=== PATIENT | male | born 1960 | race Caucasian/White ===

== ENCOUNTER → 2024-05-16 | Outpatient (CLI) | payer OTHER, SELFPAY ==
[2024-05-16 15:17] LABS: Absolute Lymphocyte Count 2.97 X10^3/uL (0.83-4.51); Absolute Neutrophil Count 4.6 X10^3/uL (2.0-7.7); Basophil# 0.05 X10^3/uL; Basophil% 0.6 % (0-1); Eosinophil# 0.55 X10^3/uL; Eosinophils% 6.3 % (0-5); Hematocrit 44.8 % (40-54); Lymphocyte # 2.97 X10^3/ul (0.83-4.51); Lymphocyte % 34.2 % (19-41); Mean Corp Hgb Conc 33.5 g/dL (32-36); Mean Corpuscular Hgb 31.1 pg (27.0-32.0); Mean Corpuscular Volume 92.9 fL (80-94); Mean Platelet Vol. 13.5 fl (6.2-12.0); Monocyte# 0.52 X10^3/uL; NRBC Flagged by Analyzer 0 % (0-5); Neutrophil # 4.57 X10^3/uL (2.7-7.7); Neutrophil % 52.6 % (47-70); Platelet Count 180 K/mm3 (150-450); RBC Distribution Width CV 13.4 % (11.6-14.6); RBC Distribution Width SD 45.8 fl (35.1-43.9); Red Blood Count 4.82 M/mm3 (4.6-6.2); White Blood Count 8.7 K/mm3 (4.4-11.0)
[2024-05-16 15:36] LABS: ALB/GLOB Ratio 0.8 RATIO (0.9-2.4); AST(SGOT) 23 U/L (15-37); Alanine Aminotransfer ALT/SGPT 47 U/L (16-61); Albumin, Serum 3.2 g/dL (3.2-5.0); Alkaline Phosphatase 67 U/L (45-117); Anion Gap 6 (5-15); BUN 13 mg/dL (7-18); BUN/Creat Ratio 12.6 RATIO (10-20); Calcium,Total 9.2 mg/dL (8.5-10.1); Chloride 105 mmol/L (98-107); Cholesterol 236 mg/dL (200); Creatinine, Serum 1.03 mg/dL (0.70-1.30); EST Glomerular Filtration Rate 77 mL/min (>60); Est Glom Filt Rate - Afr Amer 93 mL/min (>60); Globulin 3.9 g/dL (2.2-4.2); Glucose 109 mg/dL (74-106); High Density Lipoprotein 42 mg/dL; Potassium 4.3 mmol/L (3.5-5.1); Protein, Total 7.1 g/dL (6.4-8.2); Sodium Level 138 mmol/L (136-145); Triglycerides 166 mg/dL; Very Low Density Lipoprotein 33 mg/dL (5-40)
== END | disposition home or self-care (01) ==
LOC: BFHLAB 11:47
PROVIDERS: PCP Nurse Practitioner Family; Visit Provider Nurse Practitioner Family
DX: E78.5 Hyperlipidemia, unspecified (principal); I10 Essential (primary) hypertension; Z12.5 Encounter for screening for malignant neoplasm of prostate
CPT/HCPCS: 36415; 80053; 80061; 84153; 85025; G0103

== ENCOUNTER → 2024-06-05 | Outpatient (CLI) | payer OTHER, SELFPAY ==
--- NOTE | 2024-06-05 14:53 | RAD_ITS ---
EXAM: XR Pelvis, 1 or 2 Views CLINICAL INDICATION: PAIN TECHNIQUE: Frontal view of the pelvis. COMPARISON: No relevant prior studies available. FINDINGS: BONES/JOINTS: Mild degenerative change of the hip joints, bilaterally. No acute fracture. No dislocation. SOFT TISSUES: Unremarkable. GASTROINTESTINAL TRACT: Fecal retention in the colon consistent with constipation. RAD/Pelvis 1 or 2 Views IMPRESSION: 1. Degenerative changes as above. 2. Fecal retention in the colon consistent with constipation. Reading Location: [facility]
[2024-06-05 17:44] LABS: Absolute Lymphocyte Count 3.13 X10^3/uL (0.83-4.51); Absolute Neutrophil Count 4.5 X10^3/uL (2.0-7.7); Basophil# 0.08 X10^3/uL; Basophil% 0.9 % (0-1); Eosinophil# 0.93 X10^3/uL; Hematocrit 44.9 % (40-54); Hemoglobin 15.2 g/dL (13.0-16.5); Lymphocyte # 3.13 X10^3/ul (0.83-4.51); Lymphocyte % 33.7 % (19-41); Mean Corp Hgb Conc 33.9 g/dL (32-36); Mean Corpuscular Hgb 31.6 pg (27.0-32.0); Mean Corpuscular Volume 93.3 fL (80-94); Mean Platelet Vol. 13.9 fl (6.2-12.0); Monocyte# 0.59 X10^3/uL; Monocyte% 6.4 % (0-10); NRBC Flagged by Analyzer 0 % (0-5); Neutrophil # 4.51 X10^3/uL (2.7-7.7); Neutrophil % 48.5 % (47-70); Platelet Count 151 K/mm3 (150-450); RBC Distribution Width CV 13.6 % (11.6-14.6); RBC Distribution Width SD 46.3 fl (35.1-43.9); Red Blood Count 4.81 M/mm3 (4.6-6.2); White Blood Count 9.3 K/mm3 (4.4-11.0)
[2024-06-05 17:59] LABS: Erythrocyte Sedimentation Rate 7 mm/hr (0-20)
[2024-06-05 20:28] LABS: Hepatitis B Surface Antibody Nonreactive; Hepatitis B Surface Antigen Nonreactive (Nonreactive); Hepatitis C Antibody REAC (Nonreactive)
[2024-06-05 20:44] LABS: ALB/GLOB Ratio 1.4 RATIO (0.9-2.4); AST(SGOT) 20 U/L (<=37); Alanine Aminotransfer ALT/SGPT 21 U/L (<=46); Albumin, Serum 3.9 g/dL (3.4-4.8); Alkaline Phosphatase 88 U/L (40-129); Anion Gap 11 (5-15); BUN 13 mg/dL (4-19); BUN/Creat Ratio 13.3 RATIO (10-20); CRP 5.81 mg/L (0.0-3.0); Calcium,Total 9.2 mg/dL (7.6-11.0); Carbon Dioxide 30.4 mmol/L (21.0-32.0); Chloride 99 mmol/L (98-108); Creatinine, Serum 0.97 mg/dL (0.70-1.20); EST Glomerular Filtration Rate 87 (>60); Globulin 2.8 g/dL (2.2-4.2); Glucose 95 mg/dL (70-99); Potassium 3.9 mmol/L (3.3-5.1); Protein, Total 6.8 g/dL (5.9-8.4); Rheumatoid Factor 17.5 IU/mL (<15); Sodium Level 141 mmol/L (133-145); Total Bilirubin 0.19 mg/dL (0.00-1.30)
[2024-06-07 21:12] LABS: CCP IgG Antibodies 5 units (0-19); QNTFERON TB Mitogen Value > 10.00 IU/mL (.); QNTFERON TB Nil Value 0.09 IU/mL (.); QNTFERON TB1+ Ag Value 0.06 IU/mL (.); QNTFERON TB2+ Ag Value 0.08 IU/mL (.); QNTIFERON TB Positive Criteria Negative (Negative)
[2024-06-09 13:07] LABS: ANTINUCLEAR ANTIBODIES DIRECT Negative (Negative)
== END | disposition home or self-care (01) ==
LOC: MTLAB 14:51
PROVIDERS: PCP Nurse Practitioner Family; Referring Provider Internal Medicine Rheumatology; Visit Provider Internal Medicine Rheumatology
DX: L40.59 Other psoriatic arthropathy (principal); L40.8 Other psoriasis; M47.897 Other spondylosis, lumbosacral region; M25.559 Pain in unspecified hip
CPT/HCPCS: 36415; 72170; 80053; 85025; 85652; 86038; 86140; 86200; 86431; 86480; 86706; 86803; 87340

== ENCOUNTER → 2024-09-12 | Outpatient (CLI) | payer MEDICARE, SELFPAY ==
--- NOTE | 2024-09-12 15:43 | MRI_ITS ---
PROCEDURE: SPINE LUMBAR (ROUTINE) 09/12/2024 REASON FOR EXAM: RADICULOPATHY TECHNIQUE: SPINE LUMBAR (ROUTINE) COMPARISON: Radiographs on 06/05/2024. FINDINGS: S shaped degenerative scoliosis. Mild diffuse spondylosis. Mild multilevel degenerative disc disease. Uncomplicated benign chronic hemangioma of L4 vertebral body measuring 1.4 cm. Moderate chronic changes of Baastrup's disease. There is normal signal intensity from the visualized bone marrow without evidence of replacement or acute fracture. The conus is unremarkable. Exaggerated lumbar lordosis. Evaluation of the individual levels revealed the following: L5-S1: Mild diffuse disc bulge. Bilateral facet joint arthropathy. The spinal canal is not narrowed. Moderate bilateral neural foramina narrowing. L4-5: Grade 1 anterolisthesis measuring 5.3 mm. Moderate diffuse disc bulge. Bilateral facet joint arthropathy and ligamentum flavum hypertrophy. The spinal canal is mildly narrowed. Moderate bilateral neural foramina narrowing. L3-4: Mild diffuse disc bulge. Bilateral facet joint arthropathy and ligamentum flavum hypertrophy. The spinal canal is not narrowed. Moderate bilateral neural foramina narrowing. L2-3: Grade 1 retrolisthesis measuring 3.5 mm. Mild diffuse disc bulge. Bilateral facet joint arthropathy and ligamentum flavum hypertrophy. The spinal canal is not narrowed. Mild bilateral neural foramina narrowing. L1-2: Grade 1 anterolisthesis measuring 2.7 mm. Mild diffuse disc bulge. Bilateral facet joint arthropathy and ligamentum flavum hypertrophy. The spinal canal is not narrowed. Mild bilateral neural foramina narrowing. Normal visualized paraspinous soft tissue structures. MRI/Spine Lumbar (Routine) IMPRESSION: Degenerative disc disease. Reading Location: [place] [id number]
--- OUTSIDE RECORDS SUMMARY | 2024-09-12 19:30 | XMS RPT_ITS | CCD ---
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 Chayo aGo MD Attending Provider Murray COLLADO, Dr. Domingo Referring Provider Gurpreet COLLADO, Dr. Garzon Attending Provider [facility] Primary Care Unavailable Chayo Gao Referring Unavailable Chayo Gao Attending Unavailable GageElda Attending Unavailable [place], [place] Primary Care Unavailable [place], [place] Primary Care Unavailable Anamaria Holt Referring Unavailable Anamaria Holt Attending Unavailable [place], [place] Primary Care Unavailable Duran Vázquez Attending Unavailable Medications Current Medications Medication Drug Class(es) Dates Sig (Normalized) Sig (Original) 24 hr ALPRAZolam 0.5 mg extended release oral tablet (2 sources) Benzodiazepine take 1 tablet by mouth twice daily ALPRAZolam XR (Xanax XR) 0.5 mg 24 hr tablet Take 1 tablet (0.5 mg) by mouth 2 times a day. Do not crush, chew, or split. Active doxazosin 2 mg oral tablet (2 sources) alpha-Adrenergic John take 1 tablet by mouth once daily doxazosin (Cardura) 2 mg tablet Take 1 tablet (2 mg) by mouth once daily. Active hydroCHLOROthiazide 12.5 mg / lisinopril 10 mg oral tablet (2 sources) Thiazide Diuretic, Angiotensin Converting Enzyme Inhibitor take 1 tablet by mouth once daily lisinopriL-hydro chlorothiazide 10-12.5 mg tablet Indications: Benign essential HTN Take 1 tablet by mouth once daily. Active morphine sulfate 15 mg oral tablet (2 sources) Opioid Agonist take 1 tablet by mouth every eight hours as needed morphine (MSIR) 15 mg tablet Take 1 tablet (15 mg) by mouth every 8 hours if needed for severe pain (7 - 10). Active PARoxetine hydrochloride 20 mg oral tablet (2 sources) Serotonin Reuptake Inhibitor take 1 tablet by mouth once daily PARoxetine (Paxil) 20 mg tablet Take 1 tablet (20 mg) by mouth once daily. Active QUEtiapine 200 mg oral tablet (2 sources) Atypical Antipsychotic take 1 tablet by mouth once daily at bedtime QUEtiapine (SEROquel) 200 mg tablet Take 1 tablet (200 mg) by mouth once daily at bedtime. Active tamsulosin hydrochloride 0.4 mg oral capsule (2 sources) alpha-Adrenergic John take 1 capsule by mouth once daily tamsulosin (Flomax) 0.4 mg 24 hr capsule Take 1 capsule (0.4 mg) by mouth once daily. Active tiZANidine 4 mg oral capsule (2 sources) Central alpha-2 Adrenergic Agonist take 1 capsule by mouth every six hours tiZANidine (Zanaflex) 4 mg capsule Take 1 capsule (4 mg) by mouth. Every 6 hours for 30 days. Active Completed/Discontinued Medications Medication Drug Class(es) Dates Sig (Normalized) Sig (Original) 60 actuat testosterone 20.25 mg/actuat topical gel (1 source) Androgen End: 04-17-2024 testosterone 20.25 mg/1.25 gram (1.62 %) gel in metered-dose pump Place on the skin. One pump on each arm daily 04/17/2024 Discontinued (Med List Cleanup) Problems Active Problems Problem Classification Problem Date Documented Date Episodic/Chronic Anxiety disorders (6 sources) Posttraumatic stress disorder; Translations: [Post-traumatic stress disorder, unspecified] Onset: 04-17-2024 04-17-2024 Chronic Disorders of lipid metabolism (1 source) Hyperlipidemia, unspecified; Translations: [Hyperlipidemia, unspecified] Onset: 05-29-2024 Chronic Essential hypertension (5 sources) Benign essential hypertension; Translations: [Essential (primary) hypertension] Onset: 04-17-2024 04-17-2024 Chronic Hyperplasia of prostate (5 sources) Benign prostatic hyperplasia; Translations: [Benign prostatic hyperplasia without lower urinary tract symptoms] Onset: 04-17-2024 04-17-2024 Chronic Miscellaneous mental health disorders (5 sources) Acute insomnia; Translations: [Adjustment insomnia] Onset: 04-17-2024 04-17-2024 Episodic Neoplasms of unspecified nature or uncertain behavior (2 sources) Polycythemia vera (clinical); Translations: [Polycythemia vera] Onset: 06-13-2024 06-13-2024 Chronic Nutritional deficiencies (2 sources) Vitamin D deficiency, unspecified; Translations: [Vitamin D deficiency, unspecified] Onset: 04-17-2024 Chronic Nutritional deficiencies (3 sources) Dietary calcium deficiency; Translations: [Dietary calcium deficiency] Onset: 04-17-2024 04-17-2024 Episodic Osteoarthritis (6 sources) Osteoarthritis of multiple joints ; Translations: [Polyosteoarthritis, unspecified] Onset: 04-17-2024 04-17-2024 Chronic Other inflammatory condition of skin (2 sources) Psoriatic arthritis; Translations: [Arthropathic psoriasis, unspecified] Onset: 06-13-2024 06-13-2024 Chronic Other inflammatory condition of skin (1 source) Other psoriatic arthropathy; Translations: [Other psoriatic arthropathy] Onset: 06-16-2024 Chronic Other nervous system disorders (4 sources) Other chronic pain; Translations: [Other chronic pain] Onset: 04-17-2024 Chronic Other nutritional; endocrine; and metabolic disorders (3 sources) Obesity caused by energy imbalance; Translations: [Morbid (severe) obesity due to excess calories] Onset: 06-13-2024 04-22-2024 Chronic Other screening for suspected conditions (not mental disorders or infectious disease) (9 sources) Patient encounter status; Translations: [Encounter for screening for other suspected endocrine disorder] Onset: 04-17-2024 04-17-2024 Episodic Spondylosis; intervertebral disc disorders; other back problems (17 sources) Chronic low back pain; Translations: [Neck pain] Onset: 04-17-2024 04-29-2024 Episodic Unclassified (2 sources) Low back pain, unspecified; Translations: [Low back pain, unspecified] Onset: 04-17-2024 Past or Other Problems Problem Classification Problem Date Documented Da te Episodic/Chronic Unclassified (2 sources) Onset: 04-17-2024 04-17-2024 Unclassified (2 sources) Low back pain, unspecified; Translations: [Low back pain, unspecified] Onset: 04-17-2024 Results Test Name Value Interpretation Reference Range Facility Inital Evaluation (1) - PTon 08-13-2024 Inital Evaluation (1) - PT [facility] [address] [place] [address] / REHABILITATION SERVICES INITIAL EVALUATION MR#: [id number] Acct: [id number] Name: BRYSON NEWBERRY Rep #: [id number] : 1960 64 From: Prudencio Cleveland PT, Cert. T, OCS Referring Dr.: Dr. Anamaria Holt MD Status: REG RCR Insurance: [employer] PPO SELF PAY INSURANCE Patient's Visit Information Visit Information Visit Information: BRYSON NEWBERRY is a 64 year old M referred to Physical Therapy by Dr. Anamaria Holt MD with a diagnosis of NECK PAIN AND BACK PAIN. Date of Evaluation: 08/13/24 Physical Therapist: Prudencio Cleveland PT, Cert T, OCS Visit Plan Frequency: 2x /Week Duration: 4 Weeks Plan: PT INTERVENTIONS AQUATIC THERAPY FOR CERVICAL ROM ,POSTURAL EX'S ,DLS ,LUMBAR ROM , BLE STRENGTHENING AND ACTIVITY MODIFICATION Subjective Subjective: This 64 y/o male presents to physical therapy with neck and back pain. Patient has neck and back pain many years 2014. Patient symptoms worsen over time. Patient seen pain management via family .Prescribed meloxicam and muscle relaxers Patient Basli recommended PT and had x-rays showed cervical C5-6 greater than C4-5spondylosis/discogen ic change with disc space narrowing and anterior osteophyte formation. C6-7 disc space is not well evaluated due to shoulder overlap. Bekm-cmsvzur-tdjy-right hypertrophic appearing facet degenerative changes. lumbar showed mild grade 1 appearing anterolisthesis L4 onL5 measures approximately 3-4 mm with associated mild disc space narrowing. Lower lumbar facet degenerative changes . Patient neck pain located symmetrical L > R described as ache and stabbing pain. Patient has radicular symptoms in arms. Patient reports RTC tears. Aggravating factors turning ,flexion and lifting .Alleviating factors rest.C/o occasional dizziness ,BIGGS and tinnitus. Patient has paresthesia/tingling. Patient symptoms affects sleeping. Patient lumbar symmetrical described as ache with radicular symptoms right leg. Aggravating factors sitting,standing ,walking ,bending and lifting.Carrying something heavy grocery bags. Alleviating factors rest. Coughing/sneezing- .Bowel/bladder-. Patient pain affects sleeping takes sleeping aides. Patient has had therapy in [place]. Patient ahs had pain injections in [place] with pain management.Patient condition affects QOL and function. Patient goals to decrease pain SOCAIL: VOCATION: retired Pain Bilateral Neck: Pain Intensity (Out of 10): 5 Pain Intensity Range: 10 Bilateral Back: Pain Intensity (Out of 10): 5 Pain Intensity Range: 10 Objective Objective: POSTURE: mild forward posture GAIT: reciprocal pattern slow zach and antalgic NEURO: c/o paresthesia/tingling ,in arms and legs AROM: BUE WFL limited shoulder flexion with pain MMT: BUE grossly 4/5 ,shoulders 4-/5 CERVICAL ROM: flexion min loss ,extension mod loss ,rotation mod loss ,lateral mod loss FLEXABILITY: mod hamstrings LUMBAR ROM: flexion min/mod loss ,extension mod loss,side glides min/mod loss MMT: quads/hams 4/5 ,hip flexion 4-/5 ,ankle 4/5 Special Tests C/S Radiculapathy - Left Upper limb tension test: Negative C/S Radiculapathy - Right Upper limb tension test: Negative C/S Radiculapathy - Left Spurlings: Positive C/S Radiculapathy - Right Spurlings: Positive C/S Radiculapathy - Left Cervical distraction: Negative C/S Radiculapathy - Right Cervical distraction: Negative C/S Radiculapathy - Left Relief test: Negative Sharp Dahlia: Negative Vertebral Artery Test: Negative Alar Ligament Test: Negative L/S Slump test left side: Negative L/S Slump test right side: Negative L/S Left Straight Leg Raise: Negative L/S Right Straight Leg Raise: Negative Balance/Special Test Scores Oswestry Neck Score: 30 Goals Goal 1:: Patient to Aquatic Therapy. Goal Time Frame: 4-6 Weeks Goal 2:: Patient to demonstrate 50% improvement with neck and back pain to improve function . Goal Time Frame: 4-6 Weeks Goal 3:: Patient improve cervical ROM for function of recovery for drivig Goal Time Frame: 4-6 Weeks Goal 4:: Patient to improve lumbar ROM for function to put on shoes. Goal Time Frame: 4-6 Weeks Goal 5:: Patient to improve neck oswestry score by 5 points to improve function AND QOL Goal Time Frame: 4-6 Weeks Goal 6:: Patient to demonstrate 50% improvement with less pain and improved function Goal Time Frame: 4-6 Weeks Rehabilitation Potential Physical Therapy Diagnosis: This patient multiple complexity issue with pain in neck and lumbar which has been chronic in nature with pain with positioning ,motion testing worse with bending ,lifting walking and standing impairs ADLS and housework thus benefit from skilled PT Rehabilitation Potential: Fair Anticipated Interventions Patient/Client Instruction: Edu (more content not included)... Normal [facility] ANTINUCLEAR ANTIBODIES DIREC Ton 06-09-2024 ALO,DIRECT Negative Normal Negative [facility] Comment on above: Result Comment: Perf ormed at: [facility] [address] [id number] [place] Farmer: Josiah Cox PhD, Phone: [phone] Performed By: #### L 4600.0100, L3400.8000, L505.7010, L3890.6202, L100.0100, L501.6710, L500.4050, L101.9900, L3890.6301, L3100.5475, L3890.6102 #### [facility] [address] [place], [address] CCP IgG Antibodieson 025 CCP IgG Ab. 5 units Normal 0-19 [facility] Comment on above: Result Comment: Plea se Note: Specimen is lipemic. Negative <20 Weak positive 20 - 39 Moderate positive 40 - 59 Strong positive >59 Performed at: [facility] [id number] [place]: Josiah Cox PhD, Phone: [phone] Performed By: #### L 4600.0100, L3400.8000, L505.7010, L3890.6202, L100.0100, L501.6710, L500.4050, L101.9900, L3890.6301, L3100.5475, L3890.6102 #### [facility] [address] [place], [place], [id number] Quantiferon TB-Gold+on 06-07 QFT MITOGEN SHADE > 10.00 Normal . [facility] Comment on above: Performed By: #### L 4600.0100, L3400.8000, L505.7010, L3890.6202, L100.0100, L501.6710, L500.4050, L101.9900, L3890.6301, L3100.5475, L3890.6102 #### [facility] [address] [place], [address] QFT NIL VALUE 0.09 IU/mL Normal . [facility] Comment on above: Performed By: #### L 4600.0100, L3400.8000, L505.7010, L3890.6202, L100.0100, L501.6710, L500.4050, L101.9900, L3890.6301, L3100.5475, L3890.6102 #### [facility] [address] [place], [address] QFT TB GOLD+ Comment Normal . [facility] Comment on above: Result Comment: Gentry tiFERON-TB Gold Plus is a qualitative indirect test for M tuberculosis infection (including disease) and is intended for use in conjunction with risk assessment, radiography, and other medical and diagnostic evaluations. The QuantiFERON-TB Gold Plus result is determined by subtracting the Nil value from either TB antigen (Ag) value. The Mitogen tube serves as a control for the test. Performed By: #### L 4600.0100, L3400.8000, L505.7010, L3890.6202, L100.0100, L501.6710, L500.4050, L101.9900, L3890.6301, L3100.5475, L3890.6102 #### [facility] [address] [place], [address] QFT TB POS CRIT Negative Normal Negative [facility] Comment on above: Result Comment: No r esponse to M tuberculosis antigens detected. Infection with M tuberculosis is unlikely, but high risk individuals should be considered for additional testing (ATS/IDSA/CDC Clinical Practice Guidelines, 2017). The reference range is an Antigen minus Nil result of <0.35 IU/mL. The specimen received for QuantiFERON testing was incubated by the ordering institution. Specific procedures outlined in our Directory of Services and in the package insert for the QuantiFERON Gold (In Tube) test must be followed to enable for proper stimulation of cells for the production of interferon gamma. Chemiluminescence immunoassay methodology Performed By: #### L 4600.0100, L3400.8000, L505.7010, L3890.6202, L100.0100, L501.6710, L500.4050, L101.9900, L3890.6301, L3100.5475, L3890.6102 #### [facility] [address] [place], [address] QFT TB1+ AG SHADE 0.06 IU/mL Normal . [facility] Comment on above: Performed By: #### L 4600.0100, L3400.8000, L505.7010, L3890.6202, L100.0100, L501.6710, L500.4050, L101.9900, L3890.6301, L3100.5475, L3890.6102 #### [facility] [address] [place], [address] QFT TB2+ AG SHADE 0.08 IU/mL Normal . [facility] Comment on above: Performed By: #### L 4600.0100, L3400.8000, L505.7010, L3890.6202, L100.0100, L501.6710, L500.4050, L101.9900, L3890.6301, L3100.5475, L3890.6102 #### [facility] [address] [place], [place], [address] ALO serumOrdered By: Chayo lewis on 06-05-2024 Anti-Nuclear Antibody Screen Negative Negative [facility] Comment on above: Performed at: [facility] [place] [id number] Director: Josiah Cox PhD, Phone: [phone] Absolute neutrophil countOrd ered By: Chayo Gao on 06-05-2024 Neutrophils (Bld) [#/Vol] 4.5 10*3/uL 2.0-7.7 [facility] Anion gap in Serum or Plasma Ordered By: Chayo Gao on 06-05-2024 Anion gap [Moles/Vol] 11 mmol/L 5-15 [facility] BUN/creatinine ratioOrdered By: Chayo Gao on 06-05-2024 Urea nitrogen/Creatinine [Mass ratio] 13.3 mg/mg 10-20 [facility] Basophil percentageOrdered B y: Chayo Gao on 06-05-2024 Basophils/100 WBC (Bld) 0.9 % 0-1 [facility] Bilirubin, totalOrdered By: Chayo Gao on 06-05-2024 Bilirubin [Mass/Vol] 0.19 mg/dL 0.00-1.30 [facility] CBC W/Diff, Automatedon 05-24 Absolute Lymph 3.13 X10 3/uL Normal 0.83-4.51 [facility] Comment on above: Performed By: #### L 4600.0100, L3400.8000, L505.7010, L3890.6202, L100.0100, L501.6710, L500.4050, L101.9900, L3890.6301, L3100.5475, L3890.6102 #### [facility] [address] [place], [address] Absolute Neut 4.5 X10 3/uL Normal 2.0-7.7 [facility] Comment on above: Performed By: #### L 4600.0100, L3400.8000, L505.7010, L3890.6202, L100.0100, L501.6710, L500.4050, L101.9900, L3890.6301, L3100.5475, L3890.6102 #### [facility] [address] [place], [address] Basophils/100 WBC (Bld) 0.9 % Normal 0-1 [facility] Comment on above: Performed By: #### L 4600.0100, L3400.8000, L505.7010, L3890.6202, L100.0100, L501.6710, L500.4050, L101.9900, L3890.6301, L3100.5475, L3890.6102 #### [facility] [address] [place], [address] Eosinophils/100 WBC (Bld) 10.0 % High 0-5 [facility] Comment on above: Performed By: #### L 4600.0100, L3400.8000, L505.7010, L3890.6202, L100.0100, L501.6710, L500.4050, L101.9900, L3890.6301, L3100.5475, L3890.6102 #### [facility] [address] [place], [address] Erythrocyte distribution width (RBC) [Ratio] 13.6 % Normal 11.6-14.6 [facility] Comment on above: Performed By: #### L 4600.0100, L3400.8000, L505.7010, L3890.6202, L100.0100, L501.6710, L500.4050, L101.9900, L3890.6301, L3100.5475, L3890.6102 #### [facility] [address] [place], [address] (283 Hematocrit (Bld) [Volume fraction] 44.9 % Normal 40-54 [facility] Comment on above: Performed By: #### L 4600.0100, L3400.8000, L505.7010, L3890.6202, L100.0100, L501.6710, L500.4050, L101.9900, L3890.6301, L3100.5475, L3890.6102 #### [facility] [address] [place], [address] Hemoglobin (Bld) [Mass/Vol] 15.2 g/dL Normal 13.0-16.5 [facility] Comment on above: Performed By: #### L 4600.0100, L3400.8000, L505.7010, L3890.6202, L100.0100, L501.6710, L500.4050, L101.9900, L3890.6301, L3100.5475, L3890.6102 #### [facility] [address] [place], [address] (245 IG% 0.500 Normal 0.0-0.9 [facility] Comment on above: Result Comment: IG% - Immature Granulocytes (promyelocytes, myelocytes and metamyelocytes) > 1% indicates that a LEFT SHIFT is Present. Performed By: #### L 4600.0100, L3400.8000, L505.7010, L3890.6202, L100.0100, L501.6710, L500.4050, L101.9900, L3890.6301, L3100.5475, L3890.6102 #### [facility] [address] [place], [address] Lymphocytes/100 WBC (Bld) 33.7 % Normal 19-41 [facility] Comment on above: Performed By: #### L 4600.0100, L3400.8000, L505.7010, L3890.6202, L100.0100, L501.6710, L500.4050, L101.9900, L3890.6301, L3100.5475, L3890.6102 #### [facility] [address] [place], [address] MCH (RBC) [Entitic mass] 31.6 pg Normal 27.0-32.0 [facility] Comment on above: Performed By: #### L 4600.0100, L3400.8000, L505.7010, L3890.6202, L100.0100, L501.6710, L500.4050, L101.9900, L3890.6301, L3100.5475, L3890.6102 #### [facility] [address] [place], [address] MCHC (RBC) [Mass/Vol] 33.9 g/dL Normal 32-36 [facility] Comment on above: Performed By: #### L 4600.0100, L3400.8000, L505.7010, L3890.6202, L100.0100, L501.6710, L500.4050, L101.9900, L3890.6301, L3100.5475, L3890.6102 #### [facility] [address] [place], [address] MCV (RBC) [Entitic vol] 93.3 fL Normal 80-94 [facility] Comment on above: Performed By: #### L 4600.0100, L3400.8000, L505.7010, L3890.6202, L100.0100, L501.6710, L500.4050, L101.9900, L3890.6301, L3100.5475, L3890.6102 #### [facility] [address] [place], [address] Monocytes/100 WBC (Bld) 6.4 % Normal 0-10 [facility] Comment on above: Performed By: #### L 4600.0100, L3400.8000, L505.7010, L3890.6202, L100.0100, L501.6710, L500.4050, L101.9900, L3890.6301, L3100.5475, L3890.6102 #### [facility] [address] [place], [address] Neutrophils/100 WBC (Bld) 48.5 % Normal 47-70 [facility] Comment on above: Performed By: #### L 4600.0100, L3400.8000, L505.7010, L3890.6202, L100.0100, L501.6710, L500.4050, L101.9900, L3890.6301, L3100.5475, L3890.6102 #### [facility] [address] [place], [address] Nucleated RBC (Bld) [#/Vol] 0 10*3/uL Normal 0-5 [facility] Comment on above: Performed By: #### L 4600.0100, L3400.8000, L505.7010, L3890.6202, L100.0100, L501.6710, L500.4050, L101.9900, L3890.6301, L3100.5475, L3890.6102 #### [facility] [address] [place], [address] Platelet mean volume (Bld) [Entitic vol] 13.9 fL High 6.2-12.0 [facility] Comment on above: Performed By: #### L 4600.0100, L3400.8000, L505.7010, L3890.6202, L100.0100, L501.6710, L500.4050, L101.9900, L3890.6301, L3100.5475, L3890.6102 #### [facility] [address] [place], [address] Platelets (Bld) [#/Vol] 151 10*3/uL Normal 150-450 [facility] Comment on above: Performed By: #### L 4600.0100, L3400.8000, L505.7010, L3890.6202, L100.0100, L501.6710, L500.4050, L101.9900, L3890.6301, L3100.5475, L3890.6102 #### [facility] [address] [place], [address] RBC (Bld) [#/Vol] 4.81 10*6/uL Normal 4.6-6.2 [facility] Comment on above: Performed By: #### L 4600.0100, L3400.8000, L505.7010, L3890.6202, L100.0100, L501.6710, L500.4050, L101.9900, L3890.6301, L3100.5475, L3890.6102 #### [facility] [address] [place], [address] RDW SD 46.3 fl High 35.1-43.9 [facility] Comment on above: Performed By: #### L 4600.0100, L3400.8000, L505.7010, L3890.6202, L100.0100, L501.6710, L500.4050, L101.9900, L3890.6301, L3100.5475, L3890.6102 #### [facility] [address] [place], [address] WBC (Bld) [#/Vol] 9.3 10*3/uL Normal 4.4-11.[address] [facility] Comment on above: Performed By: #### L 4600.0100, L3400.8000, L505.7010, L3890.6202, L100.0100, L501.6710, L500.4050, L101.9900, L3890.6301, L3100.5475, L3890.6102 #### [facility] [address] [place], [address] CRPon 06-05-2024 C-REACTIVE PROT 5.81 mg/L High 0.0-3.0 [facility] Comment on above: Performed By: #### L 4600.0100, L3400.8000, L505.7010, L3890.6202, L100.0100, L501.6710, L500.4050, L101.9900, L3890.6301, L3100.5475, L3890.6102 #### [facility] [address] [place], [address] CRP [Mass/Vol]Ordered By: Joesph Gao on 06-05-2024 C-Reactive Protein Extended Range 5.81 mg/L High 0.0-3.0 [facility] Carbon dioxide, total [Moles /volume] in Central venous bloodOrdered By: Chayo Gao on 06-05-2024 CO2 [Moles/Vol] 30.4 mmol/L 21.0-32.0 [facility] Cerv Spine 2 or 3 Viewson Cerv Spine 2 or 3 Views [facility] [address] [place], [place] [address] Cerv Spine 2 or 3 Views MR#: [id number] Acct: [id number] Name: BRYSON NEWBERRY Rep #: [id number] : 1960 M 63 From: Steven Rojas MD PCP: MARIE Segundo Status: DEP AMB Study: Cerv Spine 2 or 3 Views Date of Exam: 06/05/24 Exam# [id number] Ordering Dr: Anamaria Holt MD PROCEDURE: CERV SPINE 2 OR 3 VIEWS REASON FOR EXAM: HX OF NECK PAIN TECHNIQUE: 2 views of the cervical spine. AP and lateral COMPARISON: None. FINDINGS: Cervical spine is visualized from the skull base to the top of C7 on the lateral view. Straightening may represent positioning or spasm. No fracture or malalignment identified. No prevertebral soft tissue swelling. C5-6 greater than C4-5 spondylosis/discogenic change with disc space narrowing and anterior osteophyte formation. C6-7 disc space is not well evaluated due to shoulder overlap. Hatx-lcokkjs-ihoz-right hypertrophic appearing facet degenerative changes. Suggestion of possible bilateral carotid calcification. The visualized apices appear unremarkable. RAD/Cerv Spine 2 or 3 Views IMPRESSION: Cervical spondylosis/discogenic change as visualized as described above.. Reading Location: [id number] CC: MARIE Almonte; Dr. Anamaria Holt MD Bioanalyst: Signed Normal [facility] Chloride assayOrdered By: Joesph Gao on 06-05-2024 Chloride [Moles/Vol] 99 mmol/L 98-108 [facility] Comprehensive Metabolic Prof ilon 06-05-2024 Albumin [Mass/Vol] 3.9 g/dL Normal 3.4-4.[address] [facility] Comment on above: Performed By: #### L 4600.0100, L3400.8000, L505.7010, L3890.6202, L100.0100, L501.6710, L500.4050, L101.9900, L3890.6301, L3100.5475, L3890.6102 #### [facility] [address] [place], [address] Albumin/Globulin [Mass ratio] 1.4 {ratio} Normal 0.9-2.4 [facility] Comment on above: Performed By: #### L 4600.0100, L3400.8000, L505.7010, L3890.6202, L100.0100, L501.6710, L500.4050, L101.9900, L3890.6301, L3100.5475, L3890.6102 #### [facility] [address] [place], [address] ALK PHOS 88 U/L Normal 40-129 [facility] Comment on above: Performed By: #### L 4600.0100, L3400.8000, L505.7010, L3890.6202, L100.0100, L501.6710, L500.4050, L101.9900, L3890.6301, L3100.5475, L3890.6102 #### [facility] [address] [place], [place], [id number] ALT [Catalytic activity/Vol] 21 U/L Normal <=46 [facility] Comment on above: Performed By: #### L 4600.0100, L3400.8000, L505.7010, L3890.6202, L100.0100, L501.6710, L500.4050, L101.9900, L3890.6301, L3100.5475, L3890.6102 #### [facility] [address] [place], [place], [id number] AST [Catalytic activity/Vol] 20 U/L Normal <=37 [facility] Comment on above: Performed By: #### L 4600.0100, L3400.8000, L505.7010, L3890.6202, L100.0100, L501.6710, L500.4050, L101.9900, L3890.6301, L3100.5475, L3890.6102 #### [facility] [address] [place], [place], [id number] Bilirubin [Mass/Vol] 0.19 mg/dL Normal 0.00-1.30 [facility] Comment on above: Performed By: #### L 4600.0100, L3400.8000, L505.7010, L3890.6202, L100.0100, L501.6710, L500.4050, L101.9900, L3890.6301, L3100.5475, L3890.6102 #### [facility] [address] [place], [address] BUN/CRE 13.3 RATIO Normal 10-20 [facility] Comment on above: Performed By: #### L 4600.0100, L3400.8000, L505.7010, L3890.6202, L100.0100, L501.6710, L500.4050, L101.9900, L3890.6301, L3100.5475, L3890.6102 #### [facility] [address] [place], [place], [id number] (692) Calcium [Mass/Vol] 9.2 mg/dL Normal 7.6-11.[address] [facility] Comment on above: Performed By: #### L 4600.0100, L3400.8000, L505.7010, L3890.6202, L100.0100, L501.6710, L500.4050, L101.9900, L3890.6301, L3100.5475, L3890.6102 #### [facility] [address] [place], [address] Chloride [Moles/Vol] 99 mmol/L Normal 98-108 [facility] Comment on above: Performed By: #### L 4600.0100, L3400.8000, L505.7010, L3890.6202, L100.0100, L501.6710, L500.4050, L101.9900, L3890.6301, L3100.5475, L3890.6102 #### [facility] [address] [place], [address] CO2 [Moles/Vol] 30.4 mmol/L Normal 21.0-32.0 [facility] Comment on above: Performed By: #### L 4600.0100, L3400.8000, L505.7010, L3890.6202, L100.0100, L501.6710, L500.4050, L101.9900, L3890.6301, L3100.5475, L3890.6102 #### [facility] [address] [place], [place], [id number] Creatinine [Mass/Vol] 0.97 mg/dL Normal 0.70-1.20 [facility] Comment on above: Performed By: #### L 4600.0100, L3400.8000, L505.7010, L3890.6202, L100.0100, L501.6710, L500.4050, L101.9900, L3890.6301, L3100.5475, L3890.6102 #### [facility] [address] [place], [place], [id number] GAP 11 Normal 5-15 [facility] Comment on above: Performed By: #### L 4600.0100, L3400.8000, L505.7010, L3890.6202, L100.0100, L501.6710, L500.4050, L101.9900, L3890.6301, L3100.5475, L3890.6102 #### [facility] [address] [place], [place], [id number] GFR/1.73 sq M.predicted among non-blacks MDRD (S/P/Bld) [Vol rate/Area] 87 mL/min/{1.73_m2} Normal >60 [facility] Comment on above: Result Comment: mL/m in/1.73m2 CKD-EPI Creatinine Equation (2020) Performed By: #### L 4600.0100, L3400.8000, L505.7010, L3890.6202, L100.0100, L501.6710, L500.4050, L101.9900, L3890.6301, L3100.5475, L3890.6102 #### [facility] [address] [place], [address] Globulin (S) [Mass/Vol] 2.8 g/dL Normal 2.2-4.2 [facility] Comment on above: Performed By: #### L 4600.0100, L3400.8000, L505.7010, L3890.6202, L100.0100, L501.6710, L500.4050, L101.9900, L3890.6301, L3100.5475, L3890.6102 #### [facility] [address] [place], [address] Glucose [Mass/Vol] 95 mg/dL Normal 70-[address] [facility] Comment on above: Performed By: #### L 4600.0100, L3400.8000, L505.7010, L3890.6202, L100.0100, L501.6710, L500.4050, L101.9900, L3890.6301, L3100.5475, L3890.6102 #### [facility] [address] [place], [address] Potassium [Moles/Vol] 3.9 mmol/L Normal 3.3-5.1 [facility] Comment on above: Performed By: #### L 4600.0100, L3400.8000, L505.7010, L3890.6202, L100.0100, L501.6710, L500.4050, L101.9900, L3890.6301, L3100.5475, L3890.6102 #### [facility] [address] [place], [address] Sodium [Moles/Vol] 141 mmol/L Normal 133-[address] [facility] Comment on above: Performed By: #### L 4600.0100, L3400.8000, L505.7010, L3890.6202, L100.0100, L501.6710, L500.4050, L101.9900, L3890.6301, L3100.5475, L3890.6102 #### [facility] [address] [place], [address] T PROT 6.8 g/dL Normal 5.9-8.4 [facility] Comment on above: Performed By: #### L 4600.0100, L3400.8000, L505.7010, L3890.6202, L100.0100, L501.6710, L500.4050, L101.9900, L3890.6301, L3100.5475, L3890.6102 #### [facility] [address] [place], [address] Urea nitrogen [Mass/Vol] 13 mg/dL Normal 4-19 [facility] Comment on above: Performed By: #### L 4600.0100, L3400.8000, L505.7010, L3890.6202, L100.0100, L501.6710, L500.4050, L101.9900, L3890.6301, L3100.5475, L3890.6102 #### [facility] [address] [place], [address] Cyclic citrullinated peptide IgG QnOrdered By: Chayo Gao on 06-05-2024 Cyclic Citrullinated Peptide IgG Ab 5 units 0-19 [facility] Comment on above: Please Note: Specime n is lipemic. Negative <20 Weak positive 20 - 39 Moderate positive 40 - 59 Strong positive >59Performed at: - [facility] [id number] Director: Josiah Cox PhD, Phone: [phone] Eosinophil percentageOrdered By: Chayo Gao on 06-05-2024 Eosinophils/100 WBC (Bld) 10.0 % High 0-5 [facility] Erythrocyte Sed Rateon 06-05 SED RATE 7 mm/hr Normal 0-20 [facility] Comment on above: Performed By: #### L 4600.0100, L3400.8000, L505.7010, L3890.6202, L100.0100, L501.6710, L500.4050, L101.9900, L3890.6301, L3100.5475, L3890.6102 #### [facility] [address] [place], [address] Erythrocyte distribution wid th ratioOrdered By: Chayo Gao on 06-05-2024 Erythrocyte distribution width (RBC) [Ratio] 13.6 % 11.6-14.6 [facility] Erythrocyte distribution wid th standard deviationOrdered By: [facility] on 06-05-2024 Erythrocyte distribution width (RBC) [Entitic vol] 46.3 fL High 35.1-43.9 [facility] Erythrocyte sedimentation ra teOrdered By: Chayo Gao on 06-05-2024 ESR (Bld) [Velocity] 7 mm/h 0-20 [facility] GFR/1.73 sq M.predicted jaleesa g non-blacks MDRD (S/P/Bld) [Vol rate/Area]Ordered By: Chayo Gao on 06-05-2024 Estimated GFR (MDRD) Non-Af Amer 87 >60 [facility] Comment on above: mL/min/1.73m2 CKD-EP I Creatinine Equation (2020) HBV surface Ab Ql (S)Ordered By: Chayo Gao on 06-05-2024 Hepatitis B Surface Antibody Non-Reactive [facility] Comment on above: <8.5 mIU/mL: Non-[place] ctive8.5<= x <11.5 mIU/mL: Indeterminate>=11.5 mIU/mL: Reactive Non Reactive: Inconsistent with immunity less than <10 mIU/mL Reactive: Consistent with immunity greater than or equal to 10 mIU/mL HBV surface Ag Ql (S)Ordered By: Chayo Gao on 06-05-2024 Hepatitis B Surface Antigen Non-Reactive Nonreactive [facility] Comment on above: Reactive: Presumptiv e evidence of HBV. Repeatedly reactive samples must be confirmed using a neutralization test ([employer] HBsAg Confirmatory Test)Non-Reactive: HBsAg not detected; does not exclude the possibility of exposure to HBV Hematocrit Auto (Bld) [Volum e fraction]Ordered By: Chayo Gao on 06-05-2024 Hematocrit (Bld) [Volume fraction] 44.9 % 40-54 [facility] Hemoglobin measurementOrdere d By: Chayo Gao on 06-05-2024 Hemoglobin (Bld) [Mass/Vol] 15.2 g/dL 13.0-16.5 [facility] Hepatitis C antibodyOrdered By: Chayo Gao on 06-05-2024 Hepatitis C Antibody REAC Nonreactive [facility] Comment on above: Reactive: Presumptiv e evidence of antibodies to HCV. Follow CDC recommendations for supplemental testing.Non-Reactive: Antibodies to HCV were not detected; does not exclude the possibility of exposure to HCVReactive Results are presumptive evidence of antibodies to HCV. Follow CDC recommendations for supplemental testing.Order confirmation testing: HCV Quant by PCR testing - HCVPCR #[id number] Non Reactive: < 0.8 Equivocal: >/= 0.8 to < 1.0 Reactive: >/= 1.0The [facility] requires that a reactive/equivocal HCV antibody result be sent out for confirmation. HCV Quant by PCR testing. Immature granulocytes/100 WB C Auto (Bld)Ordered By: Chayo Gao on 06-05-2024 Immature granulocytes/100 WBC (Bld) 0.500 % 0.0-0.9 [facility] Comment on above: IG% - Immature Granu locytes (promyelocytes, myelocytes and metamyelocytes) > 1% indicates that a LEFT SHIFT is Present. L3890.6102on 06-05-2024 HEP B Surf Ag Non-Reactive Normal Nonreactive [facility] Comment on above: Result Comment: Reac tive: Presumptive evidence of HBV. Repeatedly reactive samples must be confirmed using a neutralization test ([employer] HBsAg Confirmatory Test) Non-Reactive: HBsAg not detected; does not exclude the possibility of exposure to HBV Performed By: #### L 4600.0100, L3400.8000, L505.7010, L3890.6202, L100.0100, L501.6710, L500.4050, L101.9900, L3890.6301, L3100.5475, L3890.6102 #### [facility] [address] [facility] [place], [address] L3890.6202on 06-05-2024 HEP B Surf Ab Non-Reactive Normal [facility] Comment on above: Result Comment: <8.5 mIU/mL: Non-Reactive 8.5<= x <11.5 mIU/mL: Indeterminate >=11.5 mIU/mL: Reactive Non Reactive: Inconsistent with immunity less than <10 mIU/mL Reactive: Consistent with immunity greater than or equal to 10 mIU/mL Performed By: #### L 4600.0100, L3400.8000, L505.7010, L3890.6202, L100.0100, L501.6710, L500.4050, L101.9900, L3890.6301, L3100.5475, L3890.6102 #### [facility] [address] [place], [place], [id number] L3890.6301on 06-05-2024 Hepatitis C Ab REAC Normal Nonreactive [facility] Comment on above: Result Comment: Reac tive: Presumptive evidence of antibodies to HCV. Follow CDC recommendations for supplemental testing. Non-Reactive: Antibodies to HCV were not detected; does not exclude the possibility of exposure to HCV Reactive Results are presumptive evidence of antibodies to HCV. Follow CDC recommendations for supplemental testing. Order confirmation testing: HCV Quant by PCR testing - HCVPCR #[id number] Non Reactive: < 0.8 Equivocal: >/= 0.8 to < 1.0 Reactive: >/= 1.0 The CDC requires that a reactive/equivocal HCV antibody result be sent out for confirmation. HCV Quant by PCR testing. Performed By: #### L 4600.0100, L3400.8000, L505.7010, L3890.6202, L100.0100, L501.6710, L500.4050, L101.9900, L3890.6301, L3100.5475, L3890.6102 #### [facility] [address] [place], [place], [id number] Laboratory - Chemistry and C hemistry - challengeOrdered By: Chayo Gao on 06-05-2024 AST [Catalytic activity/Vol] 20 U/L <38 [facility] Lumbar Spine 2 or 3 Viewson 06-05-2024 Lumbar Spine 2 or 3 Views [facility] [address] [place] [address] Lumbar Spine 2 or 3 Views MR#: [id number] Acct: [id number] Name: BRYSON NEWBERRY Rep #: [id number] : 1960 M 63 From: Steven Rojas MD PCP: DAYDAY SegundoC Status: DEP AMB Study: Lumbar Spine 2 or 3 Views Date of Exam: Exam# [id number] Ordering Dr: Anamaria Holt MD PROCEDURE: LUMBAR SPINE 2 OR 3 VIEWS REASON FOR EXAM: HX OF BACK PAIN TECHNIQUE: 2 view(s) of the lumbar spine, AP and lateral COMPARISON: None. FINDINGS: 5 lce-afr-tzyhpvg lumbar vertebral type bodies identified. No fracture identified. Mild grade 1 appearing anterolisthesis L4 on L5 measures approximately 3-4 mm with associated mild disc space narrowing. Lower lumbar facet degenerative changes suggested. The disc spaces otherwise appear within limits. RAD/Lumbar Spine 2 or 3 Views IMPRESSION: L4-5 spondylosis/discogenic change with anterolisthesis as above.. Reading Location: [facility] CC: FORMING MACHINE [employer]PK[employer] MECHANIC-C Elda Almonte; Dr. Anamaria Holt MD Bioanalyst: Signed Normal [facility] Lymphocytes Auto (Unsp spec) [#/Vol]Ordered By: Chayo Gao on 06-05-2024 Lymphocytes (Bld) [#/Vol] 3.13 10*3/uL 0.83-4.51 [facility] Lymphocytes/100 WBC Auto (Un sp spec)Ordered By: Chayo Gao on 06-05-2024 Lymphocytes/100 WBC (Bld) 33.7 % 19-41 [facility] M. tuberculosis tuberculin s kaia IFN-g Ql (Bld)Ordered By: Chayo Gao on 06-05-2024 TB Test (QFT) Antigen 1 0.06 IU/mL . [facility] MCV (mean corpuscular volume ) determinationOrdered By: Chayo Gao on 06-05-2024 MCV (RBC) [Entitic vol] 93.3 fL 80-94 [facility] Mean corpuscular hemoglobin (MCH) determinationOrdered By: Chayo Gao on 06-05-2024 MCH (RBC) [Entitic mass] 31.6 pg 27.0-32.0 [facility] Mean corpuscular hemoglobin concentration (MCHC) determinationOrdered By: Chayo Gao on 06-05-2024 MCHC (RBC) [Mass/Vol] 33.9 g/dL 32-36 [facility] Mean platelet volume determi nationOrdered By: Chayo Gao on 06-05-2024 Platelet mean volume (Bld) [Entitic vol] 13.9 fL High 6.2-12.0 [facility] Monocyte percentageOrdered B y: Chayo Gao on 06-05-2024 Monocytes/100 WBC (Bld) 6.4 % 0-10 [facility] Neutrophil percentageOrdered By: Chayo Gao on 06-05-2024 Neutrophils/100 WBC (Bld) 48.5 % 47-70 [facility] Nucleated red blood cell per centageOrdered By: Chayo Gao on 06-05-2024 Nucleated RBC/100 WBC (Bld) [Ratio] 0 % 0-5 [facility] Pelvis 1 or 2 Viewson 2024 Pelvis 1 or 2 Views [facility] [address] [place] [address] Pelvis 1 or 2 Views MR#: [id number] Acct: [id number] Name: BRYSON NEWBERRY Rep #: [id number] : 1960 M 63 From: Sam Johnson MD PCP: MARIE Segundo Status: REG CLI Study: Pelvis 1 or 2 Views Date of Exam: 06/05/24 Exam# [id number] Ordering Dr: Chayo Gao MD EXAM: XR Pelvis, 1 or 2 Views CLINICAL INDICATION: PAIN TECHNIQUE: Frontal view of the pelvis. COMPARISON: No relevant prior studies available. FINDINGS: BONES/JOINTS: Mild degenerative change of the hip joints, bilaterally. No acute fracture. No dislocation. SOFT TISSUES: Unremarkable. GASTROINTESTINAL TRACT: Fecal retention in the colon consistent with constipation. RAD/Pelvis 1 or 2 Views IMPRESSION: 1. Degenerative changes as above. 2. Fecal retention in the colon consistent with constipation. Reading Location: [facility] CC: MARIE Almonte; Dr. Chayo Gao MD Bioanalyst: Signed Normal [facility] Platelet countOrdered By: Joesph Gao on 06-05-2024 Platelets (Bld) [#/Vol] 151 10*3/uL 150-450 [facility] Potassium (Unsp spec) [Mass/ Vol]Ordered By: Chayo Goa on 06-05-2024 Potassium [Moles/Vol] 3.9 mmol/L 3.3-5.1 [facility] Quantiferon-TB Gold Plus eulogio tOrdered By: Chayo Gao on 06-05-2024 TB Test (QFT) Comment . [facility] Comment on above: QuantiFERON-TB Gold Plus is a qualitative indirect test forM tuberculosis infection (including disease) and isintended for use in conjunction with risk assessment,radiography, and other medical and diagnostic evaluations.The QuantiFERON-TB Gold Plus result is determined bysubtracting the Nil value from either TB antigen (Ag)value. The Mitogen tube serves as a control for the test. TB Test (QFT) Antigen 2 0.08 IU/mL . [facility] TB Test (QFT) Mitogen > 10.00 IU/mL . [facility] TB Test (QFT) Nil 0.09 IU/mL . [facility] TB Test (QFT) Positive Criteria Negative Negative [facility] Comment on above: No response to M tub erculosis antigens detected.Infection with M tuberculosis is unlikely, but high riskindividuals should be considered for additional testing(ATS/IDSA/CDC Clinical Practice Guidelines, 2017). Thereference range is an Antigen minus Nil result of <0.35IU/mL.The specimen received for QuantiFERON testing was incubatedby the ordering institution. Specific procedures outlinedin our Directory of Services and in the package insert forthe QuantiFERON Gold (In Tube) test must be followed toenable for proper stimulation of cells for the productionof interferon gamma. Chemiluminescence immunoassaymethodology RBC Auto (Bld) [#/Vol]Ordere d By: Chayo Gao on 06-05-2024 RBC (Bld) [#/Vol] 4.81 10*6/uL 4.6-6.2 [facility] Rheumatoid Factoron 06-06-19 25 RHEUMATOID FAC 17.5 IU/mL High <15 [facility] Comment on above: Performed By: #### L 4600.0100, L3400.8000, L505.7010, L3890.6202, L100.0100, L501.6710, L500.4050, L101.9900, L3890.6301, L3100.5475, L3890.6102 #### [facility] [address] [place], [place], [id number] Rheumatoid factor Ql (S)Orde red By: Chayo Gao on 06-05-2024 Rheumatoid Factor 17.5 IU/mL High <15 [facility] Serum creatinine measurement (mass/volume)Ordered By: Chayo Goa on 06-05-2024 Creatinine [Mass/Vol] 0.97 mg/dL 0.70-1.20 [facility] Serum globulin measurementOr dered By: Chayo Gao on 06-05-2024 Globulin (S) [Mass/Vol] 2.8 g/dL 2.2-4.2 [facility] Serum glucose measurement (m ass/volume)Ordered By: Chayo Gao on 06-05-2024 Glucose [Mass/Vol] 95 mg/dL 70-[address] [facility] Serum or plasma alanine sarabia otransferase (ALT) measurementOrdered By: Chayo Gao on 06-05-2024 ALT [Catalytic activity/Vol] 21 U/L <47 [facility] Serum or plasma albumin bala urement (mass/volume)Ordered By: Chayo Gao on 06-05-2024 Albumin [Mass/Vol] 3.9 g/dL 3.4-4.[address] [facility] Serum or plasma albumin/glob ulin mass ratioOrdered By: Chayo Gao on 06-05-2024 Albumin/Globulin [Mass ratio] 1.4 {ratio} 0.9-2.4 [facility] Serum or plasma alkaline tara sphatase measurementOrdered By: Chayo Gao on 06-05-2024 ALP [Catalytic activity/Vol] 88 U/L 40-129 [facility] Serum or plasma calcium bala urement (mass/volume)Ordered By: Chayo Gao on 06-05-2024 Calcium [Mass/Vol] 9.2 mg/dL 7.6-11.[address] [facility] Serum or plasma urea nitroge n measurement (mass/volume)Ordered By: Chayo Gao on 06-05-2024 Urea nitrogen [Mass/Vol] 13 mg/dL 4-19 [facility] Sodium levelOrdered By: Lang Gao on 06-05-2024 Sodium [Moles/Vol] 141 mmol/L 133-[address] [facility] Total proteinOrdered By: Anabel Gao on 06-05-2024 Protein [Mass/Vol] 6.8 g/dL 5.9-8.[address] [facility] White blood cell (WBC) count Ordered By: Chayo Gao on 06-05-2024 WBC (Bld) [#/Vol] 9.3 10*3/uL 4.4-11.[address] [facility] Absolute neutrophil countOrd ered By: Elda Almonte on 05-16-2024 Neutrophils (Bld) [#/Vol] 4.6 10*3/uL 2.0-7.7 [facility] Albumin to globulin ratioOrd ered By: Elda Almonte on 05-16-2024 Albumin/Globulin [Mass ratio] 0.8 {ratio} Low 0.9-2.4 [facility] Basophil percentageOrdered B y: Elda Almonte on 05-16-2024 Basophils/100 WBC (Bld) 0.6 % 0-1 [facility] Bilirubin, totalOrdered By: Elda Almonet on 05-16-2024 Bilirubin [Mass/Vol] 0.40 mg/dL 0.20-1.00 [facility] Comment on above: For patients on eltr ombopag therapy, use of Dimension [place] TBIL is not recommended. Blood urea nitrogen (BUN)/cr eatinine ratioOrdered By: Elda Almonte on 05-16-2024 Urea nitrogen/Creatinine [Mass ratio] 12.6 mg/mg - [facility] CBC W/Diff, Automatedon 02- Absolute Lymph 2.97 X10 3/uL Normal 0.83-4.51 [facility] Comment on above: Performed By: #### L 4600.0100, L3400.8000, L505.7010, L3890.6202, L100.0100, L501.6710, L500.4050, L101.9900, L3890.6301, L3100.5475, L3890.6102 #### [facility] [address] [place], [address] Absolute Neut 4.6 X10 3/uL Normal 2.0-7.7 [facility] Comment on above: Performed By: #### L 4600.0100, L3400.8000, L505.7010, L3890.6202, L100.0100, L501.6710, L500.4050, L101.9900, L3890.6301, L3100.5475, L3890.6102 #### [facility] [address] [place], [address] Basophils/100 WBC (Bld) 0.6 % Normal 0-1 [facility] Comment on above: Performed By: #### L 4600.0100, L3400.8000, L505.7010, L3890.6202, L100.0100, L501.6710, L500.4050, L101.9900, L3890.6301, L3100.5475, L3890.6102 #### [facility] [address] [place], [address] Eosinophils/100 WBC (Bld) 6.3 % High 0-5 [facility] Comment on above: Performed By: #### L 4600.0100, L3400.8000, L505.7010, L3890.6202, L100.0100, L501.6710, L500.4050, L101.9900, L3890.6301, L3100.5475, L3890.6102 #### [facility] [address] [place], [address] Erythrocyte distribution width (RBC) [Ratio] 13.4 % Normal 11.6-14.6 [facility] Comment on above: Performed By: #### L 4600.0100, L3400.8000, L505.7010, L3890.6202, L100.0100, L501.6710, L500.4050, L101.9900, L3890.6301, L3100.5475, L3890.6102 #### [facility] [address] [place], [address] Hematocrit (Bld) [Volume fraction] 44.8 % Normal 40-54 [facility] Comment on above: Performed By: #### L 4600.0100, L3400.8000, L505.7010, L3890.6202, L100.0100, L501.6710, L500.4050, L101.9900, L3890.6301, L3100.5475, L3890.6102 #### [facility] [address] [place], [address] Hemoglobin (Bld) [Mass/Vol] 15.0 g/dL Normal 13.0-16.5 [facility] Comment on above: Performed By: #### L 4600.0100, L3400.8000, L505.7010, L3890.6202, L100.0100, L501.6710, L500.4050, L101.9900, L3890.6301, L3100.5475, L3890.6102 #### [facility] [address] [place], [address] ( IG% 0.300 Normal 0.0-0.9 [facility] Comment on above: Result Comment: IG% - Immature Granulocytes (promyelocytes, myelocytes and metamyelocytes) > 1% indicates that a LEFT SHIFT is Present. Performed By: #### L 4600.0100, L3400.8000, L505.7010, L3890.6202, L100.0100, L501.6710, L500.4050, L101.9900, L3890.6301, L3100.5475, L3890.6102 #### [facility] [address] [place], [address] Lymphocytes/100 WBC (Bld) 34.2 % Normal 19-41 [facility] Comment on above: Performed By: #### L 4600.0100, L3400.8000, L505.7010, L3890.6202, L100.0100, L501.6710, L500.4050, L101.9900, L3890.6301, L3100.5475, L3890.6102 #### [facility] [address] [place], [address] MCH (RBC) [Entitic mass] 31.1 pg Normal 27.0-32.0 [facility] Comment on above: Performed By: #### L 4600.0100, L3400.8000, L505.7010, L3890.6202, L100.0100, L501.6710, L500.4050, L101.9900, L3890.6301, L3100.5475, L3890.6102 #### [facility] [address] [place], [address] MCHC (RBC) [Mass/Vol] 33.5 g/dL Normal 32-36 [facility] Comment on above: Performed By: #### L 4600.0100, L3400.8000, L505.7010, L3890.6202, L100.0100, L501.6710, L500.4050, L101.9900, L3890.6301, L3100.5475, L3890.6102 #### [facility] [address] [facility] [place], [address] MCV (RBC) [Entitic vol] 92.9 fL Normal 80-94 [facility] Comment on above: Performed By: #### L 4600.0100, L3400.8000, L505.7010, L3890.6202, L100.0100, L501.6710, L500.4050, L101.9900, L3890.6301, L3100.5475, L3890.6102 #### [facility] [address] [facility] [place], [address] Monocytes/100 WBC (Bld) 6.0 % Normal 0-10 [facility] Comment on above: Performed By: #### L 4600.0100, L3400.8000, L505.7010, L3890.6202, L100.0100, L501.6710, L500.4050, L101.9900, L3890.6301, L3100.5475, L3890.6102 #### [facility] [address] [facility] [place], [address] Neutrophils/100 WBC (Bld) 52.6 % Normal 47-70 [facility] Comment on above: Performed By: #### L 4600.0100, L3400.8000, L505.7010, L3890.6202, L100.0100, L501.6710, L500.4050, L101.9900, L3890.6301, L3100.5475, L3890.6102 #### [facility] [address] [facility] [place], [address] Nucleated RBC (Bld) [#/Vol] 0 10*3/uL Normal 0-5 [facility] Comment on above: Performed By: #### L 4600.0100, L3400.8000, L505.7010, L3890.6202, L100.0100, L501.6710, L500.4050, L101.9900, L3890.6301, L3100.5475, L3890.6102 #### [facility] [address] [place], [place], [id number] (044) Platelet mean volume (Bld) [Entitic vol] 13.5 fL High 6.2-12.0 [facility] Comment on above: Performed By: #### L 4600.0100, L3400.8000, L505.7010, L3890.6202, L100.0100, L501.6710, L500.4050, L101.9900, L3890.6301, L3100.5475, L3890.6102 #### [facility] [address] [place], [address] (925) Platelets (Bld) [#/Vol] 180 10*3/uL Normal 150-450 [facility] Comment on above: Performed By: #### L 4600.0100, L3400.8000, L505.7010, L3890.6202, L100.0100, L501.6710, L500.4050, L101.9900, L3890.6301, L3100.5475, L3890.6102 #### [facility] [address] [place], [place], [id number] (098) RBC (Bld) [#/Vol] 4.82 10*6/uL Normal 4.6-6.2 [facility] Comment on above: Performed By: #### L 4600.0100, L3400.8000, L505.7010, L3890.6202, L100.0100, L501.6710, L500.4050, L101.9900, L3890.6301, L3100.5475, L3890.6102 #### [facility] [address] [place], [place], [id number] (771) RDW SD 45.8 fl High 35.1-43.9 [facility] Comment on above: Performed By: #### L 4600.0100, L3400.8000, L505.7010, L3890.6202, L100.0100, L501.6710, L500.4050, L101.9900, L3890.6301, L3100.5475, L3890.6102 #### [facility] [address] [place], [place], [id number] WBC (Bld) [#/Vol] 8.7 10*3/uL Normal 4.4-11.[address] [facility] Comment on above: Performed By: #### L 4600.0100, L3400.8000, L505.7010, L3890.6202, L100.0100, L501.6710, L500.4050, L101.9900, L3890.6301, L3100.5475, L3890.6102 #### [facility] [address] [place], [place], [id number] Carbon dioxide measurementOr dered By: Elda Almonte on 05-16-2024 CO2 [Moles/Vol] 27.0 mmol/L 21.0-32.0 [facility] Chloride measurementOrdered By: Elda Almonte on 05-16-2024 Chloride [Moles/Vol] 105 mmol/L 98-107 [facility] Comprehensive Metabolic Prof ilon 05-16-2024 Albumin [Mass/Vol] 3.2 g/dL Normal 3.2-5.[address] [facility] Comment on above: Performed By: #### L 4600.0100, L3400.8000, L505.7010, L3890.6202, L100.0100, L501.6710, L500.4050, L101.9900, L3890.6301, L3100.5475, L3890.6102 #### [facility] [address] [place], [place], [id number] Albumin/Globulin [Mass ratio] 0.8 {ratio} Low 0.9-2.4 [facility] Comment on above: Performed By: #### L 4600.0100, L3400.8000, L505.7010, L3890.6202, L100.0100, L501.6710, L500.4050, L101.9900, L3890.6301, L3100.5475, L3890.6102 #### [facility] [address] [place], [place], [id number] ALK P 67 U/L Normal 45-117 [facility] Comment on above: Performed By: #### L 4600.0100, L3400.8000, L505.7010, L3890.6202, L100.0100, L501.6710, L500.4050, L101.9900, L3890.6301, L3100.5475, L3890.6102 #### [facility] [address] [place], [place], [id number] ALT [Catalytic activity/Vol] 47 U/L Normal 16-61 [facility] Comment on above: Performed By: #### L 4600.0100, L3400.8000, L505.7010, L3890.6202, L100.0100, L501.6710, L500.4050, L101.9900, L3890.6301, L3100.5475, L3890.6102 #### [facility] [address] [place], [place], [id number] AST [Catalytic activity/Vol] 23 U/L Normal 15-37 [facility] Comment on above: Performed By: #### L 4600.0100, L3400.8000, L505.7010, L3890.6202, L100.0100, L501.6710, L500.4050, L101.9900, L3890.6301, L3100.5475, L3890.6102 #### [facility] [address] [place], [place], [id number] Bilirubin [Mass/Vol] 0.40 mg/dL Normal 0.20-1.00 [facility] Comment on above: Result Comment: For patients on eltrombopag therapy, use of Dimension [place] TBIL is not recommended. Performed By: #### L 4600.0100, L3400.8000, L505.7010, L3890.6202, L100.0100, L501.6710, L500.4050, L101.9900, L3890.6301, L3100.5475, L3890.6102 #### [facility] [address] [place], [address] BUN/CRE 12.6 RATIO Normal 10-20 [facility] Comment on above: Performed By: #### L 4600.0100, L3400.8000, L505.7010, L3890.6202, L100.0100, L501.6710, L500.4050, L101.9900, L3890.6301, L3100.5475, L3890.6102 #### [facility] [address] [place], [address] CA,Total 9.2 mg/dL Normal 8.5-10.1 [facility] Comment on above: Performed By: #### L 4600.0100, L3400.8000, L505.7010, L3890.6202, L100.0100, L501.6710, L500.4050, L101.9900, L3890.6301, L3100.5475, L3890.6102 #### [facility] [address] [place], [address] Chloride [Moles/Vol] 105 mmol/L Normal 98-107 [facility] Comment on above: Performed By: #### L 4600.0100, L3400.8000, L505.7010, L3890.6202, L100.0100, L501.6710, L500.4050, L101.9900, L3890.6301, L3100.5475, L3890.6102 #### [facility] [address] [place], [place], [id number] (438) CO2 [Moles/Vol] 27.0 mmol/L Normal 21.0-32.0 [facility] Comment on above: Performed By: #### L 4600.0100, L3400.8000, L505.7010, L3890.6202, L100.0100, L501.6710, L500.4050, L101.9900, L3890.6301, L3100.5475, L3890.6102 #### [facility] [address] [place], [place], [id number] (248) Creatinine [Mass/Vol] 1.03 mg/dL Normal 0.70-1.30 [facility] Comment on above: Result Comment: The validity of the calculated GFR GFRAA in patients over 70 years has not been determined. Clinical correlation is essential. Performed By: #### L 4600.0100, L3400.8000, L505.7010, L3890.6202, L100.0100, L501.6710, L500.4050, L101.9900, L3890.6301, L3100.5475, L3890.6102 #### [facility] [address] [place], [place], [id number] (383) EST GFR - AA 93 mL/min Normal >60 [facility] Comment on above: Result Comment: Afri can Bolivian GFR Calc Performed By: #### L 4600.0100, L3400.8000, L505.7010, L3890.6202, L100.0100, L501.6710, L500.4050, L101.9900, L3890.6301, L3100.5475, L3890.6102 #### [facility] [address] [place], [address] GAP 6 Normal 5-15 [facility] Comment on above: Performed By: #### L 4600.0100, L3400.8000, L505.7010, L3890.6202, L100.0100, L501.6710, L500.4050, L101.9900, L3890.6301, L3100.5475, L3890.6102 #### [facility] [address] [place], [place], [id number] (480) GFR/1.73 sq M.predicted among non-blacks MDRD (S/P/Bld) [Vol rate/Area] 77 mL/min/{1.73_m2} Normal >60 [facility] Comment on above: Result Comment: Non- GFR Calc Performed By: #### L 4600.0100, L3400.8000, L505.7010, L3890.6202, L100.0100, L501.6710, L500.4050, L101.9900, L3890.6301, L3100.5475, L3890.6102 #### [facility] [address] [place], [place], [id number] Globulin (S) [Mass/Vol] 3.9 g/dL Normal 2.2-4.2 [facility] Comment on above: Performed By: #### L 4600.0100, L3400.8000, L505.7010, L3890.6202, L100.0100, L501.6710, L500.4050, L101.9900, L3890.6301, L3100.5475, L3890.6102 #### [facility] [address] [place], [place], [id number] Glucose [Mass/Vol] 109 mg/dL High 74-[address] [facility] Comment on above: Result Comment: Fast ing Glucose result from 100 to 125 mg/dL suggests IMPAIRED HOMEOSTASIS per A.D.A. criteria. Performed By: #### L 4600.0100, L3400.8000, L505.7010, L3890.6202, L100.0100, L501.6710, L500.4050, L101.9900, L3890.6301, L3100.5475, L3890.6102 #### [facility] [address] [place], [address] Potassium [Moles/Vol] 4.3 mmol/L Normal 3.5-5.1 [facility] Comment on above: Performed By: #### L 4600.0100, L3400.8000, L505.7010, L3890.6202, L100.0100, L501.6710, L500.4050, L101.9900, L3890.6301, L3100.5475, L3890.6102 #### [facility] [address] [place], [address] Sodium [Moles/Vol] 138 mmol/L Normal 136-[address] [facility] Comment on above: Performed By: #### L 4600.0100, L3400.8000, L505.7010, L3890.6202, L100.0100, L501.6710, L500.4050, L101.9900, L3890.6301, L3100.5475, L3890.6102 #### [facility] [address] [place], [place], [id number] (844) T PROT 7.1 g/dL Normal 6.4-8.2 [facility] Comment on above: Performed By: #### L 4600.0100, L3400.8000, L505.7010, L3890.6202, L100.0100, L501.6710, L500.4050, L101.9900, L3890.6301, L3100.5475, L3890.6102 #### [facility] [address] [place], [address] Urea nitrogen [Mass/Vol] 13 mg/dL Normal 7-18 [facility] Comment on above: Performed By: #### L 4600.0100, L3400.8000, L505.7010, L3890.6202, L100.0100, L501.6710, L500.4050, L101.9900, L3890.6301, L3100.5475, L3890.6102 #### [facility] [place], [address] Eosinophil percentageOrdered By: Elda Almonte on 05-16-2024 Eosinophils/100 WBC (Bld) 6.3 % High 0-5 [facility] Erythrocyte distribution wid th ratioOrdered By: [facility] Erythrocyte distribution width (RBC) [Ratio] 13.4 % 11.6-14.6 [facility] Erythrocyte distribution wid th standard deviationOrdered By: [facility] on 05-16-2024 Erythrocyte distribution width (RBC) [Entitic vol] 45.8 fL High 35.1-43.9 [facility] Estimated glomerular filtrat ion rate (GFR) AmericanOrdered By: Eldachiquita Almonte on 05-16-2024 Estimated GFR (MDRD) Amer 93 mL/min >60 [facility] Comment on above: GFR Calc Glomerular filtration rate ( GFR) estimationOrdered By: Eldachiquita Almonte on 05-16-2024 Estimated GFR (MDRD) Non-Af Amer 77 mL/min >60 [facility] Comment on above: Non- GFR Calc Glucose measurementOrdered B y: Elda Almonte on 05-16-2024 Glucose [Mass/Vol] 109 mg/dL High 74-[address] [facility] Comment on above: Fasting Glucose resu lt from 100 to 125 mg/dL suggests IMPAIRED HOMEOSTASIS per A.D.A. criteria. Hematocrit Auto (Bld) [Volum e fraction]Ordered By: Elda Almonte on 05-16-2024 Hematocrit (Bld) [Volume fraction] 44.8 % 40-54 [facility] Hemoglobin measurementOrdere d By: Elda Almonte on 05-16-2024 Hemoglobin (Bld) [Mass/Vol] 15.0 g/dL 13.0-16.5 [facility] High density lipoprotein (HD L) measurementOrdered By: Elda Almonte on 05-16-2024 Cholesterol in HDL [Mass/Vol] 42 mg/dL >40 [facility] Comment on above: The drugs N-Acetylcy steine and Metamizole may falsely depress this assay. Reference Range HDL <40 mg/dL Low HDL Cholesterol HDL >or= 60 mg/dL High HDL Cholesterol Immature granulocytes/100 WB C Auto (Bld)Ordered By: Elda Almonte on 05-16-2024 Immature granulocytes/100 WBC (Bld) 0.300 % 0.0-0.9 [facility] Comment on above: IG% - Immature Granu locytes (promyelocytes, myelocytes and metamyelocytes) > 1% indicates that a LEFT SHIFT is Present. Laboratory - Chemistry and C hemistry - challengeOrdered By: Elda Almonte on 05-16-2024 AST [Catalytic activity/Vol] 23 U/L 15-37 [facility] Lipid Profileon 05-16-2024 Cholesterol [Mass/Vol] 236 mg/dL High 200 [facility] Comment on above: Result Comment: <200 mg/dL Desirable 200-240 mg/dL Borderline >240 mg/dL High Risk Performed By: #### L 4600.0100, L3400.8000, L505.7010, L3890.6202, L100.0100, L501.6710, L500.4050, L101.9900, L3890.6301, L3100.5475, L3890.6102 #### [facility] [address] [facility] [place], [address] Cholesterol in HDL [Mass/Vol] 42 mg/dL Normal [facility] Comment on above: Result Comment: The drugs N-Acetylcysteine and Metamizole may falsely depress this assay. Reference Range HDL <40 mg/dL Low HDL Cholesterol HDL >or= 60 mg/dL High HDL Cholesterol Performed By: #### L 4600.0100, L3400.8000, L505.7010, L3890.6202, L100.0100, L501.6710, L500.4050, L101.9900, L3890.6301, L3100.5475, L3890.6102 #### [facility] [address] [place], [address] Cholesterol in LDL [Mass/Vol] 161 mg/dL High 0-130 [facility] Comment on above: Performed By: #### L 4600.0100, L3400.8000, L505.7010, L3890.6202, L100.0100, L501.6710, L500.4050, L101.9900, L3890.6301, L3100.5475, L3890.6102 #### [facility] [address] [place], [place], [id number] (198) Cholesterol in VLDL [Mass/Vol] 33 mg/dL Normal 5-40 [facility] Comment on above: Performed By: #### L 4600.0100, L3400.8000, L505.7010, L3890.6202, L100.0100, L501.6710, L500.4050, L101.9900, L3890.6301, L3100.5475, L3890.6102 #### [facility] [address] [place], [place], [id number] (827) Triglyceride [Mass/Vol] 166 mg/dL Normal [facility] Comment on above: Result Comment: The drugs N-Acetylcysteine and Metamizole may falsely depress this assay. Serum Triglycerides Reference Interval Normal <150 mg/dL Borderline high 150 - 199 mg/dL High 200 - 499 mg/dL Very High > or = 500 mg/dL Performed By: #### L 4600.0100, L3400.8000, L505.7010, L3890.6202, L100.0100, L501.6710, L500.4050, L101.9900, L3890.6301, L3100.5475, L3890.6102 #### [facility] [address] [place], [address] Low density lipoprotein (LDL ) cholesterol measurementOrdered By: Elda Almonte on 05-16-2024 Cholesterol in LDL [Mass/Vol] 161 mg/dL High 0-130 [facility] Lymphocytes Auto (Unsp spec) [#/Vol]Ordered By: Elda Almonte on 05-16-2024 Lymphocytes (Bld) [#/Vol] 2.97 10*3/uL 0.83-4.51 [facility] Lymphocytes/100 WBC Auto (Un sp spec)Ordered By: Elda Almonte on 05-16-2024 Lymphocytes/100 WBC (Bld) 34.2 % 19-41 [facility] MCV (mean corpuscular volume ) determinationOrdered By: Elda Gage on 05-16-2024 MCV (RBC) [Entitic vol] 92.9 fL 80-94 [facility] Mean corpuscular hemoglobin (MCH) determinationOrdered By: [facility] 05-16-2024 MCH (RBC) [Entitic mass] 31.1 pg 27.0-32.0 [facility] Mean corpuscular hemoglobin concentration (MCHC) determinationOrdered By: Eldachiquita Almonte on 05-16-2024 MCHC (RBC) [Mass/Vol] 33.5 g/dL 32-36 [facility] Mean platelet volume determi nationOrdered By: [place] Gage on 05-16-2024 Platelet mean volume (Bld) [Entitic vol] 13.5 fL High 6.2-12.0 [facility] Monocyte percentageOrdered B y: Elda Almonte on 05-16-2024 Monocytes/100 WBC (Bld) 6.0 % 0-10 [facility] Neutrophil percentageOrdered By: [place] Gage on 05-16-2024 Neutrophils/100 WBC (Bld) 52.6 % 47-70 [facility] Nucleated red blood cell per centageOrdered By: [facility] on 05-16-2024 Nucleated RBC/100 WBC (Bld) [Ratio] 0 % 0-5 [facility] PSA,Total - Annual Screenon 05-16-2024 PSA,TOT SCREEN 4.40 ng/mL High 0.00-4.00 [facility] Comment on above: Result Comment: This test was performed using the TPSA assay method for the [employer] chemistry system. Values obtained with different assay methods cannot be used interchangably. When changing PSA assays in the course of monitoring a patient, additional sequential testing should be carried out to confirm baseline values. Performed By: #### L 4600.0100, L3400.8000, L505.7010, L3890.6202, L100.0100, L501.6710, L500.4050, L101.9900, L3890.6301, L3100.5475, L3890.6102 #### [facility] [address] [place], [address] Platelet countOrdered By: Ra blanca Almonte on 05-16-2024 Platelets (Bld) [#/Vol] 180 10*3/uL 150-450 [facility] Potassium measurementOrdered By: Elda Almonte on 05-16-2024 Potassium [Moles/Vol] 4.3 mmol/L 3.5-5.1 [facility] RBC Auto (Bld) [#/Vol]Ordere d By: Elda Almonte on 05-16-2024 RBC (Bld) [#/Vol] 4.82 10*6/uL 4.6-6.2 [facility] Screening prostate specific antigen (PSA) measurementOrdered By: Elda Almonte on 05-16-2024 Prostate Specific Antigen Screen 4.40 ng/mL High 0.00-4.00 [facility] Comment on above: This test was perfor med using the TPSA assay method [facility]. Values obtained with differentassay methods cannot be used interchangably.When changing PSA assays in the course of monitoring apatient, additional sequential testing should be carriedout to confirm baseline values. Serum anion gap measurementO rdered By: Elda Almonte on 05-16-2024 Anion gap [Moles/Vol] 6 mmol/L 5-15 [facility] Serum globulin measurementOr dered By: Elda Almonte on 05-16-2024 Globulin (S) [Mass/Vol] 3.9 g/dL 2.2-4.2 [facility] Serum or plasma alanine sarabia otransferase (ALT) measurementOrdered By: Elda Almonte on 05-16-2024 ALT [Catalytic activity/Vol] 47 U/L 16-61 [facility] Serum or plasma albumin bala urement (mass/volume)Ordered By: Elda Almonte on 05-16-2024 Albumin [Mass/Vol] 3.2 g/dL 3.2-5.[address] [facility] Serum or plasma alkaline tara sphatase measurementOrdered By: Elda Almonte on 05-16-2024 ALP [Catalytic activity/Vol] 67 U/L 45-117 [facility] Serum or plasma calcium bala urement (mass/volume)Ordered By: Elda Almonte on 05-16-2024 Calcium [Mass/Vol] 9.2 mg/dL 8.5-10.[address] [facility] Serum or plasma cholesterol measurement (mass/volume)Ordered By: Elda Almonte on 05-16-2024 Cholesterol [Mass/Vol] 236 mg/dL High <200 [facility] Comment on above: <200 mg/dL Desirable 200-240 mg/dL Borderline >240 mg/dL High Risk Serum or plasma creatinine m easurement (mass/volume)Ordered By: Elda Almonte on 05-16-2024 Creatinine [Mass/Vol] 1.03 mg/dL 0.70-1.30 [facility] Comment on above: The validity of the calculated GFR & GFRAA in patients over 70 years has not been determined. Clinical correlation is essential. Serum or plasma urea nitroge n measurement (mass/volume)Ordered By: Elda Almonte on 05-16-2024 Urea nitrogen [Mass/Vol] 13 mg/dL 7-18 [facility] Sodium levelOrdered By: Ashley Almonte on 05-16-2024 Sodium [Moles/Vol] 138 mmol/L 136-[address] [facility] Total proteinOrdered By: Thuy Almonte on 05-16-2024 Protein [Mass/Vol] 7.1 g/dL 6.4-8.[address] [facility] Triglycerides measurementOrd ered By: Elda Almonte on 05-16-2024 Triglyceride [Mass/Vol] 166 mg/dL <199 [facility] Comment on above: The drugs N-Acetylcy steine and Metamizole may falsely depress this assay.Serum Triglycerides Reference Interval Normal <150 mg/dL Borderline high 150 - 199 mg/dL High 200 - 499 mg/dL Very High > or = 500 mg/dL Very low density lipoprotein (VLDL) cholesterol measurementOrdered By: Elda Almonte on 05-16-2024 VLDL Cholesterol 33 mg/dL 5-40 [facility] White blood cell (WBC) count Ordered By: Elda Almonte on 05-16-2024 WBC (Bld) [#/Vol] 8.7 10*3/uL 4.4-11.[address] [facility] 25-hydroxyvitamin D3 [Mass/V ol]on 04-22-2024 25-hydroxyvitamin D [Mass/Vol] 34 ng/mL 30 - 100 ng/mL [facility] Comment on above: Vitamin D Status 25- [place] Vitamin D: Deficiency: <20 ng/mL Insufficiency: 20 - 29 ng/mL Optimal: > or = 30 ng/mL For 25-OH Vitamin D testing on patients on D2-supplementation and patients for whom quantitation of D2 and D3 fractions is required, the QuestAssureD(TM) 25-OH VIT D, (D2,D3), LC/MS/MS is recommended: order code 44218 (patients >2yrs). See Note 1 Note 1 For additional information, please refer to http://education.cookdinner/faq/FNM817 (This link is being provided for informational/ educational purposes only.) CBC (INCLUDES DIFF/PLT)on Basophils (Bld) [#/Vol] 0.016 10*3/uL Normal 0-200 [facility] Comment on above: Performed By: #### 9 2665, 7909, [address], 49855, 49605, 7600, 6399 #### [facility] [address], [address] [place] [id number] Heading Pinner: Salvador Parekh MD Basophils/100 WBC (Bld) 0.2 % Normal [facility] Comment on above: Performed By: #### 9 2665, 7909, 575[address], 59555, 17491, 7600, 6399 #### [facility] [address] [place] [address] Heading Pinner: Salvador Parekh MD Eosinophils (Bld) [#/Vol] 0.178 10*3/uL Normal 15-500 [facility] Comment on above: Performed By: #### 9 2665, 7909, 82115, 44541, 93969, 7600, 6399 #### [facility] [place] [address] Heading Pinner: Salvador Parekh MD Eosinophils/100 WBC (Bld) 2.2 % Normal [facility] Comment on above: Performed By: #### 9 2665, 7909, 86317, 85021, 51791, 7600, 6399 #### [facility] [place] [address] Heading Pinner: Salvador Parekh MD Erythrocyte distribution width (RBC) [Ratio] 13.8 % Normal 11.0-15.0 [facility] Comment on above: Performed By: #### 9 2665, 7909, 29046, 47300, 10546, 7600, 6399 #### [facility] [place] [address] Heading Pinner: Salvador Parekh MD Hematocrit (Bld) [Volume fraction] 49.4 % Normal 38.5-50.0 [facility] Comment on above: Performed By: #### 9 2665, 7909, 49438, 68047, 31447, 7600, 6399 #### [facility] [place] [address] Heading Pinner: Salvador Parekh MD Hemoglobin (Bld) [Mass/Vol] 16.4 g/dL Normal 13.2-17.1 [facility] Comment on above: Performed By: #### 9 2665, 7909, 72409, 20638, 77014, 7600, 6399 #### [facility] [place] [address] Heading Pinner: Salvador Parekh MD Lymphocytes (Bld) [#/Vol] 2.341 10*3/uL Normal 850-3900 [facility] Comment on above: Performed By: #### 9 2665, 7909, 25351, 41219, 33748, 7600, 6399 #### [facility] [place] [address] Heading Pinner: Salvador Parekh MD Lymphocytes/100 WBC (Bld) 28.9 % Normal [facility] Comment on above: Performed By: #### 9 2665, 7909, 76816, 19816, 24270, 7600, 6399 #### [facility] [place] [address] Heading Pinner: Salvador Parekh MD MCH (RBC) [Entitic mass] 30.5 pg Normal 27.0-33.0 [facility] Comment on above: Performed By: #### 9 2665, 7909, 15570, 83645, 46322, 7600, 6399 #### [facility] of [address], [address] [place] [address] Heading Pinner: Salvador Parekh MD MCHC (RBC) [Mass/Vol] 33.2 g/dL Normal 32.0-36.[address] [facility] Comment on above: Result Comment: For adults, a slight decrease in the calculated MCHC value (in the range of 30 to 32 g/dL) is most likely not clinically significant; however, it should be interpreted with caution in correlation with other red cell parameters and the patient's clinical condition. Performed By: #### 9 2665, 7909, 34974, 31299, 31188, 7600, 6399 #### [facility] [place] [address] Heading Pinner: Salvador Parekh MD MCV (RBC) [Entitic vol] 91.8 fL Normal 80.0-100.0 [facility] Comment on above: Performed By: #### 9 2665, 7909, 53870, 91974, 25407, 7600, 6399 #### [facility] [place] [address] Heading Pinner: Salvador Parekh MD Monocytes (Bld) [#/Vol] 0.47 10*3/uL Normal 200-950 [facility] Comment on above: Performed By: #### 9 2665, 7909, 08127, 45368, 61182, 7600, 6399 #### [facility] of [address], [address] [place] [address] Heading Pinner: Salvador Parekh MD Monocytes/100 WBC (Bld) 5.8 % Normal [facility] Comment on above: Performed By: #### 9 2665, 7909, 87747, 45552, 90947, 7600, 6399 #### [facility] of [place] [address] Heading Pinner: Salvador Parekh MD Neutrophils (Bld) [#/Vol] 5.095 10*3/uL Normal 1209-9162 [facility] Comment on above: Performed By: #### 9 2665, 7909, 15084, 28423, 80072, 7600, 6399 #### [facility] of [place] [address] Heading Pinner: Salvador Parekh MD Neutrophils/100 WBC (Bld) 62.9 % Normal [facility] Comment on above: Performed By: #### 9 2665, 7909, 80820, 44726, 74806, 7600, 6399 #### [facility] of [place] [address] Heading Pinner: Salvador Parekh MD Platelet mean volume (Bld) [Entitic vol] 13.7 fL High 7.5-12.5 [facility] Comment on above: Performed By: #### 9 2665, 7909, 89498, 21038, 42973, 7600, 6399 #### [facility] of [address], [address] [place] [address] Heading Pinner: Salvador Parekh MD Platelets (Bld) [#/Vol] 156 10*3/uL Normal 140-400 [facility] Comment on above: Performed By: #### 9 2665, 7909, 37091, 93505, 90737, 7600, 6399 #### [facility] of [place] [address] Heading Pinner: Salvador Parekh MD RBC (Bld) [#/Vol] 5.38 10*6/uL Normal 4.20-5.80 [facility] Comment on above: Performed By: #### 9 2665, 7909, 55850, 05068, 96823, 7600, 6399 #### [facility] [address] [facility], [address] [place] [address] Heading Pinner: Salvador Parekh MD WBC (Bld) [#/Vol] 8.1 10*3/uL Normal 3.8-10.8 [facility] Comment on above: Performed By: #### 9 2665, 7909, 80628, 79669, 53122, 7600, 6399 #### [facility] [address] [place] [address], [address] [place] [address] Heading Pinner: Salvador Parekh MD CBC W Auto Differential pane l (Bld)on 04-22-2024 Basophils (Bld) [#/Vol] 16 10*3/uL [facility] Basophils/100 WBC (Bld) 0.2 % [facility] Eosinophils (Bld) [#/Vol] 178 10*3/uL [facility] Eosinophils/100 WBC (Bld) 2.2 % [facility] Erythrocyte distribution width (RBC) [Ratio] 13.8 % 11.0 - 15.0 % [facility] Hematocrit (Bld) [Volume fraction] 49.4 % 38.5 - 50.0 % [facility] Hemoglobin (Bld) [Mass/Vol] 16.4 g/dL 13.2 - 17.1 g/dL [facility] Lymphocytes (Bld) [#/Vol] 2341 10*3/uL [facility] Lymphocytes/100 WBC (Bld) 28.9 % [facility] MCH (RBC) [Entitic mass] 30.5 pg 27.0 - 33.0 pg [facility] MCHC (RBC) [Mass/Vol] 33.2 g/dL 32.0 - 36.0 g/dL [facility] Comment on above: For adults, a slight decrease in the calculated MCHC value (in the range of 30 to 32 g/dL) is most likely not clinically significant; however, it should be interpreted with caution in correlation with other red cell parameters and the patient's clinical condition. MCV (RBC) [Entitic vol] 91.8 fL 80.0 - 100.0 fL [facility] Monocytes (Bld) [#/Vol] 470 10*3/uL [facility] Monocytes/100 WBC (Bld) 5.8 % [facility] Neutrophils (Bld) [#/Vol] 5095 10*3/uL [facility] Neutrophils/100 WBC (Bld) 62.9 % [facility] Platelet mean volume (Bld) [Entitic vol] 13.7 fL High 7.5 - 12.5 fL [facility] Platelets (Bld) [#/Vol] 156 10*3/uL [facility] RBC (Bld) [#/Vol] 5.38 10*6/uL [facility] WBC (Bld) [#/Vol] 8.1 10*3/uL [facility] COMPREHENSIVE METABOLIC PANE L W/ANION GAPon 04-22-2024 Albumin [Mass/Vol] 4.5 g/dL Normal 3.6-5.1 [facility] Comment on above: Performed By: #### 9 2665, 7909, 61663, 81283, 11630, 7600, 6399 #### [facility] [place] [address] Heading Pinner: Salvador Parekh MD ALP [Catalytic activity/Vol] 67 U/L Normal 35-144 [facility] Comment on above: Performed By: #### 9 2665, 7909, 67795, 81017, 13729, 7600, 6399 #### [facility] [address] [address] Heading Pinner: Salvador Parekh MD ALT [Catalytic activity/Vol] 18 U/L Normal 9-46 [facility] Comment on above: Performed By: #### 9 2665, 7909, 06282, 76092, 46010, 7600, 6399 #### [facility] [address], [address] [place] [address] Heading Pinner: Salvador Parekh MD AST [Catalytic activity/Vol] 15 U/L Normal 10-35 [facility] Comment on above: Performed By: #### 9 2665, 7909, 90832, 15848, 44411, 7600, 6399 #### [facility] [place] [address] Heading Pinner: Salvador Parekh MD Bilirubin [Mass/Vol] 0.5 mg/dL Normal 0.2-1.2 [facility] Comment on above: Performed By: #### 9 2665, 7909, 76518, 63343, 34510, 7600, 6399 #### [facility] [place] [address] Heading Pinner: Salvador Parekh MD Calcium [Mass/Vol] 9.7 mg/dL Normal 8.6-10.3 [facility] Comment on above: Performed By: #### 9 2665, 7909, 84500, 07203, 50014, 7600, 6399 #### [facility] of [place] [address] Heading Pinner: Salvador Parekh MD Chloride [Moles/Vol] 102 mmol/L Normal 98-110 [facility] Comment on above: Performed By: #### 9 2665, 7909, 53648, 37233, 17704, 7600, 6399 #### [facility] of [place] [address] Heading Pinner: Salvador Parekh MD CO2 [Moles/Vol] 27 mmol/L Normal 20-32 [facility] Comment on above: Performed By: #### 9 2665, 7909, 24140, 16962, 55025, 7600, 6399 #### [facility] of [place] [address] Heading Pinner: Salvador Parekh MD Creatinine [Mass/Vol] 1.09 mg/dL Normal 0.70-1.[address] [facility] [address] [facility] Comment on above: Performed By: #### 9 2665, 7909, 92156, 80340, 39485, 7600, 6399 #### [facility] [address], [address] [place] [address] Heading Pinner: Salvador Parekh MD ELECTROLYTE BALANCE 14 mmol/L (calc) Normal 7-17 [facility] Comment on above: Performed By: #### 9 2665, 7909, 04903, 20942, 55003, 7600, 6399 #### [facility] [address], [address] [place] [address] Heading Pinner: Salvador Parekh MD GFR/1.73 sq M.predicted among non-blacks MDRD (S/P/Bld) [Vol rate/Area] 75 mL/min/{1.73_m2} Normal > OR = 60 [facility] Comment on above: Performed By: #### 9 2665, 7909, 54742, 40972, 99338, 7600, 6399 #### [facility] [place] [address] Heading Pinner: Salvador Parekh MD Glucose [Mass/Vol] 127 mg/dL High 65-99 [facility] Comment on above: Result Comment: Fasting reference interval For someone without known diabetes, a glucose value >125 mg/dL indicates that they may have diabetes and this should be confirmed with a follow-up test. Performed By: #### 9 2665, 7909, 40506, 97230, 24508, 7600, 6399 #### [facility] [address], [address] [place] [address] Heading Pinner: Salvador Parekh MD Potassium [Moles/Vol] 4.5 mmol/L Normal 3.5-5.[address] [facility] [address] [facility] Comment on above: Performed By: #### 9 2665, 7909, 29079, 95836, 80790, 7600, 6399 #### [facility] [address], [address] [place] [address] Heading Pinner: Salvador Parekh MD Protein [Mass/Vol] 7.0 g/dL Normal 6.1-8.1 [facility] Comment on above: Performed By: #### 9 2665, 7909, 04305, 10241, 39534, 7600, 6399 #### [facility] of [address], [address] [place] [address] Heading Pinner: Salvador Parekh MD Sodium [Moles/Vol] 143 mmol/L Normal 135-146 [facility] Comment on above: Performed By: #### 9 2665, 7909, 45611, 32733, 70422, 7600, 6399 #### [facility] of [address], [address] [place] [address] Heading Pinner: Salvador Parekh MD Urea nitrogen [Mass/Vol] 12 mg/dL Normal 7-25 [facility] Comment on above: Performed By: #### 9 2665, 7909, 65217, 13411, 16340, 7600, 6399 #### [facility] of [address], [address] [place] [address] Heading Pinner: Salvador Parekh MD Comprehensive metabolic 2000 panelon 04-22-2024 Albumin [Mass/Vol] 4.5 g/dL 3.6 - 5.1 g/dL [facility] ALP [Catalytic activity/Vol] 67 U/L 35 - 144 U/L [facility] ALT [Catalytic activity/Vol] 18 U/L 9 - 46 U/L [facility] Anion gap [Moles/Vol] 14 mmol/L Uni [facility] AST [Catalytic activity/Vol] 15 U/L 10 - 35 U/L [facility] Bilirubin [Mass/Vol] 0.5 mg/dL 0.2 - 1 .2 mg/dL [facility] Calcium [Mass/Vol] 9.7 mg/dL 8.6 - 10. 3 mg/dL [facility] Chloride [Moles/Vol] 102 mmol/L 98 - 11 0 mmol/L [facility] CO2 [Moles/Vol] 27 mmol/L 20 - 32 mmol/L [facility] Creatinine [Mass/Vol] 1.09 mg/dL 0.70 - 1.35 mg/dL [facility] GFR/1.73 sq M.predicted among non-blacks MDRD (S/P/Bld) [Vol rate/Area] 75 mL/min/{1.73_m2} > OR = 60 mL/min/1.73m 2 [facility] Glucose [Mass/Vol] 127 mg/dL High 65 - 99 mg/dL [facility] Comment on above: Fasting reference interval For someone without known diabetes, a glucose value >125 mg/dL indicates that they may have diabetes and this should be confirmed with a follow-up test. Potassium [Moles/Vol] 4.5 mmol/L 3.5 - 5.3 mmol/L [facility] Protein [Mass/Vol] 7 g/dL 6.1 - 8.1 g/dL [facility] Sodium [Moles/Vol] 143 mmol/L 135 - 146 mmol/L [facility] Urea nitrogen [Mass/Vol] 12 mg/dL 7 - 25 mg/dL [facility] LIPID PANEL, STANDARDon 03-27 Cholesterol [Mass/Vol] 276 mg/dL High <200 [facility] Comment on above: Order Comment: FASTI NG:YES FASTING: YES Performed By: #### 9 2665, 7909, 94386, 46555, 81041, 7600, 6399 #### [facility] [address], [address] [place] [address] Heading Pinner: Salvador Parekh MD Cholesterol in HDL [Mass/Vol] 50 mg/dL Normal > OR = 40 [facility] Comment on above: Order Comment: FASTI NG:YES FASTING: YES Performed By: #### 9 2665, 7909, 70083, 41425, 39369, 7600, 6399 #### [facility] [address] [place] [address], [address] [place] [address] Heading Pinner: Salvador Parekh MD Cholesterol in LDL [Mass/Vol] 195 mg/dL High [facility] Comment on above: Order Comment: FASTI NG:YES FASTING: YES Result Comment: LDL- C levels > or = 190 mg/dL may indicate familial hypercholesterolemia (FH). Clinical assessment and measurement of blood lipid levels should be considered for all first degree relatives of patients with an FH diagnosis. LDL Cholesterol (LDL-C) levels > or = 300 mg/dL may indicate homozygous familial hypercholesterolemia (HoFH). Untreated, these extremely high LDL-C levels can result in premature CV events and mortality. Patients should be identified early and provided appropriate interventions to reduce the cumulative LDL-C burden from . For questions about testing for familial hypercholesterolemia, please call [employer] Client Services at [phone].GENE.INFO. La Nena Muse, et al. J National Lipid Association Recommendations for Patient-Centered Management of Dyslipidemia: Part 1 Journal of Clinical Lipidology 2015;9(2), 129-169. Danihs Chappell et al. (2014). Homozygous familial hypercholesterolaemia: new insights and guidance for clinicians to improve detection and clinical management. Heart Journal, 35(32), 8658-1463. Reference range: <100 Desirable range <100 mg/dL for primary prevention; <70 mg/dL for patients with CHD or diabetic patients with > or = 2 CHD risk factors. LDL-C is now calculated using the Bebeto-Yandel calculation, which is a validated novel method providing better accuracy than the Friedewald equation in the estimation of LDL-C. Bebeto MORAN et al. DIMAS. 2013;310(19): 1527-0673 (http://education.[employer].PixSpree/faq/NON429) Performed By: #### 9 2095, 7909, 50820, 90596, 49456, 7600, 6399 #### [email or web address] [address], [address] [place], [place] [id number] Heading Pinner: Salvador Parekh MD Cholesterol.total/Chol esterol in HDL [Mass ratio] 5.5 {ratio} High <5.0 [email or web address] Comment on above: Order Comment: FASTI NG:YES FASTING: YES Performed By: #### 9 2665, 7909, 40192, 33496, 42874, 7600, 6399 #### [facility] [address], [address] [place], [place] [id number] Heading Pinner: Salvador Parekh MD NON HDL CHOLESTEROL 226 mg/dL (calc) High <130 [facility] Comment on above: Order Comment: FASTI NG:YES FASTING: YES Result Comment: Non- HDL level > or = 220 is very high and may indicate genetic familial hypercholesterolemia (FH). Clinical assessment and measurement of blood lipid levels should be considered for all first-degree relatives of patients with an FH diagnosis. For patients with diabetes plus 1 major ASCVD risk factor, treating to a non-HDL-C goal of <100 mg/dL (LDL-C of <70 mg/dL) is considered a therapeutic option. Performed By: #### 9 2665, 7909, 11044, 95381, 45820, 7600, 6399 #### [facility] [address] [facility], [address] [place] [address] Heading Pinner: Salvador Parekh MD Triglyceride [Mass/Vol] 148 mg/dL Normal <150 [facility] Comment on above: Order Comment: FASTI NG:YES FASTING: YES Performed By: #### 9 2665, 7909, 14344, 46287, 95872, 7600, 6399 #### [facility] [address] [facility], [address] [place] [address] Heading Pinner: Salvador Parekh MD Lipid 1996 panelon 5 Cholesterol [Mass/Vol] 276 mg/dL High NINF - 200 mg/dL [facility] Cholesterol in HDL [Mass/Vol] 50 mg/dL > OR = 40 [facility] Cholesterol in LDL [Mass/Vol] 195 mg/dL High mg/dL (calc) [facility] Comment on above: LDL-C levels > or = 190 mg/dL may indicate familial hypercholesterolemia (FH). Clinical assessment and measurement of blood lipid levels should be considered for all first degree relatives of patients with an FH diagnosis. LDL Cholesterol (LDL-C) levels > or = 300 mg/dL may indicate homozygous familial hypercholesterolemia (HoFH). Untreated, these extremely high LDL-C levels can result in premature CV events and mortality. Patients should be identified early and provided appropriate interventions to reduce the cumulative LDL-C burden from . For questions about testing for familial hypercholesterolemia, please call [employer] Client Services at [email or web address].GENE.INFO. La Nena Muse, et al. J National Lipid Association Recommendations for Patient-Centered Management of Dyslipidemia: Part 1 Journal of Clinical Lipidology 2015;9(2), 129-169. Danish Chappell et al. (2014). Homozygous familial hypercholesterolaemia: new insights and guidance for clinicians to improve detection and clinical management. Heart Journal, 35(32), 6329-0004. Reference range: <100 Desirable range <100 mg/dL for primary prevention; <70 mg/dL for patients with CHD or diabetic patients with > or = 2 CHD risk factors. LDL-C is now calculated using the Bebeto-Yandel calculation, which is a validated novel method providing better accuracy than the Friedewald equation in the estimation of LDL-C. Bebeto SS et al. DIMAS. 2013;310(19): 8277-9713 (http://education.[employer]dinner/faq/KLS029) Cholesterol non HDL [Mass/Vol] 226 mg/dL High [facility] Comment on above: Non-HDL level > or = 220 is very high and may indicate genetic familial hypercholesterolemia (FH). Clinical assessment and measurement of blood lipid levels should be considered for all first-degree relatives of patients with an FH diagnosis. For patients with diabetes plus 1 major ASCVD risk factor, treating to a non-HDL-C goal of <100 mg/dL (LDL-C of <70 mg/dL) is considered a therapeutic option. Cholesterol.total/Chol esterol in HDL [Mass ratio] 5.5 {ratio} High [facility] Triglyceride [Mass/Vol] 148 mg/dL [facility] - 150 mg/dL [facility] NOTEon 04-22-2024 NOTE Normal [email or web address] Comment on above: Result Comment: This urine was analyzed for the presence of WBC, RBC, bacteria, casts, and other formed elements. Only those elements seen were reported. Performed By: #### 9 9985, 7909, 26376, 45662, 48922, 3960, 6399 #### [facility] [address] [facility], [address] [place] [address] Heading Pinner: Salvador Parekh MD No Panel Informationon 04-22 Interpretation and review of laboratory results Abnormal [facility] FASTING:YES FASTING: YES [facility] PSA, TOTALon 04-22-2024 PSA, TOTAL 0.91 ng/mL Normal < OR = 4.00 [facility] Comment on above: Result Comment: The total PSA value from this assay system is standardized against the WHO standard. The test result will be approximately 20% lower when compared to the equimolar-standardized total PSA (Otto Jose Elias). Comparison of serial PSA results should be interpreted with this fact in mind. This test was performed using the Siemens chemiluminescent method. Values obtained from different assay methods cannot be used interchangeably. PSA levels, regardless of value, should not be interpreted as absolute evidence of the presence or absence of disease. Performed By: #### 9 2665, 7909, 60562, 81796, 04278, 7600, 6399 #### [facility] [address], [address] [place] [address] Heading Pinner: Salvador Parekh MD Prostate Specific Antigenon 04-22-2024 Prostate specific Ag [Mass/Vol] 0.91 ng/mL < OR = 4.00 [facility] Comment on above: The total PSA value from this assay system is standardized against the WHO standard. The test result will be approximately 20% lower when compared to the equimolar-standardized total PSA ([place]to [place]). Comparison of serial PSA results should be interpreted with this fact in mind. This test was performed using the Siemens chemiluminescent method. Values obtained from different assay methods cannot be used interchangeably. PSA levels, regardless of value, should not be interpreted as absolute evidence of the presence or absence of disease. T3, FREEon 04-22-2024 Free T3 [Mass/Vol] 3.3 pg/mL Normal 2.3-4.2 [facility] Comment on above: Performed By: #### 9 2665, 7909, 38477, 99880, 51067, 7600, 6399 #### [facility] [address], [address] [place] [address] Heading Pinner: aSlvador Parekh MD TSH W/REFLEX TO FT4on 2024 TSH W/REFLEX TO FT4 1.27 mIU/L Normal 0.40-4.50 [facility] Comment on above: Performed By: #### 9 2665, 7909, 03618, 61659, 57612, 7600, 6399 #### [facility] [address], [address] [place] [address] Heading Pinner: Salvador Parekh MD TSH with reflex to Free T4 i f abnormalon 04-22-2024 TSH Qn 1.27 m[IU]/L [facility] Triiodothyronine, Freeon Free T3 [Mass/Vol] 3.3 pg/mL 2.3 - 4.2 pg/mL [facility] URINALYSIS REFLEXon 04-22-19 25 Appearance (U) CLEAR Normal CLEAR [facility] Comment on above: Performed By: #### 9 2665, 7909, 02457, 47324, 74813, 7600, 6399 #### [facility] of [address], [address] [place] [address] Heading Pinner: Salvador Parekh MD BACTERIA NONE SEEN Normal NONE SEEN [facility] Comment on above: Performed By: #### 9 2665, 7909, 21213, 58441, 47158, 7600, 6399 #### [facility] of [place] [address] Heading Pinner: Salvador Parekh MD Bilirubin Ql (U) Negative Normal NEGATIVE [facility] Comment on above: Performed By: #### 9 2665, 7909, 04703, 83001, 40241, 7600, 6399 #### [facility] of [place] [address] [place] [address] Heading Pinner: Salvador Parekh MD Color (U) YELLOW Normal YELLOW [facility] Comment on above: Performed By: #### 9 2665, 7909, 84919, 57158, 24104, 7600, 6399 #### [facility] of [place] [address] [place] [address] Heading Pinner: Salvador Parekh MD Glucose Ql (U) Negative Normal NEGATIVE [facility] Comment on above: Performed By: #### 9 2665, 7909, 06102, 30861, 65626, 7600, 6399 #### [facility] [place] [address] [place] [address] Heading Pinner: aSlvador Parekh MD HYALINE CAST NONE SEEN Normal NONE SEEN [facility] Comment on above: Performed By: #### 9 2665, 7909, 35673, 78152, 86685, 7600, 6399 #### [facility] of [place] [address] Heading Pinner: Salvador Parekh MD Ketones Ql (U) Negative Normal NEGATIVE [facility] Comment on above: Performed By: #### 9 2665, 7909, 22501, 78457, 05262, 7600, 6399 #### [facility] of [place] [address] Heading Pinner: Salvador Parekh MD Leukocyte esterase Test strip Ql (U) Negative Normal NEGATIVE [facility] Comment on above: Performed By: #### 9 2665, 7909, 75096, 32684, 59396, 7600, 6399 #### [facility] [place] [address] Heading Pinner: Salvador Parekh MD Nitrite Ql (U) Negative Normal NEGATIVE [facility] Comment on above: Performed By: #### 9 2665, 7909, 76672, 70719, 52237, 7600, 6399 #### [facility] [place] [address] Heading Pinner: Salvador Parekh MD OCCULT BLOOD Negative Normal NEGATIVE [facility] Comment on above: Performed By: #### 9 2665, 7909, 03084, 62804, 49983, 7600, 6399 #### [facility] [place] [address] Heading Pinner: Salvador Parekh MD pH (U) 7.0 [pH] Normal 5.0-8.0 [facility] Comment on above: Performed By: #### 9 2665, 7909, 81232, 14762, 25127, 7600, 6399 #### [facility] [place] [address] Heading Pinner: Salvador Parekh MD Protein Ql (U) TRACE Abnormal NEGATIVE [facility] Comment on above: Performed By: #### 9 2665, 7909, 11627, 64834, 85983, 7600, 6399 #### [facility] [place] [address] Heading Pinner: Salvador Parekh MD RBC 0-2 Normal < OR = 2 [facility] Comment on above: Performed By: #### 9 2665, 7909, 91779, 30134, 42533, 7600, 6399 #### [facility] [place] [address] Heading Pinner: Salvador Parekh MD Specific gravity (U) [Rel density] 1.018 Normal 1.001-1.035 [facility] Comment on above: Performed By: #### 9 2665, 7909, 33947, 92569, 83994, 7600, 6399 #### [facility] [place] [address] Heading Pinner: Salvador Parekh MD SQUAMOUS EPITHELIAL CELLS NONE SEEN Normal < OR = 5 [facility] Comment on above: Performed By: #### 9 2665, 7909, 05971, 61111, 46151, 7600, 6399 #### [facility] [place] [address] Heading Pinner: Salvador Parekh MD WBC NONE SEEN Normal < OR = 5 [facility] Comment on above: Performed By: #### 9 2665, 7909, 01805, 11868, 27330, 7600, 6399 #### [facility] [place] [address] Heading Pinner: Salvador Parekh MD Urinalysis complete panel (U )on 04-22-2024 Appearance (U) CLEAR CLEAR [facility] Bacteria LM.HPF (Urine sed) [#/Area] NONE SEEN NONE SEEN /HPF [facility] Bilirubin Ql (U) Negative NEGATIVE [facility] Color (U) YELLOW YELLOW [facility] Epithelial cells.squamous LM.HPF (Urine sed) [#/Area] NONE SEEN < OR = 5 /HPF [facility] Glucose Ql (U) Negative NEGATIVE [facility] Hemoglobin Ql (U) Negative NEGATIVE [facility] Hyaline casts (Urine sed) [#/Area] NONE SEEN NONE SEEN /LPF [facility] Ketones Ql (U) Negative NEGATIVE [facility] Leukocyte esterase Test strip Ql (U) Negative NEGATIVE [facility] Nitrite Ql (U) Negative NEGATIVE [facility] pH (U) 7 [pH] 5.0 - 8.0 [facility] Protein Ql (U) TRACE Abnormal NEGATIVE [facility] RBC LM.HPF (Urine sed) [#/Area] 0-2 < OR = 2 /HPF [facility] Service comment (Unsp spec) [Interp] [facility] Comment on above: This urine was fanny zed for the presence of WBC, RBC, bacteria, casts, and other formed elements. Only those elements seen were reported. Specific gravity (U) [Rel density] 1.018 1.001 - 1.035 [facility] WBC LM.HPF (Urine sed) [#/Area] NONE SEEN < OR = 5 /HPF [facility] VITAMIN D,25-OH,TOTAL,IAon 0 1-28-2024 VITAMIN D,25-OH,TOTAL,IA 34 ng/mL Normal 30-100 [facility] Comment on above: Result Comment: Savannah min D Status 25-OH Vitamin D: Deficiency: <20 ng/mL Insufficiency: 20 - 29 ng/mL Optimal: > or = 30 ng/mL For 25-OH Vitamin D testing on patients on D2-supplementation and patients for whom quantitation of D2 and D3 fractions is required, the [facility]() 25-OH VIT D, (D2,D3), LC/MS/MS is recommended: order code 77249 (patients >2yrs). See Note 1 Note 1 For additional information, please refer to [email or web address] (This link is being provided for informational/ educational purposes only.) Performed By: #### 9 [id number] #### [facility] [address], [address] [place] [id number] Heading Pinner: Salvador Parekh MD Vital Signs Date Time Vital Sign Value Performing Clinician Facility 04-29-2024 14:29-0500 Body height 172.7 cm Ifrah Bo MD Work Phone: [facility] 04-29-2024 14:29-0500 Body mass index (BMI) [Ratio] 39.53 kg/m2 Ifrah Bo MD Work Phone: [facility] 04-29-2024 14:29-0500 Body weight 117.94 kg Ifrah Bo MD Work Phone: [facility] 04-29-2024 14:29-0500 Diastolic blood pressure 91 mm[Hg] Ifrah Bo MD Work Phone: [facility] 04-29-2024 14:29-0500 Heart rate 74 /min Ifrah Bo MD Work Phone: [facility] 04-29-2024 14:29-0500 Respiratory rate 18 /min Ifrah Bo MD Work Phone: [facility] 04-29-2024 14:29-0500 Systolic blood pressure 137 mm[Hg] Ifrah Bo MD Work Phone: [facility] 04-17-2024 15:05-0500 Body height 174 cm Amanda Murry MD Work Phone: [facility] 04-17-2024 15:05-0500 Body mass index (BMI) [Ratio] 39.2 kg/m2 Amanda Murry MD Work Phone: [facility] 04-17-2024 15:05-0500 Body temperature 95.2 [degF] Amanda Murry MD Work Phone: [facility] 04-17-2024 15:05-0500 Body weight 118.66 kg Amanda Murry MD Work Phone: [facility] 04-17-2024 15:05-0500 Diastolic blood pressure 78 mm[Hg] Amanda Murry MD Work Phone: [facility] 04-17-2024 15:05-0500 Heart rate 76 /min Amanda Murry MD Work Phone: [facility] 04-17-2024 15:05-0500 SaO2% (BldA) [Mass fraction] 95 % Amanda Murry MD Work Phone: [facility] Comment on above: RA 04-17-2024 15:05-0500 Systolic blood pressure 128 mm[Hg] Amanda Murry MD Work Phone: [facility] Encounters Encounter Date Encounter Type Care Provider Facility Start: 09-09-2024 ambulatory [facility] Facility:[facility] Start: 06-05-2024 End: 06-05-2024 ambulatory [place] [facility] [employer]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 Duran Vázquez MD -[facility] Start: 06-05-2024 End: 06-05-2024 ambulatory [facility] Facility:[facility] Start: 05-16-2024 End: 05-16-2024 ambulatory Eldachiquita Almonte FORMING MACHINE UPKEEP MECHANIC-C Work Phone: [facility] Work Phone: Start: 05-16-2024 End: 05-16-2024 Patient encounter procedure Elda Almonte FORMING MACHINE UPKEEP MECHANIC-C -[facility]el[facility] Start: 05-16-2024 End: 05-16-2024 ambulatory [facility] Facility:[facility] Start: 04-29-2024 End: 04-29-2024 Office outpatient new 45 minutes Ifrah Bo MD Work Phone: [facility] Comment on above: Chronic bilateral lo w back pain without sciatica; Neck pain Start: 04-29-2024 End: 04-29-2024 ambulatory AL-SARABIA [facility] Start: 04-29-2024 End: 04-29-2024 ambulatory MICAHCORNELL [facility] Start: 04-21-2024 End: 04-21-2024 ambulatory AMANDA [facility] Start: 04-17-2024 End: 04-17-2024 ambulatory [facility] Start: 04-17-2024 End: 04-17-2024 Office outpatient visit 25 minutes Amanda Murry MD Work Phone: [facility] Comment on above: PTSD (post-traumatic stress disorder) (Primary Dx); Benign essential HTN; Benign prostatic hyperplasia without lower urinary tract symptoms; Chronic bilateral low back pain without sciatica; Post-traumatic osteoarthritis of multiple joints; Adjustment insomnia; Screening for thyroid disorder; Inadequate intake of calcium and vitamin D; Arthropathic psoriasis, unspecified (Multi); Polycythemia vera; Morbid (severe) obesity due to excess calories (Multi) Procedures Date Procedure Procedure Detail Performing Clinician Start: 06-05-2024 X-ray of cervical spine Elda Almonte NP-C Work Phone: Start: 06-05-2024 X-ray of lumbar spin e, two or three views Elda Almonte NP-C Work Phone: Start: 06-05-2024 Plain radiography of pelvis Elda Almonte FOR[employer]ING MACHINE UPKEEP MECHANIC-C Work Phone: Start: 04-21-2024 Lipid 1996 panel - S wendy or Plasma Ifrah Bo MD Work Phone: Plan of Treatment Date Care Activity Detail Author Start: 04-21-2029 Lipid panel Lipid Panel [facility] Start: 04-29-2024 End: 04-29-2025 XR Cervical spine 4 or 5 Views XR cervical spine complete 4-5 views Imaging Routine Neck pain Expected: 04/29/2024, Expires: 04/29/2025 [facility] Work Phone: Comment on above: Expected: 04/29/2024 , Expires: 04/29/2025 Start: 04-29-2024 End: 04-29-2025 XR Lumbar spine 4 Views XR lumbar spine complete 4+ views Imaging Routine Chronic bilateral low back pain without sciatica Expected: 04/29/2024, Expires: 04/29/2025 [facility] Service Area Work Phone: Comment on above: Expected: 04/29/2024 , Expires: 04/29/2025 Start: 04-29-2024 End: 04-29-2025 XR Thoracic spine 3 Views XR thoracic spine 3 views Imaging Routine Chronic bilateral low back pain without sciatica Expected: 04/29/2024, Expires: 04/29/2025 [facility] Work Phone: Comment on above: Expected: 04/29/2024 , Expires: 04/29/2025 Start: 04-17-2024 End: 04-17-2025 XR Spine thoracolumbar junction 2 Views XR thoracolumbar spine 2 views Imaging Routine Morbid (severe) obesity due to excess calories (Multi) Expected: 04/17/2024, Expires: 04/17/2025 [facility] Service Area Work Phone: Comment on above: Expected: 04/17/2024 , Expires: 04/17/2025 Start: 11-25-2023 Influenza vaccination Influenza Vacc ine (#1) [facility] Start: 07-06-2023 Abdominal aortic aneurysm screening Abdominal Aortic Aneurysm (AAA) Screening [facility] Start: 2018 RSV High Risk: (Elde rly (60+) or Population) (1 - Risk 60-74 years 1-dose series) RSV High Risk: (Elderly (60+) or Population) (1 - Risk 60-74 years 1-dose series) [facility] Start: 1980 DTaP/Tdap/Td Vaccine s (1 - Tdap) DTaP/Tdap/Td Vaccines (1 - Tdap) [facility] Start: 1977 Pneumococcal vaccination Pneum ococcal Vaccine (1 of 2 - PCV) [facility] Start: 1977 Zoster Vaccines (1 of 2) Zoste r Vaccines (1 of 2) [facility] Start: 1976 Diabetes mellitus screening Diabetes Screening [facility] Start: 1976 Hepatitis C screening Hepatitis C Sc reening [facility] Start: 07-06-1963 COVID-19 Vaccine (#1) COVID-19 Vacci ne (#1) [facility] Start: 07-06-1959 MMR Vaccines (1 of 1 - Standard series) MMR Vaccines (1 of 1 - Standard series) [facility] Start: 1960 Annual wellness visit Welcome to Medicare Visit [facility] Start: 1960 Screening for malign ant neoplasm of colon [facility] Payers Date Payer Category Payer Self-pay 2024 Medicare (Managed Care) [employer] [id number] 2024 Medicare [id number] 1960 Unknown [id number] 1960 Unknown [id number] [id number] 1960 Unknown [id number] [id number] 1960 Unknown [id number] 1958 Unknown [id number] 1960 Unknown [id number] Unknown [id number] Unknown [id number] Unknown [id number] Unknown [id number] Social History Date Type Detail Facility Start: 04-17-2024 Tobacco smoking status NHIS Ex-smoker [facility] Work Phone: History of tobacco use [facility] of tobacco use [facility] Start: 04-17-2024 Tobacco use and exposure Smokeless tobacco non-user [facility] Work Phone: Start: 04-17-2024 End: 04-29-2024 Alcoholic beverage intake Ex-drinker (finding) [facility] Work Phone: Start: 04-17-2024 End: 04-29-2024 History of Social function [facility] Work Phone: Start: 04-17-2024 End: 04-29-2024 Tobacco use panel [facility] Work Phone: Start: 04-17-2024 Alcohol Comment occasional [facility] Work Phone: Start: 1960 Sex assigned at Not on file [facility] Work Phone: Start: 03-31-2024 Gender identity Identifies as male gender (finding) [facility] Start: 03-31-2024 Sexual orientation Heterosexual (finding) [facility] Work Phone: Start: 04-19-2024 End: 04-29-2024 Exposure to SARS-CoV-2 (event) Not sure [facility] Tobacco smoking stat RUSTIS Unknown if ever smoked [facility] Work Phone: Start: 05-29-2024 End: 06-16-2024 Sex Male (finding) [facility] Start: 1960 Sex Assigned At Male [facility] Radiology Diagnostic study note 06-05-2024 Note Date & Type Note Facility 06-05-2024 Radiology Diagnostic study note [facility] [address] [place] [address] Pelvis 1 or 2 Views MR#: [id number] Acct: [id number] Name: BRYSON NEWBERRY Rep #: [id number] : 1960 M 63 From: Marsha Johnson MD PCP: MARIE Segundo Status: REG CLI Study:Pelvis 1 or 2 Views Date of Exam: 06/05/24 Exam# [id number] Ordering Dr: Chayo Gao MD EXAM: XR Pelvis, 1 or 2 Views CLINICAL INDICATION: PAIN TECHNIQUE: Frontal view of the pelvis. COMPARISON: No relevant prior studies available. FINDINGS: BONES/JOINTS: Mild degenerative change of the hip joints, bilaterally. No acute fracture. No dislocation. SOFT TISSUES: Unremarkable. GASTROINTESTINAL TRACT: Fecal retention in the colon consistent with constipation. RAD/Pelvis 1 or 2 Views IMPRESSION: 1. Degenerative changes as above. 2. Fecal retention in the colon consistent with constipation. [facility] CC: FORMING MACHINE UPKEEP MECHANICKate Almonte; Dr. Chayo Gao MD ~ Bioanalyst: Signed [facility] History of Present illness Narrative 04-29-2024 Shawn Odell MD - 04/29/2024 2:15 PM EST Note Date & Type Note Facility 04-29-2024 History of Present illness Narrative Subjective Patient ID: Bryson Newberry is a 63 y.o. male with a past medical history of PTSD, hypertension, left rotator cuff tear, bilateral knee replacements, chronic back pain who presents as a new patient referred by his primary care physician. HPI: Bryson Newberry is a 63 y.o. male with a past medical history of PTSD, hypertension, left rotator cuff tear, bilateral knee replacements, chronic back pain who presents as a new patient referred by his primary care physician. This is a patient who was referred to us by his primary care physician for back and leg pain. He recently moved from [place] to [place] a month ago due to family reasons. He reports that he was seeing a pain physician there and has had extensive workup including imaging physical therapy, failed injections and has even seen a surgeon. He reports that he did not have any pain relief with the injections or therapy. He reports that he was on oral morphine to help with the pain as he has significant pain in multiple areas throughout his body however the worst area is his lower back and right leg. He reports that he has lower back pain that is on both sides of his back and has radiating pain that goes in the posterior lateral distribution down his right lower extremity from the right lower back over the buttock and the posterior lateral distribution down the thigh and stops to just the knee. He reports that he also has numbness and tingling throughout his right leg and also has a bone spur on the bottom of his right foot. He reports that he has dealt with this pain for many years. He reports that he does not have any weakness in his legs. He does not have pain in his left leg ever. He reports that the pain can be as bad as a 9 out of 10 and sometimes he just sits on his couch and cries due to the pain. He is a and he reports that he has tried gabapentin and topiramate however he had significant PTSD and these medications caused night terrors thus he was not able to tolerate them. He reports that he is currently on fluoxetine, Xanax and quetiapine for his PTSD and insomnia. He also reports he has neck and thoracic back pain for which she has also been seeing a pain physician for in [place]. Unfortunately we do not have access to any of his records from [place] and do not have much records for him in our EMR either. Physical Therapy: unclear when last PT was for back pain Other Conservative Measures he has tried: Heating Pad, Ice, and Injections Classes of medications tried in the past: Acetaminophen, NSAIDs, Gabapentenoids, Tricyclic Antidepressants, Muscle Relaxants, and Opioids Review of Systems 13-point ROS done and negative except for HPI. Current Outpatient Medications Medication Instructions ALPRAZolam XR (XANAX XR) 0.5 mg, 2 times daily doxazosin (CARDURA) 2 mg, Daily lisinopriL-hydrochlorothiazide 10-12.5 mg tablet 1 tablet, Daily morphine (MSIR) 15 mg, Every 8 hours PRN PARoxetine (PAXIL) 20 mg, Daily QUEtiapine (SEROQUEL) 200 mg, Nightly tamsulosin (FLOMAX) 0.4 mg, Daily tiZANidine (ZANAFLEX) 4 mg No past medical history on file. Past Surgical History: Procedure Laterality Date APPENDECTOMY at 16 years old HERNIA REPAIR 2012 ROTATOR CUFF REPAIR Left 2020 Family History Problem Relation Name Age of Onset Stroke Mother Heart attack Father No Known Allergies Objective Vitals: 04/29/24 1429 BP: (!) 137/91 Pulse: 74 Resp: 18 Physical Exam General: NAD, well groomed, well nourished Eyes: Non-icteric sclera, EOMI Ears, Nose, Mouth, and Throat: External ears and nose appear to be without deformity or rash. No lesions or masses noted. Hearing is grossly intact. Neck: Trachea midline Respiratory: Nonlabored breathing Cardiovascular: no peripheral edema Skin: No rashes or open lesions/ulcers identified on skin. Back: Palpation: Mild tenderness palpation over the lower lumbar bilateral paraspinal muscles Straight leg raise: Positive on the right SIVAN Maneuver does not reproduce pain bilaterally Hip: No pain over greater trochanters. and Pain not reproduced with hip internal/external rotation. Neurologic: Cranial nerves grossly intact. Strength 5/5 in BLE and symmetric plantar/dorsiflexion Sensation: Normal to light touch intact throughout in BLE. Coon: absent Gait: normal Uses Assist Device: no Psychiatric: Alert, orientation to person, place, and time. Cooperative. Imaging personally reviewed and independently interpreted: None available Assessment/Plan Bryson Newberry is a 63 y.o. male with a past medical history of PTSD, hypertension, left rotator cuff tear, bilateral knee replacements, chronic back pain who presents as a new patient referred by his primary care physician. Patient recently moved to [place] from [place] in the last month. We have no records from any of his treating physicians in [place] including a pain management physician or a spine surgeon. Patient reports that he has tried multiple conservative measures to address multiple classes of medications, therapy and injections that have not helped his pain. He reports that he is on morphine however were not able to see any of this our PDMP. He does have the phone number and address for his pain management physician's office in [place] and we will obtain records from them after obtaining consent from the patient. Follow-up after he is able to obtain these records. Plan: -We will have the patient signed a consent waiver form to obtain his records from his pain management physician in [place] -We will in the meantime give the patient a referral for physical therapy for his lower back and leg pain -Will also give the patient a prescription for lumbar spine x-ray in addition to thoracic and cervical spine x-rays as well -instructed on red flag symptoms, such as new or worsening weakness, loss of bowel/bladder control, saddle anesthesia, if he were to experience these she should present to the closest ER for further evaluation Follow up: After obtaining records from [place] The patient was invited to contact us back anytime with any questions or concerns and follow-up with us in the office as needed. Diagnoses and all orders for this visit: Chronic bilateral low back pain without sciatica - Referral to Pain Medicine This note was generated with the aid of dictation software, there may be typos despite my attempts at proofreading. The patient was discussed and seen with Dr. Bo. Shawn Odell MD PGY-5 Interventional Pain Fellow Cosigned by Ifrah Bo MD at 04/29/2024 3:36 PM EST documented in this encounter [facility] Work Phone: History of Present illness Narrative 04-17-2024 Amanda Murry MD - 04/17/2024 2:30 PM EST Note Date & Type Note Facility 04-17-2024 History of Present illness Narrative rebeca Cornelius 63 y.o. male was seen today for: Chief Complaint Patient presents with Establish Care Patient is in office today for a new patient visit. Med Management Patient advises that he is out of his morphine. He advises that he was on oxycoton but was recently changed to morphine Referral Patient is in need of a new pain management doctor due to recently moving from [place] Bryson Newberry Patient is here to establish primary care physician. He recently has moved from [place] to this place. He has chronic pain syndrome. He used to be on morphine. It has been changed to oxycodone however our practice does not prescribe any controlled medications for longer period of time. He was told that we will be able to send him to pain management. Patient also has history of PTSD and posttraumatic osteoarthritis. He will be sent to the psychiatrist. Patient also need annual blood work. He has multiple other medical comorbidities, hide BPH, hypertension, hyperlipidemia and major depressive disorder. These are all currently stable at this time. He does not need any medications refilled at this moment. MEDICAL DECISION MAKING: - Current co morbidities have been considered. - All pertinent labs and images were addressed as per medical necessity. - Also reviewed relevant notes from the specialty consultants. - Time spent before, during and after office visit, which includes coordination of care counseling was 35 minutes - Next follow up : 3 months TODAY'S VISIT DX: 1. PTSD (post-traumatic stress disorder) Referral to Psychiatry 2. Benign essential HTN lisinopriL-hydrochlorothiazide 10-12.5 mg tablet CBC and Auto Differential 3. Benign prostatic hyperplasia without lower urinary tract symptoms Prostate Specific Antigen 4. Chronic bilateral low back pain without sciatica Referral to Pain Medicine 5. Post-traumatic osteoarthritis of multiple joints Referral to Psychology 6. Adjustment insomnia Urinalysis with Reflex Microscopic Comprehensive Metabolic Panel 7. Screening for thyroid disorder TSH with reflex to Free T4 if abnormal Triiodothyronine, Free 8. Inadequate intake of calcium and vitamin D Vitamin D 25-Hydroxy,Total (for eval of Vitamin D levels) 9. Arthropathic psoriasis, unspecified (Multi) Lipid Panel 10. Polycythemia vera CBC and Auto Differential 11. Morbid (severe) obesity due to excess calories (Multi) XR thoracolumbar spine 2 views Visit Vitals BP 128/78 (BP Location: Left arm, Patient Position: Sitting, BP Cuff Size: Adult) Comment (BP Location): lower Pulse 76 Temp 35.1 C (95.2 F) (Temporal) Ht 1.74 m (5' 8.5) Wt 119 kg (261 lb 9.6 oz) SpO2 95% Comment: RA BMI 39.20 kg/m Smoking Status Former BSA 2.4 m Wt Readings from Last 10 Encounters: 04/29/24 118 kg (260 lb) 04/17/24 119 kg (261 lb 9.6 oz) MEDICATIONS: Current Outpatient Medications Medication Instructions ALPRAZolam XR (XANAX XR) 0.5 mg, 2 times daily doxazosin (CARDURA) 2 mg, Daily lisinopriL-hydrochlorothiazide 10-12.5 mg tablet 1 tablet, Daily morphine (MSIR) 15 mg, Every 8 hours PRN PARoxetine (PAXIL) 20 mg, Daily QUEtiapine (SEROQUEL) 200 mg, Nightly tamsulosin (FLOMAX) 0.4 mg, Daily tiZANidine (ZANAFLEX) 4 mg Review of Systems Constitutional: Negative for activity change and fever. HENT: Negative for hearing loss, nosebleeds and tinnitus. Eyes: Negative for redness. Respiratory: Negative for chest tightness and stridor. Cardiovascular: Negative for chest pain, palpitations and leg swelling. Gastrointestinal: Negative for blood in stool. Endocrine: Negative for cold intolerance. Genitourinary: Negative for hematuria. Musculoskeletal: Negative for joint swelling. Skin: Negative for rash. Neurological: Negative for speech difficulty and light-headedness. Psychiatric/Behavioral: Negative for behavioral problems. Physical Exam Constitutional: General: She is not in acute distress. Appearance: Normal appearance. HENT: Head: Normocephalic. Right Ear: Tympanic membrane normal. Left Ear: Tympanic membrane normal. Mouth/Throat: Mouth: Mucous membranes are moist. Cardiovascular: Rate and Rhythm: Normal rate and regular rhythm. Heart sounds: No murmur heard. Pulmonary: Effort: No respiratory distress. Abdominal: Palpations: Abdomen is soft. Musculoskeletal: Cervical back: Neck supple. Right lower leg: No edema. Left lower leg: No edema. Skin: Findings: No rash. Neurological: General: No focal deficit present. Mental Status: She is alert and oriented to person, place, and time. Psychiatric: Mood and Affect: Mood normal. RECENT LABS: Lab Results Component Value Date WBC 8.1 04/21/2024 HGB 16.4 04/21/2024 HCT 49.4 04/21/2024 PLT 156 04/21/2024 CHOL 276 (H) 04/21/2024 TRIG 148 04/21/2024 HDL 50 04/21/2024 ALT 18 04/21/2024 AST 15 04/21/2024 NA 143 04/21/2024 K 4.5 04/21/2024 CL 102 04/21/2024 CREATININE 1.09 04/21/2024 BUN 12 04/21/2024 CO2 27 04/21/2024 TSH 1.27 04/21/2024 PSA 0.91 04/21/2024 Lab Results Component Value Date GLUCOSE 127 (H) 04/21/2024 CALCIUM 9.7 04/21/2024 NA 143 04/21/2024 K 4.5 04/21/2024 CO2 27 04/21/2024 CL 102 04/21/2024 BUN 12 04/21/2024 CREATININE 1.09 04/21/2024 Lab Results Component Value Date LDLCALC 195 (H) 04/21/2024 Lab Results Component Value Date LDLCALC 195 (H) 04/21/2024 CREATININE 1.09 04/21/2024 Lab Results Component Value Date PSA 0.91 04/21/2024 P.S: This note was completed using [employer] voice recognition technology and may include unintended errors with respect to translation of words, typographical errors or grammar errors which may not have been identified while finalizing the chart. documented in this encounter [facility] Work Phone: Evaluation note Note Date & Type Note Facility Evaluation note Diagnosis Chronic bilateral low back pain without sciatica Neck pain Cervicalgia documented in this encounter [facility] Work Phone: Evaluation note Note Date & Type Note Facility Evaluation note Diagnosis PTSD (post-traumatic stress disorder)- Primary Posttraumatic stress disorder Benign essential HTN Benign prostatic hyperplasia without lower urinary tract symptoms Chronic bilateral low back pain without sciatica Post-traumatic osteoarthritis of multiple joints Adjustment insomnia Insomnia, unspecified Screening for thyroid disorder Inadequate intake of calcium and vitamin D Arthropathic psoriasis, unspecified (Multi) Polycythemia vera Morbid (severe) obesity due to excess calories (Multi) Benign essential HTN Adjustment insomnia Insomnia, unspecified Screening for lipid disorders Screening for thyroid disorder Inadequate intake of calcium and vitamin D Screening for blood or protein in urine Screening for unspecified condition Screening for prostate cancer Special screening for malignant neoplasm of prostate documented in this encounter [facility] Work Phone: Evaluation note Note Date & Type Note Facility Evaluation note No assessment information availa ble [facility] Work Phone: Reason for referral (narrative) Note Date & Type Note Facility Reason for referral (narrative) No reason for referral information available [facility] Work Phone: Summary Purpose Family History No Family History Records FoundNo Family History Records FoundNo Family History Records FoundNo Family History Records Found Advance Directives No Advanced Directives Records FoundNo Advanced Directives Records FoundNo Advanced Directives Records FoundNo Advanced Directives Records Found Chief Complaint and Reason for Visit Chief Complaint Admit Date XRAY June 05, 2024 3:2 3pm Additional Source Comments (unrecognized sect ion and content) No Status Records FoundNo Status Records FoundNo Status Records FoundNo Status Records Found INFORMATION SOURCE (unrecogn ized section and content) DATE CREATED AUTHOR 04/23/2024 [facility] DATE CREATED AUTHOR AUTHOR'S ORGANIZ ATION 05/05/2024 [facility] DATE CREATED AUTHOR AUTHOR'S ORGANIZ ATION 06/15/2024 [facility] DATE CREATED AUTHOR AUTHOR'S ORGANIZ ATION 09/12/2024 [facility] Reason for Visit (unrecogniz ed section and content) Reason Comments Back Pain Pt here today c/o ba ck, neck. [facility], and recently was given morphine., and Tizanadine No recent images, no recent PT. Has had injection in the past isn't interested in them Specialty Diagnoses / Procedures Referred By Contsariah t Referred To Contact Pain Medicine Diagnoses Chronic bilateral low back pain without sciatica Amanda Murry MD [address] [place] [id number] Phone: tel: fax: Referral ID Status Reason Start Date Expiration Date Visits Requested Visits Authorized [id number] Authorized Specialty Services Required 04/17/2024 04/17/2025 1 1 Reason Comments Establish Care Patient is in office today for a new patient visit. Med Management Patient advises that he is out of his morphine. He advises that he was on oxycoton but was recently changed to morphine Referral Patient is in need o f a new pain management doctor due to recently moving from [facility] Teams (unrecognized sec tion and content) [employer] Relationship Specialty Start Date End Date Amanda Murry MD [address] [place] [address] PCP - General Hospitalist 04/17/24 [employer] Operator Relationship Specialty Start Date End Date Amanda Murry MD [address] [place] [address] PCP - General Hospitalist 04/17/24 Team Status: Active Member Role Status Dates MARIE Segundo Primary Care Provider Active Team Status: Inactive Member Role Status Dates MARIE Segundo Primary Care Provider Active Start: May 16, 2024 End: May 16, 2024 MARIE Segundo Attending Provider Active St art: May 16, 2024 End: May 16, 2024 Team Status: Inactive Member Role Status Dates MARIE Segundo Primary Care Provider Active Start: June 05, 2024 End: June 05, 2024 Dr. Chayo Gao MD Attending Provider Active Start: June 05, 2024 End: June 05, 2024 Dr. Chayo Gao MD Referring Provider Active Start: June 05, 2024 End: June 05, 2024 Team Status: Inactive Member Role Status Dates MARIE Segundo Primary Care Provider Active Start: June 05, 2024 End: June 05, 2024 Dr. Duran Vázquez MD Attending Provider Active S tart: June 05, 2024 End: June 05, 2024 Goals (unrecognized section and content) Goals may be documented in a n alternate sectionGoals may be documented in an alternate section FOR RECORDS PERTAINING TO PATIENTS WHO ARE OR HAVE BEEN ENROLLED IN A CHEMICAL DEPENDENCY/SUBSTANCEABUSE PROGRAM, SOME INFORMATION MAY BE OMITTED. This clinical summary was aggregated from multiple sources. Caution should be exercised in using it in the provision of clinical care. This summary normalizes information from multiple sources, and as a consequence, information in this document may materially change the coding, format and clinical context of patient data. In addition, data may be omitted in some cases. CLINICAL DECISIONS SHOULD BE BASED ON THE PRIMARY CLINICAL RECORDS. [facility]. provides no warranty or guarantee of the accuracy or completeness of information in this document.
== END | disposition home or self-care (01) ==
LOC: MRI 15:41
PROVIDERS: PCP Nurse Practitioner Family; Referring Provider Anesthesiology Pain Medicine; Visit Provider Anesthesiology Pain Medicine
DX: M54.16 Radiculopathy, lumbar region (principal)
CPT/HCPCS: 72148

== ENCOUNTER 2024-09-30 11:30 | Outpatient (RCR) | payer MEDICARE, SELFPAY ==
--- NOTE | 2024-08-13 15:56 | HP.PTEVAL_ITS ---
Patient's Visit Information Visit Information Visit Information: CHAN NEWBERRY is a 64 year old M referred to Physical Therapy by Dr. Anamaria Holt MD with a diagnosis of NECK PAIN AND BACK PAIN. Date of Evaluation: 08/13/24 Physical Therapist: Prudencio Cleveland PT, Cert MDT, OCS Visit Plan Frequency: 2x /Week Duration: 4 Weeks Plan: PT INTERVENTIONS AQUATIC THERAPY FOR CERVICAL ROM ,POSTURAL EX'S ,DLS ,LUMBAR ROM , BLE STRENGTHENING AND ACTIVITY MODIFICATION Subjective Subjective: This 64 y/o male presents to physical therapy with neck and back pain. Patient has neck and back pain many years 2014. Patient symptoms worsen over time. Patient seen pain management via family .Prescribed meloxicam and muscle relaxers Patient Keyshali recommended PT and had x-rays showed cervical C5- 6 greater than C4-5spondylosis/discogenic change with disc space narrowing and anterior osteophyte formation. C6-7 disc space is not well evaluated due to shoulder overlap. Ijjz-[id number]-right hypertrophic appearing facet degenerative changes. lumbar showed mild grade 1 appearing anterolisthesis L4 onL5 measures approximately 3-4 mm with associated mild disc space narrowing. Lower lumbar facet degenerative changes . Patient neck pain located symmetrical L > R described as ache and stabbing pain. Patient has radicular symptoms in arms. Patient reports RTC tears. Aggravating factors turning ,flexion and lifting .Alleviating factors rest.C/o occasional dizziness ,BIGGS and tinnitus. Patient has paresthesia/tingling. Patient symptoms affects sleeping. Patient lumbar symmetrical described as ache with radicular symptoms right leg. Aggravating factors sitting,standing ,walking ,bending and lifting.Carrying something heavy grocery bags. Alleviating factors rest. Coughing/sneezing- .Bowel/bladder-. Patient pain affects sleeping takes sleeping aides. Patient has had therapy in [place]. Patient ahs had pain injections in [place] with pain management.Patient condition affects QOL and function. Patient goals to decrease pain SOCAIL: VOCATION: retired Pain Bilateral Neck: Pain Intensity (Out of 10): 5 Pain Intensity Range: 10 Bilateral Back: Pain Intensity (Out of 10): 5 Pain Intensity Range: 10 Objective Objective: POSTURE: mild forward posture GAIT: reciprocal pattern slow zach and antalgic NEURO: c/o paresthesia/tingling ,in arms and legs AROM: BUE WFL limited shoulder flexion with pain MMT: BUE grossly 4/5 ,shoulders 4-/5 CERVICAL ROM: flexion min loss ,extension mod loss ,rotation mod loss ,lateral mod loss FLEXABILITY: mod hamstrings LUMBAR ROM: flexion min/mod loss ,extension mod loss,side glides min/mod loss MMT: quads/hams 4/5 ,hip flexion 4-/5 ,ankle 4/5 Special Tests C/S Radiculapathy - Left Upper limb tension test: Negative C/S Radiculapathy - Right Upper limb tension test: Negative C/S Radiculapathy - Left Spurlings: Positive C/S Radiculapathy - Right Spurlings: Positive C/S Radiculapathy - Left Cervical distraction: Negative C/S Radiculapathy - Right Cervical distraction: Negative C/S Radiculapathy - Left Relief test: Negative Sharp Dahlia: Negative Vertebral Artery Test: Negative Alar Ligament Test: Negative L/S Slump test left side: Negative L/S Slump test right side: Negative L/S Left Straight Leg Raise: Negative L/S Right Straight Leg Raise: Negative Balance/Special Test Scores Oswestry Neck Score: 30 Goals Goal 1:: Patient to Aquatic Therapy. Goal Time Frame: 4-6 Weeks Goal 2:: Patient to demonstrate 50% improvement with neck and back pain to improve function . Goal Time Frame: 4-6 Weeks Goal 3:: Patient improve cervical ROM for function of recovery for drivig Goal Time Frame: 4-6 Weeks Goal 4:: Patient to improve lumbar ROM for function to put on shoes. Goal Time Frame: 4-6 Weeks Goal 5:: Patient to improve neck oswestry score by 5 points to improve function AND QOL Goal Time Frame: 4-6 Weeks Goal 6:: Patient to demonstrate 50% improvement with less pain and improved function Goal Time Frame: 4-6 Weeks Rehabilitation Potential Physical Therapy Diagnosis: This patient multiple complexity issue with pain in neck and lumbar which has been chronic in nature with pain with positioning ,motion testing worse with bending ,lifting walking and standing impairs ADLS and housework thus benefit from skilled PT Rehabilitation Potential: Fair Anticipated Interventions Patient/Client Instruction: Educate patient on: Condition and Plan of Care For the Purpose of:: To decrease pain, To increase ROM, To improve muscle performance and motor function, To improve ability to perform ADL's, To improve performance and independence with ADL's, To improve ability of physical actions for home/community/work/leisure, To improve gait and locomotor functions, To improve health of tissue, To decrease soft tissue restriction, To increase flexibility/ROM, To reduce risk of recurrence and To improve tolerance to ADL's Therapeutic Exercise to Include: Strength training, Body mechanics, Postural training, Flexibilty training, In an aquatic setting, Active ROM, Dynamic Lumbar Stabilization and Scapular Strength/Stabilization Comment: BLE /BUE For the Purpose of:: To decrease pain, To increase ROM, To improve muscle performance and motor function, To improve ability to perform ADL's, To increase tolerance to activity/condition/position, To improve ability of physical actions for home/community/work/leisure, To improve gait and locomotor functions, To improve health of tissue, To decrease soft tissue restriction, To increase flexibility/ROM, To improve safety and To improve tolerance to ADL's Text: Thank you for the opportunity to evaluate your patient. For Medicare and Medicare HMO plans, please review the plan of care and approve it. It will need to be FAXED BACK to us at [phone] for Medicare purposes. For Medicare only, by signing this I certify the plan of care. Please let me know if there are questions or concerns regarding this plan of care. Physician Signature: Date:
--- NOTE | 2024-09-30 12:52 | HP.PTDCSUM ---
Discharge Summary D/C summary: It has been my pleasure to treat CHAN NEWBERRY referred by Dr. Anamaria Holt MD, with the diagnosis of NECK PAIN AND BACK PAIN for a total of 9 visit(s). Discharge Date: 09/30/24 Please see the following information for a summary of their discharge status. Subjective Subjective: Unable to stand ~ 10mins like to wash dishes Walk in store with cart Feels loose after PT in water then does not feel good with chronic fatigue from pain Nothing has helped Plan to discuss with pain management about pain pump Pain Bilateral Neck: Pain Intensity (Out of 10): 4 Bilateral Back: Pain Intensity (Out of 10): 4 Overall Improvement % Improvement: 20 Objective Objective/Function: POSTURE: mild forward posture GAIT: reciprocal pattern slow zach and antalgic NEURO: c/o paresthesia/tingling ,in arms and legs AROM: BUE WFL limited shoulder flexion with pain MMT: BUE grossly 4/5 ,shoulders 4-/5 CERVICAL ROM: flexion min loss ,extension mod loss ,rotation mod loss ,lateral mod loss FLEXABILITY: mod hamstrings LUMBAR ROM: flexion min/mod loss ,extension mod loss,side glides min/mod loss MMT: quads/hams 4/5 ,hip flexion 4-/5 ,ankle 4/5 Goals Goal 1:: Patient to Aquatic Therapy. Goal Progress: Progressing Goal 2:: Patient to demonstrate 50% improvement with neck and back pain to improve function . Goal Progress: Progressing Goal 3:: Patient improve cervical ROM for function of recovery for drivig Goal Progress: Progressing Goal 4:: Patient to improve lumbar ROM for function to put on shoes. Goal Progress: Progressing Goal 5:: Patient to improve neck oswestry score by 5 points to improve function AND QOL Goal 6:: Patient to demonstrate 50% improvement with less pain and improved function Goal Progress: Progressing Plan Plan: D/C TO RTD D/C Information Discharge Comments: RTD d/c sentence: If there are questions or concerns regarding this patient's physical therapy, please feel free to call me at [phone]. Thank you for the referral of this patient. Sincerely, Prudencio [place], PT, Cert MDT, OCS Balance/Gait/Functional tests Balance/Special Test Scores Oswestry Neck Score: 30 Improvement % Improvement: 20
== END 2024-09-30 19:00 | disposition home or self-care (01) ==
LOC: PT 11:30
PROVIDERS: PCP Nurse Practitioner Family; Referring Provider Anesthesiology Pain Medicine; Visit Provider Anesthesiology Pain Medicine
DX: M54.2 Cervicalgia (principal); M54.9 Dorsalgia, unspecified
CPT/HCPCS: 97113; 97162; 97530

== ENCOUNTER → 2024-10-09 | Outpatient (CLI) | payer MEDICARE, SELFPAY ==
[2024-10-09 19:45] LABS: Barbiturate Urine NEGATIVE (< 200 ng/mL); Benzodiazepine Urine PRESUMPTIVE POSITIVE (< 200 ng/mL); PCP Urine NEGATIVE (< 25 ng/mL); THC Urine PRESUMPTIVE POSITIVE (< 50 ng/mL)
== END | disposition home or self-care (01) ==
LOC: LAB 15:32
PROVIDERS: PCP Nurse Practitioner Family; Referring Provider Anesthesiology Pain Medicine; Visit Provider Anesthesiology Pain Medicine
DX: F11.20 Opioid dependence, uncomplicated (principal)
CPT/HCPCS: 80307

== ENCOUNTER → 2024-10-13 | Outpatient (CLI) | payer MEDICARE, SELFPAY ==
[2024-10-15 23:07] LABS: QNTFERON TB Mitogen Value > 10.00 IU/mL (.); QNTFERON TB Nil Value 0.19 IU/mL (.); QNTFERON TB1+ Ag Value 0.10 IU/mL (.); QNTFERON TB2+ Ag Value 0.07 IU/mL (.); QNTIFERON TB Positive Criteria Negative (Negative)
== END | disposition home or self-care (01) ==
LOC: MTLAB 14:22
PROVIDERS: PCP Nurse Practitioner Family
DX: L40.0 Psoriasis vulgaris (principal)
CPT/HCPCS: 36415; 86480

== ENCOUNTER → 2024-10-18 | Outpatient (CLI) | payer MEDICARE, SELFPAY ==
--- OUTSIDE RECORDS SUMMARY | 2024-10-18 08:24 | XMS RPT_ITS | CCD ---
Author Organization [facility] CliniSyms Care Team Providers Care Electro Mechanic Name Role Phone Lovely COLLADO, Shalom Primary Care Provider SHALOM MURRY Primary Care Unavailable EPHRAMI BO Referring Unavailable SHALOM MURRY Primary Care Unavailable Lovely COLLADO, Shalom Primary Care Provider Gage DESTINATION SPECIALIST-C, [place] Primary Care Provider Gage DESTINATION SPECIALIST-C, [place] Attending Provider Gage DESTINATION SPECIALIST-C, [place] Primary Care Provider Gage DESTINATION SPECIALIST-C, [place] Attending Provider Dr. Chayo Gao MD Attending Provider Dr. Chayo Gao MD Referring Provider Gurpreet COLLADO, Dr. Garzon Attending Provider Gage DESTINATION SPECIALIST-C, [place] Primary Care Provider Dr. Anamaria Holt MD Attending Provider Dr. Anamaria Holt MD Referring Provider Dr. Anamaria Holt MD Attending Provider Dr. Anamaria Holt MD Referring Provider Gage DESTINATION SPECIALIST-C, [place] Primary Care Provider Dr. Les Esquivel MD Attending Provider Dr. Les Esquivel MD Referring Provider Anamaria Holt Referring Unavailable Gage, [place] Primary Care Unavailable Anamaria Holt Attending Unavailable Gage, [place] Primary Care Unavailable Basali, Ayman Referring Unavailable Basali, Ayman Attending Unavailable [facility] Unavailable Duran Vázquez Attending Unavailable Chayo Gao Referring Unavailable Chayo Gao Attending Unavailable [facility] Un[facility] Attending Unavailable [facility] Primary Care Unavailable [facility] Primary Care Unavailable Adryan Esquivelard Referring Unavailable AlvinAdryan seayard Attending Unavailable [facility] Primary Care Unavailable Basali, Ayman Referring Unavailable Basali, Ayman Attending Unavailable [facility] Primary Care Unavailable Basali, Ayman Attending Unavailable Basali, Ayman Referring Unavailable Medications Current Medications Medication Drug Class(es) [...] Other inflammatory condition of skin (1 source) Psoriasis vulgaris; Translations: [Psoriasis vulgaris] Onset: 10-13-2024 Chronic Other inflammatory condition of skin (1 [...] Spondylosis; intervertebral disc disorders; other back problems (19 sources) Chronic low back pain; Translations: [Neck pain] Onset: 04-17-2024 04-29-2024 Episodic Substance-related disorders (1 source) Opioid dependence, uncomplicated; Translations: [Opioid dependence, uncomplicated] Onset: 10-14-2024 Chronic Unclassified (2 sources) Low back pain, unspecified; Translations: [Low back pain, unspecified] Onset: 04-17-2024 Past or Other Problems Problem Classification Problem Date Documented Da te Episodic/Chronic Unclassified (2 sources) Onset: 04-17-2024 04-17-2024 Unclassified (2 sources) Low back pain, unspecified; Translations: [Low back pain, unspecified] Onset: 04-17-2024 Results Test Name Value Interpretation Reference Range Facility L3410.9992on 10-15-2024 [facility] Misc. COMMENT Normal . [facility] Comment on above: Order Comment: [id number] URINE TOX Result Comment: Test Ordered: [id number] Amphetamines Screen, Urine Negative ng/mL UI Reference Range: Zhcogs=332 Amphetamine test includes Amphetamine and Methamphetamine. Barbiturates Negative ng/mL UI Reference Range: Sprtny=618 Benzodiazepines Note: ng/mL UI See Final Results Reference Range: Xplyrc=301 Benzodiazepines Positive [A ] ng/mL UI Reference Range: Grbhlo=237 Confirmation performed by Mass Spectrometry Nordiazepam Negative UI Reference Range: Flvdwj=019 Oxazepam Negative UI Reference Range: Llpiij=766 Flurazepam Negative UI Reference Range: Iuwndj=748 Lorazepam Positive [A ] UI Reference Range: . Lorazepam Conf, MS, UR 498 ng/mL UI Reference Range: Novjdb=031 Alprazolam Negative UI Reference Range: Ukoawa=311 Clonazepam Negative UI Reference Range: Sgpgoh=806 Temazepam Negative UI Reference Range: Luclwr=358 Triazolam Negative UI Reference Range: Zqqvpe=801 Midazolam Negative UI Reference Range: Cbsvtn=325 Cocaine (Metab.), Urine Negative ng/mL UI Reference Range: Vqfths=641 Opiates Negative ng/mL UI Reference Range: Hvspkw=873 Opiate test includes Codeine, Morphine, Hydromorphone, Hydrocodone. 6-Acetylmorphine, Urine Negative ng/mL UI Reference Range: Cutoff=10 Oxycodone/Oxymorphone, Urine Negative ng/mL UI Reference Range: Rlwooy=510 Test includes Oxycodone and Oxymorphone PCP, Urine Negative ng/mL UI Reference Range: Cutoff=25 Methadone Screen, Urine Negative ng/mL UI Reference Range: Kvsfku=458 Propoxyphene, Urine Negative ng/mL UI Reference Range: Wgriif=028 Fentanyl, Urine Negative ng/mL UI Reference Range: Cutoff=2.0 Test includes Fentanyl and Norfentanyl This test was developed and its performance characteristics determined by [facility]. It has not been cleared or approved by the Food and Drug Administration. Tramadol Negative ng/mL UI Reference Range: Cisgeo=152 Buprenorphine, Urine Negative ng/mL UI Reference Range: Cutoff=10 Creatinine, Urine 125.0 mg/dL UI Reference Range: 20.0-300.0 pH, Urine 6.6 UI Reference Range: 4.5-8.9 Performed at: [facility] [address] [place], [place] [id number] Service Dispatcher: Bharati Castro PhD, Phone: [phone] Performed at: [address] [id number] Service Dispatcher: Josiah Cox PhD, Phone: [phone] Performed By: #### L 3410.9992, L505.5000 #### [facility] Laboratory [address] [place], [address] Quantiferon TB-Gold+on 10-15 QFT MITOGEN SHADE > 10.00 Normal . [facility] Comment on above: Order Comment: FAX R ESULTS TO [phone] Performed By: #### L 3400.8000 #### [facility] Laboratory [address] [place], [address] QFT NIL VALUE 0.19 IU/mL Normal . [facility] Comment on above: Order Comment: FAX R ESULTS TO [phone] Performed By: #### L 3400.8000 #### [facility] Laboratory [address] [place], [address] QFT TB GOLD+ Comment Normal . [facility] Comment on above: Order Comment: FAX R ESULTS TO [phone] Result Comment: Gentry tiFERON-TB Gold Plus is [...] for the test. Performed By: #### L 3400.8000 #### [facility] Laboratory [address] [place], [address] QFT TB POS CRIT Negative Normal Negative [facility] Comment on above: Order Comment: FAX R ESULTS TO [phone] Result Comment: No r esponse to M [...] of interferon gamma. Chemiluminescence immunoassay methodology Performed at: [facility] [address] [id number] Service Dispatcher: Josiah Cox PhD, Phone: [phone] Performed By: #### L 3400.8000 #### [facility] Laboratory [address] [place], [address] QFT TB1+ AG SHADE 0.10 IU/mL Normal . [facility] Comment on above: Order Comment: FAX R ESULTS TO [phone] Performed By: #### L 3400.8000 #### [facility] Laboratory [address] [place], [address] QFT TB2+ AG SHADE 0.07 IU/mL Normal . [facility] Comment on above: Order Comment: FAX R ESULTS TO [phone] Performed By: #### L 3400.8000 #### [facility] Laboratory [address] [place], [address] Qualitative QuantiFERON-TB g old in tube testOrdered By: Les Esquivel on 10-13-2024 M. tuberculosis tuberculin stim IFN-g Ql (Bld) 0.10 IU/mL . [facility] Amphetamine detection with 1 000 ng/mL as cutoffOrdered By: Anamaria Holt on 10-09-2024 Amphetamines Screen method >1000 ng/mL Ql (U) Negative < 200 ng/mL [facility] No Panel InformationOrdered By: Anamaria Holt on 10-09-2024 Urine Buprenorphine Qualitative Negative < 200 ng/mL [facility] Urine Oxycodone Screen Negative < 100 ng/mL [facility] Quantitative urine opiates m easurementOrdered By: Anamaria Holt on 10-09-2024 Opiates Ql (U) Negative < 300 ng/mL [facility] Screening urine fentanyl aristeo surementOrdered By: Anamaria Holt on 10-09-2024 fentaNYL Screen Ql (U) Negative [facility] Urine Drug Screen (VISTA)on 10-09-2024 AMPHETAMINES Negative Normal <1000 ng/mL [facility] Comment on above: Order Comment: UNK Performed By: #### L 3410.9992, L505.5000 #### [facility] Laboratory [address] [facility] [address] BARBITIURATES Negative Normal < 200 ng/mL [facility] Comment on above: Order Comment: UNK Performed By: #### L 3410.9992, L505.5000 #### [facility] Laboratory [address] [facility] [address] BENZODIAZIPINE Positive Normal < 200 ng/mL [facility] Comment on above: Order Comment: UNK Result Comment: If c onfirmation testing is needed, a separate order will be required to send out testing to the reference laboratory. Performed By: #### L 3410.9992, L505.5000 #### [facility] Laboratory [address] [place], [address] BUP Ur Drug Scr Negative Normal < 200 ng/mL [facility] Comment on above: Order Comment: UNK Performed By: #### L 3410.9992, L505.5000 #### [facility] Laboratory [address] [place], [address] COCAINE Negative Normal < 300 ng/mL [facility] Comment on above: Order Comment: UNK Performed By: #### L 3410.9992, L505.5000 #### [facility] Laboratory [address] [place], [address] Fentanyl Negative Normal [facility] Comment on above: Order Comment: UNK Performed By: #### L 3410.9992, L505.5000 #### [facility] Laboratory [address] [facility] [address] METHADONE Negative Normal < 300 ng/mL [facility] Comment on above: Order Comment: UNK Performed By: #### L 3410.9992, L505.5000 #### [facility] Laboratory [address] [place], [address] OPIATES Negative Normal < 300 ng/mL [facility] Comment on above: Order Comment: UNK Performed By: #### L 3410.9992, L505.5000 #### [facility] Laboratory [address] [facility] [address] OXYCODONE Negative Normal < 100 ng/mL [facility] Comment on above: Order Comment: UNK Performed By: #### L 3410.9992, L505.5000 #### [facility] Laboratory [address] [facility] [address] PCP Negative Normal < 25 ng/mL [facility] Comment on above: Order Comment: UNK Performed By: #### L 3410.9992, L505.5000 #### [facility] Laboratory [address] [facility] [address] THC Positive Normal < 50 ng/mL [facility] Comment on above: Order Comment: UNK Result Comment: If c onfirmation testing is needed, a separate order will be required to send out testing to the reference laboratory. Performed By: #### L 3410.9992, L505.5000 #### [facility] Laboratory [address] [place], [address] Urine benzodiazepine levelOr dered By: Anamaria Holt on 10-09-2024 Benzodiazepines Ql (U) Positive < 200 ng/mL [facility] Comment on above: If confirmation test ing is needed, a separate order will be required to send out testing to the reference laboratory. Urine cocaine levelOrdered B y: Anamaria Holt on 10-09-2024 Cocaine Ql (U) Negative < 300 ng/mL [facility] Urine wannc-6-lyfgkxbjpnhdok abinol (THC) measurementOrdered By: Anamaria Holt on 10-09-2024 Cannabinoids Screen Ql (U) Positive < 50 ng/mL [facility] Comment on above: If confirmation test ing is needed, a separate order will be required to send out testing to the reference laboratory. Urine phencyclidine (PCP) de tectionOrdered By: Anamaria Holt on 10-09-2024 Phencyclidine Ql (U) Negative < 25 ng/mL [facility] PT D/C Summary (1)on 025 PT D/C Summary (1) [facility] Physical Therapy [facility] [address] [place] [address] / REHABILITATION SERVICES DISCHARGE SUMMARY MR#: [id number] Acct: [id number] Name: CHAN NEWBERRY Rep #: [id number] : 1960 64 From: Prudencio Cleveland PT, Cert. T, OCS Referring Dr.: Dr. Anamaria Holt MD Status: REG RCR Insurance: [employer] MEDICARE PPO SELF PAY INSURANCE Discharge Summary D/C summary: It has been my pleasure to treat CHAN NEWBERRY referred by Dr. Anamaria Holt MD, with the diagnosis of NECK PAIN AND BACK PAIN for a total of 9 visit(s). Discharge Date: 09/30/24 Please see the following information for a summary of their discharge status. Subjective Subjective: Unable to stand 10mins like to wash dishes Walk in store with cart Feels loose after PT in water then does not feel good with chronic fatigue from pain Nothing has helped Plan to discuss with pain management about pain pump Pain Bilateral Neck: Pain Intensity (Out of 10): 4 Bilateral Back: Pain Intensity (Out of 10): 4 Overall Improvement % Improvement: 20 Objective Objective/Function: POSTURE: mild forward posture GAIT: reciprocal pattern [...] quads/hams 4/5 ,hip flexion 4-/5 ,ankle 4/5 Goals Goal 1:: Patient to Aquatic Therapy. Goal Progress: Progressing Goal 2:: Patient to demonstrate 50% improvement with neck and back pain to improve function . Goal Progress: Progressing Goal 3:: Patient improve cervical ROM for function of recovery for drivig Goal Progress: Progressing Goal 4:: Patient to improve lumbar ROM for function to put on shoes. Goal Progress: Progressing Goal 5:: Patient to improve neck oswestry score by 5 points to improve function AND QOL Goal 6:: Patient to demonstrate 50% improvement with less pain and improved function Goal Progress: Progressing Plan Plan: D/C TO RTD D/C Information Discharge Comments: RTD d/c sentence: If there are questions or concerns regarding this patient's physical therapy, please feel free to call me at [phone]. Thank you for the referral of this patient. Sincerely, Prudencio Cleveland, PT, Cert MDT, OCS Balance/Gait/Functional tests Balance/Special Test Scores Oswestry Neck Score: 30 Improvement % Improvement: 09/30/24 1252 CC: DESTINATION SPECIALIST-C Elda Almonte; Dr. Anamaria Holt MD JLA Signed Normal [facility] Magnetic resonance imaging r eportOrdered By: Clemente Argueta on 09-13-2024 Study report [facility] Imaging Services [address] [place] [address] Spine Lumbar (Routine) MR#: [id number] Acct: [id number] Name: CHAN NEWBERRY Rep #: [id number] : 1960 M 64 From: Annalisa Argueta MD PCP: MARIE Segundo Status: REG CLI Study:Spine Lumbar (Routine) Date of Exam: 09/12/24 Exam# [id number] Ordering Dr: Marianela Holt MD PROCEDURE: SPINE LUMBAR (ROUTINE) 09/12/2024 REASON FOR EXAM: RADICULOPATHY TECHNIQUE: SPINE LUMBAR (ROUTINE) COMPARISON: Radiographs on 06/05/2024. FINDINGS: S shaped degenerative scoliosis. Mild diffuse spondylosis. Mild multilevel degenerative disc disease. Uncomplicated benign chronic hemangioma of L4 vertebral body measuring 1.4 cm. Moderate chronic changes of Baastrup's disease. There is normal signal intensity from the visualized bone marrow without evidence of replacement or acute fracture. The conus is unremarkable. Exaggerated lumbar lordosis. Evaluation of the individual levels revealed the following: L5-S1: Mild diffuse disc bulge. Bilateral facet joint arthropathy. The spinal canal is not narrowed. Moderate bilateral neural foramina narrowing. L4-5: Grade 1 anterolisthesis measuring 5.3 mm. Moderate diffuse disc bulge. Bilateral facet joint arthropathy and ligamentum flavum hypertrophy. The spinal canal is mildly narrowed. Moderate bilateral neural foramina narrowing. L3-4: Mild diffuse disc bulge. Bilateral facet joint arthropathy and ligamentumflavum hypertrophy. The spinal canal is not narrowed. Moderate bilateral neural foramina narrowing. L2-3: Grade 1 retrolisthesis measuring 3.5 mm. Mild diffuse disc bulge. Bilateral facet joint arthropathy and ligamentum flavum hypertrophy. The spinal canal is not narrowed. Mild bilateral neural foramina narrowing. L1-2: Grade 1 anterolisthesis measuring 2.7 mm. Mild diffuse disc bulge. Bilateral facet joint arthropathy and ligamentum flavum hypertrophy. The spinal canal is not narrowed. Mild bilateral neural foramina narrowing. Normal visualized paraspinous soft tissue structures. MRI/Spine Lumbar (Routine) IMPRESSION: Degenerative disc disease. Reading Location: [place] [address] CC: DESTINATION SPECIALIST-C Elda Almonte; Dr. Anamaria Holt MD ~ Assistant District Attorney: Signed [facility] Spine Lumbar (Routine)on Spine Lumbar (Routine) [facility] Imaging Services [address] [place] [address] Spine Lumbar (Routine) MR#: [id number] Acct: [id number] Name: CHAN NEWBERRY Rep #: [id number] : 1960 M 64 From: Clemente quintero MD PCP: Elda Almonte NP-C Status: REG CLI Study: Spine Lumbar (Routine) Date of Exam: 09/12/24 Exam# [id number] Ordering Dr: Anamaria Holt MD PROCEDURE: SPINE LUMBAR (ROUTINE) 09/12/2024 REASON FOR EXAM: RADICULOPATHY TECHNIQUE: SPINE LUMBAR (ROUTINE) COMPARISON: Radiographs on 06/05/2024. FINDINGS: S shaped degenerative scoliosis. Mild diffuse spondylosis. Mild multilevel degenerative disc disease. Uncomplicated benign chronic hemangioma of L4 vertebral body measuring 1.4 cm. Moderate chronic changes of Baastrup's disease. There is normal signal intensity from the visualized bone marrow without evidence of replacement or acute fracture. The conus is unremarkable. Exaggerated lumbar lordosis. Evaluation of the individual levels revealed the following: L5-S1: Mild diffuse disc bulge. Bilateral facet joint arthropathy. The spinal canal is not narrowed. Moderate bilateral neural foramina narrowing. L4-5: Grade 1 anterolisthesis measuring 5.3 mm. Moderate diffuse disc bulge. Bilateral facet joint arthropathy and ligamentum flavum hypertrophy. The spinal canal is mildly narrowed. Moderate bilateral neural foramina narrowing. L3-4: Mild diffuse disc bulge. Bilateral facet joint arthropathy and ligamentum flavum hypertrophy. The spinal canal is not narrowed. Moderate bilateral neural foramina narrowing. L2-3: Grade 1 retrolisthesis measuring 3.5 mm. Mild diffuse disc bulge. Bilateral facet joint arthropathy and ligamentum flavum hypertrophy. The spinal canal is not narrowed. Mild bilateral neural foramina narrowing. L1-2: Grade 1 anterolisthesis measuring 2.7 mm. Mild diffuse disc bulge. Bilateral facet joint arthropathy and ligamentum flavum hypertrophy. The spinal canal is not narrowed. Mild bilateral neural foramina narrowing. Normal visualized paraspinous soft tissue structures. MRI/Spine Lumbar (Routine) IMPRESSION: Degenerative disc disease. Reading Location: [place] [address] CC: DESTINATION SPECIALISTKate Almonte; Dr. Anamaria Holt MD Assistant District Attorney: Signed Normal [facility] Inital Evaluation (1) - PTon 08-13-2024 Inital Evaluation (1) - PT [facility] Physical Therapy [facility] [address] [place] [address] [address] [place] [address] / REHABILITATION SERVICES INITIAL EVALUATION MR#: [id number] Acct: [id number] Name: CHAN NEWBERRY Rep #: [id number] : 1960 64 From: Prudencio Cleveland PT, Cert. MD Muse, OCS Referring Dr.: Dr. Anamaria Holt MD Status: REG RCR Insurance: [employer] MED[employer] PPO SELF PAY INSURANCE Patient's Visit Information Visit Information Visit Information: CHAN NEWBERRY is a 64 year old M [...] had x-rays showed cervical C5-6 greater than C4-5spondylosis/discoge jerrod change with disc space narrowing and anterior osteophyte formation. C6-7 disc space is not well evaluated due to shoulder overlap. Ltuz-aescagh-gjin-right hypertrophic appearing facet degenerative changes. lumbar showed [...] sleeping aides. Patient has had therapy in [place]. Patient ahs had pain injections in [place] with pain management.Patient condition affects QOL and [...] Instruction: Edu (more content not included)... Normal [facility] ANTINUCLEAR ANTIBODIES DIREC Ton 06-09-2024 ALO,DIRECT Negative Normal Negative [facility] Comment on above: Result Comment: Perf ormed at: [address] [id number] Service Dispatcher: Josiah Cox PhD, Phone: [phone] Performed By: #### L 3890.6102, L4600.0100, L3400.8000, L505.7010, L3890.6202, L100.0100, L501.6710, L500.4050, L101.9900, L3890.6301, L3100.5475 ####[facility] [id number] [place], [address] CCP IgG Antibodieson 025 CCP IgG Ab. 5 units Normal 0-19 [facility] Comment on above: Result Comment: Plea se Note: Specimen is lipemic. Negative <20 Weak positive 20 - 39 Moderate positive 40 - 59 Strong positive >59 Performed at: [address] [id number] Service Dispatcher: Josiah Cox PhD, Phone: [phone] Performed By: #### L 3890.6102, L4600.0100, L3400.8000, L505.7010, L3890.6202, L100.0100, L501.6710, L500.4050, L101.9900, L3890.6301, L3100.5475 ####[facility] [address] [place], [address] Quantiferon TB-Gold+on 06-07 QFT MITOGEN SHADE > 10.00 Normal . [facility] Comment on above: Performed By: #### L 3890.6102, L4600.0100, L3400.8000, L505.7010, L3890.6202, L100.0100, L501.6710, L500.4050, L101.9900, L3890.6301, L3100.5475 ####[facility] [id number] [place], [address]) QFT NIL VALUE 0.09 IU/mL Normal . [facility] Comment on above: Performed By: #### L 3890.6102, L4600.0100, L3400.8000, L505.7010, L3890.6202, L100.0100, L501.6710, L500.4050, L101.9900, L3890.6301, L3100.5475 ####[facility] [id number] [place], [address]160) QFT TB GOLD+ Comment Normal . [facility] Comment on above: Result Comment: Gentry tiFERON-TB [...] for the test. Performed By: #### L 3890.6102, L4600.0100, L3400.8000, L505.7010, L3890.6202, L100.0100, L501.6710, L500.4050, L101.9900, L3890.6301, L3100.5475 ####[facility] [address] [place], [address] QFT TB POS CRIT Negative Normal Negative [facility] Comment on above: Result Comment: No r [...] Chemiluminescence immunoassay methodology Performed By: #### L 3890.6102, L4600.0100, L3400.8000, L505.7010, L3890.6202, L100.0100, L501.6710, L500.4050, L101.9900, L3890.6301, L3100.5475 ####[facility] [address] [place], [address] QFT TB1+ AG SHADE 0.06 IU/mL Normal . [facility] Comment on above: Performed By: #### L 3890.6102, L4600.0100, L3400.8000, L505.7010, L3890.6202, L100.0100, L501.6710, L500.4050, L101.9900, L3890.6301, L3100.5475 ####[facility] [address] [place], [address] QFT TB2+ AG SHADE 0.08 IU/mL Normal . [facility] Comment on above: Performed By: #### L 3890.6102, L4600.0100, L3400.8000, L505.7010, L3890.6202, L100.0100, L501.6710, L500.4050, L101.9900, L3890.6301, L3100.5475 ####[facility] [address] [place], [address] ALO serumOrdered By: Chayo lewis on 06-05-2024 Anti-Nuclear Antibody Screen Negative Negative [facility] Comment on above: Performed at: [address] [id number] Director: Josiah Cox PhD, Phone: [phone] Absolute lymphocyte countOrd ered By: Chayo Gao on 06-05-2024 Lymphocytes Auto (Unsp spec) [#/Vol] 3.13 10*3/uL 0.83-4.51 [facility] Absolute neutrophil countOrd ered By: Chayo Gao on 06-05-2024 Neutrophils (Bld) [#/Vol] 4.5 10*3/uL 2.0-7.7 [facility] Anion gap in Serum or Plasma Ordered By: Chayo Gao on 06-05-2024 Anion gap [Moles/Vol] 11 mmol/L 5- [facility] Automated lymphocyte count a s percentage of total leukocytesOrdered By: Chayo Gao on 06-05-2024 Lymphocytes/100 WBC Auto (Unsp spec) 33.7 % - [facility] BUN/creatinine ratioOrdered By: Chayostevie Gao on 06-05-2024 Urea nitrogen/Creatinine [Mass ratio] 13.3 mg/mg 10- [facility] Basophil percentageOrdered B y: Chayo Gao on 06-05-2024 Basophils/100 WBC (Bld) 0.9 % 0-1 [facility] Bilirubin, totalOrdered By: Chayo Gao on 06-05-2024 Bilirubin [Mass/Vol] 0.19 mg/dL 0.00-1.30 [facility] CBC W/Diff, Automatedon 05-24 Absolute Lymph 3.13 X10 3/uL Normal 0.83-4.51 [facility] Comment on above: Performed By: #### L 3890.6102, L4600.0100, L3400.8000, L505.7010, L3890.6202, L100.0100, L501.6710, L500.4050, L101.9900, L3890.6301, L3100.5475 ####[facility] [address] [place], [place], [id number] Absolute Neut 4.5 X10 3/uL Normal 2.0-7.7 [facility] Comment on above: Performed By: #### L 3890.6102, L4600.0100, L3400.8000, L505.7010, L3890.6202, L100.0100, L501.6710, L500.4050, L101.9900, L3890.6301, L3100.5475 ####[facility] [address] [place], [phone]) Basophils/100 WBC (Bld) 0.9 % Normal 0-1 [facility] Comment on above: Performed By: #### L 3890.6102, L4600.0100, L3400.8000, L505.7010, L3890.6202, L100.0100, L501.6710, L500.4050, L101.9900, L3890.6301, L3100.5475 ####[facility] [address] [place], [phone] Eosinophils/100 WBC (Bld) 10.0 % High 0-5 [facility] Comment on above: Performed By: #### L 3890.6102, L4600.0100, L3400.8000, L505.7010, L3890.6202, L100.0100, L501.6710, L500.4050, L101.9900, L3890.6301, L3100.5475 ####[facility] [address] [place], [address] Erythrocyte distribution width (RBC) [Ratio] 13.6 % Normal 11.6-14.6 [facility] Comment on above: Performed By: #### L 3890.6102, L4600.0100, L3400.8000, L505.7010, L3890.6202, L100.0100, L501.6710, L500.4050, L101.9900, L3890.6301, L3100.5475 ####[facility] [address] [place], [address](186) Hematocrit (Bld) [Volume fraction] 44.9 % Normal 40-54 [facility] Comment on above: Performed By: #### L 3890.6102, L4600.0100, L3400.8000, L505.7010, L3890.6202, L100.0100, L501.6710, L500.4050, L101.9900, L3890.6301, L3100.5475 ####[facility] [address] [facility] [place], [address] Hemoglobin (Bld) [Mass/Vol] 15.2 g/dL Normal 13.0-16.5 [facility] Comment on above: Performed By: #### L 3890.6102, L4600.0100, L3400.8000, L505.7010, L3890.6202, L100.0100, L501.6710, L500.4050, L101.9900, L3890.6301, L3100.5475 ####[facility] [address] [facility] [place], [phone] IG% 0.500 Normal 0.0-0.9 [facility] Comment on above: Result Comment: IG% - Immature Granulocytes (promyelocytes, myelocytes and metamyelocytes) > 1% indicates that a LEFT SHIFT is Present. Performed By: #### L 3890.6102, L4600.0100, L3400.8000, L505.7010, L3890.6202, L100.0100, L501.6710, L500.4050, L101.9900, L3890.6301, L3100.5475 ####[facility] [address] [place], [address] Lymphocytes/100 WBC (Bld) 33.7 % Normal 19-41 [facility] Comment on above: Performed By: #### L 3890.6102, L4600.0100, L3400.8000, L505.7010, L3890.6202, L100.0100, L501.6710, L500.4050, L101.9900, L3890.6301, L3100.5475 ####[facility] [address] [facility] [place], [address] MCH (RBC) [Entitic mass] 31.6 pg Normal 27.0-32.0 [facility] Comment on above: Performed By: #### L 3890.6102, L4600.0100, L3400.8000, L505.7010, L3890.6202, L100.0100, L501.6710, L500.4050, L101.9900, L3890.6301, L3100.5475 ####[facility] [address] [place], [address] MCHC (RBC) [Mass/Vol] 33.9 g/dL Normal 32-36 [facility] Comment on above: Performed By: #### L 3890.6102, L4600.0100, L3400.8000, L505.7010, L3890.6202, L100.0100, L501.6710, L500.4050, L101.9900, L3890.6301, L3100.5475 ####[facility] [address] [place], [address] MCV (RBC) [Entitic vol] 93.3 fL Normal 80-94 [facility] Comment on above: Performed By: #### L 3890.6102, L4600.0100, L3400.8000, L505.7010, L3890.6202, L100.0100, L501.6710, L500.4050, L101.9900, L3890.6301, L3100.5475 ####[facility] [address] [place], [address] Monocytes/100 WBC (Bld) 6.4 % Normal 0-10 [facility] Comment on above: Performed By: #### L 3890.6102, L4600.0100, L3400.8000, L505.7010, L3890.6202, L100.0100, L501.6710, L500.4050, L101.9900, L3890.6301, L3100.5475 ####[facility] [address] [place], [address] Neutrophils/100 WBC (Bld) 48.5 % Normal 47-70 [facility] Comment on above: Performed By: #### L 3890.6102, L4600.0100, L3400.8000, L505.7010, L3890.6202, L100.0100, L501.6710, L500.4050, L101.9900, L3890.6301, L3100.5475 ####[facility] [address] [place], [address] Nucleated RBC (Bld) [#/Vol] 0 10*3/uL Normal 0-5 [facility] Comment on above: Performed By: #### L 3890.6102, L4600.0100, L3400.8000, L505.7010, L3890.6202, L100.0100, L501.6710, L500.4050, L101.9900, L3890.6301, L3100.5475 ####[facility] [address] [place], [address] Platelet mean volume (Bld) [Entitic vol] 13.9 fL High 6.2-12.0 [facility] Comment on above: Performed By: #### L 3890.6102, L4600.0100, L3400.8000, L505.7010, L3890.6202, L100.0100, L501.6710, L500.4050, L101.9900, L3890.6301, L3100.5475 ####[facility] [address] [place], [address] Platelets (Bld) [#/Vol] 151 10*3/uL Normal 150-450 [facility] Comment on above: Performed By: #### L 3890.6102, L4600.0100, L3400.8000, L505.7010, L3890.6202, L100.0100, L501.6710, L500.4050, L101.9900, L3890.6301, L3100.5475 ####[facility] [address] [place], [place], [phone]) RBC (Bld) [#/Vol] 4.81 10*6/uL Normal 4.6-6.2 [facility] Comment on above: Performed By: #### L 3890.6102, L4600.0100, L3400.8000, L505.7010, L3890.6202, L100.0100, L501.6710, L500.4050, L101.9900, L3890.6301, L3100.5475 ####[facility] [address] [place], [place], [phone] RDW SD 46.3 fl High 35.1-43.9 [facility] Comment on above: Performed By: #### L 3890.6102, L4600.0100, L3400.8000, L505.7010, L3890.6202, L100.0100, L501.6710, L500.4050, L101.9900, L3890.6301, L3100.5475 ####[facility] [address] [place], [place], [phone] WBC (Bld) [#/Vol] 9.3 10*3/uL Normal 4.4-11.0 [facility] Comment on above: Performed By: #### L 3890.6102, L4600.0100, L3400.8000, L505.7010, L3890.6202, L100.0100, L501.6710, L500.4050, L101.9900, L3890.6301, L3100.5475 ####[facility] [address] [place], [place], [phone] CRPon 06-05-2024 C-REACTIVE PROT 5.81 mg/L High 0.0-3.0 [facility] Comment on above: Performed By: #### L 3890.6102, L4600.0100, L3400.8000, L505.7010, L3890.6202, L100.0100, L501.6710, L500.4050, L101.9900, L3890.6301, L3100.5475 ####[facility] [address] [place], [place], [address] CRP [Mass/Vol]Ordered By: Joesph Gao on 06-05-2024 C-Reactive Protein Extended Range 5.81 mg/L High 0.0-3.0 [facility] Carbon dioxide, total [Moles /volume] in Central venous bloodOrdered By: Chaoy Goa on 06-05-2024 CO2 [Moles/Vol] 30.4 mmol/L 21.0-32.0 [facility] Cerv Spine 2 or 3 Viewson Cerv Spine 2 or 3 Views [facility] [address], [place] [address] Cerv Spine 2 or 3 Views MR#: [id number] Acct: [id number] Name: CHAN NEWBERRY Rep #: [id number] : 1960 M 63 From: Steven Rojas MD PCP: MARIE Segundo Status: DEP AMB Study: Cerv Spine 2 or 3 Views Date of Exam: 06/05/24 Exam# [id number] Ordering Dr: Anamaria Holt MD PROCEDURE: CERV [...] not well evaluated due to shoulder overlap. Gjbn-ngbncil-tcvd-right hypertrophic appearing facet degenerative changes. Suggestion of possible bilateral carotid calcification. The visualized apices appear unremarkable. RAD/Cerv Spine 2 or 3 Views IMPRESSION: Cervical spondylosis/discogenic change as visualized as described above.. Reading Location: [id number] CC: MARIE Almonte; Dr. Anamaria Holt MD Assistant District Attorney: Signed Normal [facility] Chloride assayOrdered By: Joesph Gao on 06-05-2024 Chloride [Moles/Vol] 99 mmol/L 98-108 [facility] Comprehensive Metabolic Prof ilon 06-05-2024 Albumin [Mass/Vol] 3.9 g/dL Normal 3.4-4.8 [facility] Comment on above: Performed By: #### L 3890.6102, L4600.0100, L3400.8000, L505.7010, L3890.6202, L100.0100, L501.6710, L500.4050, L101.9900, L3890.6301, L3100.5475 ####[facility] [address] [facility] [address] [facility] [place], [address] Albumin/Globulin [Mass ratio] 1.4 {ratio} Normal 0.9-2.4 [facility] Comment on above: Performed By: #### L 3890.6102, L4600.0100, L3400.8000, L505.7010, L3890.6202, L100.0100, L501.6710, L500.4050, L101.9900, L3890.6301, L3100.5475 ####[facility] [address] [place], [address] ALK PHOS 88 U/L Normal 40-129 [facility] Comment on above: Performed By: #### L 3890.6102, L4600.0100, L3400.8000, L505.7010, L3890.6202, L100.0100, L501.6710, L500.4050, L101.9900, L3890.6301, L3100.5475 ####[facility] [address] [place], [address] ALT [Catalytic activity/Vol] 21 U/L Normal <=46 [facility] Comment on above: Performed By: #### L 3890.6102, L4600.0100, L3400.8000, L505.7010, L3890.6202, L100.0100, L501.6710, L500.4050, L101.9900, L3890.6301, L3100.5475 ####[facility] [address] [place], [place], [phone] AST [Catalytic activity/Vol] 20 U/L Normal <=37 [facility] Comment on above: Performed By: #### L 3890.6102, L4600.0100, L3400.8000, L505.7010, L3890.6202, L100.0100, L501.6710, L500.4050, L101.9900, L3890.6301, L3100.5475 ####[facility] [address] [place], [place], [phone] Bilirubin [Mass/Vol] 0.19 mg/dL Normal 0.00-1.30 [facility] Comment on above: Performed By: #### L 3890.6102, L4600.0100, L3400.8000, L505.7010, L3890.6202, L100.0100, L501.6710, L500.4050, L101.9900, L3890.6301, L3100.5475 ####[facility] [address] [place], [place], [phone] BUN/CRE 13.3 RATIO Normal 10-20 [facility] Comment on above: Performed By: #### L 3890.6102, L4600.0100, L3400.8000, L505.7010, L3890.6202, L100.0100, L501.6710, L500.4050, L101.9900, L3890.6301, L3100.5475 ####[facility] [address] [place], [address] Calcium [Mass/Vol] 9.2 mg/dL Normal 7.6-11.0 [facility] Comment on above: Performed By: #### L 3890.6102, L4600.0100, L3400.8000, L505.7010, L3890.6202, L100.0100, L501.6710, L500.4050, L101.9900, L3890.6301, L3100.5475 ####[facility] [address] [place], [address] Chloride [Moles/Vol] 99 mmol/L Normal 98-108 [facility] Comment on above: Performed By: #### L 3890.6102, L4600.0100, L3400.8000, L505.7010, L3890.6202, L100.0100, L501.6710, L500.4050, L101.9900, L3890.6301, L3100.5475 ####[facility] [address] [place], [address] CO2 [Moles/Vol] 30.4 mmol/L Normal 21.0-32.0 [facility] Comment on above: Performed By: #### L 3890.6102, L4600.0100, L3400.8000, L505.7010, L3890.6202, L100.0100, L501.6710, L500.4050, L101.9900, L3890.6301, L3100.5475 ####[facility] [address] [place], [address] Creatinine [Mass/Vol] 0.97 mg/dL Normal 0.70-1.20 [facility] Comment on above: Performed By: #### L 3890.6102, L4600.0100, L3400.8000, L505.7010, L3890.6202, L100.0100, L501.6710, L500.4050, L101.9900, L3890.6301, L3100.5475 ####[facility] [address] [place], [place], [phone] GAP 11 Normal 5-15 [facility] Comment on above: Performed By: #### L 3890.6102, L4600.0100, L3400.8000, L505.7010, L3890.6202, L100.0100, L501.6710, L500.4050, L101.9900, L3890.6301, L3100.5475 ####[facility] [address] [facility] [place], [address] GFR/1.73 sq M.predicted among non-blacks MDRD (S/P/Bld) [Vol rate/Area] 87 mL/min/{1.73_m2} Normal >60 [facility] Comment on above: Result Comment: mL/m in/1.73m2 CKD-EPI Creatinine Equation (2020) Performed By: #### L 3890.6102, L4600.0100, L3400.8000, L505.7010, L3890.6202, L100.0100, L501.6710, L500.4050, L101.9900, L3890.6301, L3100.5475 ####[facility] [address] [facility] [place], [place], [phone] Globulin (S) [Mass/Vol] 2.8 g/dL Normal 2.2-4.2 [facility] Comment on above: Performed By: #### L 3890.6102, L4600.0100, L3400.8000, L505.7010, L3890.6202, L100.0100, L501.6710, L500.4050, L101.9900, L3890.6301, L3100.5475 ####[facility] [address], [address] Glucose [Mass/Vol] 95 mg/dL Normal 70-99 [facility] Comment on above: Performed By: #### L 3890.6102, L4600.0100, L3400.8000, L505.7010, L3890.6202, L100.0100, L501.6710, L500.4050, L101.9900, L3890.6301, L3100.5475 ####[facility] [address] [place], [address] Potassium [Moles/Vol] 3.9 mmol/L Normal 3.3-5.1 [facility] Comment on above: Performed By: #### L 3890.6102, L4600.0100, L3400.8000, L505.7010, L3890.6202, L100.0100, L501.6710, L500.4050, L101.9900, L3890.6301, L3100.5475 ####[facility] [address] [place], [address] Sodium [Moles/Vol] 141 mmol/L Normal 133-145 [facility] Comment on above: Performed By: #### L 3890.6102, L4600.0100, L3400.8000, L505.7010, L3890.6202, L100.0100, L501.6710, L500.4050, L101.9900, L3890.6301, L3100.5475 ####[facility] [address] [place], [address] T PROT 6.8 g/dL Normal 5.9-8.4 [facility] Comment on above: Performed By: #### L 3890.6102, L4600.0100, L3400.8000, L505.7010, L3890.6202, L100.0100, L501.6710, L500.4050, L101.9900, L3890.6301, L3100.5475 ####[facility] [address] [place], [place], [phone] Urea nitrogen [Mass/Vol] 13 mg/dL Normal 4-19 [facility] Comment on above: Performed By: #### L 3890.6102, L4600.0100, L3400.8000, L505.7010, L3890.6202, L100.0100, L501.6710, L500.4050, L101.9900, L3890.6301, L3100.5475 ####[facility] [address] [place], [address] Cyclic citrullinated peptide IgG QnOrdered By: Chayo Gao on 06-05-2024 Cyclic Citrullinated Peptide IgG Ab 5 units 0-19 [facility] Comment on above: Please Note: Specime n is lipemic. Negative <20 Weak positive 20 - 39 Moderate positive 40 - 59 Strong positive >59Performed at: [facility] Director: Josiah Cox PhD, Phone: [phone] Eosinophil percentageOrdered By: Chayo Gao on 06-05-2024 Eosinophils/100 WBC (Bld) 10.0 % High 0-5 [facility] Erythrocyte Sed Rateon 06-05 SED RATE 7 mm/hr Normal 0-20 [facility] Comment on above: Performed By: #### L 3890.6102, L4600.0100, L3400.8000, L505.7010, L3890.6202, L100.0100, L501.6710, L500.4050, L101.9900, L3890.6301, L3100.5475 ####[facility] [address] [place], [place], [phone] Erythrocyte distribution wid th ratioOrdered By: Chayo Gao on 06-05-2024 Erythrocyte distribution width (RBC) [Ratio] 13.6 % 11.6-14.6 [facility] Erythrocyte distribution wid th standard deviationOrdered By: Chayo Gao on 06-05-2024 Erythrocyte distribution width (RBC) [Entitic vol] 46.3 fL High 35.1-43.9 [facility] Erythrocyte distribution width (RBC) [Ratio] 46.3 fl High 35.1-43.9 [facility] Erythrocyte sedimentation ra teOrdered By: Chayo Gao on 06-05-2024 ESR (Bld) [Velocity] 7 mm/h 0-20 [facility] GFR/1.73 sq M.predicted jaleesa g non-blacks MDRD (S/P/Bld) [Vol rate/Area]Ordered By: Chayo Gao on 06-05-2024 Estimated GFR (MDRD) Non-Af Amer 87 >60 [facility] Comment on above: mL/min/1.73m2 CKD-EP I Creatinine Equation (2020) Glomerular filtration rate ( GFR) estimation/1.73 sq m using serum, plasma, or whole bOrdered By: Chayo Gao on 06-05-2024 GFR/1.73 sq M.predicted among non-blacks MDRD (S/P/Bld) [Vol rate/Area] 87 mL/min/{1.73_m2} >60 [facility] Comment on above: mL/min/1.73m2 CKD-EP I Creatinine Equation (2020) HBV surface Ab Ql (S)Ordered By: Chayo Gao on 06-05-2024 Hepatitis B Surface Antibody Non-Reactive [facility] Comment on above: <8.5 mIU/mL: Non-Talita ctive8.5<= x <11.5 mIU/mL: Indeterminate>=11.5 mIU/mL: Reactive Non Reactive: Inconsistent with immunity less than <10 mIU/mL Reactive: Consistent with immunity greater than or equal to 10 mIU/mL HBV surface Ag Ql (S)Ordered By: Chayo Gao on 06-05-2024 Hepatitis B Surface Antigen Non-Reactive Nonreactive [facility] Comment on above: Reactive: Presumptiv e evidence of HBV. Repeatedly reactive samples must be confirmed using a neutralization test ([employer] HBsAg Confirmatory Test)Non-Reactive: HBsAg not detected; does not exclude the possibility of exposure to HBV Hematocrit Auto (Bld) [Volum e fraction]Ordered By: Chayo Gao on 06-05-2024 Hematocrit (Bld) [Volume fraction] 44.9 % 40-54 [facility] Hemoglobin measurementOrdere d By: Chayo Gao on 06-05-2024 Hemoglobin (Bld) [Mass/Vol] 15.2 g/dL 13.0-16.5 [facility] Hepatitis C antibodyOrdered By: Chayo Gao on 06-05-2024 Hepatitis C Antibody REAC Nonreactive [facility] Comment on above: Reactive: Presumptiv e evidence of antibodies to HCV. Follow CDC recommendations for supplemental testing.Non-Reactive: Antibodies to HCV were not detected; does not exclude the possibility of exposure to HCVReactive Results are presumptive evidence of antibodies to HCV. Follow CDC recommendations for supplemental testing.Order confirmation testing: HCV Quant by PCR testing - HCVPCR #[id number] Non Reactive: < 0.8 Equivocal: >/= 0.8 to < 1.0 Reactive: >/= 1.0The [facility][NOTE 3] requires that a reactive/equivocal HCV antibody result be sent out for confirmation. HCV Quant by PCR testing. Immature granulocytes/100 WB C Auto (Bld)Ordered By: Chayo Gao on 06-05-2024 Immature granulocytes/100 WBC (Bld) 0.500 % 0.0-0.9 [facility] Comment on above: IG% - Immature Granu locytes (promyelocytes, myelocytes and metamyelocytes) > 1% indicates that a LEFT SHIFT is Present. L3890.6102on 06-05-2024 HEP B Surf Ag Non-Reactive Normal Nonreactive [facility] [place] Comment on above: Result Comment: Reac tive: Presumptive evidence of HBV. Repeatedly reactive samples must be confirmed using a neutralization test ([employer] HBsAg Confirmatory Test) Non-Reactive: HBsAg not detected; does not exclude the possibility of exposure to HBV Performed By: #### L 3890.6102, L4600.0100, L3400.8000, L505.7010, L3890.6202, L100.0100, L501.6710, L500.4050, L101.9900, L3890.6301, L3100.5475 ####[facility] [address] [place], [place], [id number] L3890.6202on 06-05-2024 HEP B Surf Ab Non-Reactive Normal [facility] Comment on above: Result Comment: <8.5 mIU/mL: Non-Reactive 8.5<= x <11.5 mIU/mL: Indeterminate >=11.5 mIU/mL: Reactive Non Reactive: Inconsistent with immunity less than <10 mIU/mL Reactive: Consistent with immunity greater than or equal to 10 mIU/mL Performed By: #### L 3890.6102, L4600.0100, L3400.8000, L505.7010, L3890.6202, L100.0100, L501.6710, L500.4050, L101.9900, L3890.6301, L3100.5475 ####[facility] [address] [facility] [place], [place], [id number] L3890.6301on 06-05-2024 Hepatitis C Ab REAC Normal Nonreactive [facility] Comment on above: Result Comment: Reac tive: Presumptive evidence of antibodies to HCV. Follow CDC recommendations for supplemental testing. Non-Reactive: Antibodies to HCV were not detected; does not exclude the possibility of exposure to HCV Reactive Results are presumptive evidence of antibodies to HCV. Follow CDC recommendations for supplemental testing. Order confirmation testing: HCV Quant by PCR testing - HCVPCR #[id number] Non Reactive: < 0.8 Equivocal: >/= 0.8 to < 1.0 Reactive: >/= 1.0 The CDC requires that a reactive/equivocal HCV antibody result be sent out for confirmation. HCV Quant by PCR testing. Performed By: #### L 3890.6102, L4600.0100, L3400.8000, L505.7010, L3890.6202, L100.0100, L501.6710, L500.4050, L101.9900, L3890.6301, L3100.5475 ####[facility] [address] [facility] [place], [place], [id number] Laboratory - Chemistry and C hemistry - challengeOrdered By: Chayo Gao on 06-05-2024 AST [Catalytic activity/Vol] 20 U/L <38 [facility] Laboratory - Microbiology an d Antimicrobial susceptibilityOrdered By: Chayo Gao on 06-05-2024 HBV surface Ag Ql (S) Non-Reactive Nonreactive [facility] Comment on above: Reactive: Presumptiv e evidence of HBV. Repeatedly reactive samples must be confirmed using a neutralization test ([employer] HBsAg Confirmatory Test)Non-Reactive: HBsAg not detected; does not exclude the possibility of exposure to HBV Lumbar Spine 2 or 3 Viewson 06-05-2024 Lumbar Spine 2 or 3 Views [facility] Imaging Services [address] [place] [address] Lumbar Spine 2 or 3 Views MR#: [id number] Acct: [id number] Name: CHAN NEWBERRY Rep #: [id number] : 1960 M 63 From: Steven Rojas MD PCP: MARIE Segundo Status: DEP AMB Study: Lumbar Spine 2 or 3 Views Date of Exam: Exam# [id number] Ordering Dr: Anamaria Holt MD PROCEDURE: LUMBAR SPINE 2 OR 3 VIEWS REASON FOR EXAM: HX OF BACK PAIN TECHNIQUE: 2 view(s) of the lumbar spine, AP and lateral COMPARISON: None. FINDINGS: 5 [id number] lumbar vertebral type bodies identified. No fracture identified. Mild grade 1 appearing anterolisthesis L4 on L5 measures approximately 3-4 mm with associated mild disc space narrowing. Lower lumbar facet degenerative changes suggested. The disc spaces otherwise appear within limits. RAD/Lumbar Spine 2 or 3 Views IMPRESSION: L4-5 spondylosis/discogenic change with anterolisthesis as above.. Reading Location: [facility] CC: DESTINATION SPECIALIST-Chandler Almonte; Dr. Anamaria Holt MD Assistant District Attorney: Signed Normal [facility] Lymphocytes Auto (Unsp spec) [#/Vol]Ordered By: Chayo Gao on 06-05-2024 Lymphocytes (Bld) [#/Vol] 3.13 10*3/uL 0.83-4.51 [facility] Lymphocytes/100 WBC Auto (Un sp spec)Ordered By: Chayo Gao on 06-05-2024 Lymphocytes/100 WBC (Bld) 33.7 % 19-41 [facility] M. tuberculosis tuberculin s kaia IFN-g Ql (Bld)Ordered By: Chayo Gao on 06-05-2024 TB Test (QFT) Antigen 1 0.06 IU/mL . [facility] MCV (mean corpuscular volume ) determinationOrdered By: Chayo Gao on 06-05-2024 MCV (RBC) [Entitic vol] 93.3 fL 80-94 [facility] Mean corpuscular hemoglobin (MCH) determinationOrdered By: [facility] Murray on 06-05-2024 MCH (RBC) [Entitic mass] 31.6 pg 27.0-32.0 [facility] Mean corpuscular hemoglobin concentration (MCHC) determinationOrdered By: [facility] on 06-05-2024 MCHC (RBC) [Mass/Vol] 33.9 g/dL 32-36 [facility] Mean platelet volume determi nationOrdered By: Chayo Gao on 06-05-2024 Platelet mean volume (Bld) [Entitic vol] 13.9 fL High 6.2-12.0 [facility] Monocyte percentageOrdered B y: Chayo Gao on 06-05-2024 Monocytes/100 WBC (Bld) 6.4 % 0-10 [facility] Neutrophil percentageOrdered By: [facility] on 06-05-2024 Neutrophils/100 WBC (Bld) 48.5 % 47-70 [facility] Nucleated red blood cell per centageOrdered By: Chayostevie Gao on 06-05-2024 Nucleated RBC/100 WBC (Bld) [Ratio] 0 % 0-5 [facility] Pelvis 1 or 2 Viewson 2024 Pelvis 1 or 2 Views [facility] Imaging Services [address] [place] [address] Pelvis 1 or 2 Views MR#: [id number] Acct: [id number] Name: CHAN NEWBERRY Rep #: [id number] : 1960 M 63 From: Sam Johnson MD PCP: Elda Gage, DESTINATION SPECIALIST-C Status: REG CLI Study: Pelvis 1 or 2 Views Date of Exam: 06/05/24 Exam# [id number] Ordering Dr: Chayo Gao MD EXAM: XR [...] the colon consistent with constipation. Reading Location: [facility] CC: DESTINATION SPECIALIST-C Elda Almonte; Dr. Chayo Gao MD Assistant District Attorney: Signed Normal [facility] Platelet countOrdered By: Joesph Gao on 06-05-2024 Platelets (Bld) [#/Vol] 151 10*3/uL 150-450 [facility] Potassium (Unsp spec) [Mass/ Vol]Ordered By: Chayo Gao on 06-05-2024 Potassium [Moles/Vol] 3.9 mmol/L 3.3-5.1 [facility] Potassium measurement (mass/ volume)Ordered By: Chayo Gao on 06-05-2024 Potassium (Unsp spec) [Mass/Vol] 3.9 mmol/L 3.3-5.1 [facility] Qualitative QuantiFERON-TB g old in tube testOrdered By: Chayo Gao on 06-05-2024 M. tuberculosis tuberculin stim IFN-g Ql (Bld) 0.06 IU/mL . [facility] Quantiferon-TB Gold Plus eulogio tOrdered By: Chayo Gao on 06-05-2024 TB Test (QFT) Comment . [facility] Comment on above: QuantiFERON-TB Gold Plus is [...] Test (QFT) Antigen 2 0.08 IU/mL . [facility] TB Test (QFT) Mitogen > 10.00 IU/mL . [facility] TB Test (QFT) Nil 0.09 IU/mL . [facility] TB Test (QFT) Positive Criteria Negative Negative [facility] Comment on above: No response to M [...] 06-05-2024 RBC (Bld) [#/Vol] 4.81 10*6/uL 4.6-6.2 [facility] Rheumatoid Factoron 06-06-19 25 RHEUMATOID FAC 17.5 IU/mL High <15 [facility] Comment on above: Performed By: #### L 3890.6102, L4600.0100, L3400.8000, L505.7010, L3890.6202, L100.0100, L501.6710, L500.4050, L101.9900, L3890.6301, L3100.5475 ####[facility] [address] [place], [place], [id number] Rheumatoid factor Ql (S)Orde red By: Chayo Gao on 06-05-2024 Rheumatoid Factor 17.5 IU/mL High <15 [facility] Serum creatinine measurement (mass/volume)Ordered By: Chayo Gao on 06-05-2024 Creatinine [Mass/Vol] 0.97 mg/dL 0.70-1.20 [facility] Serum globulin measurementOr dered By: Chayo Gao on 06-05-2024 Globulin (S) [Mass/Vol] 2.8 g/dL 2.2-4.2 [facility] Serum glucose measurement (m ass/volume)Ordered By: Chayo Gao on 06-05-2024 Glucose [Mass/Vol] 95 mg/dL 70-99 [facility] Serum hepatitis B virus surf paolo antibody detectionOrdered By: Chayo Gao on 06-05-2024 HBV surface Ab Ql (S) Non-Reactive [facility] Comment on above: <8.5 mIU/mL: Non-Talita ctive8.5<= x <11.5 mIU/mL: Indeterminate>=11.5 mIU/mL: Reactive Non Reactive: Inconsistent with immunity less than <10 mIU/mL Reactive: Consistent with immunity greater than or equal to 10 mIU/mL Serum or plasma C reactive p rotein measurement (mass/volume)Ordered By: Chayo Gao on 06-05-2024 CRP [Mass/Vol] 5.81 mg/L High 0.0-3.0 [facility] Serum or plasma alanine amaro otransferase (ALT) measurementOrdered By: Chayo Gao on 06-05-2024 ALT [Catalytic activity/Vol] 21 U/L <47 [facility] Serum or plasma albumin bala urement (mass/volume)Ordered By: Chayo Gao on 06-05-2024 Albumin [Mass/Vol] 3.9 g/dL 3.4-4.8 [facility] Serum or plasma albumin/glob ulin mass ratioOrdered By: Chayo Gao on 06-05-2024 Albumin/Globulin [Mass ratio] 1.4 {ratio} 0.9-2.4 [facility] Serum or plasma alkaline tara sphatase measurementOrdered By: Chayo Gao on 06-05-2024 ALP [Catalytic activity/Vol] 88 U/L 40-129 [facility] Serum or plasma calcium bala urement (mass/volume)Ordered By: Chayo Gao on 06-05-2024 Calcium [Mass/Vol] 9.2 mg/dL 7.6-11.0 [facility] Serum or plasma cyclic citru llinated peptide IgG antibody assay (units/volume)Ordered By: Chayo Gao on 06-05-2024 Cyclic citrullinated peptide IgG Qn 5 units 0-19 [facility] Comment on above: Please Note: Specime n is lipemic. Negative <20 Weak positive 20 - 39 Moderate positive 40 - 59 Strong positive >59Performed at: [facility] [id number] Director: Josiah Cox PhD, Phone: [phone] Serum or plasma urea nitroge n measurement (mass/volume)Ordered By: Chayo Gao on 06-05-2024 Urea nitrogen [Mass/Vol] 13 mg/dL 4-19 [facility] Serum rheumatoid factor dete ctionOrdered By: hCayo Gao on 06-05-2024 Rheumatoid factor Ql (S) 17.5 IU/mL High <15 [facility] Sodium levelOrdered By: Lang Gao on 06-05-2024 Sodium [Moles/Vol] 141 mmol/L 133-145 [facility] Total proteinOrdered By: Anabel Gao on 06-05-2024 Protein [Mass/Vol] 6.8 g/dL 5.9-8.4 [facility] White blood cell (WBC) count Ordered By: Chayo Gao on 06-05-2024 WBC (Bld) [#/Vol] 9.3 10*3/uL 4.4-11.0 [facility] Absolute neutrophil countOrd ered By: Elda Almonte on 05-16-2024 Neutrophils (Bld) [#/Vol] 4.6 10*3/uL 2.0-7.7 [facility] Albumin to globulin ratioOrd ered By: Elda Almonte on 05-16-2024 Albumin/Globulin [Mass ratio] 0.8 {ratio} Low 0.9-2.4 [facility] Basophil percentageOrdered B y: Elda Almonte on 05-16-2024 Basophils/100 WBC (Bld) 0.6 % 0-1 [facility] Bilirubin, totalOrdered By: Elda Almonte on 05-16-2024 Bilirubin [Mass/Vol] 0.40 mg/dL 0.20-1.00 [facility] Comment on above: For patients on eltr ombopag therapy, use of Dimension [place] TBIL is not recommended. Blood urea nitrogen (BUN)/cr eatinine ratioOrdered By: Elda Almonte on 05-16-2024 Urea nitrogen/Creatinine [Mass ratio] 12.6 mg/mg - [facility] CBC W/Diff, Automatedon - Absolute Lymph 2.97 X10 3/uL Normal 0.83-4.51 [facility] Comment on above: Performed By: #### L 500.4050, L100.0100, L500.4100, L501.9910 #### [facility] Laboratory [address] [place], [address] Absolute Neut 4.6 X10 3/uL Normal 2.0-7.7 [facility] Comment on above: Performed By: #### L 500.4050, L100.0100, L500.4100, L501.9910 #### [facility] Laboratory [address] [place], [address] Basophils/100 WBC (Bld) 0.6 % Normal 0-1 [facility] Comment on above: Performed By: #### L 500.4050, L100.0100, L500.4100, L501.9910 #### [facility] Laboratory [address] [place], [address] Eosinophils/100 WBC (Bld) 6.3 % High 0-5 [facility] Comment on above: Performed By: #### L 500.4050, L100.0100, L500.4100, L501.9910 #### [facility] Laboratory [address] [place], [address] Erythrocyte distribution width (RBC) [Ratio] 13.4 % Normal 11.6-14.6 [facility] Comment on above: Performed By: #### L 500.4050, L100.0100, L500.4100, L501.9910 #### [facility] Laboratory [address] [place], [address] Hematocrit (Bld) [Volume fraction] 44.8 % Normal 40-54 [facility] Comment on above: Performed By: #### L 500.4050, L100.0100, L500.4100, L501.9910 #### [facility] Laboratory [address] [place], [address] Hemoglobin (Bld) [Mass/Vol] 15.0 g/dL Normal 13.0-16.5 [facility] Comment on above: Performed By: #### L 500.4050, L100.0100, L500.4100, L501.9910 #### [facility] Laboratory [address] [place], [address] IG% 0.300 Normal 0.0-0.9 [facility] Comment on above: Result Comment: IG% - Immature Granulocytes (promyelocytes, myelocytes and metamyelocytes) > 1% indicates that a LEFT SHIFT is Present. Performed By: #### L 500.4050, L100.0100, L500.4100, L501.9910 #### [facility] Laboratory [address] [place], [address] Lymphocytes/100 WBC (Bld) 34.2 % Normal 19-41 [facility] Comment on above: Performed By: #### L 500.4050, L100.0100, L500.4100, L501.9910 #### [facility] Laboratory [address] [place], [address] MCH (RBC) [Entitic mass] 31.1 pg Normal 27.0-32.0 [facility] Comment on above: Performed By: #### L 500.4050, L100.0100, L500.4100, L501.9910 #### [facility] Laboratory [address] [place], [address] MCHC (RBC) [Mass/Vol] 33.5 g/dL Normal 32-36 [facility] Comment on above: Performed By: #### L 500.4050, L100.0100, L500.4100, L501.9910 #### [facility] Laboratory [address] [place], [address] MCV (RBC) [Entitic vol] 92.9 fL Normal 80-94 [facility] Comment on above: Performed By: #### L 500.4050, L100.0100, L500.4100, L501.9910 #### [facility] Laboratory [address] [place], [address] Monocytes/100 WBC (Bld) 6.0 % Normal 0-10 [facility] Comment on above: Performed By: #### L 500.4050, L100.0100, L500.4100, L501.9910 #### [facility] Laboratory [address] [place], [address] Neutrophils/100 WBC (Bld) 52.6 % Normal 47-70 [facility] Comment on above: Performed By: #### L 500.4050, L100.0100, L500.4100, L501.9910 #### [facility] Laboratory [address] [place], [address] Nucleated RBC (Bld) [#/Vol] 0 10*3/uL Normal 0-5 [facility] Comment on above: Performed By: #### L 500.4050, L100.0100, L500.4100, L501.9910 #### [facility] Laboratory [address] [place], [address] Platelet mean volume (Bld) [Entitic vol] 13.5 fL High 6.2-12.0 [facility] Comment on above: Performed By: #### L 500.4050, L100.0100, L500.4100, L501.9910 #### [facility] Laboratory [address] [place], [address] Platelets (Bld) [#/Vol] 180 10*3/uL Normal 150-450 [facility] Comment on above: Performed By: #### L 500.4050, L100.0100, L500.4100, L501.9910 #### [facility] Laboratory [address] [place], [address] RBC (Bld) [#/Vol] 4.82 10*6/uL Normal 4.6-6.2 [facility] Comment on above: Performed By: #### L 500.4050, L100.0100, L500.4100, L501.9910 #### [facility] Laboratory [address] [place], [address] RDW SD 45.8 fl High 35.1-43.9 [facility] Comment on above: Performed By: #### L 500.4050, L100.0100, L500.4100, L501.9910 #### [facility] Laboratory [address] [place], [address] WBC (Bld) [#/Vol] 8.7 10*3/uL Normal 4.4-11.0 [facility] Comment on above: Performed By: #### L 500.4050, L100.0100, L500.4100, L501.9910 #### [facility] Laboratory [address] [place], [address] Carbon dioxide measurementOr dered By: Elda Almonte on 05-16-2024 CO2 [Moles/Vol] 27.0 mmol/L 21.0-32.0 [facility] Chloride measurementOrdered By: Elda Almonte on 05-16-2024 Chloride [Moles/Vol] 105 mmol/L 98-107 [facility] Comprehensive Metabolic Prof ilon 05-16-2024 Albumin [Mass/Vol] 3.2 g/dL Normal 3.2-5.0 [facility] Comment on above: Performed By: #### L 500.4050, L100.0100, L500.4100, L501.9910 ####[facility] [address] [place], [address] Albumin/Globulin [Mass ratio] 0.8 {ratio} Low 0.9-2.4 [facility] Comment on above: Performed By: #### L 500.4050, L100.0100, L500.4100, L501.9910 ####[facility] [address] [place], [address] ALK P 67 U/L Normal 45-117 [facility] Comment on above: Performed By: #### L 500.4050, L100.0100, L500.4100, L501.9910 ####[facility] [address] [place], [address] ALT [Catalytic activity/Vol] 47 U/L Normal 16-61 [facility] Comment on above: Performed By: #### L 500.4050, L100.0100, L500.4100, L501.9910 ####[facility] [address] [place], [address] AST [Catalytic activity/Vol] 23 U/L Normal 15-37 [facility] Comment on above: Performed By: #### L 500.4050, L100.0100, L500.4100, L501.9910 ####[facility] [address] [place], [address] Bilirubin [Mass/Vol] 0.40 mg/dL Normal 0.20-1.00 [facility] Comment on above: Result Comment: For patients on eltrombopag therapy, use of Dimension [place] TBIL is not recommended. Performed By: #### L 500.4050, L100.0100, L500.4100, L501.9910 ####[facility] [address] [place], [address] BUN/CRE 12.6 RATIO Normal 10-20 [facility] Comment on above: Performed By: #### L 500.4050, L100.0100, L500.4100, L501.9910 ####[facility] [address] [place], [address] CA,Total 9.2 mg/dL Normal 8.5-10.1 [facility] Comment on above: Performed By: #### L 500.4050, L100.0100, L500.4100, L501.9910 ####[facility] [address] [place], [address] Chloride [Moles/Vol] 105 mmol/L Normal 98-107 [facility] Comment on above: Performed By: #### L 500.4050, L100.0100, L500.4100, L501.9910 ####[facility] [address] [place], [address] CO2 [Moles/Vol] 27.0 mmol/L Normal 21.0-32.0 [facility] Comment on above: Performed By: #### L 500.4050, L100.0100, L500.4100, L501.9910 ####[facility] [address] [place], [address] Creatinine [Mass/Vol] 1.03 mg/dL Normal 0.70-1.30 [facility] Comment on above: Result Comment: The validity of the calculated GFR GFRAA in patients over 70 years has not been determined. Clinical correlation is essential. Performed By: #### L 500.4050, L100.0100, L500.4100, L501.9910 ####[facility] [address] [place], [address] EST GFR - AA 93 mL/min Normal >60 [facility] Comment on above: Result Comment: Afri can Afghan GFR Calc Performed By: #### L 500.4050, L100.0100, L500.4100, L501.9910 ####[facility] [address] [place], [address] GAP 6 Normal 5-15 [facility] Comment on above: Performed By: #### L 500.4050, L100.0100, L500.4100, L501.9910 ####[facility] [address] [place], [address] GFR/1.73 sq M.predicted among non-blacks MDRD (S/P/Bld) [Vol rate/Area] 77 mL/min/{1.73_m2} Normal >60 [facility] Comment on above: Result Comment: Non- GFR Calc Performed By: #### L 500.4050, L100.0100, L500.4100, L501.9910 ####[facility] [address] [place], [address] Globulin (S) [Mass/Vol] 3.9 g/dL Normal 2.2-4.2 [facility] Comment on above: Performed By: #### L 500.4050, L100.0100, L500.4100, L501.9910 ####[facility] [address] [place], [address] Glucose [Mass/Vol] 109 mg/dL High 74-106 [facility] Comment on above: Result Comment: Fast ing Glucose result from 100 to 125 mg/dL suggests IMPAIRED HOMEOSTASIS per A.D.A. criteria. Performed By: #### L 500.4050, L100.0100, L500.4100, L501.9910 ####[facility] [address] [place], [address] Potassium [Moles/Vol] 4.3 mmol/L Normal 3.5-5.1 [facility] Comment on above: Performed By: #### L 500.4050, L100.0100, L500.4100, L501.9910 ####[facility] [address] [place], [address] Sodium [Moles/Vol] 138 mmol/L Normal 136-145 [facility] Comment on above: Performed By: #### L 500.4050, L100.0100, L500.4100, L501.9910 ####[facility] [address] [place], [address] T PROT 7.1 g/dL Normal 6.4-8.2 [facility] Comment on above: Performed By: #### L 500.4050, L100.0100, L500.4100, L501.9910 ####[facility] [address] [place], [address] Urea nitrogen [Mass/Vol] 13 mg/dL Normal 7-18 [facility] Comment on above: Performed By: #### L 500.4050, L100.0100, L500.4100, L501.9910 ####[facility] [address] [place], [address] Eosinophil percentageOrdered By: Elda Almonte on 05-16-2024 Eosinophils/100 WBC (Bld) 6.3 % High 0-5 [facility] Erythrocyte distribution wid th ratioOrdered By: Elda Almonte on 05-16-2024 Erythrocyte distribution width (RBC) [Ratio] 13.4 % 11.6-14.6 [facility] Erythrocyte distribution wid th standard deviationOrdered By: Elda Almonte on 05-16-2024 Erythrocyte distribution width (RBC) [Entitic vol] 45.8 fL High 35.1-43.9 [facility] Estimated glomerular filtrat ion rate (GFR) AmericanOrdered By: Elda Almonte on 05-16-2024 Estimated GFR (MDRD) Amer 93 mL/min >60 [facility] Comment on above: GFR Calc Glomerular filtration rate ( GFR) estimationOrdered By: Elda Almonte on 05-16-2024 Estimated GFR (MDRD) Non-Af Amer 77 mL/min >60 [facility] Comment on above: Non- GFR Calc Glucose measurementOrdered B y: Elda Almonte on 05-16-2024 Glucose [Mass/Vol] 109 mg/dL High 74-106 [facility] Comment on above: Fasting Glucose resu lt from 100 to 125 mg/dL suggests IMPAIRED HOMEOSTASIS per A.D.A. criteria. Hematocrit Auto (Bld) [Volum e fraction]Ordered By: Elda Almonte on 05-16-2024 Hematocrit (Bld) [Volume fraction] 44.8 % 40-54 [facility] Hemoglobin measurementOrdere d By: Elda Almonte on 05-16-2024 Hemoglobin (Bld) [Mass/Vol] 15.0 g/dL 13.0-16.5 [facility] High density lipoprotein (HD L) measurementOrdered By: Elda Almonte on 05-16-2024 Cholesterol in HDL [Mass/Vol] 42 mg/dL >40 [facility] Comment on above: The drugs N-Acetylcy steine and Metamizole may falsely depress this assay. Reference Range HDL <40 mg/dL Low HDL Cholesterol HDL >or= 60 mg/dL High HDL Cholesterol Immature granulocytes/100 WB C Auto (Bld)Ordered By: Elda Almonte on 05-16-2024 Immature granulocytes/100 WBC (Bld) 0.300 % 0.0-0.9 [facility] Comment on above: IG% - Immature Granu locytes (promyelocytes, myelocytes and metamyelocytes) > 1% indicates that a LEFT SHIFT is Present. Laboratory - Chemistry and C hemistry - challengeOrdered By: Elda Almonte on 05-16-2024 AST [Catalytic activity/Vol] 23 U/L 15-37 [facility] Lipid Profileon 05-16-2024 Cholesterol [Mass/Vol] 236 mg/dL High 200 [facility] Comment on above: Result Comment: <200 mg/dL Desirable 200-240 mg/dL Borderline >240 mg/dL High Risk Performed By: #### L 500.4050, L100.0100, L500.4100, L501.9910 ####[facility] [address] [place], [address] Cholesterol in HDL [Mass/Vol] 42 mg/dL Normal [facility] Comment on above: Result Comment: The drugs N-Acetylcysteine and Metamizole may falsely depress this assay. Reference Range HDL <40 mg/dL Low HDL Cholesterol HDL >or= 60 mg/dL High HDL Cholesterol Performed By: #### L 500.4050, L100.0100, L500.4100, L501.9910 ####[facility] [address] [place], [address] Cholesterol in LDL [Mass/Vol] 161 mg/dL High 0-130 [facility] Comment on above: Performed By: #### L 500.4050, L100.0100, L500.4100, L501.9910 ####[facility] [address] [place], [address] Cholesterol in VLDL [Mass/Vol] 33 mg/dL Normal 5-40 [facility] Comment on above: Performed By: #### L 500.4050, L100.0100, L500.4100, L501.9910 ####[facility] [address] [place], [address] Triglyceride [Mass/Vol] 166 mg/dL Normal [facility] Comment on above: Result Comment: The drugs N-Acetylcysteine and Metamizole may falsely depress this assay. Serum Triglycerides Reference Interval Normal <150 mg/dL Borderline high 150 - 199 mg/dL High 200 - 499 mg/dL Very High > or = 500 mg/dL Performed By: #### L 500.4050, L100.0100, L500.4100, L501.9910 ####[facility] [address] [place], [address] Low density lipoprotein (LDL ) cholesterol measurementOrdered By: Elda Almonte on 05-16-2024 Cholesterol in LDL [Mass/Vol] 161 mg/dL High 0-130 [facility] Lymphocytes Auto (Unsp spec) [#/Vol]Ordered By: Elda Gage on 05-16-2024 Lymphocytes (Bld) [#/Vol] 2.97 10*3/uL 0.83-4.51 [facility] Lymphocytes/100 WBC Auto (Un sp spec)Ordered By: Elda Almonte on 05-16-2024 Lymphocytes/100 WBC (Bld) 34.2 % 19-41 [facility] MCV (mean corpuscular volume ) determinationOrdered By: Eldachiquita Almonte on 05-16-2024 MCV (RBC) [Entitic vol] 92.9 fL 80-94 [facility] Mean corpuscular hemoglobin (MCH) determinationOrdered By: Manteca Gage on 05-16-2024 MCH (RBC) [Entitic mass] 31.1 pg 27.0-32.0 [facility] Mean corpuscular hemoglobin concentration (MCHC) determinationOrdered By: Manteca Gage on 05-16-2024 MCHC (RBC) [Mass/Vol] 33.5 g/dL 32-36 [facility] Mean platelet volume determi nationOrdered By: Manteca Gage on 05-16-2024 Platelet mean volume (Bld) [Entitic vol] 13.5 fL High 6.2-12.0 [facility] Monocyte percentageOrdered B y: Elda Almonte on 05-16-2024 Monocytes/100 WBC (Bld) 6.0 % 0-10 [facility] Neutrophil percentageOrdered By: Manteca Gage on 05-16-2024 Neutrophils/100 WBC (Bld) 52.6 % 47-70 [facility] Nucleated red blood cell per centageOrdered By: Manteca Gage on 05-16-2024 Nucleated RBC/100 WBC (Bld) [Ratio] 0 % 0-5 [facility] PSA,Total - Annual Screenon 05-16-2024 PSA,TOT SCREEN 4.40 ng/mL High 0.00-4.00 [facility] Comment on above: Result Comment: This test was performed using the TPSA assay method for the [employer] chemistry system. Values obtained with different assay methods cannot be used interchangably. When changing PSA assays in the course of monitoring a patient, additional sequential testing should be carried out to confirm baseline values. Performed By: #### L 500.4050, L100.0100, L500.4100, L501.9910 ####[facility] [address] [place], [address] Platelet countOrdered By: Ra blanca Almonte on 05-16-2024 Platelets (Bld) [#/Vol] 180 10*3/uL 150-450 [facility] Potassium measurementOrdered By: Elda Almonte on 05-16-2024 Potassium [Moles/Vol] 4.3 mmol/L 3.5-5.1 [facility] RBC Auto (Bld) [#/Vol]Ordere d By: Elda Almonte on 05-16-2024 RBC (Bld) [#/Vol] 4.82 10*6/uL 4.6-6.2 [facility] Screening prostate specific antigen (PSA) measurementOrdered By: Elda Almonte on 05-16-2024 Prostate Specific Antigen Screen 4.40 ng/mL High 0.00-4.00 [facility] Comment on above: This test was perfor med using the TPSA assay method for the[facility] chemistry system. Values obtained with differentassay methods cannot be used interchangably.When changing PSA assays in the course of monitoring apatient, additional sequential testing should be carriedout to confirm baseline values. Serum anion gap measurementO rdered By: Elda Almonte on 05-16-2024 Anion gap [Moles/Vol] 6 mmol/L 5-15 [facility] Serum globulin measurementOr dered By: Elda Almonte on 05-16-2024 Globulin (S) [Mass/Vol] 3.9 g/dL 2.2-4.2 [facility] Serum or plasma alanine amaro otransferase (ALT) measurementOrdered By: Elda Almonte 05-16-2024 ALT [Catalytic activity/Vol] 47 U/L 16-61 [facility] Serum or plasma albumin bala urement (mass/volume)Ordered By: Elda Almonte on 05-16-2024 Albumin [Mass/Vol] 3.2 g/dL 3.2-5.0 [facility] Serum or plasma alkaline tara sphatase measurementOrdered By: Elda Almonte on 05-16-2024 ALP [Catalytic activity/Vol] 67 U/L 45-117 [facility] Serum or plasma calcium bala urement (mass/volume)Ordered By: Elda Almonte on 05-16-2024 Calcium [Mass/Vol] 9.2 mg/dL 8.5-10.1 [facility] Serum or plasma cholesterol measurement (mass/volume)Ordered By: Elda Almonte on 05-16-2024 Cholesterol [Mass/Vol] 236 mg/dL High <200 [facility] Comment on above: <200 mg/dL Desirable 200-240 mg/dL Borderline >240 mg/dL High Risk Serum or plasma creatinine m easurement (mass/volume)Ordered By: Elda Almonte on 05-16-2024 Creatinine [Mass/Vol] 1.03 mg/dL 0.70-1.30 [facility] Comment on above: The validity of the calculated GFR & GFRAA in patients over 70 years has not been determined. Clinical correlation is essential. Serum or plasma urea nitroge n measurement (mass/volume)Ordered By: Elda Almonte on 05-16-2024 Urea nitrogen [Mass/Vol] 13 mg/dL 7-18 [facility] Sodium levelOrdered By: Ashley Almonte on 05-16-2024 Sodium [Moles/Vol] 138 mmol/L 136-145 [facility] Total proteinOrdered By: Thuy Almonte on 05-16-2024 Protein [Mass/Vol] 7.1 g/dL 6.4-8.2 [facility] Triglycerides measurementOrd ered By: Elda Almonte on 05-16-2024 Triglyceride [Mass/Vol] 166 mg/dL <199 [facility] Comment on above: The drugs N-Acetylcy steine and Metamizole may falsely depress this assay.Serum Triglycerides Reference Interval Normal <150 mg/dL Borderline high 150 - 199 mg/dL High 200 - 499 mg/dL Very High > or = 500 mg/dL Very low density lipoprotein (VLDL) cholesterol measurementOrdered By: Elda Almonte on 05-16-2024 VLDL Cholesterol 33 mg/dL 5-40 [facility] White blood cell (WBC) count Ordered By: Elda Almonte on 05-16-2024 WBC (Bld) [#/Vol] 8.7 10*3/uL 4.4-11.0 [facility] 25-hydroxyvitamin D3 [Mass/V ol]on 04-22-2024 25-hydroxyvitamin D [Mass/Vol] 34 ng/mL 30 - 100 ng/mL [facility] Comment on above: Vitamin D Status 25- [place] Vitamin D: Deficiency: <20 ng/mL Insufficiency: 20 - 29 ng/mL Optimal: > or = 30 ng/mL For 25-OH Vitamin D testing on patients on D2-supplementation and patients for whom quantitation of D2 and D3 fractions is required, the QuestAssureD(TM) 25-OH VIT D, (D2,D3), LC/MS/MS is recommended: order code 68256 (patients >2yrs). See Note 1 Note 1 For additional information, please refer to http://education.Saplo/faq/ICZ089 (This link is being provided for informational/ educational purposes only.) CBC (INCLUDES DIFF/PLT)on Basophils (Bld) [#/Vol] 0.016 10*3/uL Normal 0-200 [facility] Comment on above: Performed By: #### 9 2665, 7909, 49482, 60689, 91336, 7600, 6399 #### [facility] [address], [address] [place] [id number] [employer]isting Machine Operator: Salvador Parekh MD Basophils/100 WBC (Bld) 0.2 % Normal [facility] Comment on above: Performed By: #### 9 2665, 7909, 92114, 96527, 34434, 7600, 6399 #### [facility] [address] , [address] [place] [phone] [employer] Machine Operator: Salvador Parekh MD Eosinophils (Bld) [#/Vol] 0.178 10*3/uL Normal 15-500 [facility] Comment on above: Performed By: #### 9 2665, 7909, 74778, 77220, 04733, 7600, 6399 #### [facility] [address], [address] [place] [address] [employer]isting Machine Operator: Salvador Parekh MD Eosinophils/100 WBC (Bld) 2.2 % Normal [facility] Comment on above: Performed By: #### 9 2665, 7909, 96139, 10326, 40312, 7600, 6399 #### [facility] [place] [address] [employer] Operator: Salvador Parekh MD Erythrocyte distribution width (RBC) [Ratio] 13.8 % Normal 11.0-15.0 [facility] Comment on above: Performed By: #### 9 2665, 7909, 05451, 75416, 79141, 7600, 6399 #### [facility] of [place] [address] [employer] Machine Operator: Salvador Parekh MD Hematocrit (Bld) [Volume fraction] 49.4 % Normal 38.5-50.0 [facility] Comment on above: Performed By: #### 9 2665, 7909, 81458, 45290, 47305, 7600, 6399 #### [facility] [place] [address] [employer] Operator: Salvador Parekh MD Hemoglobin (Bld) [Mass/Vol] 16.4 g/dL Normal 13.2-17.1 [facility] Comment on above: Performed By: #### 9 2665, 7909, 15699, 42070, 77239, 7600, 6399 #### [facility] [place] [address] [employer]isting Machine Operator: Salvador Parekh MD Lymphocytes (Bld) [#/Vol] 2.341 10*3/uL Normal 850-3900 [facility] Comment on above: Performed By: #### 9 2665, 7909, 69173, 90966, 05615, 7600, 6399 #### [facility] [place] [address] [employer] Operator: Salvador Parekh MD Lymphocytes/100 WBC (Bld) 28.9 % Normal [facility] Comment on above: Performed By: #### 9 2665, 7909, 12660, 25971, 83538, 7600, 6399 #### [facility] [place] [address] [employer] Operator: Salvador Parekh MD MCH (RBC) [Entitic mass] 30.5 pg Normal 27.0-33.0 [facility] Comment on above: Performed By: #### 9 2665, 7909, 18593, 20123, 87959, 7600, 6399 #### [facility] [address], [address] [place] [address] [employer]isting Machine Operator: Salvador Parekh MD MCHC (RBC) [Mass/Vol] 33.2 [...] condition. Performed By: #### 9 2665, 7909, 17557, 29697, 65726, 7600, 6399 #### [facility] [place] [address] [employer] Operator: Salvador Parekh MD MCV (RBC) [Entitic vol] 91.8 fL Normal 80.0-100.0 [facility] Comment on above: Performed By: #### 9 2665, 7909, 05989, 06423, 03334, 7600, 6399 #### [facility] [place] [address] [employer]isting Machine Operator: Salvador Parekh MD Monocytes (Bld) [#/Vol] 0.47 10*3/uL Normal 200-950 [facility] Comment on above: Performed By: #### 9 2665, 7909, 53211, 86025, 41384, 7600, 6399 #### [facility] [place] [address] [employer] Machine Operator: Salvador Parekh MD Monocytes/100 WBC (Bld) 5.8 % Normal [facility] Comment on above: Performed By: #### 9 2665, 7909, 92822, 92503, 99746, 7600, 6399 #### [facility] of [address], [address] [place] [address] [employer]isting Machine Operator: Salvador Parekh MD Neutrophils (Bld) [#/Vol] 5.095 10*3/uL Normal 0781-8283 [facility] Comment on above: Performed By: #### 9 2665, 7909, 48592, 57595, 55879, 7600, 6399 #### [facility] [place] [address] [employer]isting Machine Operator: Salvador Parekh MD Neutrophils/100 WBC (Bld) 62.9 % Normal [facility] Comment on above: Performed By: #### 9 2665, 7909, 13257, 18311, 21561, 7600, 6399 #### [facility] [place] [address] [employer]isting Machine Operator: Salvador Parekh MD Platelet mean volume (Bld) [Entitic vol] 13.7 fL High 7.5-12.5 [facility] Comment on above: Performed By: #### 9 2665, 7909, 62416, 61390, 57507, 7600, 6399 #### [facility] [place] [address] [employer]isting Machine Operator: Salvador Parekh MD Platelets (Bld) [#/Vol] 156 10*3/uL Normal 140-400 [facility] Comment on above: Performed By: #### 9 2665, 7909, 04714, 61928, 46266, 7600, 6399 #### [facility] [place] [address] [employer]isting Machine Operator: Salvador Parekh MD RBC (Bld) [#/Vol] 5.38 10*6/uL Normal 4.20-5.80 [facility] Comment on above: Performed By: #### 9 2665, 7909, 59809, 74515, 13526, 7600, 6399 #### [facility] [address], [address] [place] [address] [employer] Operator: Salvador Parekh MD WBC (Bld) [#/Vol] 8.1 10*3/uL Normal 3.8-10.8 [facility] Comment on above: Performed By: #### 9 2665, 7909, 08295, 20018, 04304, 7600, 6399 #### [facility] [address], [address] [place] [address] [employer]isting Machine Operator: Salvador Parekh MD CBC W Auto Differential pane l (Bld)on 04-22-2024 Basophils (Bld) [#/Vol] 16 10*3/uL U [facility] Basophils/100 WBC (Bld) 0.2 % [facility] Eosinophils (Bld) [#/Vol] 178 10*3/uL [facility] Eosinophils/100 WBC (Bld) 2.2 % [facility] Erythrocyte distribution width (RBC) [Ratio] 13.8 % 11.0 - 15.0 % [facility] Hematocrit (Bld) [Volume fraction] 49.4 % 38.5 - 50.0 % [facility] Hemoglobin (Bld) [Mass/Vol] 16.4 g/dL 13.2 - 17.1 g/dL [facility] Lymphocytes (Bld) [#/Vol] 2341 10*3/uL [facility] Lymphocytes/100 WBC (Bld) 28.9 % [facility] MCH (RBC) [Entitic mass] 30.5 pg 27.0 - 33.0 pg [facility] MCHC (RBC) [Mass/Vol] 33.2 g/dL 32.0 - 36.0 g/dL [facility] Comment on above: For adults, a slight decrease in the calculated MCHC value (in the range of 30 to 32 g/dL) is most likely not clinically significant; however, it should be interpreted with caution in correlation with other red cell parameters and the patient's clinical condition. MCV (RBC) [Entitic vol] 91.8 fL 80.0 - 100.0 fL [facility] Monocytes (Bld) [#/Vol] 470 10*3/uL [facility] Monocytes/100 WBC (Bld) 5.8 % U [facility] Neutrophils (Bld) [#/Vol] 5095 10*3/uL [facility] Neutrophils/100 WBC (Bld) 62.9 % [facility] Platelet mean volume (Bld) [Entitic vol] 13.7 fL High 7.5 - 12.5 fL [facility] Platelets (Bld) [#/Vol] 156 10*3/uL [facility] RBC (Bld) [#/Vol] 5.38 10*6/uL [facility] WBC (Bld) [#/Vol] 8.1 10*3/uL [facility] COMPREHENSIVE METABOLIC PANE L W/ANION GAPon 04-22-2024 Albumin [Mass/Vol] 4.5 g/dL Normal 3.6-5.1 [facility] Comment on above: Performed By: #### 9 2665, 7909, 76665, 41631, 75608, 7600, 6399 #### [facility] [place] [address] [employer] Operator: Salvador Parekh MD ALP [Catalytic activity/Vol] 67 U/L Normal 35-144 [facility] Comment on above: Performed By: #### 9 2665, 7909, 22654, 76988, 11768, 7600, 6399 #### [facility] [place] [address] [employer]isting Machine Operator: Salvador Parekh MD ALT [Catalytic activity/Vol] 18 U/L Normal 9-46 [facility] Comment on above: Performed By: #### 9 2665, 7909, 64814, 05179, 79611, 7600, 6399 #### [facility] [address] Hoisting Machine Operator: Salvador Parekh MD AST [Catalytic activity/Vol] 15 U/L Normal 10-35 [facility] Comment on above: Performed By: #### 9 2665, 7909, 80902, 49737, 66201, 7600, 6399 #### [facility] [place] [address] [employer]isting Machine Operator: Salvador Parekh MD Bilirubin [Mass/Vol] 0.5 mg/dL Normal 0.2-1.2 [facility] Comment on above: Performed By: #### 9 2665, 7909, 42830, 86049, 36398, 7600, 6399 #### [facility] of [address], [address] [place] [address] [employer]isting Machine Operator: Salvador Parekh MD Calcium [Mass/Vol] 9.7 mg/dL Normal 8.6-10.3 [facility] Comment on above: Performed By: #### 9 2665, 7909, 41088, 65482, 60116, 7600, 6399 #### [facility] [place] [address] Hoisting Machine Operator: Salvador Parekh MD Chloride [Moles/Vol] 102 mmol/L Normal 98-110 [facility] Comment on above: Performed By: #### 9 2665, 7909, 01168, 64157, 50372, 7600, 6399 #### [facility] [place] [address] Hoisting Machine Operator: Salvador Parekh MD CO2 [Moles/Vol] 27 mmol/L Normal 20-32 [facility] Comment on above: Performed By: #### 9 2665, 7909, 25542, 06279, 29014, 7600, 6399 #### [facility] [place] [address] Hoisting Machine Operator: Salvador Parekh MD Creatinine [Mass/Vol] 1.09 mg/dL Normal 0.70-1.[address] [facility] Comment on above: Performed By: #### 9 2665, 7909, 57340, 10534, 32195, 7600, 6399 #### [facility] of [address] [place] [address] [employer]isting Machine Operator: Salvador Parekh MD ELECTROLYTE BALANCE 14 mmol/L (calc) Normal 7-17 [facility] Comment on above: Performed By: #### 9 2665, 7909, 17666, 02798, 01235, 7600, 6399 #### [facility] [place] [address] [employer] Operator: Salvador Parekh MD GFR/1.73 sq M.predicted among non-blacks MDRD (S/P/Bld) [Vol rate/Area] 75 mL/min/{1.73_m2} Normal > OR = 60 [facility] Comment on above: Performed By: #### 9 2665, 7909, 68662, 30632, 75174, 7600, 6399 #### [facility] [place] [address] [employer] Machine Operator: Salvador Parekh MD Glucose [Mass/Vol] 127 mg/dL High 65-99 [facility] Comment on above: Result Comment: Fasting reference interval For someone without known diabetes, a glucose value >125 mg/dL indicates that they may have diabetes and this should be confirmed with a follow-up test. Performed By: #### 9 2665, 7909, 07862, 17978, 24706, 7600, 6399 #### [facility] [place] [address] Hoisting Machine Operator: Salvador Parekh MD Potassium [Moles/Vol] 4.5 mmol/L Normal 3.5-5.[address] [facility] Comment on above: Performed By: #### 9 2665, 7909, 74039, 19580, 67839, 7600, 6399 #### [facility] [place] [address] Hoisting Machine Operator: Salvador Parekh MD Protein [Mass/Vol] 7.0 g/dL Normal 6.1-8.1 [facility] Comment on above: Performed By: #### 9 2665, 7909, 86063, 25177, 80540, 7600, 6399 #### [facility] [address], [address] [place] [address] Hoisting Machine Operator: Salvador Parekh MD Sodium [Moles/Vol] 143 mmol/L Normal 135-146 [facility] Comment on above: Performed By: #### 9 2665, 7909, 88619, 26950, 26634, 7600, 6399 #### [facility] of [facility] [address] [place], [place] [address] Rd, [address] [place] [address] Hoisting Machine Operator: Salvador Parekh MD Urea nitrogen [Mass/Vol] 12 mg/dL Normal 7-25 [facility] Comment on above: Performed By: #### 9 2665, 7909, 00639, 28668, 83355, 7600, 6399 #### [facility] [address], [address] [place] [address] Hoisting Machine Operator: Salvador Parekh MD Comprehensive metabolic 2000 panelon 04-22-2024 Albumin [Mass/Vol] 4.5 g/dL 3.6 - 5.1 g/dL [facility] ALP [Catalytic activity/Vol] 67 U/L 35 - 144 U/L [facility] ALT [Catalytic activity/Vol] 18 U/L 9 - 46 U/L [facility] Anion gap [Moles/Vol] 14 mmol/L [facility] AST [Catalytic activity/Vol] 15 U/L 10 - 35 U/L [facility] Bilirubin [Mass/Vol] 0.5 mg/dL 0.2 - 1 .2 mg/dL [facility] Calcium [Mass/Vol] 9.7 mg/dL 8.6 - 10. 3 mg/dL [facility] Chloride [Moles/Vol] 102 mmol/L 98 - 11 0 mmol/L [facility] CO2 [Moles/Vol] 27 mmol/L 20 - 32 mmol/L [facility] Creatinine [Mass/Vol] 1.09 mg/dL 0.70 - 1.35 mg/dL [facility] GFR/1.73 sq M.predicted among non-blacks MDRD (S/P/Bld) [Vol rate/Area] 75 mL/min/{1.73_m2} > OR = 60 mL/min/1.73m 2 [facility] Glucose [Mass/Vol] 127 mg/dL High 65 - 99 mg/dL [facility] Comment on above: Fasting reference interval For someone without known diabetes, a glucose value >125 mg/dL indicates that they may have diabetes and this should be confirmed with a follow-up test. Potassium [Moles/Vol] 4.5 mmol/L 3.5 - 5.3 mmol/L [facility] Protein [Mass/Vol] 7 g/dL 6.1 - 8.1 g/dL [facility] Sodium [Moles/Vol] 143 mmol/L 135 - 146 mmol/L [facility] Urea nitrogen [Mass/Vol] 12 mg/dL 7 - 25 mg/dL [facility] LIPID PANEL, STANDARDon 03-27 Cholesterol [Mass/Vol] 276 mg/dL High <200 [facility] Comment on above: Order Comment: FASTI NG:YES FASTING: YES Performed By: #### 9 2665, 7909, 07319, 47043, 70996, 7600, 6399 #### [facility] [address], [address] [place], [place] [id number] Hoisting Machine Operator: Salvador Parekh MD Cholesterol in HDL [Mass/Vol] 50 mg/dL Normal > OR = 40 [facility] Comment on above: Order Comment: FASTI NG:YES FASTING: YES Performed By: #### 9 2665, 7909, 87233, 09008, 23177, 7600, 6399 #### [facility] [address], [address] [place] [address] Hoisting Machine Operator: Salvador Parekh MD Cholesterol in LDL [Mass/Vol] [...] about testing for familial hypercholesterolemia, please call [employer] at [phone]. La Nena Muse, et al. J National Lipid Association Recommendations for Patient-Centered Management of Dyslipidemia: Part 1 Journal of Clinical Lipidology 2015;9(2), 129-169. Julio Chappell. et al. (2014). Homozygous familial hypercholesterolaemia: new insights and guidance for clinicians to improve detection and clinical management. Heart Journal, 35(32), 8972-9627. Reference range: <100 Desirable range <100 mg/dL for primary prevention; <70 mg/dL for patients with CHD or diabetic patients with > or = 2 CHD risk factors. LDL-C is now calculated using the Bebeto-Humphries calculation, which is a validated novel method providing better accuracy than the Friedewald equation in the estimation of LDL-C. Bebeto MORAN et al. DIMAS. 2013;310(19): 6226-4205 (http://education.[employer] Knights/faq/XQK153) Performed By: #### 9 2665, 7909, 94156, 55625, 62681, 7600, 6399 #### [email or web address] [address], [address] [place] [address] Hoisting Machine Operator: Salvador Parekh MD Cholesterol.total/Michelle sterol in HDL [Mass ratio] 5.5 {ratio} High <5.0 [facility] Comment on above: Order Comment: FASTI NG:YES FASTING: YES Performed By: #### 9 2665, 7909, 19196, 87837, 50506, 7600, 6399 #### [email or web address] [address] [facility], [address] [place] [address] Hoisting Machine Operator: Salvador Parekh MD NON HDL CHOLESTEROL 226 mg/dL (calc) High <130 [email or web address] Comment on above: Order Comment: FASTI [...] option. Performed By: #### 9 2665, 7909, 40062, 33251, 56238, 7600, 6399 #### [email or web address] [address], [address] [place] [address] Hoisting Machine Operator: Salvador Parekh MD Triglyceride [Mass/Vol] 148 mg/dL Normal <150 [facility] Comment on above: Order Comment: FASTI NG:YES FASTING: YES Performed By: #### 9 2665, 7909, 93332, 22227, 46338, 7600, 6399 #### [email or web address] [address], [address] [place] [address] Hoisting Machine Operator: Salvador Parekh MD Lipid 1996 panelon 5 Cholesterol [Mass/Vol] 276 mg/dL High NINF - 200 mg/dL [facility] Cholesterol in HDL [Mass/Vol] 50 mg/dL > OR = 40 [facility] Cholesterol in LDL [Mass/Vol] 195 mg/dL High mg/dL (calc) [facility] Comment on above: LDL-C levels > [...] about testing for familial hypercholesterolemia, please call [employer] at [phone]. La Nena T, et al. J National Lipid Association Recommendations for Patient-Centered Management of Dyslipidemia: Part 1 Journal of Clinical Lipidology 2015;9(2), 129-169. Danish Chappell et al. (2014). Homozygous familial hypercholesterolaemia: new insights and guidance for clinicians to improve detection and clinical management. Heart Journal, 35(32), 9820-7012. Reference range: <100 Desirable range <100 mg/dL for primary prevention; <70 mg/dL for patients with CHD or diabetic patients with > or = 2 CHD risk factors. LDL-C is now calculated using the Orquidea calculation, which is a validated novel method providing better accuracy than the Friedewald equation in the estimation of LDL-C. Bebeto MORAN et al. DIMAS. 2013;310(19): 8011-7302 (http://education.[employer] Knights/faq/JKA407) Cholesterol non HDL [Mass/Vol] 226 mg/dL High [facility] Comment on above: Non-HDL level > [...] <70 mg/dL) is considered a therapeutic option. Cholesterol.total/Michelle sterol in HDL [Mass ratio] 5.5 {ratio} High [facility] Triglyceride [Mass/Vol] 148 mg/dL [facility] - 150 mg/dL [facility] NOTEon 04-22-2024 NOTE Normal [email or web address] Comment on above: Result Comment: This urine was analyzed for the presence of WBC, RBC, bacteria, casts, and other formed elements. Only those elements seen were reported. Performed By: #### 9 2665, 7909, 84626, 96500, 26575, 7600, 6399 #### [facility] [address], [address] [place] [address] Hoisting Machine Operator: Salvador Parekh MD No Panel Informationon 04-22 Interpretation and review of laboratory results Abnormal [facility] FASTING:YES FASTING: YES [facility] PSA, TOTALon 04-22-2024 PSA, TOTAL 0.91 ng/mL Normal < OR = 4.00 [email or web address] Comment on above: Result Comment: The [...] disease. Performed By: #### 9 2665, 7909, 58315, 09742, 66971, 7600, 6399 #### [facility] [address], [address] [place] [address] Hoisting Machine Operator: Salvador Parekh MD Prostate Specific Antigenon 04-22-2024 Prostate specific Ag [Mass/Vol] 0.91 ng/mL < OR = 4.00 [facility] Comment on above: The total PSA value from this assay system is standardized against the WHO standard. The test result will be approximately 20% lower when compared to the equimolar-standardized total PSA ([place]). Comparison of serial PSA results should be [...] above: Performed By: #### 9 2665, 7909, 72125, 15279, 52621, 7600, 6399 #### [facility] [address], [address] [place] [address] Hoisting Machine Operator: Salvador Parekh MD TSH W/REFLEX TO FT4on 2024 TSH W/REFLEX TO FT4 1.27 mIU/L Normal 0.40-4.50 [facility] Comment on above: Performed By: #### 9 2665, 7909, 08260, 46420, 76466, 7600, 6399 #### [facility] [address], [address] [place] [address] Hoisting Machine Operator: Salvador Parekh MD TSH with reflex to Free T4 i f abnormalon 04-22-2024 TSH Qn 1.27 m[IU]/L [facility] Triiodothyronine, Freeon Free T3 [Mass/Vol] 3.3 pg/mL 2.3 - 4.2 pg/mL [facility] URINALYSIS REFLEXon 04-22-19 25 Appearance (U) CLEAR Normal CLEAR [facility] Comment on above: Performed By: #### 9 2665, 7909, 25727, 14038, 45420, 7600, 6399 #### [facility] of [address], [address] [place] [address] Hoisting Machine Operator: Salvador Parekh MD BACTERIA NONE SEEN Normal NONE SEEN [facility] Comment on above: Performed By: #### 9 2665, 7909, 39863, 27420, 90493, 7600, 6399 #### [facility] of [place] [address] Hoisting Machine Operator: Salvador Parekh MD Bilirubin Ql (U) Negative Normal NEGATIVE [facility] Comment on above: Performed By: #### 9 2665, 7909, 43364, 39538, 18257, 7600, 6399 #### [facility] of [place] [address] [place] [address] Hoisting Machine Operator: Salvador Parekh MD Color (U) YELLOW Normal YELLOW [facility] Comment on above: Performed By: #### 9 2665, 7909, 99390, 61223, 61832, 7600, 6399 #### [facility] of [place] [address] Hoisting Machine Operator: Salvador Parekh MD Glucose Ql (U) Negative Normal NEGATIVE [facility] Comment on above: Performed By: #### 9 2665, 7909, 59952, 33875, 41836, 7600, 6399 #### [facility] [place] [address] Hoisting Machine Operator: Salvador Parekh MD HYALINE CAST NONE SEEN Normal NONE SEEN [facility] Comment on above: Performed By: #### 9 2665, 7909, 61135, 73338, 71768, 7600, 6399 #### [facility] of [address] [place] [address] Hoisting Machine Operator: Salvador Parekh MD Ketones Ql (U) Negative Normal NEGATIVE [facility] Comment on above: Performed By: #### 9 2665, 7909, 65625, 74052, 51980, 7600, 6399 #### [facility] of [address], [address] [place] [address] Hoisting Machine Operator: Salvador Parekh MD Leukocyte esterase Test strip Ql (U) Negative Normal NEGATIVE [facility] Comment on above: Performed By: #### 9 2665, 7909, 28919, 25500, 10340, 7600, 6399 #### [facility] of [place] [address] Hoisting Machine Operator: Salvador Parekh MD Nitrite Ql (U) Negative Normal NEGATIVE [facility] Comment on above: Performed By: #### 9 2665, 7909, 10930, 89754, 92583, 7600, 6399 #### [facility] [place] [address] Hoisting Machine Operator: Salvador Parekh MD OCCULT BLOOD Negative Normal NEGATIVE [facility] Comment on above: Performed By: #### 9 2665, 7909, 16067, 26809, 36693, 7600, 6399 #### [facility] [place] [address] Hoisting Machine Operator: Salvador Parekh MD pH (U) 7.0 [pH] Normal 5.0-8.0 [facility] Comment on above: Performed By: #### 9 2665, 7909, 97513, 38301, 87112, 7600, 6399 #### [facility] [place] [address] Hoisting Machine Operator: Salvador Parekh MD Protein Ql (U) TRACE Abnormal NEGATIVE [facility] Comment on above: Performed By: #### 9 2665, 7909, 99302, 93255, 81998, 7600, 6399 #### [facility] of [address], [address] [place] [address] Hoisting Machine Operator: Salvador Parekh MD RBC 0-2 Normal < OR = 2 [facility] Comment on above: Performed By: #### 9 2665, 7909, 55173, 73712, 25558, 7600, 6399 #### [facility] of [place] [address] Hoisting Machine Operator: Salvador Parekh MD Specific gravity (U) [Rel density] 1.018 Normal 1.001-1.035 [facility] Comment on above: Performed By: #### 9 2665, 7909, 01386, 64503, 69651, 7600, 6399 #### [facility] [place] [address] Hoisting Machine Operator: Salvador Parekh MD SQUAMOUS EPITHELIAL CELLS NONE SEEN Normal < OR = 5 [facility] Comment on above: Performed By: #### 9 2665, 7909, 50737, 42834, 18753, 7600, 6399 #### [facility] of [place] [address] Hoisting Machine Operator: Salvador Parekh MD WBC NONE SEEN Normal < OR = 5 [facility] Comment on above: Performed By: #### 9 2665, 7909, 03731, 77787, 75074, 7600, 6399 #### [facility] of [place] [address] Hoisting Machine Operator: Salvador Parekh MD Urinalysis complete panel (U )on 04-22-2024 Appearance (U) CLEAR CLEAR [facility] Bacteria LM.HPF (Urine sed) [#/Area] NONE SEEN NONE SEEN /HPF [facility] Bilirubin Ql (U) Negative NEGATIVE [facility] Color (U) YELLOW YELLOW [facility] Epithelial cells.squamous LM.HPF (Urine sed) [#/Area] NONE SEEN < OR = 5 /HPF [facility] Glucose Ql (U) Negative NEGATIVE [facility] Hemoglobin Ql (U) Negative NEGATIVE [facility] Hyaline casts (Urine sed) [#/Area] NONE SEEN NONE SEEN /LPF [facility] Ketones Ql (U) Negative NEGATIVE [facility] Leukocyte esterase Test strip Ql (U) Negative NEGATIVE [facility] Nitrite Ql (U) Negative NEGATIVE [facility] pH (U) 7 [pH] 5.0 - 8.0 [facility] Protein Ql (U) TRACE Abnormal NEGATIVE [facility] RBC LM.HPF (Urine sed) [#/Area] 0-2 < OR = 2 /HPF [facility] Service comment (Unsp spec) [Interp] [facility] Comment on above: This urine was fanny zed for the presence of WBC, RBC, bacteria, casts, and other formed elements. Only those elements seen were reported. Specific gravity (U) [Rel density] 1.018 1.001 - 1.035 [facility] WBC LM.HPF (Urine sed) [#/Area] NONE SEEN < OR = 5 /HPF [facility] VITAMIN D,25-OH,TOTAL,IAon 0 04-22-2024 VITAMIN D,25-OH,TOTAL,IA 34 ng/mL Normal 30-100 [facility] Comment on above: Result Comment: [place] min D Status 25-OH Vitamin D: Deficiency: <20 ng/mL Insufficiency: 20 - 29 ng/mL Optimal: > or = 30 ng/mL For 25-OH Vitamin D testing on patients on D2-supplementation and patients for whom quantitation of D2 and D3 fractions is required, the Quest[facility]ureD(TM) 25-OH VIT D, (D2,D3), LC/MS/MS is recommended: order code 56749 (patients >2yrs). See Note 1 Note 1 For additional information, please refer to http://education.[employer] Knights/faq/BAT998 (This link is being provided for informational/ educational purposes only.) Performed By: #### 9 9773, 4543, 43513, 13984, 08998, 8060, 9379 #### [facility] [address], [address] [place] [address] Hoisting Machine Operator: Salvador Parekh MD Vital Signs Date Time Vital Sign Value Performing Clinician Facility 04-29-2024 14:29-0500 Body height 172.7 cm Ephraim Bo MD Work Phone: [facility] 04-29-2024 14:29-0500 Body mass index (BMI) [Ratio] 39.53 kg/m2 Ephraim Bo MD Work Phone: [facility] 04-29-2024 14:29-0500 Body weight 117.94 kg Ephraim Bo MD Work Phone: [facility] 04-29-2024 14:29-0500 Diastolic blood pressure 91 mm[Hg] Ephraim Bo MD Work Phone: [facility] 04-29-2024 14:29-0500 Heart rate 74 /min Ephraim Bo MD Work Phone: [facility] 04-29-2024 14:29-0500 Respiratory rate 18 /min Ephraim Bo MD Work Phone: [facility] 04-29-2024 14:29-0500 Systolic blood pressure 137 mm[Hg] Ephraim Bo MD Work Phone: [facility] 04-17-2024 15:05-0500 Body height 174 cm Shalom Murry MD Work Phone: [facility] 04-17-2024 15:05-0500 Body mass index (BMI) [Ratio] 39.2 kg/m2 Shalom Murry MD Work Phone: [facility] 04-17-2024 15:05-0500 Body temperature 95.2 [degF] Shalom Murry MD Work Phone: [facility] 04-17-2024 15:05-0500 Body weight 118.66 kg Shalom Murry MD Work Phone: [facility] 04-17-2024 15:05-0500 Diastolic blood pressure 78 mm[Hg] Shalom Murry MD Work Phone: [facility] 04-17-2024 15:05-0500 Heart rate 76 /min Shalom Murry MD Work Phone: [facility] 04-17-2024 15:05-0500 SaO2% (BldA) [Mass fraction] 95 % Shalom Murry MD Work Phone: [facility] Comment on above: RA 04-17-2024 15:05-0500 Systolic blood pressure 128 mm[Hg] Shalom Murry MD Work Phone: [facility] Encounters Encounter Date Encounter Type Care Provider Facility Start: 10-18-2024 ambulatory [facility] Facility:[facility] Start: 10-13-2024 End: 10-13-[address] Les Esquivel MD -[facility] [place] Work Phone: Start: 10-13-2024 End: 10-13-2024 ambulatory Elda Gage Facility:[facility] Start: 10-09-2024 End: 10-09-2024 ambulatory Elda Gage DESTINATION SPECIALIST-C Work Phone: -Laboratory Start: 10-09-2024 End: 10-09-[address] Anamaria Holt MD -Laboratory Work Phone: Start: 10-09-2024 End: 10-09-2024 ambulatory Anamaria Holt Facility:[facility] Start: 09-30-2024 End: 09-30-2024 ambulatory Elda Gage DESTINATION SPECIALIST-C Work Phone: -Physical Therapy Start: 09-30-2024 End: 09-30-[address] Anamaria Holt MD -Physical Therapy Work Phone: Start: 09-12-2024 End: 09-12-2024 ambulatory Elda Gage DESTINATION SPECIALIST-C Work Phone: [facility] Work Phone: Start: 09-12-2024 End: 09-12-[address] Anamaria Holt MD -[facility] Work Phone: Start: 09-12-2024 End: 09-12-2024 ambulatory Elda Almonte Facility:[facility] Start: 09-09-[address] Anamaria Dalton i, MD -Physical Therapy Work Phone: Start: 06-05-2024 End: 06-05-2024 ambulatory Elda Almonte DESTINATION SPECIALIST-C Work Phone: [facility] Work Phone: Start: 06-05-2024 End: 06-05-[address] Duran Vázquez MD -[facility] Start: 06-05-2024 End: [facility] Start: 05-16-2024 End: 05-16-2024 ambulatory Elda Almonte DESTINATION SPECIALIST-C Work Phone: [facility] Work Phone: Start: 05-16-2024 End: 05-16-2024 Patient encounter procedure Elda Almonte DESTINATION SPECIALIST-C -[facility] Start: 05-16-2024 End: 05-16-2024 ambulatory Eldachiquita Almonte Facility:[facility] Start: 04-29-2024 End: 04-29-2024 Office outpatient new 45 minutes Ephraim Bo MD Work Phone: [facility] Comment on above: Chronic bilateral lo w back pain without sciatica; Neck pain Start: 04-29-2024 End: 04-29-2024 ambulatory [facility] Start: 04-29-2024 End: 04-29-2024 ambulatory [facility] Start: 04-21-2024 End: 04-21-2024 ambulatory [facility] Start: 04-17-2024 End: 04-17-2024 ambulatory [facility] Start: 04-17-2024 End: 04-17-2024 Office outpatient visit 25 minutes Shalom Murry MD Work Phone: [facility] Comment on above: PTSD (post-traumatic stress disorder) [...] Date Procedure Procedure Detail Performing Clinician Start: 10-13-2024 In-vitro immunologic test Elda Quintero P-C Work Phone: Comment on above: QuantiFERON-TB Gold Plus is a qualitativ e indirect test forM tuberculosis infection (including disease) and isintended for use in conjunction with risk assessment,radiography, and other medical and diagnostic evaluations.The QuantiFERON-TB Gold Plus result is determined bysubtracting the Nil value from either TB antigen (Ag)value. The Mitogen tube serves as a control for the test. No response to M tub erculosis antigens [...] cells for the productionof interferon gamma. Chemiluminescence immunoassaymethodologyPerformed at: [facility] [id number] Director: Joisah Cox PhD, Phone: [phone] Start: 10-09-2024 Methadone measurement, urine Elda melchor DESTINATION SPECIALIST-C Work Phone: Start: 10-09-2024 Procedure Elda Almonte DESTINATION SPECIALIST-C Work Phone: Comment on above: Test Ordered: [id number] N84-Qmkvqe+S D2Jjngymxakmbe Screen, Urine Negative ng/mL UI Reference Range: Izevtc=995Jmwbpsojbhx test includes Amphetamine and Methamphetamine.Barbiturates Negative ng/mL UI Reference Range: Jujvmk=644Uddhkyjeveriaeb Note: ng/mL UI See Final Results Reference Range: Abrypm=860Bqymapxgvxfaprb Positive [A ] ng/mL UI Reference Range: Atmpjj=215Crpxrzawfctr performed by Mass SpectrometryNordiazepam Negative UI Reference Range: Hijfdc=356Wixwfqoj Negative UI Reference Range: Wsbadb=341Xjwzoockug Negative UI Reference Range: Zduxbl=545Psipnwesh Positive [A ] UI Reference Range: .Lorazepam Conf, MS, UR 498 ng/mL UI Reference Range: Kqdssl=868Kwnswkvxzo Negative UI Reference Range: Bxvcna=666Uqodsigqol Negative UI Reference Range: Lufxfy=630Jlnuovase Negative UI Reference Range: Amykad=117Tucoxnmwg Negative UI Reference Range: Viwgol=278Xjgyypvax Negative UI Reference Range: Xajcbh=076Yzielbz (Metab.), Urine Negative ng/mL UI Reference Range: Likefn=425Refrxlb Negative ng/mL UI Reference Range: Rzocsg=996Nxfxfc test includes Codeine, Morphine, Hydromorphone, Hydrocodone.6-Acetylmorphine, Urine Negative ng/mL UI Reference Range: Cutoff=10Oxycodone/Oxymorphone, Urine Negative ng/mL UI Reference Range: Yiawxs=508Zfmr includes Oxycodone and OxymorphonePCP, Urine Negative ng/mL UI Reference Range: Cutoff=25Methadone Screen, Urine Negative ng/mL UI Reference Range: Ftyila=098Oencomotavyk, Urine Negative ng/mL UI Reference Range: Tbdotz=669Ryezjebf, Urine Negative ng/mL UI Reference Range: Cutoff=2.0Test includes Fentanyl and NorfentanylThis test was developed and its performance characteristicsdetermined by [facility]. It has not been cleared orapproved by the Food and Drug Administration.Tramadol Negative ng/mL UI Reference Range: Zolwds=579Pvqzlwrhxtlen, Urine Negative ng/mL UI Reference Range: Cutoff=10Creatinine, Urine 125.0 mg/dL UI Reference Range: 20.0-300.0pH, Urine 6.6 UI Reference Range: 4.5-8.9Performed at: [facility] [id number] [facility], [place], [place] [id number] Director: Bharati Castro PhD, Phone: [phone] at: [facility] [place], [place] [id number] Director: Josiah Cox PhD, Phone: [phone] Start: 09-12-2024 MRI of lumbar spine Elda Almonte DESTINATION SPECIALIST-C Work Phone: Start: 06-05-2024 X-ray of cervical spine Elda Almonte DESTINATION SPECIALIST- C Work Phone: Start: 06-05-2024 X-ray of lumbar spine, two or three views Elda Almonte DESTINATION SPECIALIST-C Work Phone: Start: 06-05-2024 ALO measurement Elda Almonte DESTINATION SPECIALIST-C Work Phone: Comment on above: Performed at: [facility] [facility] [id number] [place], [place] [id number] Director: Josiah Cox PhD, Phone: [phone] Start: 06-05-2024 Hepatitis C antibody measurement Elda Almonte DESTINATION SPECIALIST-C Work Phone: Comment on above: Reactive: Presumptive evidence of antibo dies to HCV. Follow CDC recommendations for supplemental testing.Non-Reactive: Antibodies to HCV were not detected; does not exclude the possibility of exposure to HCVReactive Results are presumptive evidence of antibodies to HCV. Follow CDC recommendations for supplemental testing.Order confirmation testing: HCV Quant by PCR testing - HCVPCR #[id number] Non Reactive: < 0.8 Equivocal: >/= 0.8 to < 1.0 Reactive: >/= 1.0The CDC requires that a reactive/equivocal HCV antibody result be sent out for confirmation. HCV Quant by PCR testing. Start: 06-05-2024 In-vitro immunologic test Elda Almonte N P-C Work Phone: Comment on above: QuantiFERON-TB Gold Plus is a qualitativ e indirect test forM tuberculosis infection (including disease) and isintended for use in conjunction with risk assessment,radiography, and other medical and diagnostic evaluations.The QuantiFERON-TB Gold Plus result is determined bysubtracting the Nil value from either TB antigen (Ag)value. The Mitogen tube serves as a control for the test. No response to M tub erculosis antigens [...] for the productionof interferon gamma. Chemiluminescence immunoassaymethodology Start: 06-05-2024 Plain radiography of pelvis Elda Almonte NP-C Work Phone: Start: 04-21-2024 Lipid 1996 panel - Serum or Plasma Al-Am in Betzy COLLADO Work Phone: Plan of Treatment Date Care Activity Detail Author Start: 04-21-2029 Lipid panel Lipid Panel [facility] Start: 10-13-2024 In-vitro immunologic test [facility] Start: 10-09-2024 Procedure [facility] Start: 04-29-2024 End: 04-29-2025 XR Cervical spine 4 or 5 Views XR cervical spine complete 4-5 views Imaging Routine Neck pain Expected: 04/29/2024, Expires: 04/29/2025 [facility] Work Phone: Comment on above: Expected: 04/29/2024 , Expires: 04/29/2025 Start: 04-29-2024 End: 04-29-2025 XR Lumbar spine 4 Views XR lumbar spine complete 4+ views Imaging Routine Chronic bilateral low back pain without sciatica Expected: 04/29/2024, Expires: 04/29/2025 [facility] Service Area Work Phone: Comment on above: Expected: 04/29/2024 , Expires: 04/29/2025 Start: 04-29-2024 End: 04-29-2025 XR Thoracic spine 3 Views XR thoracic spine 3 views Imaging Routine Chronic bilateral low back pain without sciatica Expected: 04/29/2024, Expires: 04/29/2025 [facility] Work Phone: Comment on above: Expected: 04/29/2024 , Expires: 04/29/2025 Start: 04-17-2024 End: 04-17-2025 XR Spine thoracolumbar junction 2 Views XR thoracolumbar spine 2 views Imaging Routine Morbid (severe) obesity due to excess calories (Multi) Expected: 04/17/2024, Expires: 04/17/2025 [facility] Service Area Work Phone: Comment on above: Expected: 04/17/2024 , Expires: 04/17/2025 Start: 11-25-2023 Influenza vaccination Influenza Vacc ine (#1) [facility] Start: 07-06-2023 Abdominal aortic aneurysm screening Abdominal Aortic Aneurysm (AAA) Screening [facility] Start: 2018 RSV High Risk: (Elde rly (60+) or Population) (1 - Risk 60-74 years 1-dose series) RSV High Risk: (Elderly (60+) or Population) (1 - Risk 60-74 years 1-dose series) [facility] Start: 1980 DTaP/Tdap/Td Vaccine s (1 - Tdap) DTaP/Tdap/Td Vaccines (1 - Tdap) [facility] Start: 1977 Pneumococcal vaccination Pneum ococcal Vaccine (1 of 2 - PCV) [facility] Start: 1977 Zoster Vaccines (1 of 2) Zoste r Vaccines (1 of 2) [facility] Start: 1976 Diabetes mellitus screening Diabetes Screening [facility] Start: 1976 Hepatitis C screening Hepatitis C Sc sashaning [facility] Start: 07-06-1963 COVID-19 Vaccine (#1) COVID-19 Vacci ne (#1) [facility] Start: 07-06-1959 MMR Vaccines (1 of 1 - Standard series) MMR Vaccines (1 of 1 - Standard series) [facility] Start: 1960 Annual wellness visit Welcome to Medicare Visit [facility] Start: 1960 Screening for malign ant neoplasm of colon [facility] Mycobacterium tuberculosis tuberculin stimulated gamma interferon [Presence] in Blood [facility] Payers Date Payer Category Payer Self-pay 2024 Medicare (Managed Care) [employer] Member Subscriber Plan / Payer (Effective 2024-Present) Name: Chan Newberry Relation to Subscriber: Self Name: Chan Newberry Payer ID: [id number] (NAIC) Type: Not on file Address: [place] [id number] 2024 Medicare [id number] 1960 Unknown [id number]. 2.1245 1958 Unknown [id number] [id number]. 2.124 1958 Unknown [id number] 2.840.1.456768.3.579. 2.1245 1958 Unknown [id number] 2.840.1.436111.3.579. 2.1245 1958 Unknown [id number] 2.840.1.271340.3.579. 2.1244 1958 Unknown [id number] 2.840.1.383776.3.579. 2.1244 Unknown [id number] [id number]. 2.462 Unknown [id number] 2.16840.1.778122.3.579. 2.462 Unknown [id number] [id number]. 2.462 Unknown [id number] 2.16840.1.324098.3.579. 2.462 Unknown [id number] 2.840.1.202781.3.579. 2.462 Unknown [id number] [id number]. 2.462 Unknown [id number] [id number]. 2.462 Unknown [id number] [id number]. 2.462 Social History Date Type Detail Facility Start: 04-17-2024 Tobacco smoking status NHIS Ex-smoker [facility] Work Phone: [facility] tobacco use [facility] Start: 04-17-2024 Tobacco use and exposure Smokeless tobacco non-user [facility] Work Phone: Start: 04-17-2024 End: 04-29-2024 Alcoholic beverage intake Ex-drinker (finding) [facility] Work Phone: Start: 04-17-2024 End: 04-29-2024 History of Social function [facility] Work Phone: Start: 04-17-2024 End: 04-29-2024 Tobacco use panel [facility] Work Phone: Start: 04-17-2024 Alcohol Comment occasional [facility] Work Phone: Start: 1960 Sex assigned at Not on file [facility] Work Phone: Start: 03-31-2024 Gender identity Identifies as male gender (finding) [facility] Start: 03-31-2024 Sexual orientation Heterosexual (finding) [facility] Work Phone: Start: 04-19-2024 End: 04-29-2024 Exposure to SARS-CoV-2 (event) Not sure [facility] Tobacco smoking stat us NHIS Unknown if [facility] Start: 05-29-2024 End: 06-16-2024 Sex Male (finding) [facility] Start: 1960 Sex Assigned At Male [facility] Discharge summary 09-30-2024 Note Date & Type Note Facility 09-30-2024 Discharge summary Note Date/Time September 30, 2024 7:00p m [facility] Physical Therapy [facility] [address] [place] [address] / REHABILITATION SERVICES DISCHARGE SUMMARY MR#: [id number] Acct: [id number] Name: CHAN NEWBERRY Rep #: [id number] : 1960 64 From: Cert. TOBIAS [place]T, OCS Referring Dr.: Dr. Anamaria Holt MD Status: REG RCR Insurance: [employer] MEDICARE PPO SELF PAY INSURANCE Discharge Summary D/C summary: It has been my pleasure to treat CHAN NEWBERRY referred by Dr. Anamaria Holt MD, with the diagnosis of NECK PAIN AND BACK PAIN for a total of 9 visit(s). Discharge Date: 09/30/24 Please see the following information for a summary of their discharge status. Subjective Subjective: Unable to stand ~ 10mins like to wash dishes Walk in store with cart Feels loose after PT in water then does not feel good with chronic fatigue from pain Nothing has helped Plan to discuss with pain management about pain pump Pain Bilateral Neck: Pain Intensity (Out of 10): 4 Bilateral Back: Pain Intensity (Out of 10): 4 Overall Improvement % Improvement: 20 Objective Objective/Function: POSTURE: mild forward posture GAIT: reciprocal pattern [...] quads/hams 4/5 ,hip flexion 4-/5 ,ankle 4/5 Goals Goal 1:: Patient to Aquatic Therapy. Goal Progress: Progressing Goal 2:: Patient to demonstrate 50% improvement with neck and back pain to improve function . Goal Progress: Progressing Goal 3:: Patient improve cervical ROM for function of recovery for drivig Goal Progress: Progressing Goal 4:: Patient to improve lumbar ROM for function to put on shoes. Goal Progress: Progressing Goal 5:: Patient to improve neck oswestry score by 5 points to improve function AND QOL Goal 6:: Patient to demonstrate 50% improvement with less pain and improved function Goal Progress: Progressing Plan Plan: D/C TO RTD D/C Information Discharge Comments: RTD d/c sentence: If there are questions or concerns regarding this patient's physical therapy, please feel free to call me at [phone]. Thank you for the referral of thispatient. Sincerely, Prudencio Cleveland PT, Cert MDT, OCS Balance/Gait/Functional tests Balance/Special Test Scores Oswestry Neck Score: 30 Improvement % Improvement: 20 <Electronically signed by Prudencio Cleveland PT, Cert. T, OCS> 09/30/24 1252 CC: DESTINATION SPECIALIST-C Elda Almonte; Dr. Anamaria Holt MD ~ JLA Signed [facility] Work Phone: Discharge summary 09-30-2024 Note Date & Type Note Facility 09-30-2024 Discharge summary [facility] Radiology Diagnostic study note 06-05-2024 Note Date & Type Note Facility 06-05-2024 Radiology Diagnostic study note [facility] Imaging Services [address] [place] [address] Pelvis 1 or 2 Views MR#: [id number] Acct: [id number] Name: CHAN NEWBERRY Rep #: [id number] : 1960 M 63 From: Marsha Johnson MD PCP: MARIE Segundo Status: REG CLI Study:Pelvis 1 or 2 Views Date of Exam: 06/05/24 Exam# [id number] Ordering Dr: Chayo Gao MD EXAM: XR [...] the colon consistent with constipation. Reading Location: [facility] CC: MARIE Almonte; Dr. Chayo Gao MD ~ Assistant District Attorney: Signed [facility] History of Present illness Narrative 04-29-2024 Shawn Odell MD - 04/29/2024 2:15 PM EST Note Date & Type Note Facility 04-29-2024 History of Present illness Narrative Subjective Patient ID: Chan Newberry is a 63 y.o. male with a past medical history of PTSD, hypertension, left rotator cuff tear, bilateral knee replacements, chronic back pain who presents as a new patient referred by his primary care physician. HPI: Chan Newberry is a 63 y.o. male with a past medical history of PTSD, hypertension, left rotator cuff tear, bilateral knee replacements, chronic back pain who presents as a new patient referred by his primary care physician. This is a patient who was referred to us by his primary care physician for back and leg pain. He recently moved from [place] to [place] a month ago due to family reasons. [...] been seeing a pain physician for in [place]. Unfortunately we do not have access to any of his records from [place] and do not have much records for [...] HERNIA REPAIR 2012 ROTATOR CUFF REPAIR Left 2019 Family History Problem Relation Name Age of [...] reviewed and independently interpreted: None available Assessment/Plan Chan Newberry is a 63 y.o. male with a past medical history of PTSD, hypertension, left rotator cuff tear, bilateral knee replacements, chronic back pain who presents as a new patient referred by his primary care physician. Patient recently moved to [place] from [place] in the last month. We have no records from any of his treating physicians in [place] including a pain management physician or a [...] for his pain management physician's office in [place] and we will obtain records from them after obtaining consent from the patient. Follow-up after he is able to obtain these records. Plan: -We will have the patient signed a consent waiver form to obtain his records from his pain management physician in [place] -We will in the meantime give the [...] evaluation Follow up: After obtaining records from [place] The patient was invited to contact us [...] MD PGY-5 Interventional Pain Fellow Cosigned by Ephraim Bo MD at 04/29/2024 3:36 PM EST documented in this encounter [facility] Work Phone: History of Present illness Narrative 04-17-2024 Shalom Mrury MD - 04/17/2024 2:30 PM EST Note Date & Type Note Facility 04-17-2024 History of Present illness Narrative Chan Newberry, rebeca 63 y.o. male was seen today for: Chief Complaint Patient presents with [facility] Care Patient is in office today for a new patient visit. Med Management Patient advises that he is out of his morphine. He advises that he was on oxycoton but was recently changed to morphine Referral Patient is in need of a new pain management doctor due to recently moving from [place] Chan Newberry Patient is here to establish primary care physician. He recently has moved from [place] to this place. He has chronic pain [...] 04/21/2024 P.S: This note was completed using [employer] voice recognition technology and may include unintended errors with respect to translation of words, typographical errors or grammar errors which may not have been identified while finalizing the chart. documented in this encounter [facility] Work Phone: Evaluation note Note Date & Type Note Facility Evaluation note Diagnosis Chronic bilateral low back pain without sciatica Neck pain Cervicalgia documented in this encounter [facility] Work Phone: Evaluation note Note Date [...] neoplasm of prostate documented in this encounter [facility] Work Phone: Evaluation note Note Date & Type Note Facility Evaluation note No assessment information availa ble [facility] Work Phone: Reason for referral (narrative) Note Date & Type Note Facility Reason for referral (narrative) No reason for referral information available [facility] Work Phone: Summary Purpose Family History No Family History Records FoundNo Family History Records FoundNo Family History Records FoundNo Family History Records Found Advance Directives No Advanced Directives Records FoundNo Advanced Directives Records FoundNo Advanced Directives Records FoundNo Advanced Directives Records Found Chief Complaint and Reason for Visit Chief Complaint Admit Date XRAY June 05, 2024 3:2 3pm Chief Complaint Admit Date XRAY June 05, 2024 3:2 3pm NECK AND BACK PAIN. RX HERE September 09 2:00pm Radiculopathy, lumbar region September 12, 2024 3:41pm Chief Complaint Admit Date XRAY June 05, 2024 3:2 3pm Radiculopathy, lumbar region September 12, 2024 3:41pm NECK AND BACK PAIN. RX HERE September 30 11:30am Chief Complaint Admit Date Radiculopathy, lumbar region September 12, 2024 3:41pm NECK AND BACK PAIN. RX HERE September 30 11:30am SKIN October 13, 2024 2:21 pm Additional Source Comments (unrecognized sect ion and content) No Status Records FoundNo Status Records FoundNo Status Records FoundNo Status Records Found INFORMATION SOURCE (unrecogn ized section and content) DATE CREATED AUTHOR 04/23/2024 [facility] DATE CREATED AUTHOR AUTHOR'S ORGANIZ ATION 05/05/2024 [facility] DATE CREATED AUTHOR AUTHOR'S ORGANIZ ATION 06/15/2024 [facility] DATE CREATED AUTHOR AUTHOR'S ORGANIZ ATION 10/17/2024 [facility] Reason for Visit (unrecogniz ed section and content) Reason Comments Back Pain Pt here today c/o ba ck, neck. [facility], and recently was given morphine., and Tizanadine No recent images, no recent PT. Has had injection in the past isn't interested in them Specialty Diagnoses / Procedures Referred By Contac t Referred To Contact Pain Medicine Diagnoses Chronic bilateral low back pain without sciatica Shalom Murry MD [address] [place] [address] Phone: tel: fax: Referral ID Status Reason Start Date Expiration Date Visits Requested Visits Authorized [id number] Authorized Specialty Services Required 04/17/2024 04/17/2025 1 1 Reason Comments Establish Care Patient is in office today for a new patient visit. Med Management Patient advises that he is out of his morphine. He advises that he was on oxycoton but was recently changed to morphine Referral Patient is in need o f a new pain management doctor due to recently moving from [place] Care Teams (unrecognized sec tion and content) Electro Mechanic Relationship Specialty Start Date End Date Shalom Murry MD [address], [place] [id number] PCP - General Hospitalist 04/17/24 Electro Mechanic Relationship Specialty Start Date End Date Shalom Murry MD [address] [place] [id number] PCP - General Hospitalist 04/17/24 Team Status: Active Member Role Status Dates Elda Almonte , DESTINATION SPECIALIST-C Primary Care Provider Active Team Status: Inactive Member Role Status Dates Elda Almonte , DESTINATION SPECIALIST-C Primary Care Provider Active Start: May 16, 2024 End: May 16, 2024 Elda Almonte DESTINATION SPECIALIST-C Attending Provider Active St art: May 16, 2024 End: May 16, 2024 Team Status: Inactive Member Role Status Dates Elda Almonte DESTINATION SPECIALIST-C Primary Care Provider Active Start: June 05, 2024 End: June 05, 2024 Dr. Chayo Gao MD Attending Provider Active Start: June 05, 2024 End: June 05, 2024 Dr. Chayo Gao MD Referring Provider Active Start: June 05, 2024 End: June 05, 2024 Team Status: Inactive Member Role Status Dates Elda Almonte DESTINATION SPECIALIST-C Primary Care Provider Active Start: June 05, 2024 End: June 05, 2024 Dr. Duran Vázquez MD Attending Provider Active S tart: June 05, 2024 End: June 05, 2024 Team Status: Active Member Role Status Dates Elda Almonte DESTINATION SPECIALIST-C Primary Care Provider Active Start: September 09, 2024 Dr. Anamaria Holt MD Attending Provider Active Start: September 09, 2024 Dr. Anamaria Holt MD Referring Provider Active Start: September 09, 2024 Team Status: Inactive Member Role Status Dates Elda Almonte DESTINATION SPECIALIST-C Primary Care Provider Active Start: September 12, 2024 End: September 12, 2024 Dr. Anamaria Holt MD Attending Provider Active Start: September 12, 2024 End: September 12, 2024 Dr. Anamaria Holt MD Referring Provider Active Start: September 12, 2024 End: September 12, 2024 Team Status: Active Member Role/Relationship Status Dates Elda Almonte , DESTINATION SPECIALIST-C Primary Care Provider Active Team Status: Inactive Member Role/Relationship Status Dates Elda Almonte , DESTINATION SPECIALIST-C Primary Care Provider Active Start: June 05, 2024 End: June 05, 2024 Dr. Chayo Gao MD Attending Provider Active Start: June 05, 2024 End: June 05, 2024 Dr. Chayo Gao MD Referring Provider Active Start: June 05, 2024 End: June 05, 2024 Team Status: Inactive Member Role/Relationship Status Dates Elda Gage , DESTINATION SPECIALIST-C Primary Care Provider Active Start: June 05, 2024 End: June 05, 2024 Dr. Duran Vázquez MD Attending Provider Active S tart: June 05, 2024 End: June 05, 2024 Team Status: Inactive Member Role/Relationship Status Dates Elda Gage , DESTINATION SPECIALIST-C Primary Care Provider Active Start: September 12, 2024 End: September 12, 2024 Dr. Anamaria Holt MD Attending Provider Active Start: September 12, 2024 End: September 12, 2024 Dr. Anamaria Holt MD Referring Provider Active Start: September 12, 2024 End: September 12, 2024 Team Status: Inactive Member Role/Relationship Status Dates Elda Gage , DESTINATION SPECIALIST-C Primary Care Provider Active Start: September 30, 2024 End: September 30, 2024 Dr. Anamaria Holt MD Attending Provider Active Start: September 30, 2024 End: September 30, 2024 Dr. Anamaria Holt MD Referring Provider Active Start: September 30, 2024 End: September 30, 2024 Team Status: Inactive Member Role/Relationship Status Dates Elda Gage , DESTINATION SPECIALIST-C Primary Care Provider Active Start: September 12, 2024 End: September 12, 2024 Dr. Anamaria Holt MD Attending Provider Active Start: September 12, 2024 End: September 12, 2024 Dr. Anamaria Holt MD Referring Provider Active Start: September 12, 2024 End: September 12, 2024 Team Status: Inactive Member Role/Relationship Status Dates Elda Gage , DESTINATION SPECIALIST-C Primary Care Provider Active Start: September 30, 2024 End: September 30, 2024 Dr. Anamaria Holt MD Attending Provider Active Start: September 30, 2024 End: September 30, 2024 Dr. Anamaria Holt MD Referring Provider Active Start: September 30, 2024 End: September 30, 2024 Team Status: Inactive Member Role/Relationship Status Dates Elda Ggae , DESTINATION SPECIALIST-C Primary Care Provider Active Start: October 09, 2024 End: October 09, 2024 Dr. Anamaria Holt MD Attending Provider Active Start: October 09, 2024 End: October 09, 2024 Dr. Anamaria Holt MD Referring Provider Active Start: October 09, 2024 End: October 09, 2024 Team Status: Active Member Role/Relationship Status Dates Elda Almonte NP-C Primary Care Provider Active Start: October 13, 2024 Dr. Les Esquivel MD Attending Provider Active Start: October 13, 2024 Dr. Les Esquivel MD Referring Provider Active Start: October 13, 2024 Team Status: Inactive Member Role/Relationship Status Dates Elda Almonte NP-C Primary Care Provider Active Start: October 13, 2024 End: October 13, 2024 Dr. Les Esquivel MD Attending Provider Active Start: October 13, 2024 End: October 13, 2024 Dr. Les Esquivel MD Referring Provider Active Start: October 13, 2024 End: October 13, 2024 Goals (unrecognized section and content) Goals may be documented in a n alternate sectionGoals may be documented in an alternate sectionGoals may be documented in an alternate sectionGoals may be documented in an alternate sectionGoals may be documented in an alternate sectionGoals may be documented in an [...] BE BASED ON THE PRIMARY CLINICAL RECORDS. [facility] [facility]. provides no warranty or guarantee of the accuracy or completeness of information in this document.
--- NOTE | 2024-10-18 08:35 | MRI_ITS ---
PROCEDURE: SPINE CERVICAL (ROUTINE) 10/18/2024 REASON FOR EXAM: RADICULOPATHY TECHNIQUE: SPINE CERVICAL (ROUTINE) Multiplanar and multisequence images were obtained without IV contrast administration. COMPARISON: None. FINDINGS: Vertebrae: Cervical vertebral body heights are preserved. Bone marrow signal is unremarkable. Congenital narrowing of the pedicles. Alignment: Normal. No spondylolisthesis. Spinal Cord: Cervical spinal cord is of normal size and signal intensities. Structures at the foramen magnum are unremarkable. C2-3: Small disc bulge. Facet joint arthropathy. Severe left and moderate right foramina stenosis. Moderate canal stenosis. C3-4: Disc bulge. Facet joint arthropathy. Severe left and moderate right foramina stenosis. Moderate canal stenosis. C4-5: Disc osteophyte complex. Uncovertebral hypertrophy. Facet joint arthropathy. Severe bilateral foramina stenosis. Moderate canal stenosis. C5-6: Disc osteophyte complex. Uncovertebral hypertrophy. Facet joint arthropathy. Severe bilateral foramina stenosis. Mild canal stenosis. C6-7: Disc osteophyte complex. No significant foraminal or canal stenosis. C7-T1: No significant foraminal or canal stenosis. MRI/Spine Cervical (Routine) IMPRESSION: Degenerative changes, predominantly for moderate canal stenosis, severe left an d moderate right foramina stenosis at C2-C3 and C3-C4. Moderate canal stenosis and severe bilateral foramina stenosis at C4-C5. Severe bilateral foramina stenosis at C5-C6. Reading Location: [id number]
== END | disposition home or self-care (01) ==
LOC: MRI 08:21
PROVIDERS: PCP Nurse Practitioner Family; Referring Provider Anesthesiology Pain Medicine; Visit Provider Anesthesiology Pain Medicine
DX: M54.12 Radiculopathy, cervical region (principal)
CPT/HCPCS: 72141

== ENCOUNTER 2025-01-19 15:11 | Outpatient (CLI) | payer MEDICARE, SELFPAY | END 2025-01-19 23:59 | disposition home or self-care (01) | PROVIDERS: PCP Nurse Practitioner Family; Referring Provider Nurse Practitioner Family; Visit Provider Nurse Practitioner Family | DX: L05.01 Pilonidal cyst with abscess (principal) | CPT/HCPCS: 87070; 87077; 87186; 87205 ==

== ENCOUNTER 2025-02-03 06:04 | Day surgery (SDC) | payer MEDICARE, SELFPAY ==
[2025-02-03] VITALS (9 sets, daily range): BP systolic 107–128; BP diastolic 69–101; PULSE 70–98; RESP 16–20; TEMP 36.1–36.3; O2SAT 93–98; BMI 39.8
--- OUTSIDE RECORDS SUMMARY | 2025-02-03 06:07 | XMS RPT_ITS | CCD ---
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 complex. No significant foraminal or canal stenosis. C7-T1: No significant foraminal or canal stenosis. MRI/Spine Cervical (Routine) IMPRESSION: Degenerative changes, predominantly for moderate canal stenosis, severe left and moderate right foramina stenosis at C2-C3 and C3-C4. Moderate canal stenosis and severe bilateral foramina stenosis at C4-C5. Severe bilateral foramina stenosis at C5-C6. Reading Location: [facility] CC: MARIE Almonte; Dr. Anamaria Holt MD Analysis Or Research Safety Inspector: Signed Normal [facility] L3410.9992on 10-15-2024 [facility] COM[facility] Normal . [facility] Comment on above: Order Comment: [id number] URINE TOX Result Comment: Test Ordered: [id number] Amphetamines Screen, Urine Negative ng/mL UI Reference Range: Uudbik=729 Amphetamine test includes Amphetamine and Methamphetamine. Barbiturates Negative ng/mL UI Reference Range: Pvtkge=704 Benzodiazepines Note: ng/mL UI See Final Results Reference Range: Drcmpz=529 Benzodiazepines Positive [A ] ng/mL UI Reference Range: Nirzkh=082 Confirmation performed by Mass Spectrometry Nordiazepam Negative UI Reference Range: Kbdygc=182 Oxazepam Negative UI Reference Range: Bajwlq=379 Flurazepam Negative UI Reference Range: Gojccz=095 Lorazepam Positive [A ] UI Reference Range: . Lorazepam Conf, MS, UR 498 ng/mL UI Reference Range: Xmvado=429 Alprazolam Negative UI Reference Range: Owjefd=513 Clonazepam Negative UI Reference Range: Jgjfeb=819 Temazepam Negative UI Reference Range: Qudnjc=839 Triazolam Negative UI Reference Range: Nemhry=228 Midazolam Negative UI Reference Range: Wmmapu=069 Cocaine (Metab.), Urine Negative ng/mL UI Reference Range: Hmufpp=271 Opiates Negative ng/mL UI Reference Range: Zboobq=569 Opiate test includes Codeine, Morphine, Hydromorphone, Hydrocodone. 6-Acetylmorphine, Urine Negative ng/mL UI Reference Range: Cutoff=10 Oxycodone/Oxymorphone, Urine Negative ng/mL UI Reference Range: Xaewsg=044 Test includes Oxycodone and Oxymorphone PCP, Urine Negative ng/mL UI Reference Range: Cutoff=25 Methadone Screen, Urine Negative ng/mL UI Reference Range: Arwhff=599 Propoxyphene, Urine Negative ng/mL UI Reference Range: Vthkue=945 Fentanyl, Urine Negative ng/mL UI Reference Range: Cutoff=2.0 Test includes Fentanyl and Norfentanyl This test was developed and its performance characteristics determined by [facility]. It has not been cleared or approved by the Food and Drug Administration. Tramadol Negative ng/mL UI Reference Range: Jduukj=215 Buprenorphine, Urine Negative ng/mL UI Reference Range: Cutoff=10 Creatinine, Urine 125.0 mg/dL UI Reference Range: 20.0-300.0 pH, Urine 6.6 UI Reference Range: 4.5-8.9 Performed at: [facility] [address] [place], [place] [id number] Mill Tender: Bharati Castro PhD, Phone: [phone] Performed at: [facility] [address] [id number] Mill Tender: Josiah Cox PhD, Phone: [phone] Performed By: #### L 3410.9992, L505.5000 #### [facility] [address] [place], [place], [address] Quantiferon TB-Gold+on 10-15 QFT MITOGEN SHADE > 10.00 Normal . [facility] Comment on above: Order Comment: FAX R ESULTS TO [phone] Performed By: #### L 3400.8000 #### [facility] [address] [place], [address] QFT NIL VALUE 0.19 IU/mL Normal . [facility] Comment on above: Order Comment: FAX R ESULTS TO [phone] Performed By: #### L 3400.8000 #### [facility] [address] [place], [address] QFT TB GOLD+ Comment Normal . [facility] Comment on above: Order Comment: FAX R ESULTS TO [phone] Result Comment: Gentry tiFERON-TB Gold Plus is [...] test. Performed By: #### L 3400.8000 #### [facility] [address] [place], [address] QFT TB POS CRIT Negative Normal Negative [facility] Comment on above: Order Comment: FAX R ESULTS TO [phone] Result Comment: No r esponse to M [...] interferon gamma. Chemiluminescence immunoassay methodology Performed at: [address] [id number] Mill Tender: Josiah Cox PhD, Phone: [phone] Performed By: #### L 3400.8000 #### [facility] [address] [place], [address] QFT TB1+ AG SHADE 0.10 IU/mL Normal . [facility] Comment on above: Order Comment: FAX R ESULTS TO [phone] Performed By: #### L 3400.8000 #### [facility] [address] [place], [address] QFT TB2+ AG SHADE 0.07 IU/mL Normal . [facility] Comment on above: Order Comment: FAX R ESULTS TO [phone] Performed By: #### L 3400.8000 #### [facility] [address] [place], [address] Qualitative QuantiFERON-TB g old in tube testOrdered By: Les Esquivel on 10-13-2024 M. tuberculosis tuberculin stim IFN-g Ql (Bld) 0.10 IU/mL . [facility] Amphetamine detection with 1 000 ng/mL as cutoffOrdered By: Anamaria Holt on 10-09-2024 Amphetamines Screen method >1000 ng/mL Ql (U) Negative < 200 ng/mL [facility] No Panel InformationOrdered By: Anamaria Holt on 10-09-2024 Urine Buprenorphine Qualitative Negative < 200 ng/mL [facility] Urine Oxycodone Screen Negative < 100 ng/mL [facility] Quantitative urine opiates m easurementOrdered By: Anamaria Holt on 10-09-2024 Opiates Ql (U) Negative < 300 ng/mL [facility] Screening urine fentanyl aristeo surementOrdered By: Anamaria Holt on 10-09-2024 fentaNYL Screen Ql (U) Negative [facility] Urine Drug Screen (VISTA)on 10-09-2024 AMPHETAMINES Negative Normal <1000 ng/mL [facility] Comment on above: Order Comment: UNK Performed By: #### L 3410.9992, L505.5000 #### [facility] [address] [place], [address] BARBITIURATES Negative Normal < 200 ng/mL [facility] Comment on above: Order Comment: UNK Performed By: #### L 3410.9992, L505.5000 #### [facility] [address] [place], [address] BENZODIAZIPINE Positive Normal < 200 ng/mL [facility] Comment on above: Order Comment: UNK Result Comment: If c onfirmation testing is needed, a separate order will be required to send out testing to the reference laboratory. Performed By: #### L 3410.9992, L505.5000 #### [facility] [address] [place], [address] BUP Ur Drug Scr Negative Normal < 200 ng/mL [facility] Comment on above: Order Comment: UNK Performed By: #### L 3410.9992, L505.5000 #### [facility] [address] [place], [place], [facility] COCAINE Negative Normal < 300 ng/mL [facility] Comment on above: Order Comment: UNK Performed By: #### L 3410.9992, L505.5000 #### [facility] [address] [place], [address] Fentanyl Negative Normal [facility] Comment on above: Order Comment: UNK Performed By: #### L 3410.9992, L505.5000 #### [facility] [address] [place], [address] METHADONE Negative Normal < 300 ng/mL [facility] Comment on above: Order Comment: UNK Performed By: #### L 3410.9992, L505.5000 #### [facility] [address] [place], [address] OPIATES Negative Normal < 300 ng/mL [facility] Comment on above: Order Comment: UNK Performed By: #### L 3410.9992, L505.5000 #### [facility] [address] [place], [address] OXYCODONE Negative Normal < 100 ng/mL [facility] Comment on above: Order Comment: UNK Performed By: #### L 3410.9992, L505.5000 #### [facility] [address] [place], [address] PCP Negative Normal < 25 ng/mL [facility] Comment on above: Order Comment: UNK Performed By: #### L 3410.9992, L505.5000 #### [facility] [address] [place], [address] THC Positive Normal < 50 ng/mL [facility] Comment on above: Order Comment: UNK Result Comment: If c onfirmation testing is needed, a separate order will be required to send out testing to the reference laboratory. Performed By: #### L 3410.9992, L505.5000 #### [facility] [address] [place], [address] Urine benzodiazepine levelOr dered By: Anamaria Holt on 10-09-2024 Benzodiazepines Ql (U) Positive < 200 ng/mL [facility] Comment on above: If confirmation test ing is needed, a separate order will be required to send out testing to the reference laboratory. Urine cocaine levelOrdered B y: Anamaria Holt on 10-09-2024 Cocaine Ql (U) Negative < 300 ng/mL [facility] Urine qhkzw-1-ftifacexkjghtt abinol (THC) measurementOrdered By: Anamaria Holt on 10-09-2024 Cannabinoids Screen Ql (U) Positive < 50 ng/mL [facility] Comment on above: If confirmation test ing is needed, a separate order will be required to send out testing to the reference laboratory. Urine phencyclidine (PCP) de tectionOrdered By: Anamaria Holt on 10-09-2024 Phencyclidine Ql (U) Negative < 25 ng/mL [facility] PT D/C Summary (1)on 025 PT D/C Summary (1) [facility] Physical Therapy [facility] [address] [place] [address] / REHABILITATION SERVICES DISCHARGE SUMMARY MR#: [id number] Acct: [id number] Name: CHAN NEWBERRY Rep #: [id number] : 1960 64 From: Prudencio Cleveland PT, Cert. T, OCS Referring Dr.: Dr. Anamaria Holt MD Status: REG RCR Insurance: [employer] PPO SELF PAY INSURANCE Discharge Summary D/C summary: It has been my pleasure to treat CHAN NEWBERRY referred by Dr. Anamaria oHlt MD, with the diagnosis of NECK PAIN [...] please feel free to call me at [phone]. Thank you for the referral of this patient. Sincerely, Prudencio Cleveland, PT, Cert MDT, OCS Balance/Gait/Functional tests Balance/Special Test Scores Oswestry Neck Score: 30 Improvement % Improvement: 09/30/24 1252 CC: ORTHOTIST-C Elda Almonte; Dr. Anamaria Holt MD JLA Signed Normal [facility] Magnetic resonance imaging r eportOrdered By: Clemente Argueta on 09-13-2024 Study report [facility] Imaging Services [address] [place] [address] Spine Lumbar (Routine) MR#: [id number] Acct: [id number] Name: CHAN NEWBERRY Rep #: [id number] : 1960 M 64 From: Annalisa Argueta MD PCP: MARIE Segundo Status: REG CLI Study:Spine Lumbar (Routine) Date of Exam: 09/12/24 Exam# [id number] Ordering Dr: Marianela Holt MD PROCEDURE: SPINE [...] (Routine) IMPRESSION: Degenerative disc disease. Reading Location: [place] [address] CC: ORTHOTIST-C Elda Almonte; Dr. Anamaria Holt MD ~ Analysis Or Research Safety Inspector: Signed [facility] Spine Lumbar (Routine)on Spine Lumbar (Routine) [facility] Imaging Services [address] [place] [id number] Spine Lumbar (Routine) MR#: [id number] Acct: [id number] Name: CHAN NEWBERRY Rep #: [id number] : 1960 64 From: Clemente quintero MD PCP: MARIE Segundo Status: REG CLI Study: Spine Lumbar (Routine) Date of Exam: 09/12/24 Exam# [id number] Ordering Dr: Anamaria Holt MD PROCEDURE: SPINE [...] (Routine) IMPRESSION: Degenerative disc disease. Reading Location: [place] [address] CC: MARIE Almonte; Dr. Anamaria Holt MD Analysis Or Research Safety Inspector: Signed Normal [facility] Inital Evaluation (1) - PTon 08-13-2024 Inital Evaluation (1) - PT [facility] [address] [place] [address] [address] [place] [address] / REHABILITATION SERVICES INITIAL EVALUATION MR#: [id number] Acct: [id number] Name: CHAN NEWBERRY Rep #: [id number] : 1960 64 From: Prudencio Cleveland PT, Cert. T, [facility] Referring Dr.: Dr. Anamaria Holt MD Status: REG RCR Insurance: [employer] MED[employer] PPO SELF PAY INSURANCE Patient's Visit Information Visit Information Visit Information: CHAN NEWBERRY is a 64 year old M referred to Physical Therapy by Dr. Anamaria Holt MD with a diagnosis of NECK PAIN AND BACK PAIN. Date of Evaluation: 08/13/24 Physical Therapist: Prudencio Cleveland, PT, Cert MDT, OCS Visit Plan Frequency: 2x /Week Duration: [...] family .Prescribed meloxicam and muscle relaxers Patient Gita recommended PT and had x-rays showed cervical C5-6 greater than C4-5spondylosis/discoge jerrod change with disc space narrowing and anterior osteophyte formation. C6-7 disc space is not well evaluated due to shoulder overlap. Pxqd-anymcjx-ebpd-right hypertrophic appearing facet degenerative changes. lumbar showed [...] sleeping aides. Patient has had therapy in [place]. Patient ahs had pain injections in [place] with pain management.Patient condition affects QOL and [...] Instruction: Edu (more content not included)... Normal [facility] ANTINUCLEAR ANTIBODIES DIREC Ton 06-09-2024 ALO,DIRECT Negative Normal Negative [facility] Comment on above: Result Comment: Perf ormed at: CB - [facility] [address] [id number] Mill Tender: Josiah Cox PhD, Phone: [phone] Performed By: #### L 3890.6102, L4600.0100, L3400.8000, L505.7010, L3890.6202, L100.0100, L501.6710, L500.4050, L101.9900, L3890.6301, L3100.5475 ####[facility] [address] [place], [address] CCP IgG Antibodieson 025 CCP IgG Ab. 5 units Normal 0-19 [facility] Comment on above: Result Comment: Plea se Note: Specimen is lipemic. Negative <20 Weak positive 20 - 39 Moderate positive 40 - 59 Strong positive >59 Performed at: [address] [id number] Mill Tender: Josiah Cox PhD, Phone: [phone] Performed By: #### L 3890.6102, L4600.0100, L3400.8000, L505.7010, L3890.6202, L100.0100, L501.6710, L500.4050, L101.9900, L3890.6301, L3100.5475 ####[facility] [address] [place], [address] Quantiferon TB-Gold+on 06-07 QFT MITOGEN SHADE > 10.00 Normal . [facility] Comment on above: Performed By: #### L 3890.6102, L4600.0100, L3400.8000, L505.7010, L3890.6202, L100.0100, L501.6710, L500.4050, L101.9900, L3890.6301, L3100.5475 ####[facility] [address] [place], [address] QFT NIL VALUE 0.09 IU/mL Normal . [facility] Comment on above: Performed By: #### L 3890.6102, L4600.0100, L3400.8000, L505.7010, L3890.6202, L100.0100, L501.6710, L500.4050, L101.9900, L3890.6301, L3100.5475 ####[facility] [address] [place], [place], [address] QFT TB GOLD+ Comment Normal . [facility] Comment on above: Result Comment: Gentry [...] L3890.6202, L100.0100, L501.6710, L500.4050, L101.9900, L3890.6301, L3100.5475 ####[facility] [address] [facility] [place], [address] QFT TB POS CRIT Negative Normal Negative [facility] Comment on above: Result Comment: No [...] L3890.6202, L100.0100, L501.6710, L500.4050, L101.9900, L3890.6301, L3100.5475 ####[facility] [address] [place], [address] QFT TB1+ AG SHADE 0.06 IU/mL Normal . [facility] Comment on above: Performed By: #### L 3890.6102, L4600.0100, L3400.8000, L505.7010, L3890.6202, L100.0100, L501.6710, L500.4050, L101.9900, L3890.6301, L3100.5475 ####[facility] [address] [place], [address] QFT TB2+ AG SHADE 0.08 IU/mL Normal . [facility] Comment on above: Performed By: #### L 3890.6102, L4600.0100, L3400.8000, L505.7010, L3890.6202, L100.0100, L501.6710, L500.4050, L101.9900, L3890.6301, L3100.5475 ####[facility] [address] [place], [address] ALO serumOrdered By: Chayo lewis on 06-05-2024 Anti-Nuclear Antibody Screen Negative Negative [facility] Comment on above: Performed at: [address] [id number] Director: Josiah Cox PhD, Phone: [phone] Absolute lymphocyte countOrd ered By: Chayo Gao on 06-05-2024 Lymphocytes Auto (Unsp spec) [#/Vol] 3.13 10*3/uL 0.83-4.51 [facility] Absolute neutrophil countOrd ered By: Chayo Gao on 06-05-2024 Neutrophils (Bld) [#/Vol] 4.5 10*3/uL 2.0-7.7 [facility] Anion gap in Serum or Plasma Ordered By: Chayo Gao on 06-05-2024 Anion gap [Moles/Vol] 11 mmol/L 5-15 [facility] Automated lymphocyte count a s percentage of total leukocytesOrdered By: Chayo Gao on 06-05-2024 Lymphocytes/100 WBC Auto (Unsp spec) 33.7 % - [facility] BUN/creatinine ratioOrdered By: Chayostevie Gao on 06-05-2024 Urea nitrogen/Creatinine [Mass ratio] 13.3 mg/mg 10- [facility] Basophil percentageOrdered B y: Chayo Gao on 06-05-2024 Basophils/100 WBC (Bld) 0.9 % 0-1 [facility] Bilirubin, totalOrdered By: [facility] on 06-05-2024 Bilirubin [Mass/Vol] 0.19 mg/dL 0.00-1.30 [facility] CBC W/Diff, Automatedon 05-24 Absolute Lymph 3.13 X10 3/uL Normal 0.83-4.51 [facility] Comment on above: Performed By: #### L 3890.6102, L4600.0100, L3400.8000, L505.7010, L3890.6202, L100.0100, L501.6710, L500.4050, L101.9900, L3890.6301, L3100.5475 ####[facility] [address] [facility] [place], [address] Absolute Neut 4.5 X10 3/uL Normal 2.0-7.7 [facility] Comment on above: Performed By: #### L 3890.6102, L4600.0100, L3400.8000, L505.7010, L3890.6202, L100.0100, L501.6710, L500.4050, L101.9900, L3890.6301, L3100.5475 ####[facility] [address] [place], [address] Basophils/100 WBC (Bld) 0.9 % Normal 0-1 [facility] Comment on above: Performed By: #### L 3890.6102, L4600.0100, L3400.8000, L505.7010, L3890.6202, L100.0100, L501.6710, L500.4050, L101.9900, L3890.6301, L3100.5475 ####[facility] [address] [place], [address] Eosinophils/100 WBC (Bld) 10.0 % High 0-5 [facility] Comment on above: Performed By: #### L 3890.6102, L4600.0100, L3400.8000, L505.7010, L3890.6202, L100.0100, L501.6710, L500.4050, L101.9900, L3890.6301, L3100.5475 ####[facility] [address] [place], [place], [phone]) Erythrocyte distribution width (RBC) [Ratio] 13.6 % Normal 11.6-14.6 [facility] Comment on above: Performed By: #### L 3890.6102, L4600.0100, L3400.8000, L505.7010, L3890.6202, L100.0100, L501.6710, L500.4050, L101.9900, L3890.6301, L3100.5475 ####[facility] [address] [place], [place], [phone]) Hematocrit (Bld) [Volume fraction] 44.9 % Normal 40-54 [facility] Comment on above: Performed By: #### L 3890.6102, L4600.0100, L3400.8000, L505.7010, L3890.6202, L100.0100, L501.6710, L500.4050, L101.9900, L3890.6301, L3100.5475 ####[facility] [address] [place], [address] Hemoglobin (Bld) [Mass/Vol] 15.2 g/dL Normal 13.0-16.5 [facility] Comment on above: Performed By: #### L 3890.6102, L4600.0100, L3400.8000, L505.7010, L3890.6202, L100.0100, L501.6710, L500.4050, L101.9900, L3890.6301, L3100.5475 ####[facility] [address] [place], [address] IG% 0.500 Normal 0.0-0.9 [facility] Comment on above: Result Comment: IG% - Immature Granulocytes (promyelocytes, myelocytes and metamyelocytes) > 1% indicates that a LEFT SHIFT is Present. Performed By: #### L 3890.6102, L4600.0100, L3400.8000, L505.7010, L3890.6202, L100.0100, L501.6710, L500.4050, L101.9900, L3890.6301, L3100.5475 ####[facility] [address] [place], [address] Lymphocytes/100 WBC (Bld) 33.7 % Normal 19-41 [facility] Comment on above: Performed By: #### L 3890.6102, L4600.0100, L3400.8000, L505.7010, L3890.6202, L100.0100, L501.6710, L500.4050, L101.9900, L3890.6301, L3100.5475 ####[facility] [address] [place], [address] MCH (RBC) [Entitic mass] 31.6 pg Normal 27.0-32.0 [facility] Comment on above: Performed By: #### L 3890.6102, L4600.0100, L3400.8000, L505.7010, L3890.6202, L100.0100, L501.6710, L500.4050, L101.9900, L3890.6301, L3100.5475 ####[facility] [address] [place], [address] MCHC (RBC) [Mass/Vol] 33.9 g/dL Normal 32-36 [facility] Comment on above: Performed By: #### L 3890.6102, L4600.0100, L3400.8000, L505.7010, L3890.6202, L100.0100, L501.6710, L500.4050, L101.9900, L3890.6301, L3100.5475 ####[facility] [address] [place], [address] MCV (RBC) [Entitic vol] 93.3 fL Normal 80-94 [facility] Comment on above: Performed By: #### L 3890.6102, L4600.0100, L3400.8000, L505.7010, L3890.6202, L100.0100, L501.6710, L500.4050, L101.9900, L3890.6301, L3100.5475 ####[facility] [address] [place], [address] Monocytes/100 WBC (Bld) 6.4 % Normal 0-10 [facility] Comment on above: Performed By: #### L 3890.6102, L4600.0100, L3400.8000, L505.7010, L3890.6202, L100.0100, L501.6710, L500.4050, L101.9900, L3890.6301, L3100.5475 ####[facility] [address] [place], [address] Neutrophils/100 WBC (Bld) 48.5 % Normal 47-70 [facility] Comment on above: Performed By: #### L 3890.6102, L4600.0100, L3400.8000, L505.7010, L3890.6202, L100.0100, L501.6710, L500.4050, L101.9900, L3890.6301, L3100.5475 ####[facility] [address] [place], [address] Nucleated RBC (Bld) [#/Vol] 0 10*3/uL Normal 0-5 [facility] Comment on above: Performed By: #### L 3890.6102, L4600.0100, L3400.8000, L505.7010, L3890.6202, L100.0100, L501.6710, L500.4050, L101.9900, L3890.6301, L3100.5475 ####[facility] [address] [place], [address] Platelet mean volume (Bld) [Entitic vol] 13.9 fL High 6.2-12.0 [facility] Comment on above: Performed By: #### L 3890.6102, L4600.0100, L3400.8000, L505.7010, L3890.6202, L100.0100, L501.6710, L500.4050, L101.9900, L3890.6301, L3100.5475 ####[facility] [address] [place], [address] Platelets (Bld) [#/Vol] 151 10*3/uL Normal 150-450 [facility] Comment on above: Performed By: #### L 3890.6102, L4600.0100, L3400.8000, L505.7010, L3890.6202, L100.0100, L501.6710, L500.4050, L101.9900, L3890.6301, L3100.5475 ####[facility] [address] [place], [address] RBC (Bld) [#/Vol] 4.81 10*6/uL Normal 4.6-6.2 [facility] Comment on above: Performed By: #### L 3890.6102, L4600.0100, L3400.8000, L505.7010, L3890.6202, L100.0100, L501.6710, L500.4050, L101.9900, L3890.6301, L3100.5475 ####[facility] [address] [place], [address] RDW SD 46.3 fl High 35.1-43.9 [facility] Comment on above: Performed By: #### L 3890.6102, L4600.0100, L3400.8000, L505.7010, L3890.6202, L100.0100, L501.6710, L500.4050, L101.9900, L3890.6301, L3100.5475 ####[facility] [address] [place], [address] WBC (Bld) [#/Vol] 9.3 10*3/uL Normal 4.4-11.0 [facility] Comment on above: Performed By: #### L 3890.6102, L4600.0100, L3400.8000, L505.7010, L3890.6202, L100.0100, L501.6710, L500.4050, L101.9900, L3890.6301, L3100.5475 ####[facility] [address] [place], [place], [address] CRPon 06-05-2024 C-REACTIVE PROT 5.81 mg/L High 0.0-3.0 [facility] Comment on above: Performed By: #### L 3890.6102, L4600.0100, L3400.8000, L505.7010, L3890.6202, L100.0100, L501.6710, L500.4050, L101.9900, L3890.6301, L3100.5475 ####[facility] [address] [place], [address] CRP [Mass/Vol]Ordered By: Javon Gao on 06-05-2024 C-Reactive Protein Extended Range 5.81 mg/L High 0.0-3.0 [facility] Carbon dioxide, total [Moles /volume] in Central venous bloodOrdered By: Chayo Gao on 06-05-2024 CO2 [Moles/Vol] 30.4 mmol/L 21.0-32.0 [facility] Cerv Spine 2 or 3 Viewson Cerv Spine 2 or 3 Views [facility] Imaging Services [address] [place] [address] Cerv Spine 2 or 3 Views MR#: [id number] Acct: [id number] Name: CHAN NEWBERRY Rep #: [id number] : 1960 M 63 From: Steven Rojas MD PCP: MARIE Segundo Status: DEP AMB Study: Cerv Spine 2 or 3 Views Date of Exam: 06/05/24 Exam# [id number] Ordering Dr: Anamaria Holt MD PROCEDURE: CERV [...] not well evaluated due to shoulder overlap. Gabi-hgseete-rzrn-right hypertrophic appearing facet degenerative changes. Suggestion of possible bilateral carotid calcification. The visualized apices appear unremarkable. RAD/Cerv Spine 2 or 3 Views IMPRESSION: Cervical spondylosis/discogenic change as visualized as described above.. Reading Location: [facility] CC: ORTHOTIST-C Elda Almonte; Dr. Anamaria Holt MD Analysis Or Research Safety Inspector: Signed Normal [facility] Chloride assayOrdered By: Javon Gao on 06-05-2024 Chloride [Moles/Vol] 99 mmol/L 98-108 [facility] Comprehensive Metabolic Prof ilon 06-05-2024 Albumin [Mass/Vol] 3.9 g/dL Normal 3.4-4.8 [facility] Comment on above: Performed By: #### L 3890.6102, L4600.0100, L3400.8000, L505.7010, L3890.6202, L100.0100, L501.6710, L500.4050, L101.9900, L3890.6301, L3100.5475 ####[facility] [address] [place], [place], [phone] Albumin/Globulin [Mass ratio] 1.4 {ratio} Normal 0.9-2.4 [facility] Comment on above: Performed By: #### L 3890.6102, L4600.0100, L3400.8000, L505.7010, L3890.6202, L100.0100, L501.6710, L500.4050, L101.9900, L3890.6301, L3100.5475 ####[facility] [address] [place], [place], [phone] ALK PHOS 88 U/L Normal 40-129 [facility] Comment on above: Performed By: #### L 3890.6102, L4600.0100, L3400.8000, L505.7010, L3890.6202, L100.0100, L501.6710, L500.4050, L101.9900, L3890.6301, L3100.5475 ####[facility] [address] [place], [address] ALT [Catalytic activity/Vol] 21 U/L Normal <=46 [facility] Comment on above: Performed By: #### L 3890.6102, L4600.0100, L3400.8000, L505.7010, L3890.6202, L100.0100, L501.6710, L500.4050, L101.9900, L3890.6301, L3100.5475 ####[facility] [address] [place], [place], [id number] AST [Catalytic activity/Vol] 20 U/L Normal <=37 [facility] Comment on above: Performed By: #### L 3890.6102, L4600.0100, L3400.8000, L505.7010, L3890.6202, L100.0100, L501.6710, L500.4050, L101.9900, L3890.6301, L3100.5475 ####[facility] [address] [place], [place], [id number] Bilirubin [Mass/Vol] 0.19 mg/dL Normal 0.00-1.30 [facility] Comment on above: Performed By: #### L 3890.6102, L4600.0100, L3400.8000, L505.7010, L3890.6202, L100.0100, L501.6710, L500.4050, L101.9900, L3890.6301, L3100.5475 ####[facility] [address] [place], [place], [address] BUN/CRE 13.3 RATIO Normal 10-20 [facility] Comment on above: Performed By: #### L 3890.6102, L4600.0100, L3400.8000, L505.7010, L3890.6202, L100.0100, L501.6710, L500.4050, L101.9900, L3890.6301, L3100.5475 ####[facility] [address] [place], [place], [id number] Calcium [Mass/Vol] 9.2 mg/dL Normal 7.6-11.0 [facility] Comment on above: Performed By: #### L 3890.6102, L4600.0100, L3400.8000, L505.7010, L3890.6202, L100.0100, L501.6710, L500.4050, L101.9900, L3890.6301, L3100.5475 ####[facility] [address] [place], [address] Chloride [Moles/Vol] 99 mmol/L Normal 98-108 [facility] Comment on above: Performed By: #### L 3890.6102, L4600.0100, L3400.8000, L505.7010, L3890.6202, L100.0100, L501.6710, L500.4050, L101.9900, L3890.6301, L3100.5475 ####[facility] [address] [place], [place], [phone](453) CO2 [Moles/Vol] 30.4 mmol/L Normal 21.0-32.0 [facility] Comment on above: Performed By: #### L 3890.6102, L4600.0100, L3400.8000, L505.7010, L3890.6202, L100.0100, L501.6710, L500.4050, L101.9900, L3890.6301, L3100.5475 ####[facility] [address] [place], [place], [phone](478) Creatinine [Mass/Vol] 0.97 mg/dL Normal 0.70-1.20 [facility] Comment on above: Performed By: #### L 3890.6102, L4600.0100, L3400.8000, L505.7010, L3890.6202, L100.0100, L501.6710, L500.4050, L101.9900, L3890.6301, L3100.5475 ####[facility] [address] [place], [address] GAP 11 Normal 5-15 [facility] Comment on above: Performed By: #### L 3890.6102, L4600.0100, L3400.8000, L505.7010, L3890.6202, L100.0100, L501.6710, L500.4050, L101.9900, L3890.6301, L3100.5475 ####[facility] [address] [place], [place], [phone] GFR/1.73 sq M.predicted among non-blacks MDRD (S/P/Bld) [Vol rate/Area] 87 mL/min/{1.73_m2} Normal >60 [facility] Comment on above: Result Comment: mL/m in/1.73m2 CKD-EPI Creatinine Equation (2020) Performed By: #### L 3890.6102, L4600.0100, L3400.8000, L505.7010, L3890.6202, L100.0100, L501.6710, L500.4050, L101.9900, L3890.6301, L3100.5475 ####[facility] [address] [place], [address] Globulin (S) [Mass/Vol] 2.8 g/dL Normal 2.2-4.2 [facility] Comment on above: Performed By: #### L 3890.6102, L4600.0100, L3400.8000, L505.7010, L3890.6202, L100.0100, L501.6710, L500.4050, L101.9900, L3890.6301, L3100.5475 ####[facility] [address] [place], [place], [phone] Glucose [Mass/Vol] 95 mg/dL Normal 70-99 [facility] Comment on above: Performed By: #### L 3890.6102, L4600.0100, L3400.8000, L505.7010, L3890.6202, L100.0100, L501.6710, L500.4050, L101.9900, L3890.6301, L3100.5475 ####[facility] [address] [place], [address] Potassium [Moles/Vol] 3.9 mmol/L Normal 3.3-5.1 [facility] Comment on above: Performed By: #### L 3890.6102, L4600.0100, L3400.8000, L505.7010, L3890.6202, L100.0100, L501.6710, L500.4050, L101.9900, L3890.6301, L3100.5475 ####[facility] [address] [place], [place], [phone] Sodium [Moles/Vol] 141 mmol/L Normal 133-145 [facility] Comment on above: Performed By: #### L 3890.6102, L4600.0100, L3400.8000, L505.7010, L3890.6202, L100.0100, L501.6710, L500.4050, L101.9900, L3890.6301, L3100.5475 ####[facility] [address] [place], [place], [phone] T PROT 6.8 g/dL Normal 5.9-8.4 [facility] Comment on above: Performed By: #### L 3890.6102, L4600.0100, L3400.8000, L505.7010, L3890.6202, L100.0100, L501.6710, L500.4050, L101.9900, L3890.6301, L3100.5475 ####[facility] [address] [place], [place], [phone] Urea nitrogen [Mass/Vol] 13 mg/dL Normal 4-19 [facility] Comment on above: Performed By: #### L 3890.6102, L4600.0100, L3400.8000, L505.7010, L3890.6202, L100.0100, L501.6710, L500.4050, L101.9900, L3890.6301, L3100.5475 ####[facility] [address] [place], [address] Cyclic citrullinated peptide IgG QnOrdered By: Chayo Gao on 06-05-2024 Cyclic Citrullinated Peptide IgG Ab 5 units 0-19 [facility] Comment on above: Please Note: Specime n is lipemic. Negative <20 Weak positive 20 - 39 Moderate positive 40 - 59 Strong positive >59Performed at: [facility] [id number] Director: Josiah Cox PhD, Phone: [phone] Eosinophil percentageOrdered By: Chayo Gao on 06-05-2024 Eosinophils/100 WBC (Bld) 10.0 % High 0-5 [facility] Erythrocyte Sed Rateon 06-05 SED RATE 7 mm/hr Normal 0-20 [facility] Comment on above: Performed By: #### L 3890.6102, L4600.0100, L3400.8000, L505.7010, L3890.6202, L100.0100, L501.6710, L500.4050, L101.9900, L3890.6301, L3100.5475 ####[facility] [address] [place], [place], [phone] Erythrocyte distribution wid th ratioOrdered By: Chayo Gao on 06-05-2024 Erythrocyte distribution width (RBC) [Ratio] 13.6 % 11.6-14.6 [facility] Erythrocyte distribution wid th standard deviationOrdered By: Chayo Gao on 06-05-2024 Erythrocyte distribution width (RBC) [Entitic vol] 46.3 fL High 35.1-43.9 [facility] Erythrocyte distribution width (RBC) [Ratio] 46.3 fl High 35.1-43.9 [facility] Erythrocyte sedimentation ra teOrdered By: Chayo Gao on 06-05-2024 ESR (Bld) [Velocity] 7 mm/h 0-20 [facility] GFR/1.73 sq M.predicted jaleesa g non-blacks MDRD (S/P/Bld) [Vol rate/Area]Ordered By: Chayo Gao on 06-05-2024 Estimated GFR (MDRD) Non-Af Amer 87 >60 [facility] Comment on above: mL/min/1.73m2 CKD-EP I Creatinine Equation (2020) Glomerular filtration rate ( GFR) estimation/1.73 sq m using serum, plasma, or whole bOrdered By: Chayo Gao on 06-05-2024 GFR/1.73 sq M.predicted among non-blacks MDRD (S/P/Bld) [Vol rate/Area] 87 mL/min/{1.73_m2} >60 [facility] Comment on above: mL/min/1.73m2 CKD-EP I Creatinine Equation (2020) HBV surface Ab Ql (S)Ordered By: Chayo Gao on 06-05-2024 Hepatitis B Surface Antibody Non-Reactive [facility] Comment on above: <8.5 mIU/mL: Non-Talita ctive8.5<= x <11.5 mIU/mL: Indeterminate>=11.5 mIU/mL: Reactive Non Reactive: Inconsistent with immunity less than <10 mIU/mL Reactive: Consistent with immunity greater than or equal to 10 mIU/mL HBV surface Ag Ql (S)Ordered By: Chayo Gao on 06-05-2024 Hepatitis B Surface Antigen Non-Reactive Nonreactive [facility] Comment on above: Reactive: Presumptiv e evidence of HBV. Repeatedly reactive samples must be confirmed using a neutralization test ([employer] HBsAg Confirmatory Test)Non-Reactive: HBsAg not detected; does not exclude the possibility of exposure to HBV Hematocrit Auto (Bld) [Volum e fraction]Ordered By: Chayo Gao on 06-05-2024 Hematocrit (Bld) [Volume fraction] 44.9 % 40-54 [facility] Hemoglobin measurementOrdere d By: Chayo Gao on 06-05-2024 Hemoglobin (Bld) [Mass/Vol] 15.2 g/dL 13.0-16.5 [facility] Hepatitis C antibodyOrdered By: Chayo Gao on 06-05-2024 Hepatitis C Antibody REAC Nonreactive [facility] Comment on above: Reactive: Presumptiv e evidence of antibodies to HCV. Follow CDC recommendations for supplemental testing.Non-Reactive: Antibodies to HCV were not detected; does not exclude the possibility of exposure to HCVReactive Results are presumptive evidence of antibodies to HCV. Follow CDC recommendations for supplemental testing.Order confirmation testing: HCV Quant by PCR testing - HCVPCR #[id number] Non Reactive: < 0.8 Equivocal: >/= 0.8 to < 1.0 Reactive: >/= 1.0The CDC requires that a reactive/equivocal HCV antibody result be sent out for confirmation. HCV Quant by PCR testing. Immature granulocytes/100 WB C Auto (Bld)Ordered By: Chayo Gao on 06-05-2024 Immature granulocytes/100 WBC (Bld) 0.500 % 0.0-0.9 [facility] Comment on above: IG% - Immature Granu locytes (promyelocytes, myelocytes and metamyelocytes) > 1% indicates that a LEFT SHIFT is Present. L3890.6102on 06-05-2024 HEP B Surf Ag Non-Reactive Normal Nonreactive [facility] Comment on above: Result Comment: Reac tive: Presumptive evidence of HBV. Repeatedly reactive samples must be confirmed using a neutralization test ([employer] HBsAg Confirmatory Test) Non-Reactive: HBsAg not detected; does not exclude the possibility of exposure to HBV Performed By: #### L 3890.6102, L4600.0100, L3400.8000, L505.7010, L3890.6202, L100.0100, L501.6710, L500.4050, L101.9900, L3890.6301, L3100.5475 ####[facility] [address] [place], [address] L3890.6202on 06-05-2024 HEP B Surf Ab Non-Reactive Normal [facility] Comment on above: Result Comment: <8.5 mIU/mL: Non-Reactive 8.5<= x <11.5 mIU/mL: Indeterminate >=11.5 mIU/mL: Reactive Non Reactive: Inconsistent with immunity less than <10 mIU/mL Reactive: Consistent with immunity greater than or equal to 10 mIU/mL Performed By: #### L 3890.6102, L4600.0100, L3400.8000, L505.7010, L3890.6202, L100.0100, L501.6710, L500.4050, L101.9900, L3890.6301, L3100.5475 ####[facility] [address] [place], [place], [address] L3890.6301on 06-05-2024 Hepatitis C Ab REAC Normal Nonreactive [facility] Comment on above: Result Comment: Reac tive: Presumptive evidence of antibodies to HCV. Follow CDC recommendations for supplemental testing. Non-Reactive: Antibodies to HCV were not detected; does not exclude the possibility of exposure to HCV Reactive Results are presumptive evidence of antibodies to HCV. Follow CDC recommendations for supplemental testing. Order confirmation testing: HCV Quant by PCR testing - HCVPCR #[id number] Non Reactive: < 0.8 Equivocal: >/= 0.8 to < 1.0 Reactive: >/= 1.0 The CDC requires that a reactive/equivocal HCV antibody result be sent out for confirmation. HCV Quant by PCR testing. Performed By: #### L 3890.6102, L4600.0100, L3400.8000, L505.7010, L3890.6202, L100.0100, L501.6710, L500.4050, L101.9900, L3890.6301, L3100.5475 ####[facility] [address] [place], [place], [phone] Laboratory - Chemistry and C hemistry - challengeOrdered By: Chayo Gao on 06-05-2024 AST [Catalytic activity/Vol] 20 U/L <38 [facility] Laboratory - Microbiology an d Antimicrobial susceptibilityOrdered By: Chayo Gao on 06-05-2024 HBV surface Ag Ql (S) Non-Reactive Nonreactive [facility] Comment on above: Reactive: Presumptiv e evidence of HBV. Repeatedly reactive samples must be confirmed using a neutralization test ([employer] HBsAg Confirmatory Test)Non-Reactive: HBsAg not detected; does not exclude the possibility of exposure to HBV Lumbar Spine 2 or 3 Viewson 06-05-2024 Lumbar Spine 2 or 3 Views [facility] Imaging Services [address] [place], [place] [address] Lumbar Spine 2 or 3 Views MR#: [id number] Acct: [id number] Name: CHAN NEWBERRY Rep #: [id number] : 1960 M 63 From: Steven Rojas MD PCP: MARIE Segundo Status: DEP AMB Study: Lumbar Spine 2 or 3 Views Date of Exam: Exam# [id number] Ordering Dr: Anamaria Holt MD PROCEDURE: LUMBAR SPINE 2 OR 3 VIEWS REASON FOR EXAM: HX OF BACK PAIN TECHNIQUE: 2 view(s) of the lumbar spine, AP and lateral COMPARISON: None. FINDINGS: 5 hbz-pol-zetdenw lumbar vertebral type bodies identified. No fracture identified. Mild grade 1 appearing anterolisthesis L4 on L5 measures approximately 3-4 mm with associated mild disc space narrowing. Lower lumbar facet degenerative changes suggested. The disc spaces otherwise appear within limits. RAD/Lumbar Spine 2 or 3 Views IMPRESSION: L4-5 spondylosis/discogenic change with anterolisthesis as above.. Reading Location: [facility] CC: ORTHOTIST-C Elda Almonte; Dr. Anamaria Holt MD Analysis Or Research Safety Inspector: Signed Normal [facility] Lymphocytes Auto (Unsp spec) [#/Vol]Ordered By: Chayo Gao on 06-05-2024 Lymphocytes (Bld) [#/Vol] 3.13 10*3/uL 0.83-4.51 [facility] Lymphocytes/100 WBC Auto (Un sp spec)Ordered By: Chayo Gao on 06-05-2024 Lymphocytes/100 WBC (Bld) 33.7 % 19-41 [facility] M. tuberculosis tuberculin s kaia IFN-g Ql (Bld)Ordered By: Chayo Gao on 06-05-2024 TB Test (QFT) Antigen 1 0.06 IU/mL . [facility] MCV (mean corpuscular volume ) determinationOrdered By: Chayo Gao on 06-05-2024 MCV (RBC) [Entitic vol] 93.3 fL 80-94 [facility] Mean corpuscular hemoglobin (MCH) determinationOrdered By: Chayo Gao on 06-05-2024 MCH (RBC) [Entitic mass] 31.6 pg 27.0-32.0 [facility] Mean corpuscular hemoglobin concentration (MCHC) determinationOrdered By: Chayo Gao on 06-05-2024 MCHC (RBC) [Mass/Vol] 33.9 g/dL 32-36 [facility] Mean platelet volume determi nationOrdered By: Chayo Gao on 06-05-2024 Platelet mean volume (Bld) [Entitic vol] 13.9 fL High 6.2-12.0 [facility] Monocyte percentageOrdered B y: Chayo Gao on 06-05-2024 Monocytes/100 WBC (Bld) 6.4 % 0-10 [facility] Neutrophil percentageOrdered By: Chayo Gao on 06-05-2024 Neutrophils/100 WBC (Bld) 48.5 % 47-70 [facility] Nucleated red blood cell per centageOrdered By: Chayo Gao on 06-05-2024 Nucleated RBC/100 WBC (Bld) [Ratio] 0 % 0-5 [facility] Pelvis 1 or 2 Viewson 2024 Pelvis 1 or 2 Views [facility] Imaging Services [address] [place] [address] Pelvis 1 or 2 Views MR#: [id number] Acct: [id number] Name: CHAN NEWBERRY Rep #: [id number] : 1960 M 63 From: Sam Johnson MD PCP: Elda Almonte, ORTHOTIST-C Status: REG CLI Study: Pelvis 1 or 2 Views Date of Exam: 06/05/24 Exam# [id number] Ordering Dr: Chayo Gao MD EXAM: XR [...] the colon consistent with constipation. Reading Location: [facility] CC: MARIE Almonte; Dr. Chayo Gao MD Analysis Or Research Safety Inspector: Signed Normal [facility] Platelet countOrdered By: Javon Gao on 06-05-2024 Platelets (Bld) [#/Vol] 151 10*3/uL 150-450 [facility] Potassium (Unsp spec) [Mass/ Vol]Ordered By: Chayo Gao on 06-05-2024 Potassium [Moles/Vol] 3.9 mmol/L 3.3-5.1 [facility] Potassium measurement (mass/ volume)Ordered By: Chayo Gao on 06-05-2024 Potassium (Unsp spec) [Mass/Vol] 3.9 mmol/L 3.3-5.1 [facility] Qualitative QuantiFERON-TB g old in tube testOrdered By: Chayo Gao on 06-05-2024 M. tuberculosis tuberculin stim IFN-g Ql (Bld) 0.06 IU/mL . [facility] Quantiferon-TB Gold Plus eulogio tOrdered By: Chayo Gao on 06-05-2024 TB Test (QFT) Comment . [facility] Comment on above: QuantiFERON-TB Gold Plus [...] (QFT) Antigen 2 0.08 IU/mL . [facility] TB Test (QFT) Mitogen > 10.00 IU/mL . [facility] TB Test (QFT) Nil 0.09 IU/mL . [facility] TB Test (QFT) Positive Criteria Negative Negative [facility] Comment on above: No response to [...] 06-05-2024 RBC (Bld) [#/Vol] 4.81 10*6/uL 4.6-6.2 [facility] Rheumatoid Factoron 06-06-19 25 RHEUMATOID FAC 17.5 IU/mL High <15 [facility] Comment on above: Performed By: #### L 3890.6102, L4600.0100, L3400.8000, L505.7010, L3890.6202, L100.0100, L501.6710, L500.4050, L101.9900, L3890.6301, L3100.5475 ####[facility] [address] [place], [place], [id number] Rheumatoid factor Ql (S)Orde red By: Chayo Gao on 06-05-2024 Rheumatoid Factor 17.5 IU/mL High <15 [facility] Serum creatinine measurement (mass/volume)Ordered By: Chayo Gao on 06-05-2024 Creatinine [Mass/Vol] 0.97 mg/dL 0.70-1.20 [facility] Serum globulin measurementOr dered By: Chayo Gao on 06-05-2024 Globulin (S) [Mass/Vol] 2.8 g/dL 2.2-4.2 [facility] Serum glucose measurement (m ass/volume)Ordered By: Chayo Gao on 06-05-2024 Glucose [Mass/Vol] 95 mg/dL 70-99 [facility] Serum hepatitis B virus surf paolo antibody detectionOrdered By: Chayo Gao on 06-05-2024 HBV surface Ab Ql (S) Non-Reactive [facility] Comment on above: <8.5 mIU/mL: Non-Talita ctive8.5<= x <11.5 mIU/mL: Indeterminate>=11.5 mIU/mL: Reactive Non Reactive: Inconsistent with immunity less than <10 mIU/mL Reactive: Consistent with immunity greater than or equal to 10 mIU/mL Serum or plasma C reactive p rotein measurement (mass/volume)Ordered By: Chayo Gao on 06-05-2024 CRP [Mass/Vol] 5.81 mg/L High 0.0-3.0 [facility] Serum or plasma alanine amaro otransferase (ALT) measurementOrdered By: Chayo Gao on 06-05-2024 ALT [Catalytic activity/Vol] 21 U/L <47 [facility] Serum or plasma albumin bala urement (mass/volume)Ordered By: Chayo Gao on 06-05-2024 Albumin [Mass/Vol] 3.9 g/dL 3.4-4.8 [facility] Serum or plasma albumin/glob ulin mass ratioOrdered By: [facility] on 06-05-2024 Albumin/Globulin [Mass ratio] 1.4 {ratio} 0.9-2.4 [facility] Serum or plasma alkaline tara sphatase measurementOrdered By: Chayo Gao on 06-05-2024 ALP [Catalytic activity/Vol] 88 U/L 40-129 [facility] Serum or plasma calcium bala urement (mass/volume)Ordered By: Chayo Gao on 06-05-2024 Calcium [Mass/Vol] 9.2 mg/dL 7.6-11.0 [facility] Serum or plasma cyclic citru llinated peptide IgG antibody assay (units/volume)Ordered By: Chayo Gao on 06-05-2024 Cyclic citrullinated peptide IgG Qn 5 units 0-19 [facility] Comment on above: Please Note: Specime n is lipemic. Negative <20 Weak positive 20 - 39 Moderate positive 40 - 59 Strong positive >59Performed at: [facility] [address] [id number] Director: Josiah Cox PhD, Phone: [phone] Serum or plasma urea nitroge n measurement (mass/volume)Ordered By: Chayo Gao on 06-05-2024 Urea nitrogen [Mass/Vol] 13 mg/dL 4-19 [facility] Serum rheumatoid factor dete ctionOrdered By: Chayo Gao on 06-05-2024 Rheumatoid factor Ql (S) 17.5 IU/mL High <15 [facility] Sodium levelOrdered By: Lang Gao on 06-05-2024 Sodium [Moles/Vol] 141 mmol/L 133-145 [facility] Total proteinOrdered By: Anabel Gao on 06-05-2024 Protein [Mass/Vol] 6.8 g/dL 5.9-8.4 [facility] White blood cell (WBC) count Ordered By: Chayo Gao on 06-05-2024 WBC (Bld) [#/Vol] 9.3 10*3/uL 4.4-11.0 [facility] Absolute neutrophil countOrd ered By: Elda Almonte on 05-16-2024 Neutrophils (Bld) [#/Vol] 4.6 10*3/uL 2.0-7.7 [facility] Albumin to globulin ratioOrd ered By: Elda Almonte on 05-16-2024 Albumin/Globulin [Mass ratio] 0.8 {ratio} Low 0.9-2.4 [facility] Basophil percentageOrdered B y: Elda Almonte on 05-16-2024 Basophils/100 WBC (Bld) 0.6 % 0-1 [facility] Bilirubin, totalOrdered By: Elda Almonte on 05-16-2024 Bilirubin [Mass/Vol] 0.40 mg/dL 0.20-1.00 [facility] Comment on above: For patients on eltr ombopag therapy, use of Dimension [place] TBIL is not recommended. Blood urea nitrogen (BUN)/cr eatinine ratioOrdered By: Elda Almonte on 05-16-2024 Urea nitrogen/Creatinine [Mass ratio] 12.6 mg/mg 10-20 [facility] CBC W/Diff, Automatedon 04-27 Absolute Lymph 2.97 X10 3/uL Normal 0.83-4.51 [facility] Comment on above: Performed By: #### L 500.4050, L100.0100, L500.4100, L501.9910 #### [facility] [address] [place], [address] Absolute Neut 4.6 X10 3/uL Normal 2.0-7.7 [facility] Comment on above: Performed By: #### L 500.4050, L100.0100, L500.4100, L501.9910 #### [facility] [address] [place], [address] Basophils/100 WBC (Bld) 0.6 % Normal 0-1 [facility] Comment on above: Performed By: #### L 500.4050, L100.0100, L500.4100, L501.9910 #### [facility] [address] [place], [address] Eosinophils/100 WBC (Bld) 6.3 % High 0-5 [facility] Comment on above: Performed By: #### L 500.4050, L100.0100, L500.4100, [id number] #### [facility] [address] [place], [address] Erythrocyte distribution width (RBC) [Ratio] 13.4 % Normal 11.6-14.6 [facility] Comment on above: Performed By: #### L 500.4050, L100.0100, L500.4100, [id number] #### [facility] [address] [place], [address] Hematocrit (Bld) [Volume fraction] 44.8 % Normal 40-54 [facility] [facility] Comment on above: Performed By: #### L 500.4050, L100.0100, L500.4100, L501.9910 #### [facility] [address] [place], [address] Hemoglobin (Bld) [Mass/Vol] 15.0 g/dL Normal 13.0-16.5 [facility] Comment on above: Performed By: #### L 500.4050, L100.0100, L500.4100, L501.9910 #### [facility] [address] [place], [address] IG% 0.300 Normal 0.0-0.9 [facility] Comment on above: Result Comment: IG% - Immature Granulocytes (promyelocytes, myelocytes and metamyelocytes) > 1% indicates that a LEFT SHIFT is Present. Performed By: #### L 500.4050, L100.0100, L500.4100, L501.9910 #### [facility] [address] [place], [address] Lymphocytes/100 WBC (Bld) 34.2 % Normal 19-41 [facility] Comment on above: Performed By: #### L 500.4050, L100.0100, L500.4100, L501.9910 #### [facility] [address] [place], [address] MCH (RBC) [Entitic mass] 31.1 pg Normal 27.0-32.0 [facility] Comment on above: Performed By: #### L 500.4050, L100.0100, L500.4100, L501.9910 #### [facility] [address] [place], [address] MCHC (RBC) [Mass/Vol] 33.5 g/dL Normal 32-36 [facility] Comment on above: Performed By: #### L 500.4050, L100.0100, L500.4100, L501.9910 #### [facility] [address] [place], [address] MCV (RBC) [Entitic vol] 92.9 fL Normal 80-94 [facility] Comment on above: Performed By: #### L 500.4050, L100.0100, L500.4100, L501.9910 #### [facility] [address] [place], [address] Monocytes/100 WBC (Bld) 6.0 % Normal 0-10 [facility] Comment on above: Performed By: #### L 500.4050, L100.0100, L500.4100, L501.9910 #### [facility] [address] [place], [address] Neutrophils/100 WBC (Bld) 52.6 % Normal 47-70 [facility] Comment on above: Performed By: #### L 500.4050, L100.0100, L500.4100, L501.9910 #### [facility] [address] [place], [address] Nucleated RBC (Bld) [#/Vol] 0 10*3/uL Normal 0-5 [facility] Comment on above: Performed By: #### L 500.4050, L100.0100, L500.4100, L501.9910 #### [facility] [address] [place], [address] Platelet mean volume (Bld) [Entitic vol] 13.5 fL High 6.2-12.0 [facility] Comment on above: Performed By: #### L 500.4050, L100.0100, L500.4100, L501.9910 #### [facility] [address] [place], [address] Platelets (Bld) [#/Vol] 180 10*3/uL Normal 150-450 [facility] Comment on above: Performed By: #### L 500.4050, L100.0100, L500.4100, L501.9910 #### [facility] [address] [place], [address] RBC (Bld) [#/Vol] 4.82 10*6/uL Normal 4.6-6.2 [facility] Comment on above: Performed By: #### L 500.4050, L100.0100, L500.4100, L501.9910 #### [facility] [address] [place], [address] RDW SD 45.8 fl High 35.1-43.9 [facility] Comment on above: Performed By: #### L 500.4050, L100.0100, L500.4100, L501.9910 #### [facility] [address] [place], [address] WBC (Bld) [#/Vol] 8.7 10*3/uL Normal 4.4-11.0 [facility] Comment on above: Performed By: #### L 500.4050, L100.0100, L500.4100, L501.9910 #### [facility] [address] [place], [address] Carbon dioxide measurementOr dered By: Elda Almonte on 05-16-2024 CO2 [Moles/Vol] 27.0 mmol/L 21.0-32.0 [facility] Chloride measurementOrdered By: Elda Almonte on 05-16-2024 Chloride [Moles/Vol] 105 mmol/L 98-107 [facility] Comprehensive Metabolic Prof ilon 05-16-2024 Albumin [Mass/Vol] 3.2 g/dL Normal 3.2-5.0 [facility] Comment on above: Performed By: #### L 500.4050, L100.0100, L500.4100, L501.9910 ####[facility] [address] [place], [address] Albumin/Globulin [Mass ratio] 0.8 {ratio} Low 0.9-2.4 [facility] Comment on above: Performed By: #### L 500.4050, L100.0100, L500.4100, L501.9910 ####[facility] [address] [place], [address] ALK P 67 U/L Normal 45-117 [facility] Comment on above: Performed By: #### L 500.4050, L100.0100, L500.4100, L501.9910 ####[facility] [address] [place], [address] ALT [Catalytic activity/Vol] 47 U/L Normal 16-61 [facility] Comment on above: Performed By: #### L 500.4050, L100.0100, L500.4100, L501.9910 ####[facility] [address] [place], [address] AST [Catalytic activity/Vol] 23 U/L Normal 15-37 [facility] Comment on above: Performed By: #### L 500.4050, L100.0100, L500.4100, L501.9910 ####[facility] [address] [place], [address] Bilirubin [Mass/Vol] 0.40 mg/dL Normal 0.20-1.00 [facility] Comment on above: Result Comment: For patients on eltrombopag therapy, use of Dimension [place] TBIL is not recommended. Performed By: #### L 500.4050, L100.0100, L500.4100, L501.9910 ####[facility] [address] [place], [address] BUN/CRE 12.6 RATIO Normal 10-20 [facility] Comment on above: Performed By: #### L 500.4050, L100.0100, L500.4100, L501.9910 ####[facility] [address] [place], [address] CA,Total 9.2 mg/dL Normal 8.5-10.1 [facility] Comment on above: Performed By: #### L 500.4050, L100.0100, L500.4100, L501.9910 ####[facility] [address] [place], [address] Chloride [Moles/Vol] 105 mmol/L Normal 98-107 [facility] Comment on above: Performed By: #### L 500.4050, L100.0100, L500.4100, L501.9910 ####[facility] [address] [place], [address] CO2 [Moles/Vol] 27.0 mmol/L Normal 21.0-32.0 [facility] Comment on above: Performed By: #### L 500.4050, L100.0100, L500.4100, L501.9910 ####[facility] [address] [place], [address] Creatinine [Mass/Vol] 1.03 mg/dL Normal 0.70-1.30 [facility] Comment on above: Result Comment: The validity of the calculated GFR GFRAA in patients over 70 years has not been determined. Clinical correlation is essential. Performed By: #### L 500.4050, L100.0100, L500.4100, L501.9910 ####[facility] [address] [place], [address] EST GFR - AA 93 mL/min Normal >60 [facility] Comment on above: Result Comment: Afri can Cuban GFR Calc Performed By: #### L 500.4050, L100.0100, L500.4100, L501.9910 ####[facility] [address] [place], [address] GAP 6 Normal 5-15 [facility] Comment on above: Performed By: #### L 500.4050, L100.0100, L500.4100, L501.9910 ####[facility] [address] [place], [address] GFR/1.73 sq M.predicted among non-blacks MDRD (S/P/Bld) [Vol rate/Area] 77 mL/min/{1.73_m2} Normal >60 [facility] Comment on above: Result Comment: Non- GFR Calc Performed By: #### L 500.4050, L100.0100, L500.4100, L501.9910 ####[facility] [address] [place], [address] Globulin (S) [Mass/Vol] 3.9 g/dL Normal 2.2-4.2 [facility] Comment on above: Performed By: #### L 500.4050, L100.0100, L500.4100, L501.9910 ####[facility] [address] [place], [address] Glucose [Mass/Vol] 109 mg/dL High 74-106 [facility] Comment on above: Result Comment: Fast ing Glucose result from 100 to 125 mg/dL suggests IMPAIRED HOMEOSTASIS per A.D.A. criteria. Performed By: #### L 500.4050, L100.0100, L500.4100, L501.9910 ####[facility] [address] [place], [address] Potassium [Moles/Vol] 4.3 mmol/L Normal 3.5-5.1 [facility] Comment on above: Performed By: #### L 500.4050, L100.0100, L500.4100, L501.9910 ####[facility] [address] [place], [address] Sodium [Moles/Vol] 138 mmol/L Normal 136-145 [facility] Comment on above: Performed By: #### L 500.4050, L100.0100, L500.4100, L501.9910 ####[facility] [address] [place], [address] T PROT 7.1 g/dL Normal 6.4-8.2 [facility] Comment on above: Performed By: #### L 500.4050, L100.0100, L500.4100, L501.9910 ####[facility] [address] [place], [address] Urea nitrogen [Mass/Vol] 13 mg/dL Normal 7-18 [facility] Comment on above: Performed By: #### L 500.4050, L100.0100, L500.4100, L501.9910 ####[facility] [address] [place], [address] Eosinophil percentageOrdered By: Elda Almonte on 05-16-2024 Eosinophils/100 WBC (Bld) 6.3 % High 0-5 [facility] Erythrocyte distribution wid th ratioOrdered By: [facility] on 05-16-2024 Erythrocyte distribution width (RBC) [Ratio] 13.4 % 11.6-14.6 [facility] Erythrocyte distribution wid th standard deviationOrdered By: [facility] on 05-16-2024 Erythrocyte distribution width (RBC) [Entitic vol] 45.8 fL High 35.1-43.9 [facility] Estimated glomerular filtrat ion rate (GFR) AmericanOrdered By: Elda Almonte on 05-16-2024 Estimated GFR (MDRD) Amer 93 mL/min >60 [facility] Comment on above: GFR Calc Glomerular filtration rate ( GFR) estimationOrdered By: Eldachiquita Almonte on 05-16-2024 Estimated GFR (MDRD) Non-Af Amer 77 mL/min >60 [facility] Comment on above: Non- GFR Calc Glucose measurementOrdered B y: Elda Almonte on 05-16-2024 Glucose [Mass/Vol] 109 mg/dL High 74-106 [facility] Comment on above: Fasting Glucose resu lt from 100 to 125 mg/dL suggests IMPAIRED HOMEOSTASIS per A.D.A. criteria. Hematocrit Auto (Bld) [Volum e fraction]Ordered By: Elda Almonte on 05-16-2024 Hematocrit (Bld) [Volume fraction] 44.8 % 40-54 [facility] Hemoglobin measurementOrdere d By: Elda Almonte on 05-16-2024 Hemoglobin (Bld) [Mass/Vol] 15.0 g/dL 13.0-16.5 [facility] High density lipoprotein (HD L) measurementOrdered By: Elda Almonte on 05-16-2024 Cholesterol in HDL [Mass/Vol] 42 mg/dL >40 [facility] Comment on above: The drugs N-Acetylcy steine and Metamizole may falsely depress this assay. Reference Range HDL <40 mg/dL Low HDL Cholesterol HDL >or= 60 mg/dL High HDL Cholesterol Immature granulocytes/100 WB C Auto (Bld)Ordered By: Elda Almonte on 05-16-2024 Immature granulocytes/100 WBC (Bld) 0.300 % 0.0-0.9 [facility] Comment on above: IG% - Immature Granu locytes (promyelocytes, myelocytes and metamyelocytes) > 1% indicates that a LEFT SHIFT is Present. Laboratory - Chemistry and C hemistry - challengeOrdered By: Elda Almonte on 05-16-2024 AST [Catalytic activity/Vol] 23 U/L 15-37 [facility] Lipid Profileon 05-16-2024 Cholesterol [Mass/Vol] 236 mg/dL High 200 [facility] Comment on above: Result Comment: <200 mg/dL Desirable 200-240 mg/dL Borderline >240 mg/dL High Risk Performed By: #### L 500.4050, L100.0100, L500.4100, L501.9910 ####[facility] [address] [place], [place], [id number] Cholesterol in HDL [Mass/Vol] 42 mg/dL Normal [facility] Comment on above: Result Comment: The drugs N-Acetylcysteine and Metamizole may falsely depress this assay. Reference Range HDL <40 mg/dL Low HDL Cholesterol HDL >or= 60 mg/dL High HDL Cholesterol Performed By: #### L 500.4050, L100.0100, L500.4100, L501.9910 ####[facility] [address] [place], [address] Cholesterol in LDL [Mass/Vol] 161 mg/dL High 0-130 [facility] Comment on above: Performed By: #### L 500.4050, L100.0100, L500.4100, L501.9910 ####[facility] [address] [place], [address] Cholesterol in VLDL [Mass/Vol] 33 mg/dL Normal 5-40 [facility] Comment on above: Performed By: #### L 500.4050, L100.0100, L500.4100, L501.9910 ####[facility] [address] [place], [address] Triglyceride [Mass/Vol] 166 mg/dL Normal [facility] Comment on above: Result Comment: The drugs N-Acetylcysteine and Metamizole may falsely depress this assay. Serum Triglycerides Reference Interval Normal <150 mg/dL Borderline high 150 - 199 mg/dL High 200 - 499 mg/dL Very High > or = 500 mg/dL Performed By: #### L 500.4050, L100.0100, L500.4100, L501.9910 ####[facility] [address] [place], [address] Low density lipoprotein (LDL ) cholesterol measurementOrdered By: Elda Almonte on 05-16-2024 Cholesterol in LDL [Mass/Vol] 161 mg/dL High 0-130 [facility] Lymphocytes Auto (Unsp spec) [#/Vol]Ordered By: Elda Almonte on 05-16-2024 Lymphocytes (Bld) [#/Vol] 2.97 10*3/uL 0.83-4.51 [facility] Lymphocytes/100 WBC Auto (Un sp spec)Ordered By: Elda Almonte on 05-16-2024 Lymphocytes/100 WBC (Bld) 34.2 % 19-41 [facility] MCV (mean corpuscular volume ) determinationOrdered By: Elda Almonte on 05-16-2024 MCV (RBC) [Entitic vol] 92.9 fL 80-94 [facility] Mean corpuscular hemoglobin (MCH) determinationOrdered By: Elda Almonte on 05-16-2024 MCH (RBC) [Entitic mass] 31.1 pg 27.0-32.0 [facility] Mean corpuscular hemoglobin concentration (MCHC) determinationOrdered By: Elda Almonte on 05-16-2024 MCHC (RBC) [Mass/Vol] 33.5 g/dL 32-36 [facility] Mean platelet volume determi nationOrdered By: Elda Almonte on 05-16-2024 Platelet mean volume (Bld) [Entitic vol] 13.5 fL High 6.2-12.0 [facility] Monocyte percentageOrdered B y: Elda Almonte on 05-16-2024 Monocytes/100 WBC (Bld) 6.0 % 0-10 [facility] Neutrophil percentageOrdered By: Elda Gage on 05-16-2024 Neutrophils/100 WBC (Bld) 52.6 % 47-70 [facility] Nucleated red blood cell per centageOrdered By: Elda Almonte on 05-16-2024 Nucleated RBC/100 WBC (Bld) [Ratio] 0 % 0-5 [facility] PSA,Total - Annual Screenon 05-16-2024 PSA,TOT SCREEN 4.40 ng/mL High 0.00-4.00 [facility] Comment on above: Result Comment: This test was performed using the TPSA assay method for the [employer] chemistry system. Values obtained with different assay methods cannot be used interchangably. When changing PSA assays in the course of monitoring a patient, additional sequential testing should be carried out to confirm baseline values. Performed By: #### L 500.4050, L100.0100, L500.4100, L501.9910 ####[facility] [address] [place], [address] Platelet countOrdered By: Ra blanca Almonte on 05-16-2024 Platelets (Bld) [#/Vol] 180 10*3/uL 150-450 [facility] Potassium measurementOrdered By: Elda Almonte on 05-16-2024 Potassium [Moles/Vol] 4.3 mmol/L 3.5-5.1 [facility] RBC Auto (Bld) [#/Vol]Ordere d By: Elda Almonte on 05-16-2024 RBC (Bld) [#/Vol] 4.82 10*6/uL 4.6-6.2 [facility] Screening prostate specific antigen (PSA) measurementOrdered By: Elda Almonte on 05-16-2024 Prostate Specific Antigen Screen 4.40 ng/mL High 0.00-4.00 [facility] Comment on above: This test was perfor med using the TPSA assay method for the[employer] chemistry system. Values obtained with differentassay methods cannot be used interchangably.When changing PSA assays in the course of monitoring apatient, additional sequential testing should be carriedout to confirm baseline values. Serum anion gap measurementO rdered By: Elda Almonte on 05-16-2024 Anion gap [Moles/Vol] 6 mmol/L 5-15 [facility] Serum globulin measurementOr dered By: Elda Almonte on 05-16-2024 Globulin (S) [Mass/Vol] 3.9 g/dL 2.2-4.2 [facility] Serum or plasma alanine amaro otransferase (ALT) measurementOrdered By: Elda Almonte on 05-16-2024 ALT [Catalytic activity/Vol] 47 U/L 16-61 [facility] Serum or plasma albumin bala urement (mass/volume)Ordered By: Elda Almonte on 05-16-2024 Albumin [Mass/Vol] 3.2 g/dL 3.2-5.0 [facility] Serum or plasma alkaline tara sphatase measurementOrdered By: Elda Almonte on 05-16-2024 ALP [Catalytic activity/Vol] 67 U/L 45-117 [facility] Serum or plasma calcium bala urement (mass/volume)Ordered By: Elda Almonte on 05-16-2024 Calcium [Mass/Vol] 9.2 mg/dL 8.5-10.1 [facility] Serum or plasma cholesterol measurement (mass/volume)Ordered By: Elda Almonte on 05-16-2024 Cholesterol [Mass/Vol] 236 mg/dL High <200 [facility] Comment on above: <200 mg/dL Desirable 200-240 mg/dL Borderline >240 mg/dL High Risk Serum or plasma creatinine m easurement (mass/volume)Ordered By: Elda Almonte on 05-16-2024 Creatinine [Mass/Vol] 1.03 mg/dL 0.70-1.30 [facility] Comment on above: The validity of the calculated GFR & GFRAA in patients over 70 years has not been determined. Clinical correlation is essential. Serum or plasma urea nitroge n measurement (mass/volume)Ordered By: Elda Almonte on 05-16-2024 Urea nitrogen [Mass/Vol] 13 mg/dL 7-18 [facility] Sodium levelOrdered By: Ashley Almonte on 05-16-2024 Sodium [Moles/Vol] 138 mmol/L 136-145 [facility] Total proteinOrdered By: Thuy Almonte on 05-16-2024 Protein [Mass/Vol] 7.1 g/dL 6.4-8.2 [facility] Triglycerides measurementOrd ered By: Elda Almonte on 05-16-2024 Triglyceride [Mass/Vol] 166 mg/dL <199 [facility] Comment on above: The drugs N-Acetylcy steine and Metamizole may falsely depress this assay.Serum Triglycerides Reference Interval Normal <150 mg/dL Borderline high 150 - 199 mg/dL High 200 - 499 mg/dL Very High > or = 500 mg/dL Very low density lipoprotein (VLDL) cholesterol measurementOrdered By: Elda Almonte on 05-16-2024 VLDL Cholesterol 33 mg/dL 5-40 [facility] White blood cell (WBC) count Ordered By: Elda Almonte on 05-16-2024 WBC (Bld) [#/Vol] 8.7 10*3/uL 4.4-11.0 [facility] 25-hydroxyvitamin D3 [Mass/V ol]on 04-22-2024 25-hydroxyvitamin D [Mass/Vol] 34 ng/mL 30 - 100 ng/mL [facility] Comment on above: Vitamin D Status 25 -OH Vitamin D: Deficiency: <20 ng/mL Insufficiency: 20 - 29 ng/mL Optimal: > or = 30 ng/mL For 25-OH Vitamin D testing on patients on D2-supplementation and patients for whom quantitation of D2 and D3 fractions is required, the [facility](TM) 25-OH VIT D, (D2,D3), LC/MS/MS is recommended: order code 98018 (patients >2yrs). See Note 1 Note 1 For additional information, please refer to http://education.[employer]/faq/IQL469 (This link is being provided for informational/ educational purposes only.) CBC (INCLUDES DIFF/PLT)on Basophils (Bld) [#/Vol] 0.016 10*3/uL Normal 0-200 [facility] Comment on above: Performed By: #### 9 2665, 7909, 41106, 86004, 72937, 7600, 6399 #### [facility] [place] [address] Barge Worker: Salvador Parekh MD Basophils/100 WBC (Bld) 0.2 % Normal [facility] Comment on above: Performed By: #### 9 2665, 7909, 02593, 72051, 14547, 7600, 6399 #### [facility] [place] [address] Barge Worker: Salvador Parekh MD Eosinophils (Bld) [#/Vol] 0.178 10*3/uL Normal 15-500 [facility] Comment on above: Performed By: #### 9 2665, 7909, 67963, 44413, 73215, 7600, 6399 #### [facility] [place] [address] Barge Worker: Salvador Parekh MD Eosinophils/100 WBC (Bld) 2.2 % Normal [facility] Comment on above: Performed By: #### 9 2665, 7909, 34664, 23395, 75451, 7600, 6399 #### [facility] [place] [address] Barge Worker: Salvador Parekh MD Erythrocyte distribution width (RBC) [Ratio] 13.8 % Normal 11.0-15.0 [facility] Comment on above: Performed By: #### 9 2665, 7909, 38928, 64000, 00492, 7600, 6399 #### [facility] [place] [address] Barge Worker: Salvador Parekh MD Hematocrit (Bld) [Volume fraction] 49.4 % Normal 38.5-50.0 [facility] Comment on above: Performed By: #### 9 2665, 7909, 75033, 68735, 01991, 7600, 6399 #### [facility] [place] [address] Barge Worker: Salvador Parekh MD Hemoglobin (Bld) [Mass/Vol] 16.4 g/dL Normal 13.2-17.1 [facility] Comment on above: Performed By: #### 9 2665, 7909, 95906, 21559, 90005, 7600, 6399 #### [facility] [place] [address] Barge Worker: Salvador Parekh MD Lymphocytes (Bld) [#/Vol] 2.341 10*3/uL Normal 850-3900 [facility] Comment on above: Performed By: #### 9 2665, 7909, 63050, 13321, 49872, 7600, 6399 #### [facility] [place] [address] Barge Worker: Salvador Parekh MD Lymphocytes/100 WBC (Bld) 28.9 % Normal [facility] Comment on above: Performed By: #### 9 2665, 7909, 85162, 70616, 36309, 7600, 6399 #### [facility] [place] [address] Barge Worker: Salvador Parekh MD MCH (RBC) [Entitic mass] 30.5 pg Normal 27.0-33.0 [facility] Comment on above: Performed By: #### 9 2665, 7909, 07772, 19133, 91223, 7600, 6399 #### [facility] [place] [address] Barge Worker: Salvador Parekh MD MCHC (RBC) [Mass/Vol] 33.2 [...] condition. Performed By: #### 9 2665, 7909, 56258, 06624, 24883, 7600, 6399 #### [facility] [place] [address] Barge Worker: Salvador Parekh MD MCV (RBC) [Entitic vol] 91.8 fL Normal 80.0-100.0 [facility] Comment on above: Performed By: #### 9 2665, 7909, 92944, 42569, 89438, 7600, 6399 #### [facility] [place] [address] Barge Worker: Salvador Parekh MD Monocytes (Bld) [#/Vol] 0.47 10*3/uL Normal 200-950 [facility] Comment on above: Performed By: #### 9 2665, 7909, 80017, 88232, 17310, 7600, 6399 #### [facility] [place] [address] Barge Worker: Salvador Parekh MD Monocytes/100 WBC (Bld) 5.8 % Normal [facility] Comment on above: Performed By: #### 9 2665, 7909, 57579, 88944, 76314, 7600, 6399 #### [facility] [place] [address] Barge Worker: Salvador Parekh MD Neutrophils (Bld) [#/Vol] 5.095 10*3/uL Normal 9557-2529 [facility] Comment on above: Performed By: #### 9 2665, 7909, 35834, 66500, 07752, 7600, 6399 #### [facility] [place] [address] Barge Worker: Salvador Parekh MD Neutrophils/100 WBC (Bld) 62.9 % Normal [facility] Comment on above: Performed By: #### 9 2665, 7909, 92151, 36419, 07521, 7600, 6399 #### [facility] [place] [address] Barge Worker: Salvador Parekh MD Platelet mean volume (Bld) [Entitic vol] 13.7 fL High 7.5-12.5 [facility] Comment on above: Performed By: #### 9 2665, 7909, 70545, 17793, 74018, 7600, 6399 #### [facility] [place] [address] Barge Worker: Salvador Parekh MD Platelets (Bld) [#/Vol] 156 10*3/uL Normal 140-400 [facility] Comment on above: Performed By: #### 9 2665, 7909, 08844, 08686, 55040, 7600, 6399 #### [facility] [place] [address] Barge Worker: Salvador Parekh MD RBC (Bld) [#/Vol] 5.38 10*6/uL Normal 4.20-5.80 [facility] Comment on above: Performed By: #### 9 2665, 7909, 51837, 30646, 21091, 7600, 6399 #### [facility] [place] [address] Barge Worker: Salvador Parekh MD WBC (Bld) [#/Vol] 8.1 10*3/uL Normal 3.8-10.8 [facility] Comment on above: Performed By: #### 9 2665, 7909, 38068, 59268, 93732, 5608, 3726 #### [facility] [address] [facility] [address] [place] [address] Barge Worker: Salvador Parekh MD CBC W Auto Differential pane l (Bld)on 04-22-2024 Basophils (Bld) [#/Vol] 16 10*3/uL [facility] Basophils/100 WBC (Bld) 0.2 % [facility] Eosinophils (Bld) [#/Vol] 178 10*3/uL [facility] Eosinophils/100 WBC (Bld) 2.2 % [facility] Erythrocyte distribution width (RBC) [Ratio] 13.8 % 11.0 - 15.0 % [facility] Hematocrit (Bld) [Volume fraction] 49.4 % 38.5 - 50.0 % [facility] [facility] Hemoglobin (Bld) [Mass/Vol] 16.4 g/dL 13.2 - 17.1 g/dL [facility] Lymphocytes (Bld) [#/Vol] 2341 10*3/uL [facility] Lymphocytes/100 WBC (Bld) 28.9 % [facility] MCH (RBC) [Entitic mass] 30.5 pg 27.0 - 33.0 pg [facility] MCHC (RBC) [Mass/Vol] 33.2 g/dL 32.0 - 36.0 g/dL [facility] Comment on above: For adults, a slight decrease in the calculated MCHC value (in the range of 30 to 32 g/dL) is most likely not clinically significant; however, it should be interpreted with caution in correlation with other red cell parameters and the patient's clinical condition. MCV (RBC) [Entitic vol] 91.8 fL 80.0 - 100.0 fL [facility] Monocytes (Bld) [#/Vol] 470 10*3/uL [facility] Monocytes/100 WBC (Bld) 5.8 % [facility] Neutrophils (Bld) [#/Vol] 5095 10*3/uL [facility] Neutrophils/100 WBC (Bld) 62.9 % [facility] Platelet mean volume (Bld) [Entitic vol] 13.7 fL High 7.5 - 12.5 fL [facility] Platelets (Bld) [#/Vol] 156 10*3/uL [facility] RBC (Bld) [#/Vol] 5.38 10*6/uL [facility] WBC (Bld) [#/Vol] 8.1 10*3/uL [facility] COMPREHENSIVE METABOLIC PANE L W/ANION GAPon 04-22-2024 Albumin [Mass/Vol] 4.5 g/dL Normal 3.6-5.1 [facility] Comment on above: Performed By: #### 9 2665, 7909, 74966, 31799, 37642, 7600, 6399 #### [facility] [place] [address] Barge Worker: Salvador Parekh MD ALP [Catalytic activity/Vol] 67 U/L Normal 35-144 [facility] Comment on above: Performed By: #### 9 2665, 7909, 74047, 78304, 56039, 7600, 6399 #### [facility] [place] [address] Barge Worker: Salvador Parekh MD ALT [Catalytic activity/Vol] 18 U/L Normal 9-46 [facility] Comment on above: Performed By: #### 9 2665, 7909, 90403, 20853, 82842, 7600, 6399 #### [facility] [place] [address] Barge Worker: Salvador Parekh MD AST [Catalytic activity/Vol] 15 U/L Normal 10-35 [facility] Comment on above: Performed By: #### 9 2665, 7909, 14553, 92307, 47713, 7600, 6399 #### [facility] of [place] [address] Barge Worker: Salvador Parekh MD Bilirubin [Mass/Vol] 0.5 mg/dL Normal 0.2-1.2 [facility] Comment on above: Performed By: #### 9 2665, 7909, 40922, 64801, 00541, 7600, 6399 #### [facility] of [place] [address] Barge Worker: Salvador Parekh MD Calcium [Mass/Vol] 9.7 mg/dL Normal 8.6-10.3 [facility] Comment on above: Performed By: #### 9 2665, 7909, 35230, 74517, 35232, 7600, 6399 #### [facility] of [address], [address] [place] [address] Barge Worker: Salvador Parekh MD Chloride [Moles/Vol] 102 mmol/L Normal 98-110 [facility] Comment on above: Performed By: #### 9 2665, 7909, 48968, 59871, 05277, 7600, 6399 #### [facility] of [place] [address] Barge Worker: Salvador Parekh MD CO2 [Moles/Vol] 27 mmol/L Normal 20-32 [facility] Comment on above: Performed By: #### 9 2665, 7909, 14752, 83612, 90603, 7600, 6399 #### [facility] of [place] [address] Barge Worker: Salvador Parekh MD Creatinine [Mass/Vol] 1.09 mg/dL Normal 0.70-1.[address] [facility] Comment on above: Performed By: #### 9 2665, 7909, 69503, 93570, 30193, 7600, 6399 #### [facility] of [address], [address] [place] [address] Barge Worker: Salvador Parekh MD ELECTROLYTE BALANCE 14 mmol/L (calc) Normal 7-17 [facility] Comment on above: Performed By: #### 9 2665, 7909, 39753, 51630, 74423, 7600, 6399 #### [facility] of [address], [address] [place] [address] Barge Worker: Salvador Parekh MD GFR/1.73 sq M.predicted among non-blacks MDRD (S/P/Bld) [Vol rate/Area] 75 mL/min/{1.73_m2} Normal > OR = 60 [facility] Comment on above: Performed By: #### 9 2665, 7909, 73375, 64429, 33460, 7600, 6399 #### [facility] [place] [address] Barge Worker: Salvador Parekh MD Glucose [Mass/Vol] 127 mg/dL High 65-99 [facility] Comment on above: Result Comment: Fasting reference interval For someone without known diabetes, a glucose value >125 mg/dL indicates that they may have diabetes and this should be confirmed with a follow-up test. Performed By: #### 9 2665, 7909, 56597, 88572, 73549, 7600, 6399 #### [facility] [place] [address] Barge Worker: Salvador Parekh MD Potassium [Moles/Vol] 4.5 mmol/L Normal 3.5-5.[address] [facility] Comment on above: Performed By: #### 9 2665, 7909, 87253, 40043, 35162, 7600, 6399 #### [facility] [place] [address] Barge Worker: Salvador Parekh MD Protein [Mass/Vol] 7.0 g/dL Normal 6.1-8.1 [facility] Comment on above: Performed By: #### 9 2665, 7909, 80474, 04527, 19855, 7600, 6399 #### [facility] [place] [address] Barge Worker: Salvador Parekh MD Sodium [Moles/Vol] 143 mmol/L Normal 135-146 [facility] Comment on above: Performed By: #### 9 2665, 7909, 37021, 63743, 92337, 7600, 6399 #### [facility] [address], [address] [place] [address] Barge Worker: Salvador Parekh MD Urea nitrogen [Mass/Vol] 12 mg/dL Normal 7-25 [facility] Comment on above: Performed By: #### 9 2665, 7909, 44784, 10032, 31098, 7600, 6399 #### [facility] [address], [address] [place] [address] Barge Worker: Salvador Parekh MD Comprehensive metabolic 2000 panelon 04-22-2024 Albumin [Mass/Vol] 4.5 g/dL 3.6 - 5.1 g/dL [facility] ALP [Catalytic activity/Vol] 67 U/L 35 - 144 U/L [facility] ALT [Catalytic activity/Vol] 18 U/L 9 - 46 U/L [facility] Anion gap [Moles/Vol] 14 mmol/L [facility] AST [Catalytic activity/Vol] 15 U/L 10 - 35 U/L [facility] Bilirubin [Mass/Vol] 0.5 mg/dL 0.2 - 1 .2 mg/dL [facility] Calcium [Mass/Vol] 9.7 mg/dL 8.6 - 10. 3 mg/dL [facility] Chloride [Moles/Vol] 102 mmol/L 98 - 11 0 mmol/L [facility] CO2 [Moles/Vol] 27 mmol/L 20 - 32 mmol/L [facility] Creatinine [Mass/Vol] 1.09 mg/dL 0.70 - 1.35 mg/dL [facility] GFR/1.73 sq M.predicted among non-blacks MDRD (S/P/Bld) [Vol rate/Area] 75 mL/min/{1.73_m2} > OR = 60 mL/min/1.73m 2 [facility] Glucose [Mass/Vol] 127 mg/dL High 65 - 99 mg/dL [facility] Comment on above: Fasting reference interval For someone without known diabetes, a glucose value >125 mg/dL indicates that they may have diabetes and this should be confirmed with a follow-up test. Potassium [Moles/Vol] 4.5 mmol/L 3.5 - 5.3 mmol/L [facility] Protein [Mass/Vol] 7 g/dL 6.1 - 8.1 g/dL [facility] Sodium [Moles/Vol] 143 mmol/L 135 - 146 mmol/L [facility] Urea nitrogen [Mass/Vol] 12 mg/dL 7 - 25 mg/dL [facility] LIPID PANEL, STANDARDon - Cholesterol [Mass/Vol] 276 mg/dL High <200 [facility] Comment on above: Order Comment: FASTI NG:YES FASTING: YES Performed By: #### 9 2665, 7909, 45254, 68973, 95134, 7600, 6399 #### [facility] [address], [address] [place] [phone] Barge Worker: Salvador Parekh MD Cholesterol in HDL [Mass/Vol] 50 mg/dL Normal > OR = 40 [facility] Comment on above: Order Comment: FASTI NG:YES FASTING: YES Performed By: #### 9 2665, 7909, 66951, 00816, 84280, 7600, 6399 #### [facility] [address] [facility], [address] [place] [address] Barge Worker: Salvador Parekh MD Cholesterol in LDL [Mass/Vol] [...] about testing for familial hypercholesterolemia, please call [employer] at [phone]. La Nena Muse, et al. J National Lipid Association Recommendations for Patient-Centered Management of Dyslipidemia: Part 1 Journal of Clinical Lipidology 2015;9(2), 129-169. Danish Chappell et al. (2014). Homozygous familial hypercholesterolaemia: new insights and guidance for clinicians to improve detection and clinical management. Heart Journal, 35(32), 7355-5702. Reference range: <100 Desirable range <100 mg/dL for primary prevention; <70 mg/dL for patients with CHD or diabetic patients with > or = 2 CHD risk factors. LDL-C is now calculated using the Bebeto-Humphries calculation, which is a validated novel method providing better accuracy than the Friedewald equation in the estimation of LDL-C. Bebeto SS et al. DIMAS. 2013;310(19): 1053-8691 (http://education.[employer]/faq/WOC043) Performed By: #### 9 2665, 7909, 79156, 90997, 22303, 7600, 6399 #### [facility] [address], [address] [place] [address] Barge Worker: Salvador Parekh MD Cholesterol.total/Michelle sterol in HDL [Mass ratio] 5.5 {ratio} High <5.0 [facility] Comment on above: Order Comment: FASTI NG:YES FASTING: YES Performed By: #### 9 2665, 7909, 64304, 43253, 74661, 7600, 6399 #### [facility] [address], [address] [place] [address] Barge Worker: Salvador Parekh MD NON HDL CHOLESTEROL 226 [...] option. Performed By: #### 9 2665, 7909, 29291, 69068, 63564, 7600, 6399 #### [facility] [address], [address] [place] [address] Barge Worker: Salvador Parekh MD Triglyceride [Mass/Vol] 148 mg/dL Normal <150 [facility] Comment on above: Order Comment: FASTI NG:YES FASTING: YES Performed By: #### 9 2665, 7909, 48331, 86004, 03929, 7600, 6399 #### [facility] [address] [facility], [address] [place] [address] Barge Worker: Salvador Parekh MD Lipid 1996 panelon 5 Cholesterol [Mass/Vol] 276 mg/dL High NINF - 200 mg/dL [facility] Cholesterol in HDL [Mass/Vol] 50 mg/dL > OR = 40 [facility] Cholesterol in LDL [Mass/Vol] 195 mg/dL High mg/dL (calc) [facility] Comment on above: LDL-C levels > [...] about testing for familial hypercholesterolemia, please call [employer] at [phone]. La Nena Muse, et al. J National Lipid Association Recommendations for Patient-Centered Management of Dyslipidemia: Part 1 Journal of Clinical Lipidology 2015;9(2), 129-169. Danish Chappell et al. (2014). Homozygous familial hypercholesterolaemia: new insights and guidance for clinicians to improve detection and clinical management. Heart Journal, 35(32), 1458-4222. Reference range: <100 Desirable range <100 mg/dL for primary prevention; <70 mg/dL for patients with CHD or diabetic patients with > or = 2 CHD risk factors. LDL-C is now calculated using the Bebeto-Yandel calculation, which is a validated novel method providing better accuracy than the Friedewald equation in the estimation of LDL-C. Bebeto MORAN et al. DIMAS. 2013;310(19): 0750-9492 (http://education.[employer].InvestGlass/faq/ZBI755) Cholesterol non HDL [Mass/Vol] 226 mg/dL High [facility] Comment on above: Non-HDL level > or [...] in HDL [Mass ratio] 5.5 {ratio} High [facility] Triglyceride [Mass/Vol] 148 mg/dL [facility] - 150 mg/dL [facility] NOTEon 04-22-2024 NOTE Normal [facility] Comment on above: Result Comment: This urine was analyzed for the presence of WBC, RBC, bacteria, casts, and other formed elements. Only those elements seen were reported. Performed By: #### 9 2665, 7909, 14825, 80726, 75792, 7600, 6399 #### [facility] [address], [address] [place] [address] Barge Worker: Salvador Parekh MD No Panel Informationon 04-22 Interpretation and review of laboratory results Abnormal [facility] FASTING:YES FASTING: YES [facility] PSA, TOTALon 04-22-2024 PSA, TOTAL 0.91 ng/mL Normal < OR = 4.00 [facility] Comment on above: Result Comment: The total PSA value from this assay system is standardized against the WHO standard. The test result will be approximately 20% lower when compared to the equimolar-standardized total PSA (Otto [place]). Comparison of serial PSA results should be interpreted with this fact in mind. This test was performed using the Siemens chemiluminescent method. Values obtained from different assay methods cannot be used interchangeably. PSA levels, regardless of value, should not be interpreted as absolute evidence of the presence or absence of disease. Performed By: #### 9 2665, 7909, 67025, 03587, 24012, 7600, 6399 #### [facility] [address], [address] [place] [address] Barge Worker: Salvador Parekh MD Prostate Specific Antigenon 04-22-2024 Prostate specific Ag [Mass/Vol] 0.91 ng/mL < OR = 4.00 [facility] Comment on above: The total PSA [...] above: Performed By: #### 9 2665, 7909, 41978, 37444, 28932, 7600, 6399 #### [facility] [place] [address] Barge Worker: Salvador Parekh MD TSH W/REFLEX TO FT4on 2024 TSH W/REFLEX TO FT4 1.27 mIU/L Normal 0.40-4.50 [facility] Comment on above: Performed By: #### 9 2665, 7909, 62611, 84165, 42201, 7600, 6399 #### [facility] [place] [address] Barge Worker: Salvador Parekh MD TSH with reflex to Free T4 i f abnormalon 04-22-2024 TSH Qn 1.27 m[IU]/L [facility] Triiodothyronine, Freeon Free T3 [Mass/Vol] 3.3 pg/mL 2.3 - 4.2 pg/mL [facility] URINALYSIS REFLEXon 04-22-19 25 Appearance (U) CLEAR Normal CLEAR [facility] Comment on above: Performed By: #### 9 2665, 7909, 87874, 04923, 47597, 7600, 6399 #### [facility] [address] [place] [address] Barge Worker: Salvador Parekh MD BACTERIA NONE SEEN Normal NONE SEEN [facility] Comment on above: Performed By: #### 9 2665, 7909, 73209, 88707, 85181, 7600, 6399 #### [facility] of [address], [address] [place] [address] Barge Worker: Salvador Parekh MD Bilirubin Ql (U) Negative Normal NEGATIVE [facility] Comment on above: Performed By: #### 9 2665, 7909, 39387, 98688, 69682, 7600, 6399 #### [facility] of [place] [address] Barge Worker: Salvador Parekh MD Color (U) YELLOW Normal YELLOW [facility] Comment on above: Performed By: #### 9 2665, 7909, 94680, 84943, 25909, 7600, 6399 #### [facility] [place] [address] Barge Worker: Salvador Parekh MD Glucose Ql (U) Negative Normal NEGATIVE [facility] Comment on above: Performed By: #### 9 2665, 7909, 82430, 92136, 25957, 7600, 6399 #### [facility] [place] [address] Barge Worker: Salvador Parekh MD HYALINE CAST NONE SEEN Normal NONE SEEN [facility] Comment on above: Performed By: #### 9 2665, 7909, 38235, 20338, 98735, 7600, 6399 #### [facility] [place] [address] Barge Worker: Salvador Parekh MD Ketones Ql (U) Negative Normal NEGATIVE [facility] Comment on above: Performed By: #### 9 2665, 7909, 94708, 99254, 32257, 7600, 6399 #### [facility] [place] [address] Barge Worker: Salvador Parekh MD Leukocyte esterase Test strip Ql (U) Negative Normal NEGATIVE [facility] Comment on above: Performed By: #### 9 2665, 7909, 00220, 74899, 43727, 7600, 6399 #### [facility] [place] [address] Barge Worker: Salvador Parekh MD Nitrite Ql (U) Negative Normal NEGATIVE [facility] Comment on above: Performed By: #### 9 2665, 7909, 71926, 42622, 51202, 7600, 6399 #### [facility] [place] [address] Barge Worker: Salvador Parekh MD OCCULT BLOOD Negative Normal NEGATIVE [facility] Comment on above: Performed By: #### 9 2665, 7909, 66001, 74217, 66918, 7600, 6399 #### [facility] [place] [address] Barge Worker: Salvador Parekh MD pH (U) 7.0 [pH] Normal 5.0-8.0 [facility] Comment on above: Performed By: #### 9 2665, 7909, 61216, 77215, 68219, 7600, 6399 #### [facility] [place] [address] Barge Worker: Salvador Parekh MD Protein Ql (U) TRACE Abnormal NEGATIVE [facility] Comment on above: Performed By: #### 9 2665, 7909, 53325, 63297, 18981, 7600, 6399 #### [facility] [place] [address] Barge Worker: Salvador Parekh MD RBC 0-2 Normal < OR = 2 [facility] Comment on above: Performed By: #### 9 2665, 7909, 02491, 61452, 55354, 7600, 6399 #### [facility] [place] [address] Barge Worker: Salvador Parekh MD Specific gravity (U) [Rel density] 1.018 Normal 1.001-1.035 [facility] Comment on above: Performed By: #### 9 2665, 7909, 74881, 78271, 91062, 7600, 6399 #### [facility] of [address], [address] Barge Worker: Salvador Parekh MD SQUAMOUS EPITHELIAL CELLS NONE SEEN Normal < OR = 5 [facility] Comment on above: Performed By: #### 9 2665, 7909, 13506, 38130, 65685, 7600, 6399 #### [facility] of [address], [address] [place] [phone] Barge Worker: Salvador Parekh MD WBC NONE SEEN Normal < OR = 5 [facility] Comment on above: Performed By: #### 9 2665, 7909, 64943, 36973, 96282, 7600, 6399 #### [facility] of [address], [address] [place] [address] Barge Worker: Salvador Parekh MD Urinalysis complete panel (U )on 04-22-2024 Appearance (U) CLEAR CLEAR [facility] Bacteria LM.HPF (Urine sed) [#/Area] NONE SEEN NONE SEEN /HPF [facility] Bilirubin Ql (U) Negative NEGATIVE [facility] Color (U) YELLOW YELLOW [facility] Epithelial cells.squamous LM.HPF (Urine sed) [#/Area] NONE SEEN < OR = 5 /HPF [facility] Glucose Ql (U) Negative NEGATIVE [facility] Hemoglobin Ql (U) Negative NEGATIVE [facility] Hyaline casts (Urine sed) [#/Area] NONE SEEN NONE SEEN /LPF [facility] Ketones Ql (U) Negative NEGATIVE [facility] Leukocyte esterase Test strip Ql (U) Negative NEGATIVE [facility] Nitrite Ql (U) Negative NEGATIVE [facility] pH (U) 7 [pH] 5.0 - 8.0 [facility] Protein Ql (U) TRACE Abnormal NEGATIVE [facility] RBC LM.HPF (Urine sed) [#/Area] 0-2 < OR = 2 /HPF [facility] Service comment (Unsp spec) [Interp] [facility] Comment on above: This urine was fanny zed for the presence of WBC, RBC, bacteria, casts, and other formed elements. Only those elements seen were reported. Specific gravity (U) [Rel density] 1.018 1.001 - 1.035 [facility] WBC LM.HPF (Urine sed) [#/Area] NONE SEEN < OR = 5 /HPF [facility] VITAMIN D,25-OH,TOTAL,IAon 0 04-22-2024 VITAMIN D,25-OH,TOTAL,IA 34 ng/mL Normal 30-100 [facility] Comment on above: Result Comment: [place] min D Status 25-OH Vitamin D: Deficiency: <20 ng/mL Insufficiency: 20 - 29 ng/mL Optimal: > or = 30 ng/mL For 25-OH Vitamin D testing on patients on D2-supplementation and patients for whom quantitation of D2 and D3 fractions is required, the QuestAssureD(TM) 25-OH VIT D, (D2,D3), LC/MS/MS is recommended: order code 84042 (patients >2yrs). See Note 1 Note 1 For additional information, please refer to http://education.[employer].InvestGlass/faq/VDK665 (This link is being provided for informational/ educational purposes only.) Performed By: #### 9 2665, 7909, 95057, 04368, 34241, 7600, 6399 #### [facility] [address], [address] [place] [phone] Barge Worker: Salvador Parekh MD Vital Signs Date Time Vital Sign Value Performing Clinician Facility 12-24-2024 14:47-0400 Body height 172.72 cm Elda Almonte NP-C Work Phone: [facility] 12-24-2024 14:47-0400 Body mass index (BMI) [Ratio] 41.5 kg/m2 Elda Almonte NP-C Work Phone: [facility] 12-24-2024 14:47-0400 Body temperature 97.2 [degF] Elda Almonte NP-C Work Phone: [facility] 12-24-2024 14:47-0400 Body weight 123.83 kg Elda Gage ORTHOTIST-C Work Phone: [facility] 12-24-2024 14:47-0400 Diastolic blood pressure 78 mm[Hg] Elda Gage ORTHOTIST-C Work Phone: [facility] 12-24-2024 14:47-0400 Heart rate 68 /min Elda Gage ORTHOTIST-C Work Phone: [facility] 12-24-2024 14:47-0400 Respiratory rate 18 /min Elda Gage ORTHOTIST-C Work Phone: [facility] 12-24-2024 14:47-0400 SaO2% (BldA) [Mass fraction] 97 % Elda Gage ORTHOTIST-C Work Phone: [facility] 12-24-2024 14:47-0400 Systolic blood pressure 118 mm[Hg] Elda Gage ORTHOTIST-C Work Phone: [facility] 10-27-2024 14:47-0400 Body height 172.72 cm Elda Gage ORTHOTIST-C Work Phone: [facility] 10-27-2024 14:19-0400 Body mass index (BMI) [Ratio] 41.3 kg/m2 Elda Gage ORTHOTIST-C Work Phone: [facility] 10-27-2024 14:19-0400 Body weight 123.15 kg Elda Gage ORTHOTIST-C Work Phone: [facility] 04-29-2024 14:29-0500 Body height 172.7 cm Ephraim Bo MD Work Phone: [facility] 04-29-2024 14:29-0500 Body mass index (BMI) [Ratio] 39.53 kg/m2 Ephraim Bo MD Work Phone: [facility] 04-29-2024 14:29-0500 Body weight 117.94 kg Ephraim Bo MD Work Phone: [facility] 04-29-2024 14:29-0500 Diastolic blood pressure 91 mm[Hg] Ephraim Bo MD Work Phone: [facility] 04-29-2024 14:29-0500 Heart rate 74 /min Ephraim Bo MD Work Phone: [facility] 04-29-2024 14:29-0500 Respiratory rate 18 /min Ephraim Bo MD Work Phone: [facility] 04-29-2024 14:29-0500 Systolic blood pressure 137 mm[Hg] Ephraim Bo MD Work Phone: [facility] 04-17-2024 15:05-0500 Body height 174 cm Shalom Murry MD Work Phone: [facility] 04-17-2024 15:05-0500 Body mass index (BMI) [Ratio] 39.2 kg/m2 Shalom Murry MD Work Phone: [facility] 04-17-2024 15:05-0500 Body temperature 95.2 [degF] Shalom Murry MD Work Phone: [facility] 04-17-2024 15:05-0500 Body weight 118.66 kg Shalom Murry MD Work Phone: [facility] 04-17-2024 15:05-0500 Diastolic blood pressure 78 mm[Hg] Shalom Murry MD Work Phone: [facility] 04-17-2024 15:05-0500 Heart rate 76 /min Shalom Murry MD Work Phone: [facility] 04-17-2024 15:05-0500 SaO2% (BldA) [Mass fraction] 95 % Shalom Murry MD Work Phone: [facility] Comment on above: RA 04-17-2024 15:05-0500 Systolic blood pressure 128 mm[Hg] Shalom Murry MD Work Phone: [facility] Encounters Encounter Date Encounter Type Care Provider Facility Start: 02-03-2025 ambulatory Zuleima Ortega Facilit y:[facility] Start: 01-19-2025 ambulatory Elda Almonte Facility:[facility] Start: 12-24-2024 End: 12-24-[address] Zuleima Ortega MD -[facility] Work Phone: Start: 12-24-2024 End: 12-24-2024 ambulatory Elda Almonte ORTHOTIST-C Work Phone: -[facility] Start: 11-27-2024 ambulatory Felix Lipscomb Facility:[facility] Start: 10-27-2024 End: 10-27-[address] Duran Vázquez MD -[facility] Start: 10-27-2024 End: 10-27-2024 ambulatory Elda Almonte ORTHOTIST-C Work Phone: [facility] Start: 10-18-2024 End: 10-18-2024 ambulatory Elda Almonte ORTHOTIST-C Work Phone: -[facility] Start: 10-18-2024 End: 10-18-[address] Anamaria Holt MD -[facility] Work Phone: Start: 10-18-2024 End: 10-18-2024 ambulatory Anamaria Holt Facility:[facility] Start: 10-13-2024 End: 10-13-2024 ambulatory Elda Gage ORTHOTIST-C Work Phone: -[facility] Start: 10-13-2024 End: 10-13-[address] Les Esquivel MD -[facility] Work Phone: Start: 10-13-2024 End: 10-13-2024 ambulatory Les Esquivel Facility:[facility] Start: 10-09-2024 End: 10-09-2024 ambulatory Elda Gage ORTHOTIST-C Work Phone: -Laboratory Start: 10-09-2024 End: 10-09-[address] Anamaria Holt MD -Laboratory Work Phone: Start: 10-09-2024 End: 10-09-2024 [facility] Start: 09-30-2024 End: 09-30-2024 ambulatory Elda Gage ORTHOTIST-C Work Phone: -Physical Therapy Start: 09-30-2024 End: 09-30-[address] Anamaria Holt MD -Physical Therapy Work Phone: Start: 09-12-2024 End: 09-12-2024 ambulatory Elda Gage ORTHOTIST-C Work Phone: [facility] Work Phone: Start: 09-12-2024 End: 09-12-[address] Anamaria Holt MD -[facility] Work Phone: Start: 09-12-2024 End: 09-12-2024 ambulatory Diegoalix Holt Facility:[facility] Start: 09-09-[address] Anamaria Dalton i, MD -Physical Therapy Work Phone: Start: 06-05-2024 End: 06-05-2024 ambulatory Elda Changar ORTHOTIST-C Work Phone: [facility] Work Phone: Start: 06-05-2024 End: 06-05-[address] Duran Vázquez MD -[facility] Start: 06-05-2024 End: 06-05-2024 ambulatory Elda Gage Facility:[facility] Start: 05-16-2024 End: 05-16-2024 ambulatory Elda Gage ORTHOTIST-C Work Phone: [facility] Work Phone: Start: 05-16-2024 End: 05-16-2024 Patient encounter procedure Elda Gage ORTHOTIST-C -Laboratory, [facility] Start: 05-16-2024 End: 05-16-2024 ambulatory Elda Almonte Facility:[facility] Start: 04-29-2024 End: 04-29-2024 Office outpatient new 45 minutes Ephraim Bo MD Work Phone: [facility] Comment on above: Chronic bilateral lo w back pain without sciatica; Neck pain Start: 04-29-2024 End: 04-29-2024 ambulatory [facility] Start: 04-29-2024 End: 04-29-2024 ambulatory [facility] Start: 04-21-2024 End: 04-21-2024 ambulatory [facility] Start: 04-17-2024 End: 04-17-2024 ambulatory [facility] Ambulatory Start: 04-17-2024 End: 04-17-2024 Office outpatient visit 25 minutes Shalom Murry MD Work Phone: [facility] Comment on above: PTSD (post-traumatic stress [...] Date Procedure Procedure Detail Performing Clinician Start: 10-27-2024 X-ray of cervical spine Elda Almonte ORTHOTIST- C Work Phone: Start: 10-27-2024 X-ray of lumbosacral spine Elda Almonte ORTHOTIST-C Work Phone: Start: 10-18-2024 MRI of cervical spine Elda Almonte ORTHOTIST-C Work Phone: Start: 10-13-2024 In-vitro immunologic test Elda Almonte N P-C [...] the productionof interferon gamma. Chemiluminescence immunoassaymethodologyPerformed at: [facility] [id number] Director: Josiah Cox PhD, Phone: [phone] Start: 10-09-2024 Methadone measurement, urine Elda melchor ORTHOTIST-C Work Phone: Start: 10-09-2024 Procedure Elda Almonte ORTHOTIST-C Work Phone: Comment on above: Test Ordered: [id number] R53-Lvwqyh+S Y6Blrizazounny Screen, Urine Negative ng/mL UI Reference Range: Sssbst=623Pfuokgmkqdx test includes Amphetamine and Methamphetamine.Barbiturates Negative ng/mL UI Reference Range: Vkggwz=349Nroohfhaoeeknce Note: ng/mL UI See Final Results Reference Range: Snfcia=808Ypanuywnlunlwct Positive [A ] ng/mL UI Reference Range: Vbrfxy=700Ewnhgpyckbfn performed by Mass SpectrometryNordiazepam Negative UI Reference Range: Stuxxk=439Rqjkqcxb Negative UI Reference Range: Dpnnyy=913Rgvlfueyhq Negative UI Reference Range: Jeswpy=210Fyqkfkmta Positive [A ] UI Reference Range: .Lorazepam Conf, MS, UR 498 ng/mL UI Reference Range: Lyklvi=870Vivpozwxig Negative UI Reference Range: Hsnkwt=295Sqjkkfcklj Negative UI Reference Range: Mbfjne=881Jcopsnrpd Negative UI Reference Range: Gdfrgk=851Nrjacgpij Negative UI Reference Range: Mnblys=187Hxlqabokv Negative UI Reference Range: Dublmt=273Dnkobpn (Metab.), Urine Negative ng/mL UI Reference Range: Hwbxqv=471Aeeumki Negative ng/mL UI Reference Range: Uhlryn=172Npxkkc test includes Codeine, Morphine, Hydromorphone, Hydrocodone.6-Acetylmorphine, Urine Negative ng/mL UI Reference Range: Cutoff=10Oxycodone/Oxymorphone, Urine Negative ng/mL UI Reference Range: Uidmtw=383Lyqu includes Oxycodone and OxymorphonePCP, Urine Negative ng/mL UI Reference Range: Cutoff=25Methadone Screen, Urine Negative ng/mL UI Reference Range: Kjusio=441Uhcpaqegrurs, Urine Negative ng/mL UI Reference Range: Rtdjsp=060Btdkauwt, Urine Negative ng/mL UI Reference Range: Cutoff=2.0Test includes Fentanyl and NorfentanylThis test was developed and its performance characteristicsdetermined by [facility]. It has not been cleared orapproved by the Food and Drug Administration.Tramadol Negative ng/mL UI Reference Range: Zmyqnc=842Irwyjghijhgpw, Urine Negative ng/mL UI Reference Range: Cutoff=10Creatinine, Urine 125.0 mg/dL UI Reference Range: 20.0-300.0pH, Urine 6.6 UI Reference Range: 4.5-8.9Performed at: - [facility] [id number] [place], [place] [id number] Director: Bharati Castro PhD, Phone: [phone] at: [facility] [address] [id number] Director: Jsoiah Cox PhD, Phone: [phone] Start: 09-12-2024 MRI of lumbar spine Elda Almonte NP-C Work Phone: Start: 06-05-2024 X-ray of cervical spine Elda Almonte NP- C Work Phone: Start: 06-05-2024 X-ray of lumbar spine, two or three views Elda Almonte NP-C Work Phone: Start: 06-05-2024 ALO measurement Elda Almonte ORTHOTIST-C Work Phone: Comment on above: Performed at: [facility] [id number] [place], [place] [id number] Director: Josiah Cox PhD, Phone: [phone] Start: 06-05-2024 Hepatitis C antibody measurement Elda Almonte ORTHOTIST-C Work Phone: Comment on above: Reactive: Presumptive evidence of antibo dies to HCV. Follow CDC recommendations for supplemental testing.Non-Reactive: Antibodies to HCV were not detected; does not exclude the possibility of exposure to HCVReactive Results are presumptive evidence of antibodies to HCV. Follow CDC recommendations for supplemental testing.Order confirmation testing: HCV Quant by PCR testing - HCVPCR #[id number] Non Reactive: < 0.8 Equivocal: >/= 0.8 [...] 06-05-2024 Plain radiography of pelvis Elda Almonte ORTHOTIST-C Work Phone: Start: 04-21-2024 Lipid 1996 panel - Serum or Plasma Al-Am in Betzy COLLADO Work Phone: Plan of Treatment Date Care Activity Detail Author Start: 04-21-2029 Lipid panel Lipid Panel [facility] Start: 10-27-2024 X-ray of cervical spine Cerv Spine 2 or 3 Views [facility] Start: 10-27-2024 X-ray of lumbosacral spine L/S Spine Bending Flex/Ext [facility] Start: 10-27-2024 XR Cervical spine 2 or 3 Views [facility] Start: 10-27-2024 XR Spine Lumbar and Sacrum Views [facility] Start: 10-13-2024 In-vitro immunologic test [facility] Start: 10-09-2024 Procedure [facility] Start: 04-29-2024 End: 04-29-2025 XR Cervical spine 4 or 5 Views XR cervical spine complete 4-5 views Imaging Routine Neck pain Expected: 04/29/2024, Expires: 04/29/2025 [facility] Work Phone: Comment on above: Expected: 04/29/2024 , Expires: 04/29/2025 Start: 04-29-2024 End: 04-29-2025 XR Lumbar spine 4 Views XR lumbar spine complete 4+ views Imaging Routine Chronic bilateral low back pain without sciatica Expected: 04/29/2024, Expires: 04/29/2025 [facility] Service Area Work Phone: Comment on above: Expected: 04/29/2024 , Expires: 04/29/2025 Start: 04-29-2024 End: 04-29-2025 XR Thoracic spine 3 Views XR thoracic spine 3 views Imaging Routine Chronic bilateral low back pain without sciatica Expected: 04/29/2024, Expires: 04/29/2025 [facility] Work Phone: Comment on above: Expected: 04/29/2024 , Expires: 04/29/2025 Start: 04-17-2024 End: 04-17-2025 XR Spine thoracolumbar junction 2 Views XR thoracolumbar spine 2 views Imaging Routine Morbid (severe) obesity due to excess calories (Multi) Expected: 04/17/2024, Expires: 04/17/2025 [facility] Service Area Work Phone: Comment on above: Expected: 04/17/2024 , Expires: 04/17/2025 Start: 11-25-2023 Influenza vaccination Influenza Vacc ine (#1) [facility] Start: 07-06-2023 Abdominal aortic aneurysm screening Abdominal Aortic Aneurysm (AAA) Screening [facility] Start: 2018 RSV High Risk: (Elde rly (60+) or Population) (1 - Risk 60-74 years 1-dose series) RSV High Risk: (Elderly (60+) or Population) (1 - Risk 60-74 years 1-dose series) [facility] Start: 1980 DTaP/Tdap/Td Vaccine s (1 - Tdap) DTaP/Tdap/Td Vaccines (1 - Tdap) [facility] Start: 1977 Pneumococcal vaccination Pneum ococcal Vaccine (1 of 2 - PCV) [facility] Start: 1977 Zoster Vaccines (1 of 2) Zoste r Vaccines (1 of 2) [facility] Start: 1976 Diabetes mellitus screening Diabetes Screening [facility] Start: 1976 Hepatitis C screening Hepatitis C [facility] Start: 07-06-1963 COVID-19 Vaccine (#1) COVID-19 Vacci ne (#1) [facility] Start: 07-06-1959 MMR Vaccines (1 of 1 - Standard series) MMR Vaccines (1 of 1 - Standard series) [facility] Start: 1960 Annual wellness visit Welcome to Medicare Visit [facility] Start: 1960 Screening for malign ant neoplasm of colon [facility] Mycobacterium tuberculosis tuberculin stimulated gamma interferon [Presence] in Blood [facility] Payers Date Payer Category Payer Self-pay 2024 Medicare (Managed Care) [employer] Member Subscriber Plan / Payer (Effective 2024-Present) Name: Chan Newberry Relation to Subscriber: Self Name: Chan Newberry Payer ID: [id number] ([facility]) Type: Not on file Address: [place] [id number] 2024 Medicare [id number] 1960 Unknown [id number] 2.16.840.1.060970.3.579. 2.1245 1960 Unknown [id number] 2.16.840.1.271942.3.579. 2.124 1958 Unknown [id number] 2.16.840.1.058378.3.579. 2.124 1958 Unknown [id number] 2.16.840.1.222513.3.579. 2.1245 1958 Unknown [id number] 2.16.840.1.388218.3.579. 2.1244 1958 Unknown [id number] 2.16.840.1.972953.3.579. 2.1244 Unknown [id number] 2.16.840.1.022555.3.579. 2.462 Unknown [id number] 2.16.840.1.527583.3.579. 2.462 Unknown [id number] 2.16.840.1.983556.3.579. 2.462 Unknown [id number] 2.16.840.1.626473.3.579. 2.462 Unknown [id number] 2.16.840.1.645452.3.579. 2.462 Unknown [id number] 2.16.840.1.285514.3.579. 2.462 Unknown [id number] 2.16.840.1.966110.3.579. 2.462 Unknown [id number] 2.16.840.1.183150.3.579. 2.462 Unknown [id number] 2.16.840.1.153203.3.579. 2.462 Unknown [id number] 2.16.840.1.905010.3.579. 2.462 Unknown [id number] 2.16.840.1.833693.3.579. 2.462 Unknown [id number] 2.16.840.1.384266.3.579. 2.462 Unknown [id number] 2.16.840.1.372481.3.579. 2.462 Unknown [id number] 2.16.840.1.212507.3.579. 2.462 Social History Date Type Detail Facility Start: 04-17-2024 End: 12-24-2024 Tobacco smoking status NHIS Ex-smoker [facility] Work Phone: History of tobacco use [facility]: History of tobacco use [facility]arette [facility] Work Phone: Start: 04-17-2024 Tobacco use and exposure Smokeless tobacco non-user [facility] Work Phone: Start: 04-17-2024 End: 04-29-2024 Alcoholic beverage intake Ex-drinker (finding) [facility] Work Phone: Start: 04-17-2024 End: 04-29-2024 History of Social function [facility] Work Phone: Start: 04-17-2024 End: 04-29-2024 Tobacco use panel [facility] Work Phone: Start: 04-17-2024 Alcohol Comment occasional [facility] Work Phone: Start: 1960 Sex assigned at Not on file [facility] Work Phone: Start: 03-31-2024 Gender identity Identifies as male gender (finding) [facility] Start: 03-31-2024 Sexual orientation Heterosexual (finding) [facility] Work Phone: Start: 04-19-2024 End: 04-29-2024 Exposure to SARS-CoV-2 (event) Not sure [facility] Tobacco smoking stat us NHIS Unknown if ever smoked [facility] Work Phone: Start: 05-29-2024 End: 06-16-2024 Sex Male (finding) [facility] Start: 1960 Sex Assigned At Male [facility] Start: 10-27-2024 Tobacco smoking status NHIS Never smoked tobacco (finding) [facility] Evaluation note 10-27-2024 Note Date & Type Note Facility 10-27-2024 Evaluation note Diagnosis Onset Date Resolution Cervical stenosis of spinal canal acute October 27, 2024 2:15pm Degenerative disc disease, cervical acute October 27, 2024 2:15pm Lumbar stenosis with neurogenic claudication acute October 272024 2:15pm Spondylolisthesis at L4-L5 level acute October 27, 2024 2:15pm [facility] Work Phone: Discharge summary 09-30-2024 Note Date & Type Note Facility 09-30-2024 Discharge summary Note Date/Time September 30, 2024 7:00p m [facility] Physical Therapy [facility] [address] [place] [address] [address] [place] [address] / REHABILITATION SERVICES DISCHARGE SUMMARY MR#: [id number] Acct: [id number] Name: CHAN NEWBERRY Rep #: [id number] [...] cervical ROM for function of recovery for andrew Goal Progress: Progressing Goal 4:: Patient to [...] please feel free to call me at [phone]. Thank you for the referral of thispatient. Sincerely, Prudencio Cleveland PT, Cert MDT, OCS Balance/Gait/Functional tests Balance/Special Test Scores Oswestry Neck Score: 30 Improvement % Improvement: 20 <Electronically signed by Nguyen Almaguer PT. JUANJOSE, OCS> 09/30/24 1251 CC: MARIE Almonte; Dr. Anamaria Holt MD ~ MARY JO Signed [facility] Work Phone: Discharge summary 09-30-2024 Note Date & Type Note Facility 09-30-2024 Discharge summary [facility] Radiology Diagnostic study note 06-05-2024 Note Date & Type Note Facility 06-05-2024 Radiology Diagnostic study note [facility] Imaging Services [address] [place] [address] Pelvis 1 or 2 Views MR#: [id number] Acct: [id number] Name: CHAN NEWBERRY Rep #: [id number] : 1960 M 63 From: Marsha Jhonson MD PCP: MARIE Segundo Status: REG CLI Study:Pelvis 1 or 2 Views Date of Exam: 06/05/24 Exam# [id number] Ordering Dr: Chayo Gao MD EXAM: XR [...] the colon consistent with constipation. [facility] CC: ORTHOTIST-C Elda Almonte; Dr. Chayo Gao MD ~ Analysis Or Research Safety Inspector: Signed [facility] History of Present illness Narrative 04-29-2024 [...] and leg pain. He recently moved from [place] to [place] a month ago due to family reasons. [...] been seeing a pain physician for in [place]. Unfortunately we do not have access to any of his records from [place] and do not have much records for [...] primary care physician. Patient recently moved to [place] from [place] in the last month. We have no records from any of his treating physicians in [place] including a pain management physician or a [...] for his pain management physician's office in [place] and we will obtain records from them after obtaining consent from the patient. Follow-up after he is able to obtain these records. Plan: -We will have the patient signed a consent waiver form to obtain his records from his pain management physician in [place] -We will in the meantime give the [...] evaluation Follow up: After obtaining records from [place] The patient was invited to contact us [...] 3:36 PM EST documented in this encounter [facility] Work Phone: History of Present illness Narrative 04-17-2024 Shalom Murry MD - 04/17/2024 2:30 PM EST Note Date & Type Note Facility 04-17-2024 History of Present illness Narrative Chan Suraj Newberry, rebeca 63 y.o. male was seen [...] management doctor due to recently moving from [place] Cahn Newberry Patient is here to establish primary care physician. He recently has moved from [place] to this place. He has chronic pain [...] (95.2 F) (Temporal) Ht 1.74 m (5' 8.5") Wt 119 kg (261 lb 9.6 oz) [...] 04/21/2024 P.S: This note was completed using [employer] voice recognition technology and may include unintended errors with respect to translation of words, typographical errors or grammar errors which may not have been identified while finalizing the chart. documented in this encounter [facility] Work Phone: Evaluation note Note Date & Type Note Facility Evaluation note Diagnosis Chronic bilateral low back pain without sciatica Neck pain Cervicalgia documented in this encounter [facility] Work Phone: Evaluation note Note Date [...] neoplasm of prostate documented in this encounter [facility] Work Phone: Evaluation note Note Date & Type Note Facility Evaluation note No assessment information availa ble [facility] Work Phone: Reason for referral (narrative) Note Date & Type Note Facility Reason for referral (narrative) No reason for referral information available [facility] Work Phone: Summary Purpose Family History [...] 11:30am SKIN October 13, 2024 2:21 pm Chief Complaint Admit Date Radiculopathy, lumbar region September 12, 2024 3:41pm NECK AND BACK PAIN. RX HERE September 30 11:30am SKIN October 13, 2024 2:21 pm RADICULOPATHY October 18, 2024 8:21 am Chief Complaint Admit Date Radiculopathy, lumbar region September 12, 2024 3:41pm NECK AND BACK PAIN. RX HERE September 30 11:30am SKIN October 13, 2024 2:21 pm RADICULOPATHY October 18, 2024 8:21 am CERVICAL SPINE October 27, 2024 2:1 5pm Room 2 October 27, 2024 2:4 8pm Chief Complaint Admit Date Radiculopathy, lumbar region September 12, 2024 3:41pm NECK AND BACK PAIN. RX HERE September 30 11:30am SKIN October 13, 2024 2:21 pm RADICULOPATHY October 18, 2024 8:21 am CERVICAL SPINE October 27, 2024 2:1 5pm Room 2 October 27, 2024 2:4 8pm EXCISION OF PILONIDAL CYST December 24, 2024 2:25pm Reason for Visit Admit Date Cervical stenosis of spinal canal October 27, 2024 2:15pm Degenerative disc disease, cervical Augu st 2024 2:15pm Lumbar stenosis with neurogenic claudica tion October 27, 2024 2:15pm Spondylolisthesis at L4-L5 level October 27, 2024 2:15pm Additional Source Comments (unrecognized sect ion and content) No Status Records FoundNo Status Records FoundNo Status Records FoundNo Status Records Found INFORMATION SOURCE (unrecogn ized section and content) DATE CREATED AUTHOR 04/23/2024 [facility] DATE CREATED AUTHOR AUTHOR'S ORGANIZ ATION 05/05/2024 [facility] DATE CREATED AUTHOR AUTHOR'S ORGANIZ ATION 06/15/2024 [facility] DATE CREATED AUTHOR AUTHOR'S ORGANIZ ATION 02/02/2025 [facility] Reason for Visit (unrecogniz ed section and [...] back pain without sciatica Shalom Murry MD [address] [place] [address] Phone: tel: fax: Referral ID Status Reason Start Date Expiration Date Visits Requested Visits Authorized [id number] Authorized Specialty Services Required 04/17/2024 04/17/2025 1 1 Reason Comments Establish Care Patient is in office today for a new patient visit. Med Management Patient advises that he is out of his morphine. He advises that he was on oxycoton but was recently changed to morphine Referral Patient is in need o f a new pain management doctor due to recently moving from [facility] (unrecognized sec tion and content) Digital Media Specialist Relationship Specialty Start Date End Date Shalom Murry MD [address] [place] [address] PCP - General Hospitalist 04/17/24 Digital Media Specialist Relationship Specialty Start Date End Date Shalom Murry MD [address] [place] [address] PCP - General Hospitalist 04/17/24 Team Status: Active Member Role Status Dates Elda Almonte ORTHOTIST-C Primary Care Provider Active Team Status: Inactive Member Role Status Dates Elda Almonte ORTHOTIST-C Primary Care Provider Active Start: May 16, 2024 End: May 16, 2024 Elda Almonte ORTHOTIST-C Attending Provider Active St art: May 16, 2024 End: May 16, 2024 Team Status: Inactive Member Role Status Dates Elda Almonte ORTHOTIST-C Primary Care Provider Active Start: June 05, 2024 End: June 05, 2024 Dr. Chayo Gao MD Attending Provider Active Start: June 05, 2024 End: June 05, 2024 Dr. Chayo Gao MD Referring Provider Active Start: June 05, 2024 End: June 05, 2024 Team Status: Inactive Member Role Status Dates Elda Almonte ORTHOTIST-C Primary Care Provider Active Start: June 05, 2024 End: June 05, 2024 Dr. Duran Vázquez MD Attending Provider Active S tart: June 05, 2024 End: June 05, 2024 Team Status: Active Member Role Status Dates Elda Almonte ORTHOTIST-C Primary Care Provider Active Start: September 09, 2024 Dr. Anamaria Holt MD Attending Provider Active Start: September 09, 2024 Dr. Anamaria Holt MD Referring Provider Active Start: September 09, 2024 Team Status: Inactive Member Role Status Dates Elda Almonte ORTHOTIST-C Primary Care Provider Active Start: September 12, 2024 End: September 12, 2024 Dr. Anamaria Holt MD Attending Provider Active Start: September 12, 2024 End: September 12, 2024 Dr. Anamaria Holt MD Referring Provider Active Start: September 12, 2024 End: September 12, 2024 Team Status: Active Member Role/Relationship Status Dates Elda Gage , ORTHOTIST-C Primary Care Provider Active Team Status: Inactive Member Role/Relationship Status Dates Elda Gage , ORTHOTIST-C Primary Care Provider Active Start: June 05, 2024 End: June 05, 2024 Dr. Chayo Gao MD Attending Provider Active Start: June 05, 2024 End: June 05, 2024 Dr. Chayo Gao MD Referring Provider Active Start: June 05, 2024 End: June 05, 2024 Team Status: Inactive Member Role/Relationship Status Dates Elda Gage , ORTHOTIST-C Primary Care Provider Active Start: June 05, 2024 End: June 05, 2024 Dr. Duran Vázquez MD Attending Provider Active S tart: June 05, 2024 End: June 05, 2024 Team Status: Inactive Member Role/Relationship Status Dates Elda Gage , ORTHOTIST-C Primary Care Provider Active Start: September 12, 2024 End: September 12, 2024 Dr. Anamaria Holt MD Attending Provider Active Start: September 12, 2024 End: September 12, 2024 Dr. Anamaria Holt MD Referring Provider Active Start: September 12, 2024 End: September 12, 2024 Team Status: Inactive Member Role/Relationship Status Dates Elda Gage , ORTHOTIST-C Primary Care Provider Active Start: September 30, 2024 End: September 30, 2024 Dr. Anamaria Holt MD Attending Provider Active Start: September 30, 2024 End: September 30, 2024 Dr. Anamaria Holt MD Referring Provider Active Start: September 30, 2024 End: September 30, 2024 Team Status: Inactive Member Role/Relationship Status Dates Elda Gage , ORTHOTIST-C Primary Care Provider Active Start: September 12, 2024 End: September 12, 2024 Dr. Anamaria Holt MD Attending Provider Active Start: September 12, 2024 End: September 12, 2024 Dr. Anamaria Holt MD Referring Provider Active Start: September 12, 2024 End: September 12, 2024 Team Status: Inactive Member Role/Relationship Status Dates Elda Gage , ORTHOTIST-C Primary Care Provider Active Start: September 30, 2024 End: September 30, 2024 Dr. Anamaria Holt MD Attending Provider Active Start: September 30, 2024 End: September 30, 2024 Dr. Anamaria Holt MD Referring Provider Active Start: September 30, 2024 End: September 30, 2024 Team Status: Inactive Member Role/Relationship Status Dates Leda Gage , ORTHOTIST-C Primary Care Provider Active Start: October 09, 2024 End: October 09, 2024 Dr. Anamaria Holt MD Attending Provider Active Start: October 09, 2024 End: October 09, 2024 Dr. Anamaria Holt MD Referring Provider Active Start: October 09, 2024 End: October 09, 2024 Team Status: Active Member Role/Relationship Status Dates Elda Almonte , ORTHOTIST-C Primary Care Provider Active Start: October 13, 2024 Dr. Les Esquivel MD Attending Provider Active Start: October 13, 2024 Dr. Les Esquivel MD Referring Provider Active Start: October 13, 2024 Team Status: Inactive Member Role/Relationship Status Dates Elda Gage , ORTHOTIST-C Primary Care Provider Active Start: October 13, 2024 End: October 13, 2024 Dr. Les Esquivel MD Attending Provider Active Start: October 13, 2024 End: October 13, 2024 Dr. Les Esquivel MD Referring Provider Active Start: October 13, 2024 End: October 13, 2024 Team Status: Inactive Member Role/Relationship Status Dates Elda Gage , ORTHOTIST-C Primary Care Provider Active Start: October 18, 2024 End: October 18, 2024 Dr. Anamaria Holt MD Attending Provider Active Start: October 18, 2024 End: October 18, 2024 Dr. Anamaria Holt MD Referring Provider Active Start: October 18, 2024 End: October 18, 2024 Team Status: Active Member Role/Relationship Status Dates Elda Gage , ORTHOTIST-C Primary Care Provider Active Start: October 27, 2024 Elda Gage , ORTHOTIST-C Referring Provider Active St art: October 27, 2024 JAVON Spivey Attending Provider Active Star t: October 27, 2024 Team Status: Inactive Member Role/Relationship Status Dates Elda Gage , ORTHOTIST-C Primary Care Provider Active Start: October 27, 2024 End: October 27, 2024 Dr. Duran Vázquez MD Attending Provider Active S tart: October 27, 2024 End: October 27, 2024 Team Status: Inactive Member Role/Relationship Status Dates Elda Gage , ORTHOTIST-C Primary Care Provider Active Start: October 27, 2024 End: October 27, 2024 Elda Gage , ORTHOTIST-C Referring Provider Active St art: October 27, 2024 End: October 27, 2024 JAVON Spivey Attending Provider Active Star t: October 27, 2024 End: October 27, 2024 Team Status: Active Member Role/Relationship Status Dates Elda Gage , ORTHOTIST-C Primary care physician Active Team Status: Inactive Member Role/Relationship Status Dates Elda Gage , ORTHOTIST-C Primary care physician Active Start: September 12, 2024 End: September 12, 2024 Dr. Anamaria Holt MD Attending physician Active Start: September 12, 2024 End: September 12, 2024 Dr. Anamaria Holt MD Referring Provider Active Start: September 12, 2024 End: September 12, 2024 Team Status: Inactive Member Role/Relationship Status Dates Elda Gage , ORTHOTIST-C Primary care physician Active Start: September 30, 2024 End: September 30, 2024 Dr. Anamaria Holt MD Attending physician Active Start: September 30, 2024 End: September 30, 2024 Dr. Anamaria Holt MD Referring Provider Active Start: September 30, 2024 End: September 30, 2024 Team Status: Inactive Member Role/Relationship Status Dates Elda Almonte , ORTHOTIST-C Primary care physician Active Start: October 09, 2024 End: October 09, 2024 Dr. Anamaria Holt MD Attending physician Active Start: October 09, 2024 End: October 09, 2024 Dr. Anamaria Holt MD Referring Provider Active Start: October 09, 2024 End: October 09, 2024 Team Status: Inactive Member Role/Relationship Status Dates Elda Gage , ORTHOTIST-C Primary care physician Active Start: October 13, 2024 End: October 13, 2024 Dr. Les Esquivel MD Attending physician Active Start: October 13, 2024 End: October 13, 2024 Dr. Les Esquivel MD Referring Provider Active Start: October 13, 2024 End: October 13, 2024 Team Status: Inactive Member Role/Relationship Status Dates Elda Gage , ORTHOTIST-C Primary care physician Active Start: October 18, 2024 End: October 18, 2024 Dr. Anamaria Holt MD Attending physician Active Start: October 18, 2024 End: October 18, 2024 Dr. Anamaria Holt MD Referring Provider Active Start: October 18, 2024 End: October 18, 2024 Team Status: Inactive Member Role/Relationship Status Dates Elda Almonte , ORTHOTIST-C Primary care physician Active Start: October 27, 2024 End: October 27, 2024 Elda Almonte ORTHOTIST-C Referring Provider Active St art: October 27, 2024 End: October 27, 2024 JAVON Spivey Attending physician Active Sta rt: October 27, 2024 End: October 27, 2024 Team Status: Inactive Member Role/Relationship Status Dates Elda Almonte NP-C Primary care physician Active Start: October 27, 2024 End: October 27, 2024 Dr. Duran Vázquez MD Attending physician Active Start: October 27, 2024 End: October 27, 2024 Team Status: Inactive Member Role/Relationship Status Dates Elda Almonte ORTHOTIST-C Primary care physician Active Start: December 24, 2024 End: December 24, 2024 Elda Almonte , ORTHOTIST-C Referring Provider Active St art: December 24, 2024 End: December 24, 2024 Dr. Zuleima Ortega MD Attending physician Active Start: December 24, 2024 End: December 24, 2024 Goals (unrecognized section and content) Goals [...] BE BASED ON THE PRIMARY CLINICAL RECORDS. [facility] [employer] [facility]. provides no warranty or guarantee of the accuracy or completeness of information in this document.
[2025-02-03] MEDS: Lactated Ringers 1,000 ML 15 ML IV (06:39)
--- NOTE | 2025-02-03 07:05 | PCM.PRE.AN2 ---
ASA Classification* ASA Classification ASA Classification: 3 (BMI 40, treated hep C, HTN) Assessment & Plan Anesthesia* Anesthesia Assessment Anesthesia Assessment: Discussed sedation and/or anesthesia options, risks, benefits, and alternatives with patient/parents/legal guardian/POA. Questions invited. The patient/parents/legal guardian/POA seems to understand and agrees to proceed with anesthesia plan. Reviewed the physical assessment, medical history, allergy history and patient home medications list prior to surgery/procedure/anesthetic and documented any changes. Performed airway and anesthesia risk assessments. Anesthesia Type Anesthesia Type: General History Source History Obtained from:: Patient and Chart Anesthesia Focused Assessment* Temperature: 97.3 F Pulse Rate: 98 Blood Pressure: 122/80 Respiratory Rate: 16 Pulse Ox: 95 Oxygen Delivery Method: Room Air Airway Assessment Mouth opens: >3 cm Mallampati Score: III Teeth Condition: Missing (edentulous) Neck Range of motion (ROM): Full ROM Labs Anesthesia Preop lab: CBC WBC, (4.4-11.0) 9.3 K/mm3 06/05/24, 14:59 RBC, (4.6-6.2) 4.81 M/mm3 06/05/24, 14:59 Hgb, (13.0-16.5) 15.2 g/dL 06/05/24, 14:59 Hct, (40-54) 44.9 % 06/05/24, 14:59 Plt Count, (150-450) 151 K/mm3 06/05/24, 14:59 CHEMISTRY Potassium, (3.3-5.1) 3.9 mmol/L 06/05/24, 14:59 Sodium, (133-145) 141 mmol/L 06/05/24, 14:59 BUN, (4-19) 13 mg/dL 06/05/24, 14:59 Creatinine, (0.70-1.20) 0.97 mg/dL 06/05/24, 14:59 Glucose, (70-99) 95 mg/dL 06/05/24, 14:59 COAG Pre-Assessment Diagnosis/Proposed Procedure Planned Operative Procedure(s): EXCISION PILONDIAL CYSTECTOMY AND EXCISION CYST Anesthesia History 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 When Was Last Pacemaker Check QUESTION #4 FULL TEXT: You/Your Family Experience fever (hyperthermia) with Anesthesia Last Oral Intake Last Oral intake: Last Oral Intake NPO since 22:00 02/03/25 06:33 Meds taken in AM with sips of Yes 02/03/25 06:33 water? 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 Female No 01/06/25 14:06 HX of Motion Sickness No 01/06/25 14:06 HX of N/V After Surgery No 01/06/25 14:06 Non-Smoker Yes 01/06/25 14:06 Duration of Surgery greater Yes 01/06/25 14:06 than 60 minutes Number of Risk Factors 2 01/06/25 14:06 PONV Score Moderate Risk 01/06/25 14:06 Height & Weight Height & Weight: Anesthesia: Height & Weight Height 5 ft 9 in 02/03/25 06:33 Weight: 122.3 kg 02/03/25 06:33 Body Mass Index (BMI) 39.8 02/03/25 06:33 Respiratory Assessment Respiratory Assessment - press operator heavy duty: Respiratory Tract Infection Hx - press operator heavy duty Hx Respiratory Tract Infection No 01/06/25 14:06 STOP Sleep Apnea STOP Sleep Apnea - press operator heavy duty: STOP Sleep Apnea - press operator heavy duty Hx Hypertension Yes: CONTROLLED WITH MEDS 01/06/25 14:06 Hx Sleep Apnea No 01/06/25 14:06 CPAP BIPAP Do you snore loudly (louder Yes 01/06/25 14:06 than talking or can be heard Do you often feel tired/ No 01/06/25 14:06 fatigued/ sleepy during daytime? Has anyone observed you stop No 01/06/25 14:06 breathing during sleep? STOP Results Positive 01/06/25 14:06 QUESTION #5 FULL TEXT : Do you snore loudly (louder than talking or can be heard through closed doors)? 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 Specify any problems Hx of Preganancy in last 3 N/A 01/06/25 14:06 Months Nurse Filling Out Transfusion [email or web address] 01/06/25 14:06 & Questions: Date: 01/06/25 01/06/25 14:06 Time: 14:08 01/06/25 14:06 Patient unable to answer at this time (ie. 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 duty: /Reproductive Hx- press operator heavy duty Hx Now Gestational Age (in weeks): EDC: Hx Hx Para Hx Section SAB Does the father of the baby or his family experience fever w Father of the baby Malignant Hypertension history comment Active Medications Active Medications: Current Medications Generic Name Dose Route Start Last Admin Trade Name Freq PRN Reason Stop Dose Admin Cefazolin Sodium 3 gm/ Sodium 115 mls @ 200 mls/hr 02/03/25 07:30 Chloride IV 02/03/25 08:04 INTRAOP ONE Lactated Ringer's 1,000 mls @ 15 mls/hr 02/03/25 06:15 02/03/25 06:39 IV 15 mls/hr .Q48H RUSSEL Administration PFSH Medical History (Updated 01/06/25 @ 14:18 by Scott Moeller) Anxiety Marijuana use Arthritis Hepatitis C Bulging disc Back pain Chronic pain Pilonidal cyst Depression Hypertension Home Medications Medication Instructions Recorded Last Taken Type alprazolam 0.5 mg tablet 1.5 mg PO QHS 10/27/24 02/02/25 History doxazosin 2 mg tablet 2 mg PO QDAY 10/27/24 02/02/25 History lisinopril 10 1 tab PO QDAY 10/27/24 02/02/25 History mg-hydrochlorothiazide 12.5 mg tablet paroxetine HCl 20 mg tablet 20 mg PO QDAY 10/27/24 02/02/25 History quetiapine 200 mg tablet 200 mg PO QHS 10/27/24 Unknown History tizanidine 4 mg tablet 4 mg PO QDAY 10/27/24 02/02/25 History oxycodone 5 mg tablet 5 mg PO TID PRN PRN pain 02/03/25 02/03/25 05:30 History 5 mg Allergy/AdvReac Type Severity Reaction Status Date / Time No Known Allergies Allergy Verified 01/06/25 14:04 Family History Mother No problems noted. Father No problems noted. Surgical History (Updated 01/06/25 @ 14:18 by Scott Moeller) History of carpal tunnel surgery of right wrist History of bilateral knee replacement History of appendectomy History of hernia surgery Social History (Updated 12/24/24 @ 14:47 by Iliana Johnson LPN) Smoking Status: Former smoker quit date: 08/25/23 pack-years: 20 Electronic Cigarette Use: with nicotine alcohol intake: current alcohol intake frequency: holidays/special occasions only substance use type: does not use Review of Systems (Anesthesia) ROS Narrative System reviewed and no additional complaints, except as documented. Physical Exam Const alert and oriented x3 Nutritional Appearance: obese Resp normal respiratory effort, normal air movement and clear to auscultation bilaterally Cardio regular rate, regular rhythm and no murmurs
--- NOTE | 2025-02-03 07:16 | PCM.HP.STD ---
HPI - General General Date of Service: 02/03/25 HPI Narrative CHAN NEWBERRY, is a 64 M who presents excision of pilonidal cyst as well as excision of back subcutaneous mass likely sebaceous cyst. Patient denies any drainage or pain at the pilonidal site did get 1 round of antibiotics since previous office visit. 12/24/2024 office visit HPI HPI: 64-year-old male presents due to pilonidal cyst as well as right mid back subcutaneous cyst versus lipoma. Patient states that the pilonidal cyst has ruptured twice on its own had about 3-4 episodes over 3 to 4 years. Patient did just finish doxycycline for 10 days. Patient states he does have an oily substance that still comes out small amount and states there is still somewhat of a pressure sensation but it is improved. [facility] Medical History (Updated 01/06/25 @ 14:18 by Scott Moeller) Anxiety Marijuana use Arthritis Hepatitis C Bulging disc Back pain Chronic pain Pilonidal cyst Depression Hypertension Home Medications Medication Instructions Recorded Last Taken Type alprazolam 0.5 mg tablet 1.5 mg PO QHS 10/27/24 02/02/25 History doxazosin 2 mg tablet 2 mg PO QDAY 10/27/24 02/02/25 History lisinopril 10 1 tab PO QDAY 10/27/24 02/02/25 History mg-hydrochlorothiazide 12.5 mg tablet paroxetine HCl 20 mg tablet 20 mg PO QDAY 10/27/24 02/02/25 History quetiapine 200 mg tablet 200 mg PO QHS 10/27/24 Unknown History tizanidine 4 mg tablet 4 mg PO QDAY 10/27/24 02/02/25 History oxycodone 5 mg tablet 5 mg PO TID PRN PRN pain 02/03/25 02/03/25 05:30 History 5 mg Allergy/AdvReac Type Severity Reaction Status Date / Time No Known Allergies Allergy Verified 01/06/25 14:04 Family History Mother No problems noted. Father No problems noted. Surgical History (Updated 01/06/25 @ 14:18 by Scott Moeller) History of carpal tunnel surgery of right wrist History of bilateral knee replacement History of appendectomy History of hernia surgery Social History (Updated 12/24/24 @ 14:47 by RADAMES Martinez Smoking Status: Former smoker quit date: 08/25/23 pack-years: 20 Electronic Cigarette Use: with nicotine alcohol intake: current alcohol intake frequency: holidays/special occasions only substance use type: does not use Vital Signs Vital Signs Vital Signs: 02/03/25 06:33 02/03/25 06:33 02/03/25 07:07 Temperature 97.3 F L 97.3 F L Temperature Source Temporal Pulse Rate 98 98 Respiratory Rate 16 16 Respiratory Pattern Normal Blood Pressure 122/80 H 122/80 H Blood Pressure Mean 94 Blood Pressure Source Monitor Blood Pressure Position Semi-Fowlers Blood Pressure Location Left Arm Pulse Ox 95 95 Oxygen Delivery Method Room Air Room Air Weight Weight: 269 lb 10.005 oz Body Mass Index (BMI) 39.8 Physical Exam Const alert, oriented x3 and no apparent distress HEENT normocephalic and head/scalp atraumatic Resp normal respiratory effort Cardio regular rate GI soft to palpation and non-tender; Negative for non-distended Palpation: Negative for guarding Extremity no clubbing, cyanosis or edema Skin Skin Narrative: Mid back sebaceous cyst about 1.5 x 1.5 cm no erythema Neuro CN's II-XII intact bilaterally Psych mental status grossly normal Assessment & Plan Assessment/Plan (1) Pilonidal cyst: (2) Subcutaneous mass: PLAN: Plan Discussed with patient procedure of excision of pilonidal cyst including not limited risk of bleeding, infection which could require healing by secondary intent and wound care, dehiscence of the wound, and anesthesia. Patient no further questions at this time. Also plan for excision of the right medial/mid back subcutaneous mass–likely sebaceous cyst at the same time. Zuleima Ortega M.D. Pager: [phone] [facility] [address] [place] [address], [address] [place] [address] Office: [phone]
[2025-02-03] MEDS: Midazolam 2 MG/2 ML Syringe IV (07:28)
[2025-02-03] MEDS: Cefazolin 1 GM/5 ML Vial 3 GM IV (07:30)
--- NOTE | 2025-02-03 07:30 | CYST_PTH ---
PATIENT: CHAN NEWBERRY [place] [facility] [id number] AGE/SX: 64/M ROOM: RE02/03/[address]: Dr. Zuleima Ortega MD : 1960 BED: DIS: 02/03/2025 SPEC #: [id number] RECD: 02/03/25 08:49 STATUS: KIRA REBharath #: [id number] CAMERON: 02/03/25 07:[address]: Zuleima Ortega DEPT: SURGICAL PATHOLOGY RECD BY: Cuong Bal ENTERED: 02/03/25 10:21 SP TYPE: Cyst OTHR DR: Elda Almonte, BARREL DRILLER-C Tissues: A - CYST B - CYST Procedures: Surgery Specimen Level III HEADER OPERATION: Excision, pilonidal cyst and excision of cyst on back PRE-OP DIAGNOSIS: Pilonidal cyst, subcutaneous mass TISSUE SUBMITTED: A- Pilonidal cyst, B- Sebaceus back cyst MICROSCOPIC DIAGNOSIS A. Skin, "pilonidal cyst", excision: - Pilonidal cyst. B. Skin, back, "cyst", excision: - Epidermal inclusion cyst. MICROSCOPIC DESCRIPTION Slides are reviewed. GROSS DESCRIPTION Received in 2 formalin containers labeled with the patient's name and date of . Designated as: A. "Pilonidal cyst" is a 3.8 x 1.3 cm glaser slightly wrinkled and focally erythematous skin ellipse, devoid of orientation and excised to maximum depth of 1.6 cm. Sectioning reveals glaser-yellow, soft to rubbery cut surfaces with a central, edematous, apparent abscess cavity containing blood-tinged material, 1.7 x 1.0 x 0.7 cm. President & Ceo sections are submitted in 2 cassettes. B. "Sebaceous back cyst" is a 1.8 x 0.5 cm glaser-pink skin ellipse, devoid of orientation and excised to a maximum depth of 1.9 cm. Within the underlying soft tissue is a 0.8 x 0.6 x 0.5 cm previously disrupted cyst expelling glaser-white, iridescent, grumous like material. President & Ceo sections are submitted in 1 cassette. MS 02/03/2025 CPT:44826q8
[2025-02-03] MEDS: fentaNYL 100 MCG/2 ML Ampul IV (07:38)
[2025-02-03] MEDS: Lidocaine 1% (5 ml sdv) 5 ML Vial IV (07:38)
--- NOTE | 2025-02-03 08:14 | PCM.OPRPT ---
Operative Report (Standard) Operative Information Date of Procedure: 02/03/25 Pre-Operative Diagnosis: Pilonidal cyst, back subcutaneous mass Post-Operative Diagnosis: Pilonidal cyst, back sebaceous cyst Surgery/Procedure Performed: Excision of pilonidal cyst, excision of back sebaceous cyst recyclable products sorter: Yes Machine Straw Hat Presser: Kylie Patterson Tasks completed by or first assist registered nurse: Opening & closing Type of Anesthesia: General/Supplemental RN Documented Start/Stop Times: Operation Date: 02/03/25 07:30 Case Time Into Pre-Op 02/03/25 06:11 Out of Pre-Op 02/03/25 07:25 Anesthesia Start 02/03/25 07:28 Into Room 02/03/25 07:28 Procedure Start 02/03/25 07:53 Procedure End 02/03/25 08:25 Anesthesia End 02/03/25 08:30 Out of Room 02/03/25 08:30 Into Recovery 02/03/25 08:35 Into Phase II Recovery 02/03/25 09:05 Out of Recovery 02/03/25 09:05 Out of Phase II 02/03/25 10:02 Procedure Start Time: 07:53 Procedure Stop Time: 08:25 Select all DRAINS/GRAFTS/IMPLANTS that apply: None Special Medications: Ancef 3 g IV x 1 Estimated Blood Loss: 5 cc Specimen collected: Yes Description of specimen(s) removed: 1. Pilonidal cyst, 2. Back sebaceous cyst Description of surgery: The patient was brought into the operating room and general anesthesia was induced. He e was placed in prone position. A timeout was completed verifying correct patient, procedure, site, position, and special equipment prior to beginning the procedure. Superior gluteal cleft and mid back at the location of sebaceous cyst were prepared prepped and draped in standard sterile fashion. Pilonidal cyst excised with an elliptical incision using a 15 blade scalpel deepened with electrocautery-including the pits as well as the sinus towards the right. Interrupted 0 Vicryl sutures were used to help close down the space. Undermining was done to help allow skin edges to come together with less tension. Interrupted subdermal Vicryl sutures also placed along with 3-0 interrupted nylons for the skin. Gauze and 4 x 4 placed over the skin. Elliptical incision was planned around the pit of the sebaceous cyst. This was deepened with electrocautery. Sebaceous cyst was removed and sent to pathology–approximately 1.5 cm x 1.5 cm. Incision was closed with 3 oh subdermal interrupted Vicryl and skin with 3-0 interrupted nylon. OpSite was placed. The patient tolerated procedure well and was extubated and taken to the postanesthesia care unit in stable condition. Surgical Findings: See operative report Complications Complications: No
[2025-02-03] MEDS: Lactated Ringers 2,000 ML 2000 ML IV (08:17)
--- NOTE | 2025-02-03 08:19 | DCINST_ITS ---
Discharge Instructions Diet Discharge Diet: No restrictions Activity Discharge Activity: May Not Drive (for 2-3 days or while taking narcotic pain meds.) and May Shower Additional Activity Instructions:: Try sitting on 1 side versus the other and sit up straight down to help prevent incision tension Dressing / Incision Call your doctor if your incision/area has: Continuous Slow Oozing, Sudden Increased Bleeding, Increased Pain/ Swelling, Increased Redness and Foul Smelling Discharge Call your doctor if you observe: Fever of 101 or Higher Suture Line Care: Avoid Pulling/Pushing and Avoid Pinching/Bending Cleanse incision/area with: Keep Dressing Clean & Dry Additional Dressing/Incision Instructions:: Change or remove dressing in 1 day, change superior gluteal cleft dressing daily. Also okay to change back dressing daily okay to leave off if no drainage. Follow Up Care Please Follow Up With: Zuleima Ortega MD When: Please call [phone] to make a follow up appointment for suture removal in about 10 days Test Results: Test results from this visit will be discussed in further detail at your follow- up appointment, if applicable. Discharge Plan Admission Attending Provider: Zuleima Ortega Primary Care Provider: Elda Almonte Instructions Print Language: Chinese Discharge Orders/Prescriptions Prescriptions: New oxycodone 5 mg capsule 5 mg PO Q6H PRN (Reason: pain) 3 Days Qty: 10 0RF Continued lisinopril-hydrochlorothiazide 10-12.5 mg tablet 1 tab PO QDAY tizanidine 4 mg tablet 4 mg PO QDAY quetiapine 200 mg tablet 200 mg PO QHS paroxetine HCl 20 mg tablet 20 mg PO QDAY alprazolam 0.5 mg tablet 1.5 mg PO QHS doxazosin 2 mg tablet 2 mg PO QDAY oxycodone 5 mg tablet 5 mg PO TID PRN PRN (Reason: pain) Referrals / Follow Up: Elda Almonte, LOADING AND UNLOADING SUPERVISOR-C [Primary Care Provider, Family Practice] Disposition Disposition (needs filled in before D/C Order can be placed): Home, Self Care
--- NOTE | 2025-02-03 08:38 | PCM.POST.ANE ---
Anesthesia: Postop Eval I Current Vital Signs Temperature: 97.1 F Pulse Rate: 73 Blood Pressure: 128/101 Respiratory Rate: 20 Pulse Ox: 98 Oxygen Delivery Method: Room Air Assessment Airway patent: Yes Spontaneous unlabored respirations: Yes Mental status: Awake and Calm nausea: No Vomiting: No Anesthesia Complication: No Fluid Hydration Crystalloid volume administer (ml): 1,000 Total IV fluid infused: 1,000 Progress Note Anesthesia document: Postop Eval 1 completed: Yes
--- NOTE | 2025-02-03 15:40 | POSTOPAN2_ITS ---
Anesthesia Postop Eval I Sum Postop Eval Completion status Anesthesia document: Postop Eval 1 completed: Yes Anesthesia Postop Eval I Summary Anesthesia Postop Eval I Summary: Anesthesia Postop Eval I: Assessment Summary Airway patent Yes 02/03/25 08:38 DATA OPERATIONS [email or web address] Spontaneous unlabored Yes 02/03/25 08:38 DATA OPERATIONS [email or web address] respirations Mental status Awake,Calm 02/03/25 08:38 DATA OPERATIONS [email or web address] nausea No 02/03/25 08:38 DATA OPERATIONS [email or web address] Vomiting No 02/03/25 08:38 DATA OPERATIONS [email or web address] Anesthesia Postop Eval I: Fluid Summary Crystalloid volume administer 1,000 02/03/25 08:38 DATA OPERATIONS [email or web address] (ml) Colloids volume administered ( ml) Blood Product volume administered (ml) Total IV fluid infused 1,000 02/03/25 08:38 DATA OPERATIONS [email or web address] Anesthesia Postop Eval I: Summary Notes Anesthesia Complication No 02/03/25 08:38 DATA OPERATIONS [email or web address] Anesthesia Complication Comment: Post-operative progress note Anesthesia: Postop Eval II Evaluation Mental status: Awake Pain Level: 0 nausea: No Vomiting: No Complications Anesthesia Complication: No
--- NOTE | 2025-02-03 15:40 | PCM.POSTANE2 ---
Anesthesia Postop Eval I Sum Postop Eval Completion status Anesthesia document: Postop Eval 1 completed: Yes Anesthesia Postop Eval I Summary Anesthesia Postop Eval I Summary: Anesthesia Postop Eval I: Assessment Summary Airway patent Yes 02/03/25 08:38 [email or web address] Spontaneous unlabored Yes 02/03/25 08:38 [email or web address] respirations Mental status Awake,Calm 02/03/25 08:38 [email or web address] nausea No 02/03/25 08:38 [email or web address] Vomiting No 02/03/25 08:38 [email or web address] Anesthesia Postop Eval I: Fluid Summary Crystalloid volume administer 1,000 02/03/25 08:38 [email or web address] (ml) Colloids volume administered ( ml) Blood Product volume administered (ml) Total IV fluid infused 1,000 02/03/25 08:38 [email or web address] Anesthesia Postop Eval I: Summary Notes Anesthesia Complication No 02/03/25 08:38 [email or web address] Anesthesia Complication Comment: Post-operative progress note Anesthesia: Postop Eval II Evaluation Mental status: Awake Pain Level: 0 nausea: No Vomiting: No Complications Anesthesia Complication: No
== END 2025-02-03 10:02 | disposition home or self-care (01) ==
LOC: SDC 06:05 → AC 06:07
PROVIDERS: PCP Nurse Practitioner Family; Referring Provider Surgery; Visit Provider Surgery
DX: L05.91 Pilonidal cyst without abscess (principal); L72.0 Epidermal cyst; I10 Essential (primary) hypertension; G89.29 Other chronic pain; Z87.891 Personal history of nicotine dependence; F32.A Depression, unspecified
CPT/HCPCS: 11771; 00300; 88304; J2405

== ENCOUNTER 2025-03-11 13:42 | Emergency (ER) | payer MEDICARE, SELFPAY ==
[2025-03-11 13:44] VITALS: BP 117/84; PULSE 104; RESP 23; TEMP 36.1; O2SAT 95
[2025-03-11 16:20] VITALS: BMI 39.4
[2025-03-11 16:31] VITALS: BP 114/97; PULSE 71; RESP 15; O2SAT 95
--- NOTE | 2025-03-11 16:43 | CT_ITS ---
PROCEDURE: BRAIN/HEAD WITHOUT CONTRAST 03/11/2025 REASON FOR EXAM: FALL TECHNIQUE: Procedure Code: CTBR Modality: CT Procedure: BRAIN/HEAD WITHOUT CONTRAST Coronal and Sagittal reconstruction series were provided. One or more dose reduction techniques were used (e.g., Automated exposure control, adjustment of the mA and/or kV according to patient size, use of iterative reconstruction technique. RADIATION DOSE SUMMARY: DLP: 745 mGycm COMPARISON: None FINDINGS: There is no acute infarct, intracranial hemorrhage, or mass effect. There is no hydrocephalus or significant midline shift. There is mild chronic microvascular ischemic changes and mild parenchymal volume loss. No acute, depressed calvarial fractures. Mild right frontal scalp contusion. The paranasal sinuses are clear. CT/Brain/Head without Contrast IMPRESSION: No acute intracranial process. Reading Location: [id number]
--- NOTE | 2025-03-11 17:00 | RAD_ITS ---
PROCEDURE: HIP, UNI W/ PELVIS 2-3 VIEWS 03/11/2025 REASON FOR EXAM: FALL LEFT HIP PAIN TECHNIQUE: Procedure Code: RAD Modality: DX Procedure: HIP, UNI W/ PELVIS 2-3 VIEWS Laterality: Left COMPARISON: None. FINDINGS: No acute fracture or dislocation. Alignment is anatomic. Intact bilateral hip joints with mild degenerative arthrosis. Grossly unremarkable soft tissues. RAD/HIP, UNI W/ Pelvis 2-3 Views IMPRESSION: No acute fracture or dislocation. Reading Location: [id number]
[2025-03-11 18:22] VITALS: BP 137/99; PULSE 91; RESP 15; O2SAT 97
[2025-03-11 18:49] VITALS: BP 123/86; PULSE 68; RESP 18; TEMP 36.9; O2SAT 100
--- NOTE | 2025-03-11 19:04 | ED.VIS.FALL ---
HPI HPI - Fall History of Present Illness Chief Complaint: Fall Narrative Narrative: Patient was seen and examined after presenting to ED for fall states that he took his medications and then redosed himself within a shorter time window than they should have so he felt doped up and so he ended up feeling a little off balanced and he ended up falling hitting his left hip on the floor states that he has he is unsure if he hit his head. PFSH PFSH Medical History Anxiety Marijuana use Arthritis Hepatitis C Bulging disc Back pain Chronic pain Pilonidal cyst Depression Hypertension Home Medications ?Medication ?Instructions ?Recorded ?Last Taken ?Type alprazolam 0.5 mg tablet 1.5 mg PO QHS 10/27/24 02/02/25 History doxazosin 2 mg tablet 2 mg PO QDAY 10/27/24 02/02/25 History lisinopril 10 1 tab PO QDAY 10/27/24 02/02/25 History mg-hydrochlorothiazide 12.5 mg tablet paroxetine HCl 20 mg tablet 20 mg PO QDAY 10/27/24 02/02/25 History quetiapine 200 mg tablet 200 mg PO QHS 10/27/24 Unknown History tizanidine 4 mg tablet 4 mg PO QDAY 10/27/24 02/02/25 History doxycycline hyclate 100 mg capsule 100 mg PO BID #12 caps 02/18/25 Unknown Rx Allergy/AdvReac Type Severity Reaction Status Date / Time No Known Allergies Allergy Verified 03/11/25 13:46 Family History Mother No problems noted. Father No problems noted. Surgical History S/P pilonidal cyst excision History of carpal tunnel surgery of right wrist History of bilateral knee replacement History of appendectomy History of hernia surgery Social History Smoking Status: Former smoker quit date: 08/25/23 pack-years: 20 Electronic Cigarette Use: with nicotine alcohol intake: current alcohol intake frequency: holidays/special occasions only substance use type: does not use ROS ROS ED ROS Narrative Pertinent Positives: Fall left hip pain Pertinent Negatives: Bleeding disorders use of anticoagulation chest pain pressure shortness of breath numbness tingling vomiting vision changes The remainder of review of systems negative unless otherwise stated in the HPI above. Systems reviewed including constitutional, psychiatric, cardiovascular, respiratory, integument, HENT, gastrointestinal. EXAM Physical Exam Narrative Exam Narrative: Patient has an intact airway bilateral breath sounds regular rate blood pressure a GCS of 15 pupils equal round reactive to light nontender cervical thoracic and lumbar spine no step-off deformities he is normocephalic and atraumatic pain on palpation of his left hip but his pelvis is otherwise stable he has intact and equal MSPs in all of his extremities full range of motion as well Const Vital Signs: 03/11/25 13:44 03/11/25 16:20 03/11/25 16:31 Temperature 97 F L Temperature Source Temporal Pulse Rate 104 H 71 Respiratory Rate 23 H 15 Respiratory Effort Normal Respiratory Depth Normal Respiratory Pattern Normal Blood Pressure 117/84 H 114/97 H Blood Pressure Mean 95 102 Pulse Ox 95 95 Oxygen Delivery Method Room Air Room Air Room Air 03/11/25 18:22 03/11/25 18:49 Temperature 98.5 F Temperature Source Pulse Rate 91 68 Respiratory Rate 15 18 Respiratory Effort Respiratory Depth Respiratory Pattern Blood Pressure 137/99 H 123/86 H Blood Pressure Mean 111 98 Pulse Ox 97 100 Oxygen Delivery Method Room Air MDM MDM MDM Narrative Medical decision making narrative: Nursing notes, triage notes, available previous documentation, and vital signs were reviewed. Any discrepancies noted were addressed. Differential Diagnoses: We will evaluate make sure there is no intracranial injury or hip injury but low suspicion for them. No prodromal symptoms such as chest pain or shortness of breath or vision changes he did state that he believes he took his medications a little too close together however causing him to be a little more as he stated doped up Imaging Reviewed: Personally reviewed and interpreted by me: Plain films of the left hip and pelvis without acute pathology also when I reviewed the patient's CT of the head I do not see any obvious intracranial bleed Previous Documentation Reviewed: None available or applicable at this time. ED Course: Patient presenting with injuries as stated above his workup was unremarkable fortunately he was up and ambulatory at the scene at this point in time he would like to go home return precautions follow-up recommendations provided patient stable for discharge. This note was made utilizing voice recognition software. All attempts were made to correct spelling or other errors prior to note completion. However, due to the fast-paced nature of emergency medicine, some errors may still be present. Radiography Diagnostic Testing: Clinical Impression(s) from Imaging Studies Brain CT 03/11/25 16:43 IMPRESSION: No acute intracranial process. Reading Location: [facility] Hip/Pelvis X-Ray 03/11/25 17:00 IMPRESSION: No acute fracture or dislocation. Reading Location: [id number] Discharge Plan Triage Chief Complaint: Fall ED Provider: Jesusita Portillo Dx/Rx/DC Orders Clinical Impression: Fall from standing, Contusion of left hip, Hip pain, left Instructions: ED Fall Prevention Prescriptions: No Action lisinopril-hydrochlorothiazide 10-12.5 mg tablet 1 tab PO QDAY tizanidine 4 mg tablet 4 mg PO QDAY quetiapine 200 mg tablet 200 mg PO QHS paroxetine HCl 20 mg tablet 20 mg PO QDAY alprazolam 0.5 mg tablet 1.5 mg PO QHS doxazosin 2 mg tablet 2 mg PO QDAY doxycycline hyclate 100 mg capsule 100 mg PO BID Qty: 12 0RF Primary Care Provider: Elda Almonte Referrals: Elda Almonte, HEALTH AND SAFETY ADVISOR-C [Primary Care Provider, Family Practice] Print Language: Citizen Of [place] Disposition Disposition: Home, Self Care Discharge Date/Time: 03/11/25 18:53
== END 2025-03-11 18:53 | disposition home or self-care (01) ==
PROVIDERS: Emergency Provider Specialist/Technologist Athletic Trainer; PCP Nurse Practitioner Family; Visit Provider Specialist/Technologist Athletic Trainer
DX: S70.02XA Contusion of left hip, initial encounter (principal); W19.XXXA Unspecified fall, initial encounter; M25.552 Pain in left hip; Z87.891 Personal history of nicotine dependence; I10 Essential (primary) hypertension
CPT/HCPCS: 70450; 73502; 99282